=== PATIENT | female | born 2005 | race Caucasian/White ===

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

== ENCOUNTER 2025-01-28 09:40 | Emergency (ER) | payer OTHER, SELFPAY ==
[2025-01-28 09:40] VITALS: BP 116/61; PULSE 99; RESP 18; TEMP 36.4; O2SAT 98; BMI 25.2
--- NOTE | 2025-01-28 09:51 | ED.VIS.DYS ---
HPI History of Present Illness Chief Complaint: Asthma Narrative Narrative: 20-year-old female past medical history of asthma presents with shortness of breath that she has had for a week. She denies any fevers or chills, no cough, no nausea or vomiting. She states that she had RSV as a child and popcorn lung. She was seen at urgent care on approximately 3 days ago where she states that she received an injection of a steroid which is not helping her. She usually uses Symbicort as well as albuterol and had to use her nebulizer treatment within the last day. She presents with what she feels is having more of an asthma exacerbation for the last week. [facility] Medical History Cephalgia Lumbar radiculopathy Lumbar strain Dog bite of left buttock Nexplanon in place Acute otitis externa of right ear RSV (respiratory syncytial virus infection) Bronchiolitis obliterans Asthma Anxiety Depression Home Medications ?Medication ?Instructions ?Recorded ?Last Taken ?Type cetirizine 10 mg capsule (Zyrtec) 10 mg PO DAILY PRN Allergies 02/16/18 Unknown History fluticasone propionate 50 1 spray intranasal DAILY 02/23/23 Unknown History mcg/actuation nasal spray,suspension (Flonase Allergy Relief) melatonin 5 mg tablet 5 mg PO HS PRN sleep 02/23/23 Unknown History etonogestrel 68 mg subdermal 1 implant subdermal ONCE 05/22/23 Unknown History implant (Nexplanon) albuterol sulfate 90 mcg/actuation 1 - 2 puff inhalation Q4H PRN PRN 06/16/23 Unknown Rx aerosol inhaler (ProAir HFA) Sob &/Or Wheezing #6.7 grams budesonide-formoterol HFA 80 inhalation sob 07/20/24 Unknown History mcg-4.5 mcg/actuation aerosol inhaler (Symbicort) ondansetron HCl 8 mg tablet 8 mg PO Q8H PRN nausea and 08/04/24 Unknown Rx vomiting #14 tabs fluoxetine 10 mg capsule 10 mg PO QDAY #30 caps 11/03/24 Unknown Rx albuterol sulfate 90 mcg/actuation 2 puff inhalation Q4-6H PRN 01/26/25 Unknown Rx aerosol inhaler (Ventolin HFA) shortness of breath or wheezing #6.7 grams prednisone 20 mg tablet 40 mg (2 x 20 mg) PO DAILY 4 days 01/28/25 Unknown Rx #8 tabs Allergy/AdvReac Type Severity Reaction Status Date / Time Environmental Allergies: Allergy Other Verified 01/28/25 09:40 Uncoded peanut Allergy Anaphylaxis Verified 01/28/25 09:40 Family History Other Anxiety Asthma CVA (cerebral vascular accident) Cancer Depression Diabetes Heart disease Hypercholesteremia Hypertension Kidney disease Surgical History History of oral surgery Social History Smoking Status: Never smoker alcohol intake: never substance use type: does not use frequency: daily ROS ROS ED ROS Narrative Review of systems positive for shortness of breath and difficulty breathing x 1 week. No fevers or chills. No cough. No exacerbating or alleviating factors. EXAM Physical Exam Narrative Exam Narrative: Afebrile. Vital signs noted. Nontoxic-appearing. Cardiovascular examination reveals regular rate and rhythm. Lungs are clear to auscultation bilaterally without wheezing or stridor, moving a good amount of air, but she has slightly prolonged expiratory phase. Abdomen is soft and nontender with positive bowel sounds. Neurological examination nonfocal, nonlateralizing. Const Vital Signs: 01/28/25 09:40 01/28/25 09:52 01/28/25 10:06 Temperature 97.5 F L Temperature Source Temporal Pulse Rate 99 74 Respiratory Rate 18 18 Respiratory Effort Non-Labored Short of Breath Respiratory Depth Normal Respiratory Pattern Normal Normal Blood Pressure 116/61 Blood Pressure Mean 79 Pulse Ox 98 Oxygen Delivery Method Room Air Room Air 01/28/25 11:01 Temperature 97.8 F Temperature Source Pulse Rate 70 Respiratory Rate 16 Respiratory Effort Respiratory Depth Respiratory Pattern Blood Pressure 125/61 H Blood Pressure Mean 82 Pulse Ox 96 Oxygen Delivery Method MDM MDM MDM Narrative Medical decision making narrative: Differential diagnosis includes but not limited to asthma exacerbation versus pneumonia versus pneumothorax. History and physical does not support the latter 2 diagnoses. Pulse ox is 98% on room air without evidence of hypoxia. Patient administered a DuoNeb aerosolized treatment and start of a prednisone burst orally with 40 mg as she has already received an intramuscular injection of what she called prednisone which I suspect might have been Kenalog but she seems to recall that it was a smaller dose. Chest x-ray and 2 views will be obtained and interpreted by myself independently. On my independent interpretation of her two-view chest x-ray there is no evidence of a pneumonia or pneumothorax. I do not feel antibiotics are indicated. I reviewed the radiology report which confirms my independent interpretation. Upon repeat examination, she feels improved, and is using her cellular telephone lying on the cot comfortably. No respiratory distress. At this point in time, I feel she could be discharged to follow-up with her primary care provider. I reviewed her prior ED visit and she received a burst of steroids. I do feel she would benefit from an oral burst of steroids for the following 4 days. She was written a prescription for prednisone 40 mg. Return instructions to the emergency department were reviewed. She was encouraged to use her inhaler versus her nebulizer treatments every 4-6 hours as needed. Disposition is discharged home in stable condition. History & Record Review Discussion w/independent historian: Patient Additional record(s) reviewed:: Prior ED visit Radiography Chest X-Ray - ED: 2 View, Read by ED Physician, Read by Radiologist, Normal, No Acute Disease and No Infiltrates Diagnostic Testing: Clinical Impression(s) from Imaging Studies Chest X-Ray 01/28/25 10:15 IMPRESSION: NO ACUTE FINDINGS. Reading Location: [facility] Discharge Plan Triage Chief Complaint: Asthma ED Provider: Anoop Houser Dx/Rx/DC Orders Clinical Impression: Shortness of breath, Asthma exacerbation Instructions: ED Asthma, Acute (Adult), ED Dyspnea Prescriptions: New prednisone 20 mg tablet 40 mg PO DAILY 4 Days Qty: 8 0RF No Action melatonin 5 mg tablet 5 mg PO HS PRN (Reason: sleep) fluticasone propionate [Flonase Allergy Relief] 50 mcg/actuation spray,suspension 1 spray intranasal DAILY Rx Instructions: administer into each nostril Nexplanon 68 mg implant 1 implant subdermal ONCE Rx Instructions: as a single dose budesonide-formoterol [Symbicort] 80-4.5 mcg/actuation HFA aerosol inhaler inhalation Patient Comments: [NO ORIGINAL SIG] ondansetron HCl 8 mg tablet 8 mg PO Q8H PRN (Reason: nausea and vomiting) Qty: 14 0RF fluoxetine 10 mg capsule 10 mg PO QDAY Qty: 30 1RF albuterol sulfate [Ventolin HFA] 90 mcg/actuation HFA aerosol inhaler 2 puff inhalation Q4-6H PRN (Reason: shortness of breath or wheezing) Qty: 6.7 0RF Zyrtec 10 MG capsule 10 mg PO DAILY PRN (Reason: Allergies) albuterol sulfate [ProAir HFA] 1 PUFF inhaler 1 - 2 puff inhalation Q4H PRN PRN (Reason: Sob &/Or Wheezing) Qty: 6.7 0RF Primary Care Provider: Uvaldo Lentz Referrals: Uvaldo Lentz MD [Primary Care Provider, Pediatrics] - 1 Week if not improving Activity Restrictions/Additional Instructions: Use your albuterol inhaler or nebulizer treatment every 4-6 hours as needed for shortness of breath. You are given a dose of steroids here. You should continue the burst for the next 4 days starting tomorrow. Follow-up with your primary care provider. Return with fever, increased difficulty breathing, new or worsening symptoms. Print Language: Jordanian Disposition Disposition: Home, Self Care
[2025-01-28 09:52] VITALS: O2SAT 99
[2025-01-28 10:06] VITALS: PULSE 74; RESP 18
--- OUTSIDE RECORDS SUMMARY | 2025-01-28 10:14 | XMS RPT_ITS | CCD ---
Author Organization [facility] Providers Care [place] Customs And Border Officer Name Role Phone UVALDO JORGENSEN Unavailable Unavailable STEVE HARTLEY Unavailable Unavailable OMLOR, SUZANNA Unavailable Unavailable OMLOR, SUZANNA Unavailable Unavailable LAMAR LANDA Unavailable Unavailable OTHER, EMERGENCY Unavailable Unavailable UVALDO JORGENSEN Unavailable Unavailable Uvaldo Jorgensen MD Primary Care Provider Uvaldo Jorgensen MD Primary Care Provider Uvaldo Jorgensen MD Primary Care Provider Dr. Uvaldo Jorgensen Primary Care Provider Dr. Uvaldo Jorgensen Referring Provider YOSELYN Wilcox Attending Provider YOSELYN Pinzon Attending Provider Uvaldo Jorgensen MD Primary Care Provider DR UVALDO JORGENSEN MD Primary Care Physician UVALDO JORGENSEN Attending Unavailable UVALDO JORGENSEN Primary Care Unavailable UVALDO JORGENSEN Attending Unavailable UVALDO JORGENSEN Primary Care Unavailable UVALDO JORGENSEN Primary Care Unavailable UVALDO JORGENSEN Attending Unavailable UVALDO JORGENSEN Primary Care Unavailable DR UVALDO JORGENSEN MD Primary Care Unavailabl e DWAYNE DOJANELL Attending Unavailable ASHWINI RENTERIA DO Attending Unavailable DR UVALDO JORGENSEN MD Primary Care Unavailabl e Uvaldo Jorgensen Primary Care Unavailable Shira Pastor Attending Unavailable Uvaldo Jorgensen Referring Unavailable Uvaldo Jorgensen Attending Unavailable Uvaldo Jorgensen Primary Care Unavailable Uvaldo Jorgensen Primary Care Unavailable Francisco Javier Wilcox Referring Unavailable Francisco Javier Wilcox Attending Unavailable Uvaldo Jorgensen Primary Care Unavailable Christal Paulino Attending Unavailable Shira Pastor Attending Unavailable Mary Carmen, Uvaldo Primary Care Unavailable Skruck, Christal Attending Unavailable Mary Carmen, Uvaldo Primary Care Unavailable Mary Carmen, Uvaldo Primary Care Unavailable Mary Carmen, Uvaldo Referring Unavailable Ranjan Pinzon Attending Unavailable Mary Carmen, Uvaldo Primary Care Unavailable Skruck, Christal Attending Unavailable Mary Carmen, Uvaldo Primary Care Unavailable Pastor, Shira Attending Unavailable Mary Carmen, Uvaldo Primary Care Unavailable Skruck, Christal Attending Unavailable Mary Carmen, Uvaldo Primary Care Unavailable Skruck, Christal Attending Unavailable Mary Carmen, Uvaldo Primary Care Unavailable Pastor, Shira Attending Unavailable Mary Carmen, Uvaldo Primary Care Unavailable Skruck, Christal Attending Unavailable Mary Carmen, Uvaldo Primary Care Unavailable Pastor, Shira Attending Unavailable Mary Carmen, Uvaldo Primary Care Unavailable Mary Carmen, Uvaldo Referring Unavailable Francisco Javier Wilcox Attending Unavailable Mary Carmen, Uvaldo Primary Care Unavailable Skruck, Christal Attending Unavailable Mary Carmen, Uvaldo Primary Care Unavailable Pastor, Shira Attending Unavailable Mary Carmen, Uvaldo Primary Care Unavailable Skruck, Christal Attending Unavailable Mary Carmen, Uvaldo Referring Unavailable Ranjan Pinzon Attending Unavailable Mary Carmen, Uvaldo Primary Care Unavailable Allergies Allergy Classification Reported Allergen(s) Allergy Type Date of Onset Reaction(s) Facility cashew nut allergenic extract (2 sources) cashew nut allergenic extract Drug Allergy 3 [facility] Peanuts and Peanut Containing Products (2 sources) peanut Food Allergy 8 [facility] (1 source) peanut; Translations: [PEANUT ALLERGY] Propensity to adverse reactions to drug (disorder) 8 [facility] Repository (1 source) Seasonal allergy; Translations: [SEASONAL ALLERGIES] Propensity to adverse reactions (disorder) 8 [facility] Repository (20 sources) peanut; Translations: [PEANUTS] Propensity to adverse reactions 8 [facility] Work Phone: (20 sources) Environmental allergies [Other] Propensity to adverse reactions 8 [facility] (3 sources) peanut allergenic extract Drug Allergy 2 Anaphylaxis [facility] (20 sources) cashew nut allergenic extract; Translations: [CASHEW NUT] Drug Allergy 3 Other: See Comments, [facility] Work Phone: (2 sources) Environmental Allergies: Uncoded; Translations: [Environmental Allergies: Uncoded] Allergy to substance 3 Other [facility] (1 source) peanut allergenic extract Drug Allergy 5 [facility] Repository Medications Current Medications Medication Drug Class(es) Dates Sig (Normalized) Sig (Original) [id number] 200 actuat albuterol 0.09 mg/actuat metered dose inhaler (20 sources) beta2-Adrenergic Agonist Start: 08-15-2024 take 2 puff(s) by mouth every four hours as needed for wheezing albuterol HFA (PROVENTIL HFA, VENTOLIN HFA) 90 mcg/actuation inhaler INHALE 2 PUFFS BY MOUTH EVERY 4 HOURS NEEDED FOR WHEEZING OR SHORTNESS OF BREATH 8.5 g 08/15/2024 Active Start: 05-19-2024 End: 06-23-2024 take 2 puff(s) by inhalation every four hours as needed for wheezing albuterol HFA (PROVENTIL HFA, VENTOLIN HFA) 90 mcg/actuation inhaler Inhale 2 Puffs as instructed every 4 hours as needed for wheezing/shortness of breath. 8.5 g 06/23/2024 Active Start: 02-26-2024 take 2.5 mg by inhal ation every four hours as needed albuterol (PROVENTIL) 2.5 mg /3 mL (0.083 %) nebulizer solution Use 3 mL via nebulizer every 4 hours as needed. single dose vials. 1 vial contains 3 ml 300 mL 02/26/2024 Active Start: 02-26-2024 albuterol 0 Re fill(s) Start Date: 02/26/24 Status: Ordered Repeat number: 1 Start: 02-26-2024 albuterol 0 Re fill(s) Start Date: 02/26/24 Status: Ordered Start: 02-18-2024 End: 02-18-2024 take 2 puff(s) by mouth every four hours as needed for wheezing albuterol HFA (PROVENTIL HFA, VENTOLIN HFA) 90 mcg/actuation inhaler inhale 2 puffs by mouth every 4 hours as needed for wheezing or shortness of breath 8.5 g 02/18/2024 02/18/2024 Discontinued Start: 10-26-2023 End: 05-15-2024 take 2 puff(s) by inhalation every four hours as needed for wheezing albuterol HFA (PROVENTIL HFA, VENTOLIN HFA) 90 mcg/actuation inhaler Inhale 2 Puffs as instructed every 4 hours as needed for wheezing/shortness of breath. 8.5 g 05/16/2024 Active Start: 10-27-2022 End: 10-26-2023 take 2 puff(s) by inhalation every four hours as needed for wheezing albuterol HFA (PROVENTIL HFA, VENTOLIN HFA) 90 mcg/actuation inhaler Inhale 2 Puffs as instructed every 4 hours as needed for wheezing/shortness of breath. 6.7 Each 2 03/30/2023 07/25/2023 Discontinued Start: 10-03-2022 take 2 puff(s) by in halation every four hours as needed for wheezing albuterol HFA (PROVENTIL HFA, VENTOLIN HFA) 90 mcg/actuation inhaler Inhale 2 Puffs as instructed every 4 hours as needed for wheezing/shortness of breath. 18 Each 0 10/03/2022 Active Start: 09-10-2022 take 2 puff(s) by in halation every four to six hours as needed for wheezing albuterol HFA (PROVENTIL HFA, VENTOLIN HFA) 90 mcg/actuation inhaler TAKE 2 PUFFS EVERY 4-6 HOURS NEEDED FOR WHEEZING OR SHORTNESS OF BREATH. ALWAYS USE WITH SPACER. 18 Each 0 09/10/2022 Active Start: 08-14-2022 End: 09-10-2022 take 2 puff(s) by inhalation every four to six hours as needed for wheezing albuterol HFA (PROVENTIL HFA, VENTOLIN HFA) 90 mcg/actuation inhaler TAKE 2 PUFFS EVERY 4-6 HOURS NEEDED FOR WHEEZING OR SHORTNESS OF BREATH. ALWAYS USE WITH SPACER. 18 g 0 08/14/2022 09/10/2022 Discontinued Start: 07-29-2022 End: 08-14-2022 take 2 puff(s) by inhalation every four to six hours as needed for wheezing albuterol HFA (PROVENTIL HFA, VENTOLIN HFA) 90 mcg/actuation inhaler Indications: Viral illness Take 2 puffs every 4-6 hours as needed for wheezing or shortness of breath. Always use with spacer. 1 Each 0 07/29/2022 08/14/2022 Discontinued Start: 06-16-2022 End: 07-29-2022 take 2 puff(s) by inhalation every four hours as needed albuterol HFA (PROVENTIL HFA, VENTOLIN HFA) 90 mcg/actuation inhaler Inhale 2 Puffs as instructed every 4 hours as needed. 1 Each 0 06/16/2022 07/29/2022 Discontinued Start: 07-24-2021 End: 05-02-2022 take 2 puff(s) by inhalation every four hours as needed albuterol HFA (PROVENTIL HFA, VENTOLIN HFA) 90 mcg/actuation inhaler Inhale 2 Puffs as instructed every 4 hours as needed. 54 g 3 07/24/2021 05/02/2022 Discontinued Start: 06-28-2021 End: 04-18-2022 take 2 puff(s) by inhalation every four hours as needed albuterol HFA (PROVENTIL HFA, VENTOLIN HFA) 90 mcg/actuation inhaler Inhale 2 Puffs as instructed every 4 hours as needed. 1 Inhaler 06/28/2021 04/18/2022 Discontinued Start: 04-22-2021 End: 05-02-2022 take 2 puff(s) by inhalation every four hours as needed albuterol HFA (PROVENTIL HFA, VENTOLIN HFA) 90 mcg/actuation inhaler Inhale 2 Puffs as instructed every 4 hours as needed. 8 g 03/09/2022 05/02/2022 Discontinued Start: 11-08-2020 End: 05-02-2022 take 2.5 mg by inhalation every four hours as needed albuterol (PROVENTIL) 2.5 mg /3 mL (0.083 %) nebulizer solution Use 3 mL via nebulizer every 4 hours as needed. single dose vials. 1 vial contains 3 ml 300 mL 11/08/2020 03/04/2021 Discontinued Start: 08-13-2020 End: 03-08-2021 take 2 puff(s) by inhalation every four hours as needed albuterol HFA (PROVENTIL HFA, VENTOLIN HFA) 90 mcg/actuation inhaler Inhale 2 Puffs as instructed every 4 hours as needed. 54 g 3 12/26/2020 03/08/2021 Discontinued Start: 10-02-2017 take 1 puff(s) by in halation every four hours as needed Albuterol Sulfate (Proair Hfa (Sp)Vent Pts) 1 PUFF inhaler Active 1 - 2 PUFF INHALATION EVERY 4 HOURS NEEDED October 02, 2017 12:00am Comment on above: Use 3 mL via nebuliz er every 4 hours as needed. single dose vials. 1 vial contains 3 ml Inhale 2 Puffs as in structed every 4 hours as needed. Take 2 puffs every 4 -6 hours as needed for wheezing or shortness of breath. Always use with spacer. Inhale 2 Puffs as in structed every 4 hours as needed for wheezing/shortness of breath. albuterol MDI (90 mcg/inh) CFC free inhalation aerosol (2 sources) Start: take 2 puff(s) by inhalation every four hours albuterol MDI (90 mcg/inh) CFC free inhalation aerosol 2 puff(s), Inhalation, q4h, # 18 gram(s), 0 Refill(s) Start Date: 02/26/24 Status: Ordered Quantity: 18.0 Unit: g Repeat number: 1 Start: 02-26-2024 take 2 puff(s) by in halation every four hours albuterol MDI (90 mcg/inh) CFC free inhalation aerosol 2 puff(s), Inhalation, q4h, # 18 gram(s), 0 Refill(s) Start Date: 02/26/24 Status: Ordered Albuterol Sulfate (Proair Hfa (Sp)Vent Pts) 1 PUFF inhaler (1 source) Start: 10-02-2017 take 1 puff(s) by inhalation every four hours as needed Albuterol Sulfate (Proair Hfa (Sp)Vent Pts) 1 PUFF inhaler Active 1 - 2 PUFF INHALATION EVERY 4 HOURS NEEDED October 01, 2017 11:00pm amoxicillin 875 mg / clavulanate 125 mg oral tablet (2 sources) Penicillin-class Antibacterial Start: 08-21-2022 End: 08-26-2022 take 1 tablet by mouth twice daily amoxicillin-clavu lanic acid (AUGMENTIN) 875-125 mg per tablet Indications: Acute sinusitis, recurrence not specified, unspecified location Take 1 tablet by mouth twice daily for 5 days. 10 tablet 0 08/21/2022 08/26/2022 Active Comment on above: Take 1 tablet by [facility] twice daily for 5 days. 60 actuat budesonide 0.08 mg/actuat / formoterol fumarate 0.0045 mg/actuat metered dose inhaler (7 sources) Corticosteroid, beta2-Adrenergic Agonist Start: 01-10-2025 take 2 puff(s) by mouth twice daily SYMBICORT 80-4.5 mcg/actuation inhaler INHALE 2 PUFFS BY MOUTH INSTRUCTED TWICE DAILY 10.2 g 01/10/2025 Active Start: 06-23-2024 End: 01-10-2025 take 2 puff(s) by inhalation twice daily budesonide-formoterol (SYMBICORT) 80-4.5 mcg/actuation inhaler Inhale 2 Puffs as instructed two times a day. 1 Each 5 06/23/2024 01/10/2025 Discontinued Start: 06-23-2024 take 2 puff(s) by in halation twice daily budesonide-formoterol (SYMBICORT) 80-4.5 mcg/actuation inhaler Inhale 2 Puffs as instructed two times a day. 1 Each 5 06/23/2024 Active cephalexin 500 mg oral tablet (2 sources) Cephalosporin Antibacterial Start: 07-06-2024 End: 07-13-2024 cephalexin 500 mg oral tablet Dose : 500 mg = 1 tab(s), Oral, QID, X 7 day(s), # 28 tab(s), 0 Refill(s), 07/13/24 11:00:00 AM EST, 77.3 Start Date: 07/06/24 Stop Date: 07/13/24 Status: Ordered Quantity: 28.0 Unit: tab(s) Repeat number: 1 Start: 08-12-2023 End: 08-19-2023 take 1 capsule by mouth twice daily cephALEXin (KEFLEX) 500 mg capsule Take 1 capsule by mouth two times a day for 7 days. 14 capsule 0 08/12/2023 08/19/2023 Active Comment on above: Take 1 capsule by [facility] two times a day for 7 days. cetirizine hydrochloride 10 mg oral capsule (14 sources) Histamine-1 Receptor Antagonist Start: 02-17-20 Cetirizine 10 mg cap Take by mouth. 02/16/2018 Active 60 actuat ciclesonide 0.08 mg/actuat metered dose inhaler (20 sources) Start: 07-30-19 End: 09-21-19 take 1 puff(s) by inhalation twice daily Ciclesonide (ALVESCO) 80 mcg/actuation inhaler Indications: Viral illness Inhale 1 Puff as instructed twice daily. Always use with spacer. 6.1 g 0 08/21/2022 09/20/2022 Active Start: 01-12-2021 End: 08-21-2022 take 1 puff(s) by mouth twice daily Ciclesonide (ALVESCO) 80 mcg/actuation inhaler Inhale 1 puff by mouth as instructed twice daily. 18.3 g 3 01/12/2021 05/02/2022 Discontinued Start: 08-13-2020 End: 01-12-2021 take 1 puff(s) by mouth twice daily Ciclesonide (ALVESCO) 80 mcg/actuation inhaler Inhale 1 puff by mouth as instructed twice daily. 6.1 g 2 08/13/2020 01/12/2021 Discontinued Comment on above: [facility]. Inhale 1 Puff as ins tructed twice daily. Always use with spacer. [id number] 0.3 ml EPINEPHrine 1 mg/ml auto-injector (20 sources) alpha-Adrenergic Agonist, beta-Adrenergic Agonist, Catecholamine Start: 12-26-2020 End: 08-10-2023 EPINEPHrine (EPIPEN) 0.3 mg/0.3 mL auto-injector Inject 0.3 mL intramuscularly as needed. 2 Each 1 08/10/2023 Active Start: 12-31-2019 End: 12-25-2020 EPINEPHrine (EPIPEN) 0.3 mg/ 0.3 mL auto-injector INJECT 0.3 ML INTRAMUSCULARLY NEEDED. 2 Each 12/31/2019 12/25/2020 Discontinued Comment on above: Inject 0.3 mL intram uscularly as needed. escitalopram 20 mg oral tablet (20 sources) Serotonin Reuptake Inhibitor Start: 02-26-2024 escitalopram Oral, qDay, 0 Refill(s) Start Date: 02/26/24 Status: Ordered Repeat number: 1 Start: 02-26-2024 escitalopram O ral, qDay, 0 Refill(s) Start Date: 02/26/24 Status: Ordered Start: 06-16-2022 End: 06-23-2024 take 1 tablet by mouth once daily escitalopram oxalate (LEXAPRO) 20 mg tablet Take 1 tablet by mouth once daily. 90 tablet 06/23/2024 Active Start: 03-10-2022 End: 05-02-2022 take 1 tablet by mouth once daily escitalopram oxalate (LEXAPRO) 20 mg tablet Take 1 tablet by mouth once daily. 90 tablet 03/10/2022 05/02/2022 Discontinued Start: 01-01-2022 End: 03-10-2022 take 1 tablet by mouth once daily escitalopram oxalate (LEXAPRO) 5 mg tablet TAKE 1 TABLET BY MOUTH DAILY IN. TAKE IN ADDITION TO 10 MG FOR TTL DAILY DOSE OF 15 MG. 90 tablet 1 01/01/2022 03/10/2022 Discontinued Start: 07-19-2021 End: 12-30-2021 take 1 tablet by mouth once daily escitalopram oxalate (LEXAPRO) 5 mg tablet TAKE 1 TABLET BY MOUTH DAILY IN. TAKE IN ADDITION TO 10 MG FOR TTL DAILY DOSE OF 15 MG. 90 tablet 1 12/17/2021 12/30/2021 Discontinued Start: 05-08-2021 End: 03-10-2022 take 1 tablet by mouth once daily escitalopram oxalate (LEXAPRO) 10 mg tablet Take 1 tablet by mouth once daily. 90 tablet 1 09/09/2021 03/10/2022 Discontinued Comment on above: Take 1 tablet by dexter th once daily. to add to 10 mg for a total dose of 15 mg Take 1 tablet by dexter th once daily. TAKE 1 TABLET BY DEXTER TH DAILY IN. TAKE IN ADDITION TO 10 MG FOR TTL DAILY DOSE OF 15 MG. take 1 tablet by dexter th every day etonogestrel 68 mg drug implant (20 sources) Progestin Start: 04-28-20 End: 04-27-20 etonogestrel (NEXPLANON) subdermal implant 68 mg Indications: Insertion of implantable subdermal contraceptive 1 Each by SUBDERMAL route as directed. 1 Each 04/28/2023 04/27/2026 Active Comment on above: 1 Each by SUBDERMAL route as directed. fluticasone propionate 0.05 mg/actuat metered dose nasal spray (20 sources) Corticosteroid Start: 08-10-19 take 1 spray(s) nasal route once daily fluticasone (FLONASE ALLERGY RELIEF) 50 mcg/actuation nasal spray Use 1 [place] in each nostril once daily. 1 Each 5 08/10/2023 Active Start: 02-23-2023 take 1 spray(s) nasa l route once daily Fluticasone Propionate (Flonase Allergy Relief) 50 mcg/actuation spray,suspension Active 1 SPRAY INTRANASAL DAILY February 22, 2023 11:00pm administer into each nostril Start: 01-07-2023 End: 08-10-2023 take 1 puff(s) by inhalation twice daily Fluticasone Propionate (FLOVENT DISKUS) 50 mcg/actuation diskus inhaler Inhale 1 Puff as instructed twice daily. 1 Each 01/07/2023 08/10/2023 Discontinued Start: 02-16-2018 End: 01-02-2023 fluticasone (FLOVENT) 110 mcg/actuation inhaler Inhale as instructed. 0 02/16/2018 01/02/2023 Discontinued Start: 02-16-2018 take 1 puff(s) by in halation twice daily Fluticasone Propionate (Flovent Hfa) 110 HFA aerosol inhaler Active 2 PUFF INHALATION TWICE A DAY February 15, 2018 11:00pm Start: 02-16-2018 take 1 puff(s) by in halation twice daily Fluticasone Propionate (Flovent Hfa) 110 HFA aerosol inhaler Active 2 PUFF INHALATION TWICE A DAY February 16, 2018 12:00am Comment on above: Inhale as instructed . Inhale 1 Puff as ins tructed twice daily. Use 1 [place] in each nostril once daily. hydrOXYzine (20 sources) Antihistamine Start: 02-26-2024 Atarax use hydrOXYzine hydrochloride Oral, QID, 0 Refill(s) Start Date: 02/26/24 Status: Ordered Repeat number: 1 Start: 02-26-2024 Atarax use hydrOXYzine hydrochloride Oral, QID, 0 Refill(s) Start Date: 02/26/24 Status: Ordered Start: 05-02-2022 End: 09-08-2023 take 1 tablet by mouth every eight hours as needed hydrOXYzine HCl (ATARAX) 25 mg tablet take 1 tablet by mouth three times a day as needed for anxiety 270 tablet 09/08/2023 Active Comment on above: Take 1 tablet by dexter th three times daily as needed for anxiety. TAKE 1 TABLET BY DEXTER TH 3 TIMES A DAY NEEDED FOR ANXIETY take 1 tablet by dexter th three times a day as needed for anxiety inhalat.spacing dev,large mask (AEROCHAMBER PLUS FLOW-VU,L MSK) spcr (20 sources) Start: 07-29-2022 inhalat.spacing dev,large mask (AEROCHAMBER PLUS FLOW-VU,L MSK) spcr Indications: Viral illness Use with inhaler as directed. 1 Each 1 07/29/2022 Active Comment on above: Use with inhaler as directed. melatonin 5 mg oral tablet (20 sources) Start: 02-23-2023 take 5 mg by mouth at bedtime Melatonin Active 5 MG PO BEDTIME February 22, 2023 11:00pm MELATONIN ORAL T maureen by mouth. Active MELATONIN ORAL T maureen by mouth. 0 Active Comment on above: Take by mouth. ondansetron 4 mg oral tablet (10 sources) Serotonin-3 Receptor Antagonist Start: 07-06-2024 End: 07-09-2024 Zofran 4 mg oral tablet Dose : 4 mg = 1 tab(s), Oral, q8h, PRN Nausea/Vomiting, X 3 day(s), # 9 tab(s), 0 Refill(s), 07/09/24 3:02:00 AM EST Start Date: 07/06/24 Stop Date: 07/09/24 Status: Ordered Quantity: 9.0 Unit: tab(s) Repeat number: 1 Start: 04-19-2023 take 4 mg by mouth t hree times daily Ondansetron Active 4 MG PO THREE TIMES A DAY April 19, 2023 2:04am Start: 02-26-2023 End: 04-07-2023 take 8 mg by mouth every eight hours Ondansetron Hcl Discontinued 8 MG PO Q8H February 25, 2023 11:00pm April 07, 2023 9:08am Start: 04-05-2022 End: 05-02-2022 take 1 tablet by mouth every eight hours as needed ondansetron (ZOFRAN) 4 mg tablet Take 1 tablet by mouth every 8 hours as needed for nausea/vomiting. 18 tablet 04/05/2022 05/02/2022 Discontinued Start: 04-05-2022 End: 04-05-2022 ondansetron orally disintegr ating 4 mg tab(s) (ZOFRAN ODT) Comment on above: Take 1 tablet by dexter th every 8 hours as needed for nausea/vomiting. predniSONE 20 mg oral tablet (14 sources) Start: 02-26-2024 End: 03-02-2024 predniSONE 20 mg oral tablet Dose : 40 mg = 2 tab(s), Oral, qDayM, X 5 day(s), # 10 tab(s), 0 Refill(s), 03/02/24 12:34:00 AM EDT Start Date: 02/26/24 Stop Date: 03/02/24 Status: Ordered Start: 01-05-2023 End: 01-10-2023 take 2 tablets by mouth once daily predniSONE (DELTASONE) 20 mg tablet Indications: URI, acute , History of asthma Take 2 tablets by mouth once daily for 5 days. 10 tablet 0 01/05/2023 01/10/2023 Active Start: 08-07-2022 End: 08-12-2022 take 3 tablets by mouth once daily predniSONE (DELTASONE) 20 mg tablet Indications: Mild persistent asthma with acute exacerbation Take 3 tablets by mouth once daily for 5 days. 15 tablet 0 08/07/2022 08/12/2022 Active Start: 01-24-2022 End: 04-08-2022 predniSONE (DELTASONE) 10 mg tablet Indications: Lumbar pain Take 4 tabs daily for 3 days, then 2 tabs daily for 3 days, then 1 tab daily for 3 days with food. 21 tablet 01/24/2022 04/08/2022 Discontinued Start: 02-16-2018 End: 02-23-2023 take 40 mg by mouth once daily Prednisone Discontinued 40 MG PO DAILY February 15, 2018 11:00pm February 23, 2023 8:30am Comment on above: Take 4 tabs daily fo r 3 days, then 2 tabs daily for 3 days, then 1 tab daily for 3 days with food. Take 3 tablets by mo [facility] once daily for 5 days. Take 2 tablets by mo [facility] once daily for 5 days. Completed/Discontinued Medications Medication Drug Class(es) Dates Sig (Normalized) Sig (Original) azithromycin 250 mg oral tablet (3 sources) Macrolide Antimicrobial Start: 02-16-2018 End: 02-23-2023 take 250 mg by mouth once daily Azithromycin Discontinued 250 MG PO DAILY February 15, 2018 11:00pm February 23, 2023 8:30am breath-actuated 120 actuat beclomethasone dipropionate 0.04 mg/actuat metered dose inhaler (20 sources) Corticosteroid Start: 08-10-2023 End: 01-10-2025 take 1 puff(s) by inhalation twice daily beclomethasone (QVAR REDIHALER) 40 mcg/actuation inhaler Inhale 1 Puff as instructed two times a day. 1 Each 5 02/18/2024 01/10/2025 Discontinued Start: 01-02-2023 End: 01-02-2023 take 2 puff(s) by inhalation twice daily beclomethasone (QVAR REDIHALER) 40 mcg/actuation inhaler Inhale 2 Puffs as instructed twice daily. 1 Each 5 01/02/2023 01/02/2023 Discontinued Start: 08-21-2022 End: 08-21-2022 take 2 puff(s) by inhalation twice daily beclomethasone (QVAR REDIHALER) 40 mcg/actuation inhaler Inhale 2 Puffs as instructed twice daily. 1 Each 5 08/21/2022 08/21/2022 Discontinued Comment on above: Inhale 2 Puffs as in structed twice daily. Inhale 1 Puff as ins tructed two times a day. benzonatate 200 mg oral capsule (11 sources) Non-narcotic Antitussive Start: 3 End: take 200 mg by mouth three times daily Benzonatate Discontinued 200 MG PO THREE TIMES A DAY April 07, 2023 12:00am April 19, 2023 12:17am Start: 08-17-2022 End: 01-02-2023 take 1 capsule by mouth every eight hours as needed benzonatate (TESSALON PERLES) 100 mg capsule Take 1 capsule by mouth three times daily as needed for cough. 15 capsule 0 08/17/2022 01/02/2023 Discontinued (Other) Comment on above: Take 1 capsule by mo ut three times daily as needed for cough. 60 actuat budesonide 0.09 mg/actuat dry powder inhaler (2 sources) Corticosteroid Start: End: take 2 puff(s) by inhalation twice daily budesonide (PULMICORT FLEXHALER) 90 mcg/actuation aepb Inhale 2 Puffs as instructed twice daily. 1 Each 2 01/02/2023 01/07/2023 Discontinued Comment on above: Inhale 2 Puffs as in structed twice daily. 24 hr buPROPion hydrochloride 150 mg extended release oral tablet (1 source) Aminoketone Start: End: take 1 tablet by mouth once daily buPROPion XL (WELLBUTRIN XL) 150 mg 24 hr tablet TAKE 1 TABLET BY MOUTH EVERY DAY 90 tablet 1 02/04/2021 04/05/2021 Discontinued cholecalciferol 1.25 mg oral capsule (20 sources) Vitamin D Start: End: take 1 capsule by mouth every week cholecalciferol, Vitamin D3, (VITAMIN D3) 1,250 mcg (50,000 unit) cap capsule TAKE 1 CAPSULE BY MOUTH ONE TIME A WEEK. 4 capsule 2 07/18/2022 02/18/2024 Discontinued Start: 09-23-2021 End: 03-09-2022 take 1 capsule by mouth every week cholecalciferol, Vitamin D3, (VITAMIN D3) 1,250 mcg (50,000 unit) cap capsule TAKE 1 CAPSULE BY MOUTH ONE TIME A WEEK. 4 capsule 2 12/09/2021 Active Comment on above: Take 1 capsule by mo [facility] [facility] cyclobenzaprine hydrochloride 10 mg oral tablet (11 sources) Muscle Relaxant Start: End: 12-23-2 022 take 1 tablet by mouth three times daily as needed for muscle spasms cyclobenzaprine (FLEXERIL) 10 mg tablet Indications: Lumbar pain Take 1 tablet by mouth three times daily as needed for muscle spasm. 21 tablet 01/24/2022 05/02/2022 Discontinued Comment on above: Take 1 tablet by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 when mother has not responded supportively to her in emergency situations. Used motivational interviewing to address relationship with ex-boyfriend. Lexis did express concern that ex-boyfriend has been dishonest with her. No SI. Future-oriented. Exam Mental Status Exam - Psych Appearance casually dressed and adequately groomed Attitude cooperative and engaged Activity/Motor Behavior MSE activity/motor behavior finding no adventitious movements and appropriate eye contact Speech regular rate, regular volume and regular prosody Mood OK and anxious Affect full range Thought Process linear, logical and coherent Thought Content no delusions and no hallucinations Suicidal Ideation none Homicidal Ideation none Attention impaired (Per pt. report.) Concentration impaired (Per pt. report.) Sensorium/Orientation awake, alert and oriented x3 Memory/Cognition impaired (Per pt. report.) Insight fair Judgement fair Assessment Plan Assessment Plan (1) Unspecified mood [affective] disorder: Plan: therapy using CBT, DBT, and ACT interventions to address thought patterns contributing to mood symptoms and fluctuations and to teach coping skills. Continued psychiatric services to monitor mood symptoms and medication effectiveness. Call 911, call suicide prevention hotline, or go to ER if experiencing suicidal plan and intent and/or feels own safety cannot be ensured (2) JAMAR (generalized anxiety disorder): Plan: therapy using CBT, DBT, and ACT interventions to address thought patterns contributing to anxious symptoms and to teach coping skills. Psychiatric services to monitor anxious symptoms and medication effectiveness. Plan TREATMENT PLANTREATMENT PLAN Goal 1 - Develop healthy thought patterns and beliefs about self, others, and the world that reduce depressive symptoms and negative relational experiences AEB pt. report. Objective 1 - Will learn and apply skills to re (more content not included)... Normal [facility] Urine Cultureon 10-30-2024 URC Below infection leve l. Mixed Gram Positive Organisms Pitkin Count 1000-10,000 MIXC Mixed contaminants. Submit a new specimen if indicated. Normal [facility] Comment on above: Performed By: #### M 100.2200 #### [facility] [place], [address] M8200.2203on 10-27-2024 M8200.2203 Chlamydia Trachomati s PCR NEGATIVE for Chlamydia trachomatis N. gonorrhoeae PCR Negative for N. gonorrhoeae Normal [facility] Comment on above: Performed By: #### L 400.7600, M8200.2203 ####[facility] [id number] [place], [address] ,Urineon 10-27-2024 Beta HCG ( test) Ql (U) Negative Normal [facility] Comment on above: Order Comment: Result Comment: Very dilute urine specimens, as indicated by a low specific gravity, may not contain freight representative levels of hCG. If is still suspected, a first morning urine specimen should be collected 48 hours later and tested. Performed By: #### L 400.7600, M8200.2203 ####[facility] [id number] [place], [place], [address] Urgent Care Visit Reporton 0 10-26-2024 Urgent Care Visit Report [facility] [address], [address] [place], [place] [address] OFFICE VISIT Date of Service: 10/26/24 MR#: [id number] Acct: [id number] Name: LEXIS GUERRA Rep #: [id number] : 2005 Provider: YOSELYN Garcia Age/Sex: 19/F Location: [facility] Status: Signed Intake Vital Signs 10/07/24 06:48 10/26/24 16:55 Height 5 ft 4 in BP 112/64 Blood Pressure Location Lt brachial Position Sitting Respiration 14 Pulse 86 Pulse Source NIBP Temp 98.3 F Temp Source Oral Pulse Oximetry (%) 98 Oxygen Delivery Method room air Intake Visit Reasons: CONCERN FOR UTI Chief Complaint: flank pain, pubic discomfort, vaginal discharge Radio Rigger Required: No Is patient in pain?: Yes Allergies Environmental Allergies: Uncoded Allergy (Verified 10/26/24 17:00) Other peanut Allergy (Verified 10/26/24 17:00) Anaphylaxis Is last menstrual period known: No Post menopausal: No Patient : No Have you fallen in the past year?: No Nurse's Note: flank pain, pubic discomfort, decreased urinary output, vaginal discharge x 4 days. concern for UTI PFSH Medical History (Updated 08/04/24 @ 13:20 by Ranjan TOPETE, PA) Cephalgia Lumbar radiculopathy Lumbar strain Dog bite of left buttock Nexplanon in place Acute otitis externa of right ear RSV (respiratory syncytial virus infection) Bronchiolitis obliterans Asthma Anxiety Depression Surgical History (Updated 07/20/24 @ 07:24 by Genoveva Luis) History of oral surgery Family History (Updated 07/20/24 @ 07:27 by Genoveva Luis) Other Anxiety Asthma CVA (cerebral vascular accident) Cancer Depression Diabetes Heart disease Hypercholesteremia Hypertension Kidney disease Social History (Updated 07/20/24 @ 07:28 by Genoveva Luis) Smoking Status: Never smoker alcohol intake: never substance use type: does not use frequency: daily HPI HPI Chief Complaint: flank pain, pubic discomfort, vaginal discharge Details: LEXIS GUERRA, is a 19 F who presents to the office today for History of Present Illness The patient is a 19-year-old female presenting with symptoms suggestive of a urinary tract infection. She reports experiencing urinary symptoms for approximately four days, characterized by urinary frequency and urgency, with minimal urine output described as droplets. The urine is described as yellow without significant changes in color or character, and there is no associated mid-back pain. The patient also reports a change in vaginal discharge, which is creamy and matches the color of her urine. She is sexually active with no new partners, although her partner has had other partners. Review of Systems - No fever, chills, sweats - Genitourinary: Reports urinary frequency, urgency, and minimal urine output for four days. Denies mid-back pain. - Gastrointestinal: Denies changes in stool color or character. - Respiratory: Denies chest pain, shortness of breath, or difficulty breathing. - Reproductive: Reports change in vaginal discharge, creamy and matching urine color. Physical Exam - Cardiovascular: Heart sounds regular in rhythm and rate - Respiratory: Lungs clear to auscultation bilaterally - Abdominal: Mild tenderness in the suprapubic region Results - Urinalysis and urine culture ordered to confirm urinary tract infection and check for sexually transmitted infections. Assessment and Plan The 19-year-old female presents with symptoms indicative of a urinary tract infection, including urinary frequency, urgency, and minimal urine output over the past four days. The urine is yellow without significant changes, and there is no mid-back pain, suggesting the infection may be localized to the lower urinary tract. Additionally, the patient reports a change in vaginal discharge, raising the possibility of a concurrent sexually transmitted infection, given her partner's sexual history. 1. Urinary Tract Infection: N39.0 Urinalysis and urine culture have been ordered to confirm the diagnosis of a urinary tract infection. Symptomatic relief with ibuprofen and Tylenol is recommended, and the patient is advised to continue taking Azo as needed. If symptoms worsen, the patient should seek emergency care. 2. Possible Sexually Transmitted Infection: Z20.2 Testing for sexually transmitted infections, including gonorrhea and chlamydia, will be conducted as part of the urine analysis. Appropriate antibiotics will be prescribed if an infection is detected. Patient Instructions - Take ibuprofen and Tylenol for pain relief as needed. - Continue using Azo for urinary symptoms. - Seek emergency care if symptoms worsen. - Follow up for test results and further instructions. ers. Coding Level of Care Code (more content not included)... Normal [facility] MR/BMS.BP 10-07-2024 MR/BMS.BP [address], [address] [place] [address] OFFICE VISIT Date of Service: 10/06/24 MR#: [id number] Acct: [id number] Name: LEXIS GUERRA Rep #: [id number] : 2005 Provider: [facility] Christal sheriff Age/Sex: 19/F Location: [facility] Status: Signed Intake Vital Signs 07/26/24 08:08 09/15/24 15:58 10/07/24 06:48 Height 5 ft 4 in 5 ft 4 in 5 ft 4 in BP Intake Visit Reasons: Follow up Allergies Environmental Allergies: Uncoded Allergy (Verified 08/04/24 13:02) Other peanut Allergy (Verified 08/04/24 13:02) Anaphylaxis [facility] Medical History (Updated 08/04/24 @ 13:20 by Ranjan TOPETE, PA) Cephalgia Lumbar radiculopathy Lumbar strain Dog bite of left buttock Nexplanon in place Acute otitis externa of right ear RSV (respiratory syncytial virus infection) Bronchiolitis obliterans Asthma Anxiety Depression Surgical History (Updated 07/20/24 @ 07:24 by Genoveva Luis) History of oral surgery Family History (Updated 07/20/24 @ 07:27 by Genoveva Luis) Other Anxiety Asthma CVA (cerebral vascular accident) Cancer Depression Diabetes Heart disease Hypercholesteremia Hypertension Kidney disease Social History (Updated 07/20/24 @ 07:28 by Genoveva Luis) Smoking Status: Never smoker alcohol intake: never substance use type: does not use frequency: daily HPI History of Present Illness HPI: Lexis Guerra is a 19 year-old female returning for therapy. She reported a number of recent stressors including car problems, bank account being hacked, wishing she had more emotional support from her mother, and ongoing stressors in interactions with her ex-boyfriend. Lexis was tearful at times during the session. She did well managing the car problem and problem solving solutions. Lexis partially handled her account being hacked by getting a new bank card but struggled to take the steps needed to dispute charges she did not make to her account. She identified feeling too overwhelmed and letting this go. Encouraged verbalization of emotions while providing support. Lexis described a pattern of her ex-boyfriend treating her poorly and then making demands for her time, attention, money, and affection and her complying with his requests in hopes of resuming the relationship. She appeared to lack insight of ways she is reinforcing his behaviors. Used motivational interviewing to address her ambivalence about interactions with her ex-boyfriend. Discussed thoughts patterns related to interactions with her ex-boyfriend that support her behavioral patterns. Explored potential consequences of these patterns. Assisted Lexis with recognizing that most decisions she is making are focused on gaining a potential response from her ex-boyfriend vs. what she wants or believes is in her best interest. No SI. Future-oriented. Exam Mental Status Exam - Psych Appearance casually dressed and adequately groomed Attitude cooperative and engaged Activity/Motor Behavior MSE activity/motor behavior finding no adventitious movements and appropriate eye contact Speech regular rate, regular volume and regular prosody Mood sad and anxious Affect full range Thought Process linear, logical and coherent Thought Content no delusions and no hallucinations Suicidal Ideation none Homicidal Ideation none Attention impaired (Per pt. report.) Concentration impaired (Per pt. report.) Sensorium/Orientation awake, alert and oriented x3 Memory/Cognition impaired (Per pt. report.) Insight fair Judgement fair Assessment Plan Assessment Plan (1) Unspecified mood [affective] disorder: Plan: BH therapy using CBT, DBT, and ACT interventions to address thought patterns contributing to mood symptoms and fluctuations and to teach coping skills. Continued psychiatric services to monitor mood symptoms and medication effectiveness. Call 911, call suicide prevention hotline, or go to ER if experiencing suicidal plan and intent and/or feels own safety cannot be ensured (2) JAMAR (generalized anxiety disorder): Plan: BH therapy using CBT, DBT, and ACT interventions to address thought patterns contributing to anxious symptoms and to teach coping skills. Psychiatric services to monitor anxious symptoms and medication effectiveness. Plan TREATMENT PLANTREATMENT PLAN Goal 1 - Develop healthy thought patterns and beliefs about self, others, and the world that reduce depressive symptoms and negative relational experiences AEB pt. report. Objective 1 - Will learn and apply skills to reduce distress in personal relationships. Intervention 1 - Teach at least 3 problem-solving skills and use role play and modeling to apply to daily life situations. Intervention 2 - Teach about attachment and role this plays in interactions with ot (more content not included)... Normal [facility] MR/BMS.BPon 09-15-2024 MR/BMS.BP [address], [address] [place] [address] OFFICE VISIT Date of Service: 09/15/24 MR#: [id number] Acct: [id number] Name: LEXIS GUERRA Rep #: [id number] : 2005 Provider: [facility] Christal sheriff Age/Sex: 19/F Location: [facility]. Status: Signed Intake Vital Signs 07/26/24 08:08 09/15/24 15:58 Height 5 ft 4 in 5 ft 4 in BP Intake Visit Reasons: Follow up Allergies Environmental Allergies: Uncoded Allergy (Verified 08/04/24 13:02) Other peanut Allergy (Verified 08/04/24 13:02) Anaphylaxis [facility] Medical History (Updated 08/04/24 @ 13:20 by Ranjan TOPETE, PA) Cephalgia Lumbar radiculopathy Lumbar strain Dog bite of left buttock Nexplanon in place Acute otitis externa of right ear RSV (respiratory syncytial virus infection) Bronchiolitis obliterans Asthma Anxiety Depression Surgical History (Updated 07/20/24 @ 07:24 by Genoveva Luis) History of oral surgery Family History (Updated 07/20/24 @ 07:27 by Genoveva Luis) Other Anxiety Asthma CVA (cerebral vascular accident) Cancer Depression Diabetes Heart disease Hypercholesteremia Hypertension Kidney disease Social History (Updated 07/20/24 @ 07:28 by Genoveva Luis) Smoking Status: Never smoker alcohol intake: never substance use type: does not use frequency: daily HPI History of Present Illness HPI: Lexis Guerra is a 19 year-old female returning for therapy. She reported frequent contact with ex in hopes that they will reconcile as he continues to see other people and express ambivalence about what he wants. Lexis told him that she did not want further contact with him until he decided what he wants. She reported that she asked him to leave, and he would not do so. Encouraged verbalization of emotions while providing support. Examined how her needs were and were not being met in the relationship. Provided psychoeducation on boundaries and explored how ex was responding to her attempts to set boundaries. Worked on opposite action in recovering from break-ups and applying dialectics to her thinking. Lexis reported using a substance several months ago, when ex broke-up with her, in attempts to cope with negative emotions. She stated she had a medical emergency resulting in 911 being called and that she almost . Lexis stated this was not a suicide attempt but poor coping. No SI. Future-oriented. Exam Mental Status Exam - Psych Appearance casually dressed and adequately groomed Attitude cooperative, calm and engaged Activity/Motor Behavior MSE activity/motor behavior finding no adventitious movements and appropriate eye contact Speech regular rate, regular volume and regular prosody Mood anxious Affect full range Thought Process linear, logical and coherent Thought Content no delusions and no hallucinations Suicidal Ideation none Homicidal Ideation none Attention impaired (Per pt. report.) Concentration impaired (Per pt. report.) Sensorium/Orientation awake, alert and oriented x3 Memory/Cognition impaired (Per pt. report.) Insight good Judgement fair Assessment Plan Assessment Plan (1) Unspecified mood [affective] disorder: Plan: therapy using CBT, DBT, and ACT interventions to address thought patterns contributing to mood symptoms and fluctuations and to teach coping skills. Continued psychiatric services to monitor mood symptoms and medication effectiveness. Call 911, call suicide prevention hotline, or go to ER if experiencing suicidal plan and intent and/or feels own safety cannot be ensured (2) JAMAR (generalized anxiety disorder): Plan: BH therapy using CBT, DBT, and ACT interventions to address thought patterns contributing to anxious symptoms and to teach coping skills. Psychiatric services to monitor anxious symptoms and medication effectiveness. Plan TREATMENT PLANTREATMENT PLAN Goal 1 - Develop healthy thought patterns and beliefs about self, others, and the world that reduce depressive symptoms and negative relational experiences AEB pt. report. Objective 1 - Will learn and apply skills to reduce distress in personal relationships. Intervention 1 - Teach at least 3 problem-solving skills and use role play and modeling to apply to daily life situations. Intervention 2 - Teach about attachment and role this plays in interactions with others. Objective 1 - Will learn and apply DBT skills in daily living to reduce emotional distress and increase positive interactions with others. Intervention 1 - Teach at least 3 distress tolerance skills discussing how to apply to daily living. Intervention 2 - Teach at least 3 interpersonal effective skills discussing how to apply to daily living. Visit Details Duration of visit (minutes): 60 Duration of counseling (minutes): 60 (more content not included)... Normal [facility] Urgent Care Visit Reporton 0 08-04-2024 Urgent Care Visit Report [facility] [address], [address] [place] [address] OFFICE VISIT Date of Service: 08/04/24 MR#: [id number] Acct: [id number] Name: MARIPIRESTRISTEN JORGE Rep #: [id number] : 2005 Provider: YOSELYN Hardin Age/Sex: 19/F Location: [facility] Status: Signed Intake Vital Signs 07/26/24 08:08 08/04/24 13:02 Height 5 ft 4 in BP 90/62 Position Sitting Pulse 79 Temp 98.2 F Temp Source Oral Pulse Oximetry (%) 98 Oxygen Delivery Method room air Intake Visit Reasons: NAUSEA, FATIGUE Chief Complaint: Nausea and cough Accompanied by: Self Allergies Environmental Allergies: Uncoded Allergy (Verified 08/04/24 13:02) Other peanut Allergy (Verified 08/04/24 13:02) Anaphylaxis Medications ???Medication ???Instructions ???Recorded ???Confirmed ???Type cetirizine 10 mg capsule (Zyrtec) 10 mg PO DAILY PRN Allergies 01/2608/04/24 History escitalopram oxalate 20 mg tablet 20 mg PO DAILY 02/23/23 08/04/24 History fluticasone propionate 50 1 spray intranasal DAILY 02/23/23 08/04/24 History mcg/actuation nasal spray,suspension (Flonase Allergy Relief) hydroxyzine HCl 25 mg tablet 25 mg PO TID PRN 02/23/23 08/04/24 History melatonin 5 mg tablet 5 mg PO HS PRN sleep 02/23/2307/10 History etonogestrel 68 mg subdermal 1 implant subdermal ONCE 05/22/23 08/04/24 History implant (Nexplanon) albuterol sulfate 90 mcg/actuation 1 - 2 puff inhalation Q4H PRN AK N 06/16/23 08/04/24 Rx aerosol inhaler (ProAir HFA) Sob /Or Wheezing #6.7 grams budesonide-formoterol HFA 80 inhalation 07/20/24 08/04/24 Histo ry mcg-4.5 mcg/actuation aerosol inhaler (Symbicort) lamotrigine 25 mg tablet 25 mg PO QDAY #46 tabs 07/20/24 Rx ipratropium bromide 21 mcg (0.03 2 spray intranasal BID-TID PRN 08/04/24 Rx %) nasal spray postnasal drainage #30 mL ondansetron HCl 8 mg tablet 8 mg PO Q8H PRN nausea and 5 08/04/24 Rx vomiting #14 tabs Nurse's Note: Patient is nauseas and fatigue and cold symptoms that have been going on since . [facility] Medical History (Updated 08/04/24 @ 13:20 by Ranjan TOPETE, [place]) Cephalgia Lumbar radiculopathy Lumbar strain Dog bite of left buttock Nexplanon in place Acute otitis externa of right ear RSV (respiratory syncytial virus infection) Bronchiolitis obliterans Asthma Anxiety Depression Surgical History (Updated 07/20/24 @ 07:24 by Genoveva Luis) History of oral surgery Family History (Updated 07/20/24 @ 07:27 by Genoveva Luis) Other Anxiety Asthma CVA (cerebral vascular accident) Cancer Depression Diabetes Heart disease Hypercholesteremia Hypertension Kidney disease Social History (Updated 07/20/24 @ 07:28 by Genoveva Luis) Smoking Status: Never smoker alcohol intake: never substance use type: does not use frequency: daily HPI HPI Chief Complaint: Nausea and cough Details: LEXIS GUERRA, is a 19 F who presents to the office today for complaint of nausea, fatigue, cough and congestion for the past 2 days. She denies vomiting or diarrhea. No hemoptysis, shortness of breath or difficulty breathing. No loss of taste or smell. No other associated symptoms or alleviating/aggravating factors. ROS Const Constitutional: No other (as above) Exam Const General: cooperative and well developed HENMT Head: normal to inspection and atraumatic Ears: hearing grossly normal bilaterally Nose: nasal discharge clear Face and sinus: normal facial exam Mouth: oral mucosae normal Throat: abnormal tonsil bilaterally hypertrophy 1+ Resp Effort Inspection: normal respiratory effort and no audible wheezes Auscultation: Bilateral: Clear to Auscultation Cardio Rate: regular rate Rhythm: regular rhythm GI Auscultation: normal bowel sounds Palpation: no guarding and tender (General tenderness) Neuro General: patient alert Psych Appearance: grossly normal Mental Status: mental status grossly normal Coding Level of Care Code Off vis,est,level 3 Diagnoses Acute upper respiratory infection J06.9 Assessment and Plan Assessment and Plan (1) Acute upper respiratory infection: Status: Acute Medications: New ondansetron HCl 8 mg PO Q8H PRN 14 tabs 0RF nausea and vomiting ipratropium bromide administer into each nostril 2 sprays intranasal BID-TID PRN 30 mL 0RF postnasal drainage Plan Zofran and nasal spray as prescribed today. Encouraged to get plenty of rest, drink lots of clear liquids, and use Tylenol or Ibuprofen (unless contraindicated) for fever and comfort. Patient also educated on other symptomatic management techniques. To be seen in 7-10 days if no improvement; sooner if worsening of symptoms. Patient advised of p (more content not included)... Normal [facility] MR/BMS.BPon 07-26-2024 MR/BMS. [address], [address] [place] [address] OFFICE VISIT Date of Service: 07/26/24 MR#: [id number] Acct: [id number] Name: LEXIS GUERRA Rep #: [id number] : 2005 Provider: EAN sheriff Age/Sex: 19/F Location: [facility] Status: Signed with Addenda ADDENDUM by [facility] Christal Paulino on 08/12/24 at 0757 HPI HPI Narrative: Lexis Guerra was not returning for BH therapy. She participated in a diagnostic assessment to begin BH therapy. 08/12/24 0757 Date Christal Paulino [facility] cc: * Signed Intake Vital Signs 01/19/24 16:16 07/20/24 07:16 07/26/24 08:08 Height 5 ft 4 in 5 ft 4 in 5 ft 4 in Weight: 129 lb 136 lb BMI 22.1 23.3 BP 120/88 H 106/69 Blood Pressure Location Lt brachial Lt brachial Position Sitting Sitting Respiration 16 16 Pulse 82 65 Pulse Source Monitor Monitor Temp 98.6 F Pulse Oximetry (%) 98 Oxygen Delivery Method room air BP Intake Visit Reasons: Establish Care Allergies Environmental Allergies: Uncoded Allergy (Verified 07/20/24 07:21) Other peanut Allergy (Verified 07/20/24 07:21) Anaphylaxis [facility] Medical History (Updated 07/20/24 @ 09:01 by DORETHA Pickard) Cephalgia Lumbar radiculopathy Lumbar strain Dog bite of left buttock Nexplanon in place Acute otitis externa of right ear RSV (respiratory syncytial virus infection) Bronchiolitis obliterans Asthma Anxiety Depression Surgical History (Updated 07/20/24 @ 07:24 by Genoveva Luis) History of oral surgery Family History (Updated 07/20/24 @ 07:27 by Genoveva Luis) Other Anxiety Asthma CVA (cerebral vascular accident) Cancer Depression Diabetes Heart disease Hypercholesteremia Hypertension Kidney disease Social History (Updated 07/20/24 @ 07:28 by Genoveva Luis) Smoking Status: Never smoker alcohol intake: never substance use type: does not use frequency: daily HPI History of Present Illness History provided by: patient HPI: Kaya is a 19 year-old female returning for therapy. She receives psychiatric services at [facility] from Shira Pastor CNP and is prescribed Escitalopram 10mg, Lamotrigine 25mg PO QDAY, and Hydroxyzine 25mg TID. She reports academic stressors and stressors related to recent dating break-up. Lexis remains in contact with her ex and worries about the future of their relationship. She states that she has difficulty with fear of abandonment and attachment. Lexis participated in counseling 1 year ago for 6-8 months at [facility] and reports that this was a positive experience. She stopped counseling when her therapist took another position outside the agency. Lexis participated in family counseling here and there throughout her childhood and found it less helpful. Sleep - States sleep is OK and varies. Has problems falling and staying asleep. Attributes sleep difficulties to over-thinking. States she is grouchy when her sleep is poor. Interests - Reports enjoying interests sometimes but struggling with over-thinking. When doing well, she is able to enjoy school, work, going to the gym, and reading. Energy - States that her energy fluctuates. Describes times where her energy is totally fine and times where she just wants to stay in bed. Guilt - Identifies feelings of guilt, hopelessness, and worthlessness stating she feels guilt and hopelessness the most. Concentration - States her concentration is a little hard due to over-thinking. Appetite - Reports appetite fluctuates based on her mood with her eating less when depressed. Has lost 40 pounds over the last 2 years without trying. Psychomotor - Reports times of feeling sped up and times of psychomotor slowing. Suicide - Denies any SI. Memory - Identifies some forgetfulness such as losing items or not being able to recall what others have said to her. Anxiety - Identifies struggles with anxiety. States that recently she is feeling more angry, frustrated, and impatient. Reports history of panic attacks. States school and interactions with her ex are stressors. Obsessions - Denies Compulsions - Denies Lori - Reports fluctuation in sleep and energy. Identifies racing thoughts. Describes struggles with overspending. PTSD - Identifies emotional trauma from childhood including flashbacks and nightmares. Psychosis - Denies all symptoms. Previous similar episode: Yes Age of first onset of symptoms: 0-10 years Developmental History Developmental History: Family of origin - Lexis is one of 3 children born to her parents who when she was 3. She has an older and a twin sister. States father is an alcoholic. Her stepfather played an active role in parenting her, and she states they were (more content not included)... Normal [facility] MR/BMS.BPon 07-20-2024 MR/BMS.BP [facility] ry [address], [address] [place] [address] OFFICE VISIT Date of Service: 07/20/24 MR#: [id number] Acct: [id number] Name: LEXIS GUERRA Rep #: [id number] : 2005 Provider: DORETHA yung Age/Sex: 19/F Location: [facility] [place].BP Status: Signed Intake Vital Signs 01/19/24 16:16 07/20/24 07:16 Height 5 ft 4 in 5 ft 4 in Weight: 129 lb 136 lb BMI 22.1 23.3 BP 120/88 H 106/69 Blood Pressure Location Lt brachial Lt brachial Position Sitting Sitting Respiration 16 16 Pulse 82 65 Pulse Source Monitor Monitor Temp 98.6 F Pulse Oximetry (%) 98 Oxygen Delivery Method room air BP Intake Visit Reasons: Generalized Anxiety Disorder Accompanied by: Self Allergies Environmental Allergies: Uncoded Allergy (Verified 07/20/24 07:21) Other peanut Allergy (Verified 07/20/24 07:21) Anaphylaxis Medications ???Medication ???Instructions ???Recorded ???Confirmed ???Type cetirizine 10 mg capsule (Zyrtec) 10 mg PO DAILY PRN Allergies 1018 07/20/24 History escitalopram oxalate 20 mg tablet 20 mg PO DAILY 02/23/23 07/20/24 History fluticasone propionate 50 1 spray intranasal DAILY 02/23/23 07/20/24 History mcg/actuation nasal spray,suspension (Flonase Allergy Relief) hydroxyzine HCl 25 mg tablet 25 mg PO TID PRN 02/23/23 07/20/24 History melatonin 5 mg tablet 5 mg PO HS PRN sleep 02/23/2307/09 History etonogestrel 68 mg subdermal 1 implant subdermal ONCE 05/22/23 07/20/24 History implant (Nexplanon) albuterol sulfate 90 mcg/actuation 1 - 2 puff inhalation Q4H PRN AK N 06/16/23 07/20/24 Rx aerosol inhaler (ProAir HFA) Sob /Or Wheezing #6.7 grams budesonide-formoterol HFA 80 inhalation 07/20/24 07/20/24 Histo ry mcg-4.5 mcg/actuation aerosol inhaler (Symbicort) lamotrigine 25 mg tablet 25 mg PO QDAY #46 tabs 07/20/24 Rx PFSH Medical History (Updated 07/20/24 @ 09:01 by DORETHA Pickard) Cephalgia Lumbar radiculopathy Lumbar strain Dog bite of left buttock Nexplanon in place Acute otitis externa of right ear RSV (respiratory syncytial virus infection) Bronchiolitis obliterans Asthma Anxiety Depression Surgical History (Updated 07/20/24 @ 07:24 by Genoveva Luis) History of oral surgery Family History (Updated 07/20/24 @ 07:27 by Genoveva Luis) Other Anxiety Asthma CVA (cerebral vascular accident) Cancer Depression Diabetes Heart disease Hypercholesteremia Hypertension Kidney disease Social History (Updated 07/20/24 @ 07:28 by Genoveva Luis) Smoking Status: Never smoker alcohol intake: never substance use type: does not use frequency: daily HPI History of Present Illness History provided by: patient Chief complaint: Mood swings/anxiety/irritabili ty HPI: Lexis Guerra is a 19 year old female patient presenting today for an intake evaluation. States she has been struggling more with anxiety recently. Sleep: Admits to difficulties falling asleep. Does use melatonin PRN for a sleep aid. Is getting 8- 10 hours per night but not a normal schedule. Denies daytime napping. Does have occasional nightmares. Interest: Admits to feelings of depression daily but feels the severity is reduced. Enjoys driving around and feel her feelings and works out. Energy: Does not feel well rested often. Admits to a sometimes lack of energy and motivation. Guilt: Admits to feelings of guilt, hopelessness, and worthlessness all the time. Does feel this is directly related to going through a break up from her recent SO one month ago and school. Concentration: Admits to difficulties with focus, concentration, and inattention over the last year. Admits to sometimes being easily distracted. Does report feeling forgetful but mostly due to not listening when being spoken to directly. Admits to some difficulties following through with instructions. Admits to making careless mistakes. Appetite: Appetite does fluctuate depending on mood. When feeling depressed or anxious does report a decrease in appetite. Has lost nearly 40 pounds since 2022 unintentionally. Psychomotor: WNL Suicide: Denies SI/HI. Memory: Admits to some difficulties with short term memory. 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 Does report feeling forgetful but mostly due to not listening when being spoken to directly. Does not feel she is frequently misplacing things. Anxiety: Admits to a baseline anxiety that rates at a 4-5/10. Can sometimes identify triggers that heighten her anxiety but not always. Does feel anxiety is mostly situational. Does report heightened anxiety around school and being worried about passing her classes. States over the last month has been having at least 1 panic attack daily. Panic attacks are shaking, becoming clingy to others, SOB, and cry (more content not included)... Normal [facility] .Auto Diffon 07-06-2024 Basophil, Absolute 0.0 10 3/mcL Normal 0.0-0.2 [facility] Comment on above: Performed By: #### M DW, GFR, TROPHS, CBC, BMP, DIMER, ANEU, ADIFF #### [address] [address] Basophils/100 WBC (Bld) 0.3 % Normal 0.0-2.5 [facility] Comment on above: Performed By: #### M DW, GFR, TROPHS, CBC, BMP, DIMER, ANEU, ADIFF #### [place] [address] [place], [place] [address] Eosinophil, Absolute 0.3 10 3/mcL Normal 0.0-0.7 [facility] Comment on above: Performed By: #### M DW, GFR, TROPHS, CBC, BMP, DIMER, ANEU, ADIFF #### [address] [address] Eosinophils/100 WBC (Bld) 4.1 % Normal 0.0-7.[address] [facility] Comment on above: Performed By: #### M DW, GFR, TROPHS, CBC, BMP, DIMER, ANEU, ADIFF #### [address] [address] Lymphocyte, Absolute 3.1 10 3/mcL Normal 0.9-4.3 [facility] Comment on above: Performed By: #### M DW, GFR, TROPHS, CBC, BMP, DIMER, ANEU, ADIFF #### [address] [address] Lymphocytes/100 WBC (Bld) 40.4 % High 20.0-40.[address] [facility] Comment on above: Performed By: #### M DW, GFR, TROPHS, CBC, BMP, DIMER, ANEU, ADIFF #### [address] [address] Monocyte, Absolute 0.3 10 3/mcL Normal 0.1-1.4 [facility] Comment on above: Performed By: #### M DW, GFR, TROPHS, CBC, BMP, DIMER, ANEU, ADIFF #### [address] [address] Monocytes/100 WBC (Bld) 4.6 % Normal 2.0-13.0 [facility] Comment on above: Performed By: #### M DW, GFR, TROPHS, CBC, BMP, DIMER, ANEU, ADIFF #### [address] [address] Neutrophils/100 WBC (Bld) 50.5 % Normal 50.0-75.[address] [facility] Comment on above: Performed By: #### M DW, GFR, TROPHS, CBC, BMP, DIMER, ANEU, ADIFF #### [address] [address] .GFRon 07-06-2024 Estimated Glomerular Filtration Rate 59 ml/min/1.73sqm Normal [facility] Comment on above: Result Comment: Stages of Chronic Kidney Disease (CKD) Stage Description eGFR(ml/min/1.73 sq.m.) CKD 1 Normal kidney function or >=90 normal kindney function with possible kidney damage (ex. Proteinuria) CKD 2 Kidney damage with mild loss 60-89 of kidney function CKD 3a Mild to moderate loss of kidney 45-59 function CKD 3b Moderate to severe loss of 30-44 of kindey function CKD 4 Severe loss of kidney function 15-29 CKD 5 Kidney failure <15 Note: (go live 2024) the eGFR calculation was updated to the 2020 CKD-EPI creatinine equation without a race factor to calculate the eGFR results. Performed By: #### M DW, GFR, TROPHS, CBC, BMP, DIMER, ANEU, ADIFF ####[address] [address] .MDWon 07-06-2024 Monocyte Distribution Width Not performed Normal 0.00-20.[address] [facility] Comment on above: Result Comment: MDW testing unable to be performed on [id number] instrumentation. Performed By: #### M DW, GFR, TROPHS, CBC, BMP, DIMER, ANEU, ADIFF #### [address] [address] .NEUABSon 07-06-2024 Neutrophil, Absolute 3.8 10 3/mcL Normal 2.3-8.1 [facility] Comment on above: Performed By: #### M DW, GFR, TROPHS, CBC, BMP, DIMER, ANEU, ADIFF #### [address] [address] .Urinalysis Microscopic (AO) on 07-06-2024 UA Bacteria Trace Abnormal [facility] Comment on above: Performed By: #### U A, UAMICAO, PREGU #### [address] [address] UA Mucous 2+ /hpf Normal [facility] Comment on above: Performed By: #### U A, UAMICAO, PREGU #### [place] [address] UA RBC 5-10 Abnormal None Seen [facility] Comment on above: Performed By: #### U A, UAMICAO, PREGU #### [address] [address] UA Renal Epithelial Rare Abnormal [facility] Comment on above: Performed By: #### U A, UAMICAO, PREGU #### [address] [address] UA Squam Epithelial 5-10 Abnormal None Seen [facility] Comment on above: Performed By: #### U A, UAMICAO, PREGU #### [address] [address] UA WBC LOADED Abnormal None Seen [facility] Comment on above: Performed By: #### U A, UAMICAO, PREGU #### [address] [address] BMPon 07-06-2024 BUN/Creatinine Ratio 17 ratio Normal 7-27 [facility] Comment on above: Performed By: #### M DW, GFR, TROPHS, CBC, BMP, DIMER, ANEU, ADIFF #### [address] [address] Calcium [Mass/Vol] 9.0 mg/dL Normal 8.4-10.2 [facility] Comment on above: Performed By: #### M DW, GFR, TROPHS, CBC, BMP, DIMER, ANEU, ADIFF #### [address] [address] Chloride [Moles/Vol] 106 mmol/L Normal 98-107 [facility] Comment on above: Performed By: #### M DW, GFR, TROPHS, CBC, BMP, DIMER, ANEU, ADIFF #### [address] [address] CO2 [Moles/Vol] 27 mmol/L Normal 22-[address] [facility] Comment on above: Performed By: #### M DW, GFR, TROPHS, CBC, BMP, DIMER, ANEU, ADIFF #### [place] [address] [place], [place] [address] Creatinine [Mass/Vol] 1.34 mg/dL High 0.55-1.02 [facility] Comment on above: Result Comment: Test ing performed on Siemens Dimension EXL analyzer using a modified kinetic Andre technique. Performed By: #### M DW, GFR, TROPHS, CBC, BMP, DIMER, ANEU, ADIFF #### [address] [address] Electrolyte Balance 7.0 mEq/L Normal 4.0-15.0 [facility] Comment on above: Performed By: #### M DW, GFR, TROPHS, CBC, BMP, DIMER, ANEU, ADIFF #### [address] [address] Glucose [Mass/Vol] 82 mg/dL Normal 70-105 [facility] Comment on above: Performed By: #### M DW, GFR, TROPHS, CBC, BMP, DIMER, ANEU, ADIFF #### [address] [address] Potassium [Moles/Vol] 3.8 mmol/L Normal 3.5-5.1 [facility] Comment on above: Performed By: #### M DW, GFR, TROPHS, CBC, BMP, DIMER, ANEU, ADIFF #### [address] [address] Sodium [Moles/Vol] 140 mmol/L Normal 136-145 [facility] Comment on above: Performed By: #### M DW, GFR, TROPHS, CBC, BMP, DIMER, ANEU, ADIFF #### [address] [address] Urea nitrogen [Mass/Vol] 23 mg/dL High 7-[address] [facility] Comment on above: Performed By: #### M DW, GFR, TROPHS, CBC, BMP, DIMER, ANEU, ADIFF #### [address] [address] CBCon 07-06-2024 Erythrocyte distribution width (RBC) [Ratio] 13.0 % Normal 11.5-15.[address] [facility] Comment on above: Performed By: #### M DW, GFR, TROPHS, CBC, BMP, DIMER, ANEU, ADIFF #### [place] [address] Hematocrit (Bld) [Volume fraction] 42.0 % Normal 34.0-46.[address] [facility] Comment on above: Performed By: #### M DW, GFR, TROPHS, CBC, BMP, DIMER, ANEU, ADIFF #### [place] [address] Hgb 15.1 G/dL Normal 12.0-16.[address] [facility] Comment on above: Performed By: #### M DW, GFR, TROPHS, CBC, BMP, DIMER, ANEU, ADIFF #### [place] [address] MCH (RBC) [Entitic mass] 31.5 pg Normal 27.0-33.[address] [facility] Comment on above: Performed By: #### M DW, GFR, TROPHS, CBC, BMP, DIMER, ANEU, ADIFF #### [place] [address] MCHC 36.1 G/dL High 32.0-36.[address] [facility] Comment on above: Performed By: #### M DW, GFR, TROPHS, CBC, BMP, DIMER, ANEU, ADIFF #### [place] [address] MCV (RBC) [Entitic vol] 87.4 fL Normal 80.0-99.0 [facility] Comment on above: Performed By: #### M DW, GFR, TROPHS, CBC, BMP, DIMER, ANEU, ADIFF #### [place] [address] Platelet 274 10 3/mcL Normal 150-[address] [facility] Comment on above: Performed By: #### M DW, GFR, TROPHS, CBC, BMP, DIMER, ANEU, ADIFF #### [place] [address] Platelet mean volume (Bld) [Entitic vol] 7.3 fL Normal 6.6-10.[address] [facility] Comment on above: Performed By: #### M DW, GFR, TROPHS, CBC, BMP, DIMER, ANEU, ADIFF #### [address] [place], [place] [address] RBC 4.81 10 6/mcL Normal 4.10-5.[address] [facility] Comment on above: Performed By: #### M DW, GFR, TROPHS, CBC, BMP, DIMER, ANEU, ADIFF #### [address] [place], [place] [address] WBC 7.6 10 3/mcL Normal 4.5-10.[address] [facility] Comment on above: Performed By: #### M DW, GFR, TROPHS, CBC, BMP, DIMER, ANEU, ADIFF #### [address] [place], [place] [address] CT HEAD OR BRAIN W/O CONTRAS Ton 07-06-2024 CT HEAD OR BRAIN W/O CONTRAST ORIGINAL EXAMINATION: CT OF THE HEAD WITHOUT CONTRAST 07/06/2024 2:10 am TECHNIQUE: CT of the head was performed without the administration of intravenous contrast. Automated exposure control, iterative reconstruction, and/or weight based adjustment of the mA/kV was utilized to reduce the radiation dose to as low as reasonably achievable. COMPARISON: None. HISTORY: ORDERING SYSTEM PROVIDED HISTORY: Reason for Exam: syncope FINDINGS: BRAIN/VENTRICLES: There is no acute intracranial hemorrhage, mass effect or midline shift. No abnormal extra-axial fluid collection. The gallagher-white differentiation is maintained without evidence of an acute infarct. There is no evidence of hydrocephalus. ORBITS: The visualized portion of the orbits demonstrate no acute abnormality. SINUSES: The visualized paranasal sinuses and mastoid air cells demonstrate no acute abnormality. SOFT TISSUES/SKULL: No acute abnormality of the visualized skull or soft tissues. IMPRESSION: No acute intracranial abnormality. Interpreted by: Betty Ackerman MD Preliminary Report By: Betty Ackerman MD Electronically signed By Betty Ackerman MD Dictated Date: 07/06/2024 2:26:38 AM Prelim Date: 07/06/2024 2:30:26 AM Sign Date: 07/06/2024 2:30:26 AM Ordering Provider: ASHWINI RENTERIA Normal [facility] DIMERon 07-06-2024 D-Dimer <200 Normal 0-[address] [facility] Comment on above: Result Comment: DDN: Results reported in D-DU ng/mL. Negative for D-dimer. DVT/PE is highly unlikely. Note: False negative results may be seen in patients on anticoagulant therapy. The result of the D-Dimer test should be evaluated in the context of all the clinical and laboratory data available. In those instances where the laboratory result does not agree with the clinical evaluation, additional tests should be performed accordingly. If the D-Dimer result is used to exclude DVT or PE, the recommended cutoff value is less than 230 ng/mL. The D-Dimer result should not be used alone to rule in DVT/PE, but should be used in conjunction with a clinical pretest probability (PTP)assessment model to exclude venous thromboembolism (VTE) in outpatients suspected of deep venous thrombosis (DVT) and pulmonary embolism (PE). Performed By: #### M DW, GFR, TROPHS, CBC, BMP, DIMER, ANEU, ADIFF ####[facility] [address] LABORATORYOrdered By: Brock King on 07-06-2024 Appearance (U) Cloudy *ABN* (07/06/24 1:47 AM) Invalid Interpretation Code Clear AO Auto Urine SS Bacteria LM.HPF (Urine sed) [#/Area] Trace /HPF Invalid Interpretation Code AO Auto Urine SS Bilirubin Ql (U) Negative (07/06/24 1:47 AM) Normal Negative AO Auto Urine SS Color (U) Yellow (07/06/24 1:47 AM) Normal AO Auto Urine SS Glucose Test strip (U) [Mass/Vol] Negative Normal Negative AO Auto Urine SS HCG ( test) Ql Negative (07/06/24 1:47 AM) Normal AO Manual Urine SS Hemoglobin Auto test strip (U) [Mass/Vol] Large *ABN* (07/06/24 1:47 AM) Invalid Interpretation Code Negative AO Auto Urine SS Ketones Ql (U) Negative Normal Negative AO Auto Urine SS Monocyte distribution width Auto (Bld) [Entitic vol] Not Performed 1 (07/06/24 1:47 AM) Normal 0.00 - 20.00 AO Hematology S Comment on above: Result Comment: MDW testing unable to be performed on [id number] instrumentation. test (u) int Not detected Invalid Interpretation Code AO Manual Urine SS UA Leuk Est Small *ABN* (07/06/24 1:47 AM) Invalid Interpretation Code Negative AO Auto Urine SS UA Mucous 2+ /HPF Normal AO Auto Urine SS UA Nitrite Negative (07/06/24 1:47 AM) Normal Negative AO Auto Urine SS UA pH 6.0 (07/06/24 1:47 AM) Normal 5.0 - 8.0 AO Auto Urine SS UA Protein 100 mg/dL Invalid Interpretation Code Negative AO Auto Urine SS UA RBC 5-10 /HPF Invalid Interpretation Code None Seen AO Auto Urine SS UA Renal Epithelial Rare /HPF Invalid Interpretation Code AO Auto Urine SS UA Spec Grav >=1.030 *ABN* (07/06/24 1:47 AM) Invalid Interpretation Code 1.015-1.02 5 AO Auto Urine SS UA Specimen Type Clean Catch (07/06/24 1:47 AM) Normal AO Auto Urine SS UA Squam Epithelial 5-10 /HPF Invalid Interpretation Code None Seen AO Auto Urine SS UA Urobilinogen 0.2 E.U./dL Normal 0.2-1.0 AO Auto Urine SS WBC LM.HPF (Urine sed) [#/Area] LOADED /HPF Invalid Interpretation Code None Seen AO Auto Urine SS LABORATORYOrdered By: SYSTEM SYSTEM on 07-06-2024 Basophils (Bld) [#/Vol] 0.0 103/mcL Normal 0.0 - 0.2 10^3/mcL AO Workflow SS Basophils/100 WBC (Bld) 0.3 % Normal 0.0 - 2.5 % AO Workflow SS Calcium [Mass/Vol] 9.0 mg/dL Normal 8.4 - 10. 2 mg/dL AO ADM SS Chloride [Moles/Vol] 106 mmol/L Normal 98 - 10 7 mmol/L AO ADM SS CO2 [Moles/Vol] 27 mmol/L Normal 22 - 29 mmol/L AO ADM SS Creatinine [Mass/Vol] 1.34 mg/dL High 0.55 - 1.02 mg/dL AO ADM SS Comment on above: Interpretive Data: T esting performed on Siemens Dimension EXL analyzer using a modified kinetic Andre technique. Electrolyte Balance 7.0 mEq/L Normal 4.0 - 15 .0 mEq/L AO ADM SS Eosinophil, Absolute 0.3 103/mcL Normal 0.0 - 0 .7 10^3/mcL AO Workflow SS Eosinophils/100 WBC (Bld) 4.1 % Normal 0.0 - 7.0 % AO Workflow SS Erythrocyte distribution width (RBC) [Ratio] 13.0 % Normal 11.5 - 15.5 % AO Workflow SS Estimated Glomerular Filtration Rate 59 ml/min/1.73sqm Invalid Interpretation Code AO Chemistry S Comment on above: Interpretive Data: Stages of Chronic Kidney Disease (CKD) Stage Description eGFR(ml/min/1.73 sq.m.) CKD 1 Normal kidney function or >=90 normal kindney function with possible kidney damage (ex. Proteinuria) CKD 2 Kidney damage with mild loss 60-89 of kidney function CKD 3a Mild to moderate loss of kidney 45-59 function CKD 3b Moderate to severe loss of 30-44 of kindey function CKD 4 Severe loss of kidney function 15-29 CKD 5 Kidney failure <15 Note: (go live 2024) the eGFR calculation was updated to the 2020 CKD-EPI creatinine equation without a race factor to calculate the eGFR results. Fibrin D-dimer DDU (PPP) [Mass/Vol] ng/mL D-DU Normal 0 - 230 ng/mL D-DU AO [facility] SS Comment on above: Result Comment: DDN: Results reported in D-DU ng/mL. Negative for D-dimer. DVT/PE is highly unlikely. Note: False negative results may be seen in patients on anticoagulant therapy. Interpretive Data: T he result of the D-Dimer test should be evaluated in the context of all the clinical and laboratory data available. In those instances where the laboratory result does not agree with the clinical evaluation, additional tests should be performed accordingly. If the D-Dimer result is used to exclude DVT or PE, the recommended cutoff value is less than 230 ng/mL. The D-Dimer result should not be used alone to rule in DVT/PE, but should be used in conjunction with a clinical pretest probability (PTP)assessment model to exclude venous thromboembolism (VTE) in outpatients suspected of deep venous thrombosis (DVT) and pulmonary embolism (PE). Glucose [Mass/Vol] 82 mg/dL Normal 70 - 105 mg/dL AO ADM SS Hematocrit (Bld) [Volume fraction] 42.0 % Normal 34.0 - 46.0 % AO Workflow SS Hemoglobin (Bld) [Mass/Vol] 15.1 G/dL Normal 12.0 - 16.0 G/dL AO Workflow SS Lymphocytes (Bld) [#/Vol] 3.1 103/mcL Normal 0.9 - 4.3 10^3/mcL AO Workflow SS Lymphocytes/100 WBC (Bld) 40.4 % High 20.0 - 40.0 % AO Workflow SS MCH (RBC) [Entitic mass] 31.5 pg Normal 27. 0 - 33.0 pg AO Workflow SS MCHC 36.1 G/dL High 32.0 - 36.0 G/dL AO Workflow SS MCV (RBC) [Entitic vol] 87.4 fL Normal 80.0 - 99.0 fL AO Workflow SS Monocytes (Bld) [#/Vol] 0.3 103/mcL Normal 0.1 - 1.4 10^3/mcL AO Workflow SS Monocytes/100 WBC (Bld) 4.6 % Normal 2.0 - 13.0 % AO Workflow SS Neutrophils (Bld) [#/Vol] 3.8 103/mcL Normal 2.3 - 8.1 10^3/mcL AO Workflow SS Neutrophils/100 WBC (Bld) 50.5 % Normal 50.0 - 75.0 % AO Workflow SS Platelet mean volume (Bld) [Entitic vol] 7.3 fL Normal 6.6 - 10.5 fL AO Workflow SS Platelets (Bld) [#/Vol] 274 103/mcL Normal 150 - 450 10^3/mcL AO Workflow SS Potassium [Moles/Vol] 3.8 mmol/L Normal 3.5 - 5.1 mmol/L AO ADM SS RBC (Bld) [#/Vol] 4.81 106/mcL Normal 4.10 - 5.30 10^6/mcL AO Workflow SS Sodium [Moles/Vol] 140 mmol/L Normal 136 - 145 mmol/L AO ADM SS Troponin I.cardiac DL <= 0.01 ng/mL [Mass/Vol] 25 ng/L Normal 0 - 51 ng/L AO ADM SS Comment on above: Interpretive Data: H igh Sensitive Troponin I Reference Ranges: Female: 0-51 ng/L Male: 0-76 ng/L Testing performed on [employer] using a homogeneous sandwich chemiluminescent immunoassay based on Fashion[employer] technology. Urea nitrogen [Mass/Vol] 23 mg/dL High 7 - 18 mg/dL AO ADM SS Urea nitrogen/Creatinine [Mass ratio] 17 ratio Normal 7 - 27 ratio AO ADM SS WBC (Bld) [#/Vol] 7.6 103/mcL Normal 4.5 - 10.8 10^3/mcL AO Workflow SS PREGUon 07-06-2024 HCG ( test) Ql (U) Negative Normal [facility] Comment on above: Performed By: #### U A, UAMICAO, PREGU #### [place] [id number] test (u) int Not detected Invalid Interpretation Code [facility] Comment on above: Performed By: #### U A UAMICWILMAN, PREGU #### [address] [address] TROPHSon 07-06-2024 High Sensitivity Troponin I 25 ng/L Normal 0-[address] [facility] Comment on above: Result Comment: High Sensitive Troponin I Reference Ranges: Female: 0-51 ng/L Male: 0-76 ng/L Testing performed on [employer] using a homogeneous sandwich chemiluminescent immunoassay based on Fashion[employer] technology. Performed By: #### M DW, GFR, TROPHS, CBC, BMP, DIMER, ANEU, ADIFF ####[address] [address] UAon 07-06-2024 Color (U) Yellow Normal [facility] Comment on above: Performed By: #### U A, UAMICAO, PREGU #### [address] [address] Glucose (U) [Mass/Vol] Negative Normal Negative [facility] Comment on above: Performed By: #### U A, UAMICAO, PREGU #### [address] [address] Ketones Ql (U) Negative Normal Negative [facility] Comment on above: Performed By: #### U A, UAMICAO, PREGU #### [address] [address] UA Appear Cloudy Abnormal Clear [facility] Comment on above: Performed By: #### U A, UAMICAO, PREGU #### [place] [address] UA Blood Large Abnormal Negative [facility] Comment on above: Performed By: #### U A, UAMICAO, PREGU #### [place] [address] UA Leuk Est Small Abnormal Negative [facility] Comment on above: Performed By: #### U A, UAMICAO, PREGU #### [place] [address] UA Nitrite Negative Normal Negative [facility] Comment on above: Performed By: #### U A, UAMICAO, PREGU #### [place] [address] UA pH 6.0 Normal 5.0 - 8.[address] [facility] Comment on above: Performed By: #### U A, UAMICAO, PREGU #### [place] [address] UA Protein 100 mg/dL Abnormal Negative [facility] Comment on above: Performed By: #### U A, UAMICAO, PREGU #### [place] [address] UA Spec Grav >=1.030 Abnormal 1.015-1.[address] [facility] Comment on above: Performed By: #### U A, UAMICAO, PREGU #### [place] [address] UA Specimen Type Clean Catch Normal [facility] Comment on above: Performed By: #### U A, UAMICAO, PREGU #### [place] [address] UA Urobilinogen 0.2 E.U./dL Normal 0.2-1.[address] [facility] Comment on above: Performed By: #### U A, UAMICAO, PREGU #### [place] [address] Urobilinogen (U) [Mass/Vol] Negative Normal Negative [facility] Comment on above: Performed By: #### U Jaycob CANDIDOISABEL #### [facility] [address] [place], [place] [address] XR CHEST 1 VIEWon 07-06-2024 XR CHEST 1 VIEW ORIGINAL EXAMINATION: ONE XRAY VIEW OF THE CHEST07/06/2024 2:11 am CHEST ONE VIEW AP/PA COMPARISON: None HISTORY: ORDERING SYSTEM PROVIDED HISTORY: Reason for Exam: syncope FINDINGS: The cardiomediastinal silhouette is normal in appearance. No consolidation, pleural effusion, or vascular congestion is seen. The osseous structures are intact. IMPRESSION: No acute findings. Interpreted by: Betty Ackerman MD Preliminary Report By: Betty Ackerman MD Electronically signed By Betty Ackerman MD Dictated Date: 07/06/2024 2:21:25 AM Prelim Date: 07/06/2024 2:21:32 AM Sign Date: 07/06/2024 2:21:32 AM Ordering Provider: ASHWINI RENTERIA Normal [facility] CNOVon 06-23-2024 CNOV Office Visit (PEDSWS ) ----- LEXIS GUERRA ([id number]) 5 F Date Time Provider Department 06/23/24 9:45 AM UVALDO JORGENSEN PEDSWS During your visit today, we recorded the following information about you: Temperature Pulse Respiration Blood pressure 98.3 degrees 64/minute 16/minute 104/70 Weight Last Period 63.3 kg 05/23/24 Uvaldo Jorgensen MD 06/23/2024 1:58 PM Signed SUBJECTIVE: History was obtained from: patient The patient is a 19-year-old female presenting with asthma and generalized anxiety disorder. The history of asthma includes moderate persistent poorly-controlled asthma, characterized by frequent daily need for her rescue inhaler, Albuterol. 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 These are worsened during cold weather. She uses QVAR twice a day, but despite this, her symptoms are uncontrolled, requiring multiple Albuterol puffs several times daily, with symptoms including sneezing, worsening shortness of breath, and chest tightness. The patient experiences nocturnal symptoms, waking due to asthma symptoms. She has had an emergency room visit since February, usually required once a year during cold months due to exacerbations. She was not using Flonase regularly as she had run out, and only takes Zyrtec when needed. Her sister recently started Symbicort and has noticed significant better control for her asthma. Regarding generalized anxiety disorder, the patient describes her anxiety as worsening and uncontrollable, experiencing daily crying, shaking, and chest pains similar to muscle soreness. Her symptoms affect her ability to attend classes consistently, seeing improvement prioritized due to her boyfriend's support. Currently, she takes Lexapro 20 mg daily and hydroxyzine as needed, with reports that hydroxyzine is ineffective recently. She would like to be referred to psychiatry at [facility] and will engage in counseling based on that referral. She does wonder if Xanax would help with her anxiety symptoms. PSYCHIATRIC REVIEW OF SYMPTOMS: Depression: Increased irritability Sad mood or feeling empty Changes to sleeping pattern Diminished energy and impairing fatigue Generalized Anxiety: Excessive worry Difficulty controlling worry Restless and fidgety due to anxiety Fatigued due to stress Trouble concentrating due to recurrent anxiety driven thoughts Muscle tension secondary to stress Sleep disturbance secondary to anxiety Daily asthma or allergy related maintenance / controller medications include (see medication list below for details): Inhaled corticosteroid - daily use without improvement in symptoms Uses spacer with inhaler? No Takes controller medicine(s) as prescribed? Yes MEDICATIONS: beclomethasone (QVAR REDIHALER) 40 mcg/actuation inhaler Inhale 1 Puff as instructed two times a day. Cetirizine 10 mg cap Take by mouth. hydrOXYzine HCl (ATARAX) 25 mg tablet take 1 tablet by mouth three times a day as needed for anxiety etonogestrel (NEXPLANON) subdermal implant 68 mg 1 Each by SUBDERMAL route as directed. budesonide-formoterol (SYMBICORT) 80-4.5 mcg/actuation inhaler Inhale 2 Puffs as instructed two times a day. albuterol HFA (PROVENTIL HFA, VENTOLIN HFA) 90 mcg/actuation inhaler Inhale 2 Puffs as instructed every 4 hours as needed for wheezing/shortness of breath. escitalopram oxalate (LEXAPRO) 20 mg tablet Take 1 tablet by mouth once daily. albuterol (PROVENTIL) 2.5 mg /3 mL (0.083 %) nebulizer solution Use 3 mL via nebulizer every 4 hours as needed. single dose vials. 1 vial contains 3 ml EPINEPHrine (EPIPEN) 0.3 mg/0.3 mL auto-injector Inject 0.3 mL intramuscularly as needed. fluticasone (FLONASE ALLERGY RELIEF) 50 mcg/actuation nasal spray Use 1 [place] in each nostril once daily. inhalat.spacing dev,large mask (AEROCHAMBER PLUS FLOW-VU,L MSK) spcr Use with inhaler as directed. MELATONIN ORAL Take by mouth. Asthma Control Test 05/02/2022 01/02/2023 02/18/2024 ASTHMA CONTROL TEST (2007 - ) Keep from getting things done 3 Some of the time 3 Some of the time 4 A little of the time Shortness of breath 1 More than once a day 2 Once a day 2 Once a day Symptoms wake up at night or early in morning 2 2 or 3 nights a week 2 2 or 3 nights a week 3 Once a week How often have you used inhaler/nebulizer 2 1 or 2 times per day 2 1 or 2 times per day 2 1 or 2 times per day Rate your asthma control over past 4 weeks 2 Poorly controlled 3 Somewhat controlled 3 Somewhat controlled Asthma Control Test Score 10 12 14 Exercise / activity related symptoms: No Asthma triggers include: pollens/allergens, stress, and weather change. PAST MEDICAL HISTORY Diagnosis Date Contact dermatitis and other eczema, due to unspecified cause PMH - PAST MEDICAL HISTORY OF RSV (more content not included)... Normal [facility] OTISOVon 02-18-2024 CNOV Office Visit (PEDSWS ) ----- LEXIS GUERRA ([id number]) 5 F Date Time Provider Department 02/18/24 1:00 PM UVALDO JORGENSEN During your visit today, we recorded the following information about you: Temperature Pulse Respiration Blood pressure 97.8 degrees 80/minute 16/minute 102/66 Weight Height 58.4 kg 1.636 m Uvaldo Jorgensen MD 02/18/2024 2:34 PM Signed WELL VISIT PEDIATRIC 18+ YRS OLD Lexis is a 19 year old who presents today for well exam. SUBJECTIVE CONCERNS: no concerns ST this am- generally better- Left side. FEVER: not present at this time NASAL CONGESTION: not present at this time COUGH: not present at this time SORE THROAT: for 1 day(s) Additional symptoms include: difficulty swallowing and mucus Denies: hot potato voice Treatments have included: Gargle HEADACHE: not present at this time VOMITING: not present at this time ABDOMINAL PAIN: not present at this time Patient with history of Mild persistent Asthma. Daily asthma or allergy related maintenance / controller medications include (see medication list below for details): She has not been taking her Qvar regularly Uses spacer with inhaler? No Takes controller medicine(s) as prescribed? No- has QVAR. but not taking MEDICATIONS: beclomethasone (QVAR REDIHALER) 40 mcg/actuation inhaler Inhale 1 Puff as instructed two times a day. Cetirizine 10 mg cap Take by mouth. hydrOXYzine HCl (ATARAX) 25 mg tablet take 1 tablet by mouth three times a day as needed for anxiety EPINEPHrine (EPIPEN) 0.3 mg/0.3 mL auto-injector Inject 0.3 mL intramuscularly as needed. fluticasone (FLONASE ALLERGY RELIEF) 50 mcg/actuation nasal spray Use 1 [place] in each nostril once daily. etonogestrel (NEXPLANON) subdermal implant 68 mg 1 Each by SUBDERMAL route as directed. inhalat.spacing dev,large mask (AEROCHAMBER PLUS FLOW-VU,L MSK) spcr Use with inhaler as directed. MELATONIN ORAL Take by mouth. escitalopram oxalate (LEXAPRO) 20 mg tablet Take 1 tablet by mouth once daily. albuterol HFA (PROVENTIL HFA, VENTOLIN HFA) 90 mcg/actuation inhaler Inhale 2 Puffs as instructed every 4 hours as needed for wheezing/shortness of breath. Asthma History: At baseline, uses inhaled beta agonist 1 -2times per day. Most recent use of a inhaled beta agonist medication: today 1 urgent visit(s) for asthma in past 12 months 1 course(s) of po steroids in past 12 months Last hospitalization: N/A Asthma Control Test 05/02/2022 01/02/2023 02/18/2024 ASTHMA CONTROL TEST (2007 - ) Keep from getting things done 3 Some of the time 3 Some of the time 4 A little of the time Shortness of breath 1 More than once a day 2 Once a day 2 Once a day Symptoms wake up at night or early in morning 2 2 or 3 nights a week 2 2 or 3 nights a week 3 Once a week How often have you used inhaler/nebulizer 2 1 or 2 times per day 2 1 or 2 times per day 2 1 or 2 times per day Rate your asthma control over past 4 weeks 2 Poorly controlled 3 Somewhat controlled 3 Somewhat controlled Asthma Control Test Score 10 12 14 Exercise / activity related symptoms: Yes Asthma triggers include: Tiggers, weather, animal, activity, URI. Smoking Exposure: Does your child spend a significant amount of time in the care of anyone who smokes? Yes -Who uses tobacco products? Grandparents -Are you interesting in quitting? No -Do you have a smoke-free home rule in place? No -Do you have a smoke-free car rule in place? No ROS HEENT: itchy or watery eyes: no nasal congestion: yes RESP: as per HPI GI: emesis: no reflux/heartburn: no SKIN: Eczema: no Currently taking Escitalopram 20 mg Stopped meds a few months. The medication was helping dramatically when taking it. History was obtained from: patient Current symptoms: irritability, anxiety, and angry. Severity of Symptoms: moderate Context: home and school Not currently involved with counselor: therapist left position last spring. PAST MEDICAL HISTORY Diagnosis Date Contact dermatitis [...] - 05/30/2008 Allergy to Peanuts - 05/30/2008 Other Atopic Dermatitis and Related Conditions - 01/17/2006 PAST MEDICAL HISTORY Diagnosis Date Contact dermatitis and other eczema, due to unspecified cause PMH - PAST MEDICAL HISTORY OF (more content not included)... Normal [facility] Bacteria Ur Culton Bacteria identified Cx Nom (U) ORGANISM ID: 1 >=100,000 CFU/ml Escherichia coli ORGANISM ID: 2 >=100,000 CFU/ml Lactobacillus species No further workup ORGANISM ID: 1 (ESCHERICHIA COLI) ANTIBIOTIC INTERPRETATION UGO STATUS REFERENCE RANGE Ampicillin S <=2 F Susceptible <=8 , Intermediate >8 , Resistant >16 Cefazolin S <=4 F Susceptible 0-16 , Intermediate <0 or >16 , Resistant >16 For uncomplicated urinary tract infections, cefazolin results can be used to predict susceptibility or resistance to cephalexin. Ceftriaxone S <=1 F Susceptible <=1 , Intermediate >1 , Resistant >=4 Cefepime S <=1 F Susceptible <=2 , Susceptible-Dose Dependent >2 , Resistant >=16 Ertapenem S <=0.5 F Susceptible <=0.5 , Intermediate >.5 , Resistant >1 Meropenem S <=0.25 F Susceptible <=1 , Intermediate >1 , Resistant >2 Ampicillin/Sulbact S <=2 F Susceptible <=8 , Intermediate >8 , Resistant >16 Piperacillin/Tazobac S <=4 F Susceptible <16 , Susceptible-Dose Dependent >=16 , Resistant >=32 Gentamicin S <=1 F Susceptible <=2 , Intermediate >2 , Resistant >=8 Tobramycin S <=1 F Susceptible <4 , Intermediate >=4 , Resistant >=8 Trimeth sulfameth S <=20 F Susceptible <=40 , Resistant >40 Ciprofloxacin S <=0.25 F Susceptible <0.5 , Intermediate >=.5 , Resistant >=1 Nitrofurantoin S <=16 F Susceptible <=32 , Intermediate >32 , Resistant >64 Abnormal [facility] Comment on above: Performed By: #### 6 30-4 #### [facility] CLIA [id number] [address] [place] [address] OF [facility] CNOVon 08-12-2023 CNOV Office Visit (UCWSTR ) ----- LEXIS GUERRA ([id number]) 5 F Date Time Provider Department 08/12/23 6:45 PM STEVE POPE [facility] During your visit today, we recorded the following information about you: Temperature Pulse Respiration Blood pressure 99.5 degrees 78/minute 18/minute 122/78 Weight 69.7 kg Steve Pope APRN.[employer] 08/12/2023 7:21 PM Signed Subjective HPI A nontoxic appearing female presents to urgent care with chief complaint of possible UTI. Duration of symptoms 1 day. Associated symptoms dysuria, frequency, and urgency. Patient has history of UTIs in past with similar signs and symptoms. Patient denies the use of any elsv-dcy-jcjvdmd medications or home remedies for symptom management. Patient states pain is a 3/10. Patient denies any fevers, flank pain, abdominal pain, nausea, vomiting, vaginal discharge, chance of STDs, chance of , or urological abnormalities. Past medical history prescription medications allergies reviewed. .Patient presents with: Urinary Frequency: Frequency x 1 day PAST MEDICAL HISTORY Diagnosis Date Contact dermatitis and other eczema, due to unspecified cause PMH - PAST MEDICAL HISTORY OF RSV Pneumomediastinum (HCC) 02/16/2018 Right arm fracture age 3-4 PAST SURGICAL HISTORY Procedure Laterality Date PAST SURGICAL HISTORY OF extraction of teeth PAST SURGICAL HISTORY OF frenulectomy ALLERGIES Cashew Nut and Peanuts MEDICATIONS EPINEPHrine (EPIPEN) 0.3 mg/0.3 mL auto-injector Inject 0.3 mL intramuscularly as needed. beclomethasone (QVAR REDIHALER) 40 mcg/actuation inhaler Inhale 1 Puff as instructed two times a day. fluticasone (FLONASE ALLERGY RELIEF) 50 mcg/actuation nasal spray Use 1 [place] in each nostril once daily. albuterol HFA (PROVENTIL HFA, VENTOLIN HFA) 90 mcg/actuation inhaler Inhale 2 Puffs as instructed every 4 hours as needed for wheezing/shortness of breath. hydrOXYzine HCl (ATARAX) 25 mg tablet take 1 tablet by mouth three times a day as needed for anxiety etonogestrel (NEXPLANON) subdermal implant 68 mg 1 Each by SUBDERMAL route as directed. escitalopram oxalate (LEXAPRO) 20 mg tablet take 1 tablet by mouth every day inhalat.spacing dev,large mask (AEROCHAMBER PLUS FLOW-VU,L MSK) spcr Use with inhaler as directed. cholecalciferol, Vitamin D3, (VITAMIN D3) 1,250 mcg (50,000 unit) cap capsule TAKE 1 CAPSULE BY MOUTH ONE TIME A WEEK. MELATONIN ORAL Take by mouth. Inhalational Spacing Device spcr 1 Device as [...] Alcohol use: Never Drug use: Never BP 122/78 Pulse 78 Temp 37.5 ?C (99.5 ?F) (Tympanic) Resp 18 Wt 69.7 kg (153 lb 10.6 oz) LMP 03/31/2023 (Approximate) SpO2 100% BMI 25.76 kg/m? Review of Systems Constitutional: Negative for chills, fever and malaise/fatigue. HENT: Negative for congestion, ear discharge, ear pain, sinus pain and sore throat. Eyes: Negative for blurred vision, pain, discharge and redness. Respiratory: Negative for cough, hemoptysis, sputum production, shortness of breath, wheezing and stridor. Cardiovascular: Negative for chest pain. Gastrointestinal: Negative for abdominal pain, diarrhea, nausea and vomiting. Genitourinary: Positive for dysuria, frequency and urgency. Negative for flank pain and hematuria. Musculoskeletal: Negative for myalgias. Skin: Negative for [...] rales. Abdominal: General: There is no distension. Pal (more content not included)... Normal [facility] UA DIP, URINE (POC)on 2023 BILIRUBIN UA (POCT) Negative Negative [facility] [place] [facility] CLARITY UA (POCT) Clear [facility] COLOR UA (POCT) Yellow [facility] GLUCOSE UA (POCT) Negative Negative mg/dL [facility] Hemoglobin Ql (U) Large Abnormal Negative [facility] KETONE UA (POCT) Trace Negative mg/dL [facility] LEUKOCYTES UA (POCT) Trace Abnormal [facility] ([facility]) Negative Negative [facility] PH UA (POCT) 6.5 4.5 - 8.0 [facility] Protein Ql (U) 100 mg/dL Abnormal Negative mg/dL [facility] SPECIFIC GRAVITY UA (POCT) >=1.030 1.005 - 1.030 [facility] UROBILINOGEN UA (POCT) 0.2 E.U./dL Karin l E.U./dL [facility] CNOVon 08-10-2023 CNOV Office Visit (PEDSWS ) ----- LEXIS GUERRA ([id number]) 5 F Date Time Provider Department 08/10/23 2:00 PM UVALDO JORGENSEN PEDSWS During your visit today, we recorded the following information about you: Temperature Pulse Respiration Blood pressure 97.7 degrees 80/minute 16/minute 116/74 Weight Height 69.1 kg 1.645 m Uvaldo Jorgensen MD 08/11/2023 8:37 AM Signed PEDIATRIC FOLLOW UP VISIT Piressymone Guerra is a 18 year old female who presents with depressed mood and anxiety for follow up visit accompanied by her self. Currently taking Escitalopram 20 mg and hydroxyzine 25 mg as needed . The medication is helping some. History was obtained from: patient At the time of her last visit in December 2022 she reported she was going to be scheduled with her therapist (Yudelka). Current symptoms: has had increased panic (hydroxide 1-2 x month) increased anxiety- family, school, life transition. Seeing Edith Bonner) Severity of Symptoms: moderate Context: home, school, and work Also wishes Epi Pen refill-she does not have an active She reports she is having some asthma exacerbation as well. This is particularly when she is around livestock. She is not currently taking allergy medication. She also reports she is doing better at discriminating between anxiety and asthma but still has difficulty at times. 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 ROS for medication side effects: Abdominal pain: no Appetite problems: no Drowsiness: no Sleep problems: no Headaches: no Depression: no Suicidal ideation: no Agitation: no Lori: no Tremors: no Weight change: no PHYSICAL EXAM: BP 116/74 Pulse 80 Temp 36.5 ?C (97.7 ?F) (Temporal) Resp 16 Ht 164.5 cm (5' 4.76) Wt 69.1 kg (152 lb 6.4 oz) LMP 03/31/2023 (Approximate) BMI 25.55 kg/m? Blood pressure %chema are not available for patients who are 18 years or older. General: Well developed, No acute distress Neck: supple and no adenopathy Lungs: clear to auscultation bilaterally, good air exchange, no retractions Heart: Normal rate, regular rhythm, no murmur Abdomen: Soft, nontender, nondistended, no palpable organomegaly or masses, normal bowel sounds Skin: Normal color, texture and turgor. No rashes. ASSESSMENT AND PLAN: Encounter Diagnosis ICD-10-CM 1. Mild persistent asthma without complication J45.30 2. Generalized anxiety disorder F41.1 3. Depressed mood R45.89 4. Encounter for immunization Z23 MENINGOCOCCAL B VACCINE (BEXSERO) 18 year old female with anxiety and depression without optimization of symptoms, but improvement and without significant medication side effects. Based on PHQ-A Score: 4 (recommended cut off score is 11) and interview, presentation is consistent with possible depression: -Symptoms appear well-controlled with current management . 08/10/2023 01/02/2023 JAMAR - 2/7 SCORES JAMAR-2 Score 3 5 JAMAR-7 Score 9 15 Based on score and interview, presentation is consistent with anxiety: -Continue current medications -Continue current psychology/behavioral health management. ASTHMA PLAN: - Albuterol 2 puffs with spacer q4hr PRN cough, wheeze however she should continue to be mindful of how anxiety is presenting with shortness of breath - Controller medication: Begin new controller medication as ordered, she has never been able to fill her Flovent discus I do recommend Flonase and ctcb-xmc-snrdszq antihistamine Uvaldo Jorgensen MD Allergies As of Date: 08/10/2023 Noted Allergy Reaction HERBER NUT 01/07/2023 7 - Swelling Comments: lab test PEANUTS 05/12/2007 7 - Swelling Date Reviewed: 08/10/2023 Reviewed by: Ramsey Gomez MA - Fully Assessed Reason for Visit: Medication Follow-up [270] Cmt: Doing well with medications no questions or concerns Primary Visit Diagnosis:Mild persistent asthma without complication [J45.30] Other Visit Diagnoses:Generalized anxiety disorder [F41.1] Depressed mood [R45.89] Encounter for immunization [Z23] Order(s):EPINEPHrine (EPIPEN) 0.3 mg/0.3 mL auto-injectorInject 0.3 mL intramuscularly as needed.Disp: 2 EachRfl: 1 beclomethasone (QVAR REDIHALER) 40 mcg/actuation inhalerInhale 1 Puff as instructed two times a day.Disp: 1 EachRfl: 5 fluticasone (FLONASE ALLERGY RELIEF) 50 mcg/actuation nasal sprayUse 1 [place] in each nostril once daily.Disp: 1 EachRfl: 5 MENINGOCOCCAL B VACCINE (BEXSERO) [[id number]] Order #: [id number] Prescriptions as of 08/11/2023 - EPINEPHrine (EPIPEN) 0.3 mg/0.3 mL auto-injector Inject 0.3 mL intramuscularly as needed. - beclomethasone (QVAR REDIHALER) 40 mcg/actuation inhaler Inhale 1 Pu (more content not included)... Normal [facility] XR ABDOMEN 1V SUPINEon 06-11 [facility] XR Abdomen Supine and Uprigh ton 06-11-2023 IMPRESSION: Normal intestinal gas pattern. Dining Room Host/Hostess: DOMINIK Transcribe Date/Time: Jun 11 2023 8:33A Dictated by : Sirisha TANG MD This examination was interpreted and the report reviewed and electronically signed by: Sirisha TANG MD on Jun 11 2023 8:34AM EST DIVISION OF RADIOLOGY * * *Final Report* * * DATE OF EXAM: Jun 11 2023 8:33AM WOX [id number] - XR ABDOMEN 1V SUPINE / PROCEDURE REASON: Generalized abdominal pain * * * * Physician Interpretation * * * * EXAM: XR ABDOMEN 1V SUPINE HISTORY: Generalized abdominal pain VIEWS: Supine AP x2. COMPARISON: No. FINDINGS: Scattered colonic gas and small volume of stool at the rectosigmoid and right colon. No bowel dilatation. No urinary calculus identified. DIVISION OF RADIOLOGY Provider, [facility] Juan David [facility] - 06/11/2023 * * *Final Report* * * DATE OF EXAM: Jun 11 2023 8:33AM WOX [id number] - XR ABDOMEN 1V SUPINE / PROCEDURE REASON: Generalized abdominal pain * * * * Physician Interpretation * * * * EXAM: XR ABDOMEN 1V SUPINE HISTORY: Generalized abdominal pain VIEWS: Supine AP x2. COMPARISON: No. FINDINGS: Scattered colonic gas and small volume of stool at the rectosigmoid and right colon. No bowel dilatation. No urinary calculus identified. IMPRESSION IMPRESSION: Normal intestinal gas pattern. Dining Room Host/Hostess: PSCB Transcribe Date/Time: Jun 11 2023 8:33A Dictated by : Sirisha TANG MD This examination was interpreted and the report reviewed and electronically signed by: Sirisha TANG MD on Jun 11 2023 8:34AM [facility] Radiology Study observation (narrative) [facility] XR Abdomen Supine and Uprigh tOrdered By: Ccf Provider on 06-11-2023 [facility] Absolute lymphocyte countOrd ered By: James Gomez on 04-19-2023 Lymphocytes Auto (Unsp spec) [#/Vol] 2.47 10*3/uL 0.83-4.51 [facility] Basophil percentageOrdered B y: James Gomez on 04-19-2023 Basophils/100 WBC (Bld) 0.4 % 0-1 [facility] Bilirubin [Mass/Vol] 0.50 mg/dL 0.20-1.00 [facility] Comment on above: For patients on eltr ombopag therapy, use of Dimension [place] TBIL is not recommended. Chloride [Moles/Vol] 107 mmol/L 98-107 [facility] Eosinophils/100 WBC (Bld) 1.9 % 0-3 [facility] Glucose [Mass/Vol] 103 mg/dL 74-106 [facility] Comment on above: Fasting Glucose resu lt from 100 to 125 mg/dL suggests IMPAIRED HOMEOSTASIS per A.D.A. criteria. Neutrophils (Bld) [#/Vol] 7.5 10*3/uL 2.0-7.7 [facility] Neutrophils/100 WBC (Bld) 68.5 % 34-64 [facility] Potassium [Moles/Vol] 3.7 mmol/L 3.5-5.1 [facility] Protein [Mass/Vol] 7.0 g/dL 6.4-8.2 [facility] Sodium [Moles/Vol] 141 mmol/L 136-145 [facility] WBC (Bld) [#/Vol] 10.9 10*3/uL 4.5-13.0 [facility] Beta hCG serum qualOrdered B y: James Gomez on 04-19-2023 Beta HCG ( test) Ql Negative [facility] Blood erythrocytes count (nu mber/volume)Ordered By: James Gomez on 04-19-2023 RBC (Bld) [#/Vol] 5.06 10*6/uL 4.1-4.8 [facility] Blood hemoglobin measurement (mass/volume)Ordered By: James Gomez on 04-19-2023 Hemoglobin (Bld) [Mass/Vol] 14.6 g/dL 12.0-15.0 [facility] Blood lymphocytes/100 leukoc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 Low back pain FINDINGS: BONES/ALIGNMENT: There is normal alignment of the spine. The vertebral body heights are maintained. No osseous destructive lesion is seen. DEGENERATIVE CHANGES: No significant degenerative changes of the lumbar spine. Intervertebral disc spaces are preserved. SOFT TISSUES/RETROPERITONEUM: No paraspinal mass is seen. Visualized intraperitoneal structures are within normal limits. Trace pelvic fluid in the cul-de-sac is likely physiologic. IMPRESSION: No compression deformity or traumatic listhesis. I have personally reviewed the images of this examination and agree with the resident's findings and interpretation. Interpreted by: Jermaine Moreira Preliminary Report By: Dina Salcido Electronically signed By Jermaine Moreira Dictated Date: 12/22/2020 8:26:46 PM Prelim Date: 12/22/2020 8:30:28 PM Sign Date: 12/22/2020 8:47:07 PM Ordering Provider: DAVID JOHNSON [facility] ([place]) PREGUon 12-22-2020 HCG ( test) Ql (U) Negative Normal [facility] [place] Comment on above: Performed By: #### P REGU #### [address] [address] test (u) int Not detected Invalid Interpretation Code [facility] [place] Comment on above: Performed By: #### P REGU #### [address] [place], [place] [address] XR Ankle - right AP and Late ral and obliqueon 12-05-2020 IMPRESSION: Soft tissue swelling, but no fracture. Dining Room Host/Hostess: DOMINIK Transcribe Date/Time: Dec 05 2020 9:26A Dictated by : SEBASTIEN CHAN MD This examination was interpreted and the report reviewed and electronically signed by: SEBASTIEN CHAN MD on Dec 05 2020 9:33AM [facility] DIVISION OF RADIOLOGY * * *Final Report* * * DATE OF EXAM: Dec 05 2020 9:23AM WOX 5297 - XR ANKLE 3V AP/LAT/OBL RT / PROCEDURE REASON: Acute right ankle pain * * * * Physician Interpretation * * * * EXAMINATION: XR ANKLE 3V AP/LAT/OBL RT HISTORY: pt states stepped in a hole yesterday and rolled right ankle pain lateral side Acute right ankle pain . TECHNIQUE: XR ANKLE 3V AP/LAT/OBL RT Laterality: RIGHT Number of different views (projections): 3 M: XB_1 COMPARISON: None. RESULT: FRACTURE: None. ALIGNMENT: Normal. EFFUSION: Small tibiotalar joint effusion. SOFT TISSUES: Lateral ankle soft tissue swelling. OTHER FINDINGS: None. DIVISION OF RADIOLOGY Provider, [facility] - 12/05/2020 * * *Final Report* * * DATE OF EXAM: Dec 05 2020 9:23AM WOX 5297 - XR ANKLE 3V AP/LAT/OBL RT / PROCEDURE REASON: Acute right ankle pain * * * * Physician Interpretation * * * * EXAMINATION: XR ANKLE 3V AP/LAT/OBL RT HISTORY: pt states stepped in a hole yesterday and rolled right ankle pain lateral side Acute right ankle pain . TECHNIQUE: XR ANKLE 3V AP/LAT/OBL RT Laterality: RIGHT Number of different views (projections): 3 M: XB_1 COMPARISON: None. RESULT: FRACTURE: None. ALIGNMENT: Normal. EFFUSION: Small tibiotalar joint effusion. SOFT TISSUES: Lateral ankle soft tissue swelling. OTHER FINDINGS: None. IMPRESSION IMPRESSION: Soft tissue swelling, but no fracture. Dining Room Host/Hostess: DOMINIK Transcribe Date/Time: Dec 05 2020 9:26A Dictated by : SEBASTIEN CHAN MD This examination was interpreted and the report reviewed and electronically signed by: SEBASTIEN CHAN MD on Dec 05 2020 9:33AM EST [facility] Radiology Study [facility] (narrative) [facility] Ankle - right AP and Late ral and obliqueOrdered By: Ccf Provider on 12-05-2020 [facility] CHEST PA(AP) AND LATERALon 1 CHEST PA(AP) AND LATERAL PROCEDURE: CHES T PA(AP) AND LATERALCLINICAL HISTORY: 13 yo F with history of pneumomediastinum, evaluating forimprovement/resolution .COMPARISON: Chest radiograph 02/17/2018.FINDINGS: There is redemonstration of bilateral pneumomediastinum with extension intothesoft tissue structures of the neck and lateral chest pak. No pneumothoraxis identified.The cardiomediastinal silhouette is normal in size. There is no focalconsolidations or pleural effusion.In the right costophrenic angle there is a well-circumscribed 14 mm radiodensenodular opacity. Additionally projecting through the lateral aspect of the lefthemidiaphragm there is an ill-defined radiodense nodular opacity that alsomeasures approximately 14 mm. No other nodules are definitively identified.IMPRESSION:1. Stable pneumomediastinum and subcutaneous emphysema.2. Bibasilar 14 mm lung nodular opacities. These probably represent artifacts.Recommend placement of nipple markers on follow-up study.Created by resident and approvedThis report has been created using voice recognition softwareSigned by: Dr. Jesus Norris at 02/18/2018 10:53 Normal [facility] Discharge Summaryon 02-19-20 18 Tube Roller Authentication Interface Message Text Discharge/Transfer SummaryName: Lexis Jorge Mari#: [id number] : 2005Room #: 6102/01 Age/Sex: 13 y.o. femaleAdmit Date: 02/16/2018 Admitting: KENYATTA Harperischarge Date: 02/18/2018[facility] Suzanna Lin MDFinal Diagnosis:Status asthmaticusSignificant Findings (Problem List):Active Hospital Problems Diagnosis High Risk Asthma PneumomediastinumResolved Hospital Problems Diagnosis Date Resolved Status asthmaticus 02/19/2018Reason for Hospitalization:Status asthmaticusDischarge Condition:GoodHospital Course (Care, treatment and services provided):Brief Narrative Hospital Course:Lexis Guerra is a 13 y.o female with a past medical history of mildpersistent asthma, exercise induced asthma, peanut allergy, and atopicdermatitis who presented on 02/17 with status asthmaticus, pneumomediastinum,and small bilateral pneumothoraces likely triggered by an upper respiratoryinfection.Thre e days prior to admission (02/14), Lexis developed a cough, congestion, andrhinorrhea progressing to shortness of breath on 02/15. Her shortness of breathworsened and developed wheezing on the morning of admission. She was alsocomplaining of a sore throat. She was then taken to the urgent care who obtaineda CXR that was concerning for pneumonia. She was given a dose of steroids andprescribed azithromycin. With persistent respiratory distress, [facility] [place] [facility] [place] duoneb treatments with improvement of symptoms.At this time had a CBC significant for a leukocytosis of 15 with a left shift(92%neutrophils). BMP and Rapid flu negative. Patient was discharged home onsteroids and azithromycin but then returned a second time for continuedrespiratory distress. At this time she was tachycardic to the 140s and tachypnecto the 20s. Oxygen saturations stable in the mid to upper 90s. A CT withoutcontrast was obtained due to new throat pain and subjective throat swelling. CTdemonstrated mild bilateral pneumothorax, pneumomediastinum, andpneumopericardium as well as diffuse subcutaneous emphysema of the chest. Shewas given a duoneb and placed on oxygen then transferred [facility] furthermanagement.At [facility] ED, she continued on oxygen with respiratory distress and a diffuseinspiratory and expiratory wheeze. She was given albuterol, IV solubmedrol,magnesium, and a normal saline bolus x1. She was then transferred to the PICU.In the PICU, she had mild respiratory distress on oxygen but did not feel shortof breath and was able to speak in full sentences. She was placed on level 2 ofthe asthma pathway. Overnight she was stable and was transferred to theinpatient unit.On the floors, she was advanced to level 4 of the asthma pathway withoutrespiratory distress or hypoxia. She remained afebrile, hemodynamically stable,and saturating appropriately on room air. She tolerated a regular diet. She wasdischarged on Flovent for a controller inhaler and with prescriptions to finishher course of azithromycin and her course of orapred. She was instructed tocontinue her albuterol every 4 hours while awake while finishing her steroidcourse. Patient to follow up with PCP in 2-3 days and with pulmonology in 2-3months. She will need to repeat a CXR to follow up incidental finding of nodularlung opacities.Treatments and procedures with outcomes:No significant invasive proceduresImmunizations(a dministered this admission):Influenza VaccineSignificant Imaging Results:X-Ray Chest Pa(ap) & LateralFinal ResultIMPRESSION:1. Stable pneumomediastinum and subcutaneous emphysema.2. Bibasilar 14 mm lung nodular opacities. These probably represent artifacts.Recommendplacem ent of nipple markers on follow-up study.X-Ray Chest AP onlyFinal ResultIMPRESSION: There is bilateral pneumomediastinum with extension of the air intothe softtissues of the neck. No obvious pneumothorax is visible. Heart size is normal. CT Chest without Contrast from [place] ED.- Mild bilateral pneumothorax, pneumopericardium, pneumomediastinum, epiduralgas within the thoracic vertebral column, diffuse subcutaneous emphysema withinthe base of neck, upper anterior chest wall, and axilla. CT Soft Tissue Neck without Contrast from [place] ED.- Mild pneumothorax at pulmonary apices, pneumomediastinum, extensivesubcutaneous emphysema of the neck, gas in the prevertebral and paravertebralspaces, epidural gas of the cervical spine.Pending Test Results and Tests to Obtain as Outpatient:Repeat CXR as outpatient to follow up nodular lung opacities.Disposition:She was discharged to home.Discharge Medications:She did have significant changes to their home medications (see below)Medication ListSTART taking these medications Morning Afternoon Evening Bedtime As Neededfluticasone 110 MCG/ACT 110 mcg inhalerInhale 2 Puffs into the lungs 2 times dailyCommonly known as: FLOVENT HFA [ ] [ ] [ ] [ ] [ ]OPTICHAMBER ADVANTAGE Misc DEVICEUse with inhaled medication as instructed. [ ] [ ] [ ] [ ] [ ]prednisoLONE 15 MG/5ML solutionTake 10 mL (30 mg) by mouth 2 times daily for 3 daysCommonly known as: ORAPRED [ ] [ ] [ ] [ ] [ ]CONTINUE taking these medications which HAVE changed Morning Afternoon Evening Bedtime As Neededalbuterol 108 (90 Base) MCG/ACT inhalerInhale 2 Puffs into the lungs every 4 hours as needed for Wheezing, Shortness ofBreath or CoughWhat changed: when to take this reasons to take thisCommonly known as: PROAIR HFA;VENTOLIN HFA;PROVENTIL HFA [ ] [ ] [ ] [ ] [ ]azithromycin 250 MG tabletTake 1 Tab (250 mg) by mouth every 24 hours for 2 daysWhat changed: See the new instructions.Commonly known as: ZITHROMAX [ ] [ ] [ ] [ ] [ ]CONTINUE taking these medications which HAVE NOT changed at this visit Morning Afternoon Evening Bedtime As Neededcetirizine 10 MG tabletTake by mouth dailyCommonly known as: ZyrTEC [ ] [ ] [ ] [ ] [ ]EPINEPHrine 0.3 MG/0.3ML injectionInject 0.3 mg into the muscle as neededCommonly known as: EPIPEN [ ] [ ] [ ] [ ] [ ]STOP taking these medicationspredniSONE 20 MG tabletCommonly known as: DELTASONEWhere to Get Your MedicationsThese medications were sent to [facility]/pharmacy #[id number] - [facility] [address] [place] [address], [facility] [address] albuterol 108 (90 Base) MCG/ACT inhaler azithromycin 250 MG tablet fluticasone 110 MCG/ACT 110 mcg inhaler OPTICHAMBER ADVANTAGE Misc DEVICE prednisoLONE 15 MG/5ML solutionDischarge Instructions:Instructions /Follow Up Future Labs/Procedures Expected by Expires Disease Specific (bronchiolitis, gastroenteritis, reflux, cellulitis/abscess,bacter ial pneumonia, asthma, fever) As directed Comments: Disease Specific Instructions:Asthma: Asthma:Your child has been diagnosed with an asthma exacerbation. Asthma is a commonchronic lung condition seen in young children, teenagers, and adults. Asthmacauses chronic inflammation and reactivity of the airways. Symptoms of asthmainclude coughing, wheezing, increased work of breathing and chest tightness.When a child has an asthma attack, their airways have become so narrow that theyhave difficulty moving air into and out of their lungs. Albuterol is a rescuemedication given during an asthma attack and works to widen the airways to makebreathing easier. Sometimes albuterol does not work and children require a visitto their it integration architect or emergency room to get other medications to help theirbreathing.But there are ways to prevent asthma attacks! Airways can become sensitive tothings like viral illnesses, dust, cigarette smoke, perfumes, and exercise thatcause the airways to become narrow. Children should avoid their triggers (listedon asthma treatment plan).They should take a controller medication (Flovent) every day (whether they aresick or well) as directed by their doctor/asthma treatment plan. and Your childhas been prescribed a 5 day course of Prednisolone (oral steroid).Steroids help decrease inflammation in the airways making it easier to breathe.Please complete the remaining 3 days of steroid.Your child should take 2 puffs of albuterol every 4 hours while awake over thenext 48 hours to help keep their airways open and then return to using asneeded. Always use a spacer with inhalers to help medication better reach yourchild s lungs.Please see your asthma treatment plan and refer to materials from asthmaeducation class for the medications recommended for your child.Because of their increased risk, they should receive the flu vaccine every year.If your child develops trouble breathing while sitting still, has difficultytalking without taking a breath, becomes blue around the lips, or the skinbetween the neck and chest goes in when they breathe (called retractions) pleasego to the nearest emergency room. If your child develops chest tightness, cough,or wheezing please refer to the asthma treatment plan.Please schedule follow-up with your child s it integration architect to be seen in 2-3 days.Please call your primary care doctor if you have questions or concerns. If youare unable to reach your primary care doctor, please call the hospital main lineat [phone] and ask for the hospitalist invoice classification clerk. Follow Up with As directed Comments: Your it integration architect, Uvaldo Jorgensen MD, in 2-3 days. Call sooner if questionsor concerns - [phone]/21 @ 7:50AM with Dr. Lin [place] Law: Child Safety Seat Instructions As directed Comments: It is the [place] State Law that every child under 8 years old must ride in anappropriate child safety seat unless the child is 4'9 or taller. Every childfrom 8-15 years old who is not secured in a child safety seat must be secured inthe vehicle's seat belt. [facility] advises that all motorvehicle passengers be restrained.Discharge Orders Future Labs/Procedures Expected by Expires Activity as tolerated As directed Call physician/healthcare provider for: Difficulty breathing (breathing faster,working harder to breathe causing ribs to stick out or pulling above the chest,nostrils flaring, grunting, change in color, pauses in breathing) As directed Call physician/healthcare provider for: Temperature >100.4 As directed Regular diet for age As directedSigned:Eber Soni MD02/18/20184:25 PM . Normal [facility] Basic Metabolic Panelon 02-08 Calcium mass conc 8.9 mg/dL Normal 7.6-11.0 [facility] Comment on above: Order Comment: Recom mended every AM if NPO or on continuous albuterol Performed By: #### B MP ####[address] [phone] Chloride molar conc 109 mmol/L High 96-108 [facility] Comment on above: Order Comment: Recom mended every AM if NPO or on continuous albuterol Performed By: #### B MP ####[address] [phone] CO2 molar conc 21.0 mmol/L Low 22.0-29.0 [facility] Comment on above: Order Comment: Recom mended every AM if NPO or on continuous albuterol Performed By: #### B MP ####[address] [phone] Creatinine mass conc 0.74 mg/dL Normal 0.50-0.80 [facility] Comment on above: Order Comment: Recom mended every AM if NPO or on continuous albuterol Result Comment: Mario ature 0.3-1.0 mg/dL Performed By: #### B MP ####[address] [phone] Glucose mass conc 153 mg/dL High 70-99 [facility] Comment on above: Order Comment: Recom mended every AM if NPO or on continuous albuterol Result Comment: Karol pak for Diagnosis of Diabetes(Effective 10/14/10):Fasting specimen (no caloric intake for at least 8 hours). <100 mg/dl Normal 100-125 mg/dl Increased Risk for Diabetes >125 mg/dl Diagnostic for DiabetesRandom Glucose (any time of day without regard to last meal). >=200 mg/dl plus Classic Symptoms of Diabetes Performed By: #### B MP ####[address] [phone] Potassium molar conc 4.5 mmol/L Normal 3.3-5.1 [facility] Comment on above: Order Comment: Recom mended every AM if NPO or on continuous albuterol Performed By: #### B MP ####[address] [phone] Sodium molar conc 136 mmol/L Normal 133-145 [facility] Comment on above: Order Comment: Recom mended every AM if NPO or on continuous albuterol Performed By: #### B MP ####[address] [phone] Urea nitrogen mass conc 16 mg/dL Normal 4-19 [facility] Comment on above: Order Comment: Recom mended every AM if NPO or on continuous albuterol Performed By: #### B MP ####[address] [phone] CHEST AP ONLYon 02-17-2018 CHEST AP ONLY Clinical history: Fo llow up status asthmaticus with pneumomediastinum.COMPARI SON: Previous CT of 02/16/2018.IMPRESSION: There is bilateral pneumomediastinum with extension of the air intothe soft tissues of the neck. No obvious pneumothorax is visible. Heart size isnormal.This report has been created using voice recognition softwareSigned by: Dr. Jacinto Craft at 02/17/2018 08:40 Normal [facility] H&Isaias 02-17-2018 Tube Roller Authentication Interface Message Text MEDICAL ADMISSION HISTORY AND PHYSICALDATE OF SERVICE: 02/17/2018ATTENDING PROVIDER: Steve Hartley DOInformant: ER resident, parents, patientCHIEF COMPLAINT: Asthma exacerbationREASON FOR HOSPITALIZATION: Acute or unresolved changes in physiologic statusHISTORY OF PRESENT ILLNESS:Lexis is a 13 y.o. female with mild persistent asthma accompanied by hermother and father who presents with status asthmaticus and pneumomediastinum.Three days prior to admission, Lexis developed cough, congestion, andrhinorrhea. She developed shortness of breath 2 days prior to admission, buthad acute worsening of shortness of breath with wheeze this morning. She wastaken to an urgent care where CXR was concerning for pneumonia. She was given adose of steroids and prescribed azithromycin. Due to persistent respiratorydistress, she went to [place] ED.At [place] ED, she was given duoneb x2 with improvement. CBC revealedleukocytosis of 15 with left shift (92% neutrophils). BMP was unremarkable.Rapid flu was negative. She was discharged home with instructions to continuethe steroids and azithromycin, however, she had continued respiratory distressand presented a second time to [place] ED.Again at [place] ED, she was tachycardic to the 140s and tachypnec to the 20s.Oxygen saturations stable in the mid to upper 90s. Due to feeling throat painand feeling as if her throat was swelling, a CT chest was performed. CT withoutcontrast demonstrated mild bilateral pneumothorax, pneumomediastinum, andpneumopericardium as well as diffuse subcutaneous emphysema of the chest. Shewas given a duoneb and placed on 2L nasal cannula. [facility], she was on 2L NC with initial PAS score of 12. On exam, she hadmoderate respiratory distress with diffuse inspiratory and expiratory wheeze.She was given albuterol x2, IV solumedrol, magnesium 50 mg/kg, and 1x NSB. PASimproved to 10. She was transferred to [facility] PICU for further management.Upon arrival to the PICU, she was in mild respiratory distress on 2L O2 withstable oxygen saturations at 95%. She did not feel short of breath and was ableto speak in full sentences.She was taken off of flovent about 1 year ago because she had been doing wellwith her asthma. She states that she has a cough every other week and sometimeswith exercise. Her asthma is managed by her it integration architect, and she has neverseen a career development director. She has had at most 1 course of steroids in the past 6months. She has never been admitted to the hospital for her asthma.PAST MEDICAL HISTORY:Past Medical History:Diagnosis Date Uncomplicated asthmaPAST SURGICAL HISTORY:History reviewed. No pertinent surgical history.FAMILY HISTORY:History reviewed. No pertinent family history.PSYCH/SOCIAL HISTORY:Social HistorySocial History Marital status: Single Spouse name: N/A Number of children: N/A Years of education: N/AOccupational History Not on file.Social History Main Topics Smoking status: Not on file Smokeless tobacco: Not on file Alcohol use Not on file Drug use: Unknown Sexual activity: Not on fileOther Topics Concern Not on fileSocial History Narrative No narrative on fileDRUG/FOOD ALLERGIES:AllergiesAllerg en Reactions Peanut Allergy Rash Seasonal Allergies Other (See Comments) Runny nose, mild expiratory wheezingBIRTH HISTORY:NoncontributoryDE VELOPMENTAL HISTORY:MilestonesAll met as expectedDIET HISTORY:Age appropriate / normal for ageIMMUNIZATIONS:There is no immunization history on file for this patient.Not evaluated at this timePRIOR TO ADMISSION MEDICATIONS:Prescriptions Prior to AdmissionMedication Sig Dispense Refill Last Dose albuterol 108 (90 Base) MCG/ACT inhaler Inhale 2 Puffs into the lungs every 6hours as needed for Wheezing 02/17/2018 at Unknown time cetirizine (ZYRTEC) 10 MG tablet Take by mouth daily Unknown at Unknown timeVITAL SIGNS:Vitals: 02/16/18 2345 02/17/18 0000 02/17/18 0032BP: 95/46 92/48Pulse: (!) 115 (!) 115Resp: 27 (!) 31Temp: 37.1 C (98.8 F)SpO2: 97% 97%Weight: 64 kgWeight - Scale: 64 kgI/O:No intake or output data in the 24 hours ending 02/17/18 0101REVIEW OF SYSTEMS:Review of SystemsConstitutional: Negative for chills, fever and malaise/fatigue.HENT: Positive for congestion. Negative for ear pain and sore throat.Eyes: Negative for pain and redness.Respiratory: Positive for cough, shortness of breath and wheezing. Negative forsputum production.Cardiovascular : Negative for chest pain.Gastrointestinal: Negative for diarrhea, nausea and vomiting.Genitourinary: Negative for decreased urine outputMusculoskeletal: Negative for joint pain.Skin: Negative for rash.Neurological: Negative for headaches.Endo/Heme/Aller gies: Positive for environmental allergies.PHYSICAL EXAM:Physical ExamConstitutional: She is oriented to person, place, and time. She appearswell-developed and well-nourished. She appears distressed (Mild respiratorydistress).HENT :Head: Normocephalic and atraumatic.Right Ear: External ear normal.Left Ear: External ear normal.Nose: Nose normal.Mouth/Throat: Oropharynx is clear and moist. No oropharyngeal exudate.Tongue slightly moistEyes: Pupils are equal, round, and reactive to light. Conjunctivae and EOM arenormal.Neck: Normal range of motion. Neck supple.Palpable crepitus on neck bilaterallyCardiovascular : Normal rate, regular rhythm, normal heart sounds and intactdistal pulses.No murmur heard.Pulmonary/Chest: She is in respiratory distress (Belly breathing). She haswheezes (Diffuse inspiratory and expiratory wheeze). She exhibits no tenderness.RR 30Abdominal: Soft. Bowel sounds are normal. She exhibits no distension. There isno tenderness.Musculoskeleta l: Normal range of motion. She exhibits no edema.Lymphadenopathy: She has no cervical adenopathy.Neurological: She is oriented to person, place, and time. No cranial nervedeficit. She exhibits normal muscle tone.Skin: Skin is warm. No rash noted.PROBLEM LIST:Patient Active Problem ListDiagnosis Pneumomediastinum Status asthmaticusDIAGNOSTIC STUDIES REVIEWED:OSH ED:CBC (WBC/Hb/Hct/plt)- 15.2 / 14.8 / 42 / 295CMP (Na/K/Cl/bicarb)- 138 / 4.3 / 105 / 25 - BUN 10, Cr 0.85, glucose 112, calcium 9.8 Rapid flu negativeCT chest without contrast- mild bilateral pneumothorax, pneumopericardium,pneumom ediastinum, epidural gas within the thoracic vertebral column, diffusesubcutaneous emphysema within the base of neck, upper anterior chest wall, andaxilla. CT soft tissue neck without contrast- mild pneumothorax at pulmonary apices,pneumomediastinum, extensive subcutaneous emphysema of the neck, gas in theprevertebral and paravertebral spaces, epidural gas of the cervical spine.ASSESSMENT:Lexis is a 13 y.o. female with mild persistent asthma admitted with statusasthmaticus likely 2/2 viral URI with pneumomediastinum and bilateralpneumothorax. She has tolerated albuterol Q2H but continues to have diffusewheeze and mild respiratory distress. She is maintaining oxygen saturations butis on supplemental oxygen due to pneumomediastinum and pneumothoraces.Plans in a system approach:Neuro:-Neuro checks [id number] do toradol 15mg if return of neck painRespiratory:-Follow asthma pathway, currently pt on Level 2 - Albuterol 6 puffs Q2H-IV Solumedrol 40mg [id number] 2 puffs BID-2L NC-Pulmonology consult-Continuous pulse [facility]:-TelemetryFEN/G I:-Regular diet-1x MIVF: D5 NS with 20 meq KCl-BMP daily-Strict I&OsHeme/ID:-Contact/drop let precautions-Azithromycin 250mg x4 Cece have rounded and discussed my physical exam and plan of care with PICRuth Annttterra Cochran MD02/17/20182:28 AMATTENDING ADMISSION HISTORY AND PHYSICALDATE OF SERVICE: 02/17/2018ATTENDING PROVIDER: Sam Hartley saw and examined the patient with: Resident.I have reviewed the history and physical examination with the Resident.CHIEF COMPLAINT: Respiratory distressREASON FOR HOSPITALIZATION: Acute or unresolved changes in physiologic statusHISTORY OF PRESENT ILLNESS:Lexis is a 13 y.o. female With mild persistent asthma accompanied by herparents who presents with acute hypoxemic respiratory failure secondary tostatus asthmaticus, pneumomediastinum and small bilateral pneumothoraces.Patient has had 3 days of URI symptoms and then developed increased work ofbreathing over the past day. She has also had worsening, more harsh cough overthis time. She went to an yesterday morning where she received steroids andaerosol treatments but then shortly after being sent home and worsening symptomscausing her to seek care at [place] ED. There she received more duonebs withsome improvement and so was sent home. Within 20 minutes her work of breathingand dyspnea became so severe they immediately returned to the ED. At this time aCT neck and chest were obtained due to subcutaneous emphysema being notable onexam. CT showed small bilateral pneumothoraces and pneumomediastinum. For this,she was then referred to [facility] ED. Upon arrival her PAS 12, she receivedalbuterolaerosols and fluid bolus. She was then admitted to PICU for airwaymonitoring and management of status asthmaticus.VITAL SIGNS:Vitals: 02/17/18 0200BP: 110/58Pulse: (!) 119Resp: 27Temp: 36.6 C (97.9 F)Physical Exam (Non-Vented Patient):General: Non-distressed, speaks in full sentences without dyspnea. Cooperativewith examCentral Nervous System: Awke, alert, PERRL, follows commandsRespiratory: Symmetric chest rise, good aeration overall- she does haveexpiratory wheezing most prominent in middle and lower lobes bilaterally (someinspiratory wheezing in right middle lobe), no grunting, flaring, or retractions(use of normal muscles). Normal respiratory rate.Cardiovascular: Normal sinus rhythm. First heart sound normal. Second heartsound normally split. No murmur, gallop, or pericardial rub. Peripheral pulsesstrong. Good distal perfusion. Capillary refill less than 2 seconds. Warmextremities.Abdomen and Genitourinary: Soft, non-tender, non-distended. Bowel sound present.No guarding or rigidity, no hepatosplenomegaly.Skin: No rash, no petechiae, pinkExtremities: No oedema, no clubbing, no cyanosis, no joint effusion.Head/Neck: Palpable subcutaneous emphysema over throat lateral to tracheaThroat: No Pharyngeal/tonsillar injection or exudates, mucous membranes moist,conjunctiva pink, sclera anicteric.ASSESSMENT:Marvin michele is a 13 y.o. female With mild persistent asthma accompanied by herparents who presents with acute hypoxemic respiratory failure secondary tostatus asthmaticus, pneumomediastinum and small bilateral pneumothoraces.PLAN:Syste m Based Plan:RESP: Place on asthma treatment pathway- start at level 2. IV steroids q6h [id number]. Repeat CXR in a.m for follow up of pneumothoraces and pneumomediastinum.Upload CT scans obtained from OSH. Consult Pulmonary in a.m.CV: On telemetryID: Place on contact/droplet precautionsFEN/GI: Will allow PO but place on IVF until PO adequateDISPO: Admit to PICU for management of acute respiratory failure and statusasthmaticusEDUCATIO N:Discussion with parent/patient (diagnosis, plan)I personally performed joiner portions of the interval history and physicalexamination of this patient and discussed the management plan with the roundingteam. I reviewed the resident's note and agree with the documented findings andplan of care, except as noted in my personal progress note.I spent 40 minutes of critical care time. This time does not include time spentperforming procedures on this patient. Normal [facility] eGFRon 02-17-2018 GFR/1.73 sq M.predicted MDRD vol rate/area 89.30 Normal [facility] Comment on above: Order Comment: Recom mended every AM if NPO or on continuous albuterol Result Comment: Refe rence range:> 3 months:>90 ml/min/1.73m^2Ref. Range change amoqvbooe42/26/2018 Performed By: #### E GFR ####[address] [id number] ED Provider Progress Noteon 02-16-2018 Tube Roller Authentication Interface Message Text Lexis Greenberg: 2005Chief ComplaintPatient presents with Asthma Respiratory DistressAllergiesAllergen Reactions Peanut Allergy RashDOS: 02/16/201813 year old girl with asthma presents as a transfer from [place] ED forpneumomediastinum. URI-like symptoms for 3 days. Acutely short of breath uponwaking at 8am today, but notes she was short of breath yesterday as well. [facility] urgent care, had CXR, concerned for pneumonia so she was discharged with anantibiotic and oral steroids, which she took. No improvement in her respiratorystatus so she went to [place] ED. Treated her with Duoneb and discharged herafter she improved. 20 minutes after being discharged, patient returned forcontinuing shortness of breath. Flu negative. CBC with leukocytosis of 15, BMPunremarkable. 2 Duoneb, Ativan, and Zofran. CT chest without contrast showedmild bilateral pneumothorax, pneumomediastinum, and pneumopericardium as well asdiffuse subcutaneous emphysema of the chest and epidural gas. Patienttransferred here for evaluation and admission. Patient also reports 6 episodesof nonbloody nonbiliary emesis today, 3 at home and 3 at [place] ED. Patientarrived via ambulance on 2L NC. Reports no changes from [place] ED. Complainsof mild back and chest pain, mild shortness of breath. Denies fever, chills,nausea, abdominal pain, diarrhea, dysuria.Mom thinks patient may have mild intermittent asthma as she only uses Albuterolinhaler as needed. Taken off of Flovent 1 year ago because she was doing well.No other asthma medications or inhalers. Does not use spacer. Asthma managedby it integration architect, does not have career development director. 0-1 courses of steroids in thelast year. No admissions for asthma in the past, always has been sent home fromED. No PICU admissions or intubations.The history is provided by the patient, the mother and the father.Review of SystemsConstitutional: Negative for activity change, chills and fever.HENT: Positive for congestion and rhinorrhea. Negative for sore throat.Eyes: Negative for visual disturbance.Respiratory: Positive for cough, chest tightness, shortness of breath andwheezing.Cardiovascula r: Positive for chest pain.Gastrointestinal: Negative for abdominal pain, constipation, diarrhea, nauseaand vomiting.Genitourinary: Negative for dysuria.Musculoskeletal: Positive for back pain. Negative for myalgias.Skin: Negative for rash.Neurological: Negative for light-headedness and headaches.Hematological: Negative.All other systems reviewed and are negative.Past Medical History:Diagnosis Date Uncomplicated asthmaHistory reviewed. No pertinent surgical history.Pediatric HistoryPatient Guardian Status Mother: She Henderson Father: Wilber Guerra Topics Concern Not on fileSocial History Narrative No narrative on fileED Triage VitalsNonePhysical ExamConstitutional: She is oriented to person, place, and time. She appearswell-developed and well-nourished. No distress.No acute distress, resting in bed. Afebrile. Mildly tachycardic andtachypneic. Not hypoxic on 2L NC.HENT:Head: Normocephalic and atraumatic.Eyes: EOM are normal.Neck: Normal range of motion.Cardiovascular: Normal rate and normal heart sounds.Pulmonary/Chest: There is no cough. Accessory muscle usage present. Tachypneanoted. She is in respiratory distress. She has wheezes. She has no rales. Sheexhibits no tenderness.Mild to moderately increased work of breathing. Speaking in full sentences.Tachypneic. Diffuse inspiratory and expiratory wheezing, slightly decreasedbreath sounds. 2L NC. No palpable crepitus of the anterior chest wall andneck.Abdominal: Soft. Bowel sounds are normal. There is no tenderness. There is noguarding.Musculoskeleta l: Normal range of motion.Neurological: She is alert and oriented to person, place, and time. No cranialnerve deficit.Skin: Skin is warm. Capillary refill takes less than 2 seconds.Psychiatric: She has a normal mood and affect. Her behavior is normal.Nursing note and vitals reviewed.ProceduresMDMED Course:Diagnosis' considered: Asthma exacerbation, pneumothorax, pneumomediastinum,pneumop ericardiumLabs/Radiology: CT chest without contrast- mild bilateral pneumothorax, pneumopericardium,pneumom ediastinum, epidural gas within the thoracic vertebral column, diffusesubcutaneous emphysema within the base of neck, upper anterior chest wall, andaxilla.CT soft tissue neck without contrast- mild pneumothorax at pulmonary apices,pneumomediastinum, extensive subcutaneous emphysema of the neck, gas in theprevertebral and paravertebral spaces, epidural gas of the cervical spine.CBC (WBC/Hb/Hct/plt)- 15.2 / 14.8 / 42 / 295CMP (Na/K/Cl/bicarb)- 138 / 4.3 / 105 / 25 - BUN 10, Cr 0.85, glucose 112, calcium 9.8Rapid flu negativeConsults: No orders of the defined types were placed in this encounter.Medical Record/Transferring Institution Record: 10 [place]Treatment/[place] ssessment:13 year old with presumed mild intermittent asthma presents from [place] ED forpneumomediastinum, pneumopericardium, and pneumothoraces in the setting of anasthma exacerbation. Prior notes reviewed with labs as documented above. URIx3 days, SOB x2 days with acute worsening today. Stable on arrival. Continuedon 2L NC. Moderately increased work of breathing with diffuse inspiratory andexpiratory wheezing. Speaking in full sentences. Tachycardic and tachypneic.Initial PAS of 12. No palpable crepitus. Afebrile. Patient received multiple Duoneb treatments at [place] so she was given anAlbuterol treatment here on arrival. IV Solumedrol given as well. Monitoredfor improvement but the patient continues to be a PAS of 12. Second Albuterolgiven. Her lungs have opened some on re-evaluation but she continues to betachypneic. Magnesium and IVF bolus given. No significant changes in bloodpressure while here. Patient will need to be admitted to the PICU. She wasaccepted for admission by Dr. Hartley and was admitted in stable condition.Pediatric Asthma ScoreDate and Time Respiratory Rate O2 Requirements Retractions Dyspnea AuscultationPAS Total User02/17/18 0015 2 3 1 1 3 10 [facility] 2345 2 2 2 1 3 10 02/16/18 2235 3 3 2 1 3 12 02/16/18 2151 3 3 2 1 3 12 02/16/18 2122 3 rr 39 3 98% on 3L NC 2 1 3 12 02/16/18 2114 3 rr 34 3 97% on 4L NC 2 1 3 12 02/16/18 2045 3 rr 36 3 97% on 3L, will wean as yazmin 2 1 3 12 02/16/182027 3 3 2 1 3 12 JLLDiagnosis to highest level of medical certainty/plan:Final diagnoses:[J98.2] Pneumomediastinum[J93.9] Bilateral pneumothorax[I31.9] Pneumopericardium[J45.22] Mild intermittent asthma with status asthmaticusCarole Beatrice, PGY2ED Fellow Note: I personally saw and examined the above patient with theresident. Nursing notes and vital signs were reviewed. I agree with the aboveclinical impression and plan.13 year old female, with mild intermittent asthma, who presents to the ED withstatus asthmaticus. Patient transferred from OSH where she was noted to havesmall bilateral pneumothorax on chest CT along with pneumomediastinum. In ourED, patient given IV Solumedrol, IV Mag and Albuterol X2 with some improvementin increased work of breathing. She was placed on supplemental oxygen forpneumothorax. Patient continues to experience tachycardia and tachypnea despitetreatment. Mild retractions noted with faint end expiratory wheezing on repeatexam. PAS remains 12. Patient to be admitted to the PICU for further care.Patient admitted to the PICU for further observation and management. Familyagrees with the plan for admission. Patient was transferred to the PICU instable condition. Vitals stable at time of admission.Ludivina Carrasco, Formerly [facility] Hospitaliatric Emergency Medicine FellowI personally performed joiner portions of the history and physical examination ofthis patient and discussed the management plan with the resident. I reviewedthe resident's note and agree with the documented findings and plan of care.Michael Crum, DO10:53 AM02/17/2018 Normal [facility] Vital Signs Date Time Vital Sign Value Performing Clinician Facility 07-06-2024 03:17-0500 Diastolic Blood Pressure Non-Invasive 74 mm[Hg] [facility] DO [facility] 07-06-2024 03:17-0500 Heart rate 60 /min [facility] DO [facility] 07-06-2024 03:17-0500 Respiratory rate 16 /min [facility] DO [facility] 07-06-2024 03:17-0500 Systolic Blood Pressure Non-Invasive 120 mm[Hg] ASHWINI REICHFIELD DO [facility] 07-06-2024 01:37-0500 Body height 162.6 cm ASHWINI REICHFIELD DO [facility] 07-06-2024 01:37-0500 Body temperature 97.52 [degF] ASHWINI REICHFIELD DO [facility] 07-06-2024 01:37-0500 Body weight 77.3 kg ASHWINI RENANCY DO [facility] 07-06-2024 01:37-0500 Diastolic Blood Pressure Non-Invasive 77 mm[Hg] ASHWINI REICHFIELD DO [facility] 07-06-2024 01:37-0500 Heart rate 65 /min ASHWINI REICHFIELD DO [facility] 07-06-2024 01:37-0500 Height ZScore -0.11 1 ASHWINI RENTERIA DO [facility] Comment on above: Result Comment: ^~:!ZScore Source -[facility] 07-06-2024 01:37-0500 Percent Height for Age 45.71 % ASHWINI RENANCY DO [facility] Comment on above: Result Comment: ^~:!Percentile Source -[facility] 07-06-2024 01:37-0500 Respiratory rate 18 /min ASHWINI REICHFIELD DO [facility] 07-06-2024 01:37-0500 Systolic Blood Pressure Non-Invasive 114 mm[Hg] ASHWINI REICHFIELD DO [facility] 06-23-2024 09:48-0500 Body mass index (BMI) [Ratio] 23.65 kg/m2 Uvaldo Jorgensen MD Work Phone: [facility] 06-23-2024 09:48-0500 Body temperature 98.29 [degF] Uvaldo Jorgensen MD Work Phone: [facility] 06-23-2024 09:48-0500 Body weight 63.3 kg Uvaldo Jorgensen MD Work Phone: [facility] 06-23-2024 09:48-0500 Diastolic blood pressure 70 mm[Hg] Uvaldo Jorgensen MD Work Phone: [facility] 06-23-2024 09:48-0500 Heart rate 64 /min Uvaldo Jorgensen MD Work Phone: [facility] 06-23-2024 09:48-0500 Respiratory rate 16 /min Uvaldo Jorgensen MD Work Phone: [facility] 06-23-2024 09:48-0500 Systolic blood pressure 104 mm[Hg] Uvaldo Jorgensen MD Work Phone: [facility] 02-26-2024 01:32-0400 Diastolic Blood Pressure Non-Invasive 75 mm[Hg] NIDAL CHOUJAA DO [facility] 02-26-2024 01:32-0400 Heart rate 94 /min NIDAL CHOUJAA DO [facility] 02-26-2024 01:32-0400 Respiratory rate 20 /min NIDAL CHOUJAA DO [facility] 02-26-2024 01:32-0400 Systolic Blood Pressure Non-Invasive 111 mm[Hg] NIDAL CHOUJAA DO [facility] 02-26-2024 00:42-0400 Heart rate 106 /min NIDAL CHOUJAA DO [facility] 02-26-2024 00:42-0400 Respiratory rate 20 /min NIDAL CHOUJAA DO [facility] 02-26-2024 00:31-0400 Blood Pressure Cuff Size NIDAL CHOUJAA DO [facility] 02-26-2024 00:31-0400 Blood Pressure Location NIDAL CHOUJAA DO [facility] 02-26-2024 00:31-0400 Blood Pressure Method NIDAL CHOUJAA DO [facility] 02-26-2024 00:31-0400 Body height 162.6 cm NIDAL CHOUJAA DO [facility] 02-26-2024 00:31-0400 Body temperature 97.34 [degF] NIDAL CHOUJAA DO [facility] 02-26-2024 00:31-0400 Body weight 59.1 kg NIDAL CHOUJAA DO [facility] 02-26-2024 00:31-0400 Diastolic Blood Pressure Non-Invasive 78 mm[Hg] NIDAL CHOUJAA DO [facility] 02-26-2024 00:31-0400 Heart rate 109 /min NIDAL CHOUJAA DO [facility] 02-26-2024 00:31-0400 Height ZScore -0.10 1 NIDAL CHOUJAA DO [facility] Comment on above: Result Comment: ^~:!ZScore Source -[facility] 02-26-2024 00:31-0400 Percent Height for Age 45.90 % NIDAL CHOUJAA DO [facility] Comment on above: Result Comment: ^~:!Percentile Source -[facility] 02-26-2024 00:31-0400 Respiratory rate 20 /min NIDAL CHOUJAA DO [facility] 02-26-2024 00:31-0400 Systolic Blood Pressure Non-Invasive 118 mm[Hg] JANELL RICE DO [facility] 02-18-2024 13:01-0400 Body height 163.6 cm Uvaldo Jorgensen MD Work Phone: [facility] 02-18-2024 13:01-0400 Body mass index (BMI) [Ratio] 21.82 kg/m2 Uvaldo Jorgensen MD Work Phone: [facility] 02-18-2024 13:01-0400 Body temperature 97.81 [degF] Uvaldo Jorgensen MD Work Phone: [facility] 02-18-2024 13:01-0400 Body weight 58.4 kg Uvaldo Jorgensen MD Work Phone: [facility] 02-18-2024 13:01-0400 Diastolic blood pressure 66 mm[Hg] Uvaldo Jorgensen MD Work Phone: [facility] 02-18-2024 13:01-0400 Heart rate 80 /min Uvaldo Jorgensen MD Work Phone: [facility] 02-18-2024 13:01-0400 Respiratory rate 16 /min Uvaldo Jorgensen MD Work Phone: [facility] 02-18-2024 13:01-0400 Systolic blood pressure 102 mm[Hg] Uvaldo Jorgensen MD Work Phone: [facility] 08-12-2023 18:47-0400 Body mass index (BMI) [Percentile] Per age and sex 84.42 % Steve Pope PERSONNEL ARBITRATOR.[employer]VEL TRUCK DRIVER Work Phone: [facility] 08-12-2023 18:47-0400 Body temperature 99.5 [degF] Steve Pope PERSONNEL ARBITRATOR.GRAVEL TRUCK DRIVER Work Phone: [facility] 08-12-2023 18:47-0400 Body weight 69.7 kg Steve Pope PERSONNEL ARBITRATOR.G[employer]VEL TRUCK DRIVER Work Phone: [facility] 08-12-2023 18:47-0400 Diastolic blood pressure 78 mm[Hg] Steve Pendlebury PERSONNEL ARBITRATOR.GRAVEL TRUCK DRIVER Work Phone: [facility] 08-12-2023 18:47-0400 Heart rate 78 /min [facility] PERSONNEL ARBITRATOR.GRAVEL TRUCK DRIVER Work Phone: [facility] 08-12-2023 18:47-0400 Respiratory rate 18 /min [facility] PERSONNEL ARBITRATOR.GRAVEL TRUCK DRIVER Work Phone: [facility] 08-12-2023 18:47-0400 SaO2% (BldA) [Mass fraction] 100 % [facility] PERSONNEL ARBITRATOR.GRAVEL TRUCK DRIVER Work Phone: [facility] 08-12-2023 18:47-0400 Systolic blood pressure 122 mm[Hg] Steve Pendlebury PERSONNEL ARBITRATOR.GRAVEL TRUCK DRIVER Work Phone: [facility] 08-10-2023 14:01-0400 Body height 164.5 cm Uvaldo Jorgensen MD Work Phone: [facility] 08-10-2023 14:01-0400 Body mass index (BMI) [Percentile] Per age and sex 83.54 % Uvaldo Jorgensen MD Work Phone: [facility] 08-10-2023 14:01-0400 Body temperature 97.7 [degF] Uvaldo Jorgensen MD Work Phone: [facility] 08-10-2023 14:01-0400 Body weight 69.13 kg Uvaldo Jorgensen MD Work Phone: [facility] 08-10-2023 14:01-0400 Diastolic blood pressure 74 mm[Hg] Uvaldo Jorgensen MD Work Phone: [facility] 08-10-2023 14:01-0400 Heart rate 80 /min Uvaldo Jorgensen MD Work Phone: [facility] 08-10-2023 14:01-0400 Respiratory rate 16 /min Uvaldo Jorgensen MD Work Phone: [facility] 08-10-2023 14:01-0400 Systolic blood pressure 116 mm[Hg] Uvaldo Jorgensen MD Work Phone: [facility] 06-11-2023 07:56-0500 Body temperature 98.2 [degF] [facility] PERSONNEL ARBITRATOR.GRAVEL TRUCK DRIVER Work Phone: [facility] 06-11-2023 07:56-0500 Body weight 71.85 kg [facility] PERSONNEL ARBITRATOR.GRAVEL TRUCK DRIVER Work Phone: [facility] 06-11-2023 07:56-0500 Diastolic blood pressure 72 mm[Hg] [facility] PERSONNEL ARBITRATOR.GRAVEL TRUCK DRIVER Work Phone: [facility] 06-11-2023 07:56-0500 Heart rate 85 /min [facility] PERSONNEL ARBITRATOR.GRAVEL TRUCK DRIVER Work Phone: [facility] 06-11-2023 07:56-0500 Respiratory rate 18 /min [facility] PERSONNEL ARBITRATOR.GRAVEL TRUCK DRIVER Work Phone: [facility] 06-11-2023 07:56-0500 SaO2% (BldA) [Mass fraction] 97 % [facility] PERSONNEL ARBITRATOR.GRAVEL TRUCK DRIVER Work Phone: [facility] 06-11-2023 07:56-0500 Systolic blood pressure 110 mm[Hg] [facility] PERSONNEL ARBITRATOR.GRAVEL TRUCK DRIVER Work Phone: [facility] 04-19-2023 00:14-0500 Body height 162.[address] Uvaldo Jorgensen Work Phone: [facility] 04-19-2023 00:14-0500 Body mass index (BMI) [Percentile] Per age and sex 91.4 % Dr. Uvaldo Jorgensen Work Phone: [facility] 04-19-2023 00:14-0500 Body mass index (BMI) [Ratio] 28 kg/m2 Dr. Uvaldo Jorgensen Work Phone: [facility] 04-19-2023 00:14-0500 Body temperature 96.2 [degF] Dr. Uvaldo Jorgensen Work Phone: [facility] 04-19-2023 00:14-0500 Body weight 74.[address] Uvaldo Jorgensen Work Phone: [facility] 04-19-2023 00:14-0500 Diastolic blood pressure 78 mm[Hg] Dr. Uvaldo Jorgensen Work Phone: [facility] 04-19-2023 00:14-0500 Heart rate 78 /min Dr. Uvaldo Jorgensen Work Phone: [facility] 04-19-2023 00:14-0500 Respiratory rate 20 /min Dr. Uvaldo Jorgensen Work Phone: [facility] 04-19-2023 00:14-0500 SaO2% (BldA) [Mass fraction] 99 % Dr. Uvaldo Jorgensen Work Phone: [facility] 04-19-2023 00:14-0500 Systolic blood pressure 124 mm[Hg] Dr. Uvaldo Jorgensen Work Phone: [facility] 04-08-2023 08:52-0500 Body weight 74.03 kg Ara Damon PERSONNEL ARBITRATOR.GRAVEL TRUCK DRIVER Work Phone: [facility] 04-08-2023 08:52-0500 Diastolic blood pressure 60 mm[Hg] Ara Haury PERSONNEL ARBITRATOR.GRAVEL TRUCK DRIVER Work Phone: [facility] 04-08-2023 08:52-0500 Systolic blood pressure 120 mm[Hg] Ara Damon PERSONNEL ARBITRATOR.GRAVEL TRUCK DRIVER Work Phone: [facility] 04-07-2023 09:07-0500 Body mass index (BMI) [Percentile] Per age and sex 90.1 % Dr. Uvaldo Jorgensen Work Phone: [facility] 04-07-2023 09:07-0500 Body mass index (BMI) [Ratio] 27.4 kg/m2 Dr. Uvaldo Jorgensen Work Phone: [facility] 04-07-2023 09:07-0500 Body temperature 98.6 [degF] Dr. Uvaldo Jorgensen Work Phone: [facility] 04-07-2023 09:07-0500 Body weight 72.[address] Uvaldo Jorgensen Work Phone: 8(582)179-605894 [place] [address] 04-07-2023 09:07-0500 Diastolic blood pressure 79 mm[Hg] Dr. Uvaldo Jorgensen Work Phone: 4(839)752-057894 [place] [address] 04-07-2023 09:07-0500 Heart rate 103 /min Dr. Uvaldo Jorgensen Work Phone: 4(939)469-502794 [place] [address] 04-07-2023 09:07-0500 Respiratory rate 16 /min Dr. Uvaldo Jorgensen Work Phone: 8(740)805-965294 [place] [address] 04-07-2023 09:07-0500 SaO2% (BldA) [Mass fraction] 98 % Dr. Uvaldo Jorgensen Work Phone: 1(147)406-522594 [place] [address] 04-07-2023 09:07-0500 Systolic blood pressure 115 mm[Hg] Dr. Uvaldo Jorgensen Work Phone: 1(534)067-146194 [place] [address] 02-23-2023 09:34-0400 Body mass index (BMI) [Percentile] Per age and sex 90.7 % Dr. Uvaldo Jorgensen Work Phone: 8(824)493-470794 [place] [address] 02-23-2023 09:34-0400 Body mass index (BMI) [Ratio] 27.6 kg/m2 Dr. Uvaldo Jorgensen Work Phone: 1(647)042-978594 [place] [address] 02-23-2023 09:34-0400 Body temperature 99.7 [degF] Dr. Uvaldo Jorgensen Work Phone: 9(604)324-908194 [place] [address] 02-23-2023 09:34-0400 Body weight 77.[address] Uvaldo Jorgensen Work Phone: 2(764)929-491394 [place] [address] 02-23-2023 09:34-0400 Diastolic blood pressure 76 mm[Hg] Dr. Uvaldo Jorgensen Work Phone: 8(377)739-655894 [place] [address] 02-23-2023 09:34-0400 Heart rate 88 /min Dr. Uvaldo Jorgensen Work Phone: 4(564)182-196994 [place] [address] 02-23-2023 09:34-0400 Respiratory rate 15 /min Dr. Uvaldo Jorgensen Work Phone: [facility] 02-23-2023 09:34-0400 SaO2% (BldA) [Mass fraction] 96 % Dr. Uvaldo Jorgensen Work Phone: [facility] 02-23-2023 09:34-0400 Systolic blood pressure 112 mm[Hg] Dr. Uvaldo Jorgensen Work Phone: [facility] 02-10-2023 09:14-0400 Body temperature 98.8 [degF] Beatriz Praisler-Wood PERSONNEL ARBITRATOR.GRAVEL TRUCK DRIVER Work Phone: [facility] 02-10-2023 09:14-0400 Body weight 78.02 kg Beatriz Praisler-Wood PERSONNEL ARBITRATOR.GRAVEL TRUCK DRIVER Work Phone: [facility] 02-10-2023 09:14-0400 Diastolic blood pressure 68 mm[Hg] Beatriz Praisler-Wood PERSONNEL ARBITRATOR.GRAVEL TRUCK DRIVER Work Phone: [facility] 02-10-2023 09:14-0400 Heart rate 72 /min Beatriz Praisler-Wood PERSONNEL ARBITRATOR.GRAVEL TRUCK DRIVER Work Phone: [facility] 02-10-2023 09:14-0400 Respiratory rate 18 /min Beatriz Praisler-Wood PERSONNEL ARBITRATOR.GRAVEL TRUCK DRIVER Work Phone: [facility] 02-10-2023 09:14-0400 SaO2% (BldA) [Mass fraction] 100 % Beatriz Praisler-Wood PERSONNEL ARBITRATOR.GRAVEL TRUCK DRIVER Work Phone: [facility] 02-10-2023 09:14-0400 Systolic blood pressure 97 mm[Hg] Beatriz Praisler-Wood PERSONNEL ARBITRATOR.GRAVEL TRUCK DRIVER Work Phone: [facility] 01-02-2023 15:21-0400 Body height 162.6 cm Uvaldo Jorgensen MD Work Phone: [facility] 01-02-2023 15:21-0400 Body mass index (BMI) [Percentile] Per age and sex 94.04 % Uvaldo Jorgensen MD Work Phone: [facility] 01-02-2023 15:21-0400 Body temperature 97.9 [degF] Uvaldo Jorgensen MD Work Phone: [facility] 01-02-2023 15:21-0400 Body weight 77.79 kg Uvaldo Jorgensen MD Work Phone: [facility] 01-02-2023 15:21-0400 Diastolic blood pressure 78 mm[Hg] Uvaldo Jorgensen MD Work Phone: [facility] 01-02-2023 15:21-0400 Heart rate 76 /min Uvalod Jorgensen MD Work Phone: [facility] 01-02-2023 15:21-0400 Respiratory rate 16 /min Uvaldo Jorgensen MD Work Phone: [facility] 01-02-2023 15:21-0400 Systolic blood pressure 116 mm[Hg] Uvaldo Jorgensen MD Work Phone: [facility] 09-19-2022 06:40-0400 Diastolic blood pressure 74 mm[Hg] [facility] 09-19-2022 06:40-0400 Heart rate 74 /min [facility] 09-19-2022 06:40-0400 Respiratory rate 17 /min [facility] 09-19-2022 06:40-0400 SaO2% (BldA) [Mass fraction] 100 % [facility] 09-19-2022 06:40-0400 Systolic blood pressure 116 mm[Hg] [facility] 09-19-2022 04:19-0400 Body height 162.56 cm [facility] 09-19-2022 04:19-0400 Body mass index (BMI) [Percentile] Per age and sex 95.3 % [facility] 09-19-2022 04:19-0400 Body mass index (BMI) [Ratio] 30.4 kg/m2 [facility] 09-19-2022 04:19-0400 Body temperature 98 [degF] [facility] 09-19-2022 04:19-0400 Body weight 80.5 kg [facility] 08-21-2022 08:17-0400 Body temperature 98.71 [degF] Beatriz Praisler-Wood PERSONNEL ARBITRATOR.GRAVEL TRUCK DRIVER Work Phone: [facility] 08-21-2022 08:17-0400 Body weight 79.11 kg Beatriz Praisler-Wood PERSONNEL ARBITRATOR.GRAVEL TRUCK DRIVER Work Phone: [facility] 08-21-2022 08:17-0400 Diastolic blood pressure 66 mm[Hg] Beatriz Praisler-Wood PERSONNEL ARBITRATOR.GRAVEL TRUCK DRIVER Work Phone: [facility] 08-21-2022 08:17-0400 Heart rate 87 /min Beatriz Praisler-Wood PERSONNEL ARBITRATOR.GRAVEL TRUCK DRIVER Work Phone: [facility] 08-21-2022 08:17-0400 Respiratory rate 18 /min Beatriz Praisler-Wood PERSONNEL ARBITRATOR.GRAVEL TRUCK DRIVER Work Phone: [facility] 08-21-2022 08:17-0400 SaO2% (BldA) [Mass fraction] 99 % Beatriz Praisler-Wood PERSONNEL ARBITRATOR.GRAVEL TRUCK DRIVER Work Phone: [facility] 08-21-2022 08:17-0400 Systolic blood pressure 108 mm[Hg] Beatriz Praisler-Wood PERSONNEL ARBITRATOR.GRAVEL TRUCK DRIVER Work Phone: [facility] 08-17-2022 10:16-0400 Body temperature 98.8 [degF] Marita Korduba PA-C Work Phone: [facility] 08-17-2022 10:16-0400 Body weight 79.38 kg Marita Korduba PA-C Work Phone: [facility] 08-17-2022 10:16-0400 Diastolic blood pressure 62 mm[Hg] Marita Korduba PA-C Work Phone: [facility] 08-17-2022 10:16-0400 Heart rate 80 /min Marita Korduba PA-C Work Phone: [facility] 08-17-2022 10:16-0400 Respiratory rate 16 /min Marita Korduba PA-C Work Phone: [facility] 08-17-2022 10:16-0400 SaO2% (BldA) [Mass fraction] 98 % Marita Duranduba PA-C Work Phone: [facility] 08-17-2022 10:16-0400 Systolic blood pressure 98 mm[Hg] Marita Duranduba PA-C Work Phone: [facility] 08-07-2022 09:44-0400 Body temperature 97.7 [degF] Nicky Cruz MD Work Phone: [facility] 08-07-2022 09:44-0400 Body weight 79.04 kg Nicky Cruz MD Work Phone: [facility] 08-07-2022 09:44-0400 Heart rate 102 /min Nicky Cruz MD Work Phone: [facility] 08-07-2022 09:44-0400 Respiratory rate 18 /min Nicky Cruz MD Work Phone: [facility] 07-29-2022 11:26-0400 Body temperature 98.1 [degF] Blanca Conteh PERSONNEL ARBITRATOR.GRAVEL TRUCK DRIVER Work Phone: [facility] 07-29-2022 11:26-0400 Body weight 79.29 kg Blanca Conteh PERSONNEL ARBITRATOR.GRAVEL TRUCK DRIVER Work Phone: [facility] 07-29-2022 11:26-0400 Heart rate 82 /min Blanca Conteh PERSONNEL ARBITRATOR.GRAVEL TRUCK DRIVER Work Phone: [facility] 07-29-2022 11:26-0400 Respiratory rate 20 /min Blanca Conteh PERSONNEL ARBITRATOR.GRAVEL TRUCK DRIVER Work Phone: [facility] 07-29-2022 11:26-0400 SaO2% (BldA) [Mass fraction] 99 % Blanca Conteh PERSONNEL ARBITRATOR.GRAVEL TRUCK DRIVER Work Phone: [facility] 07-28-2022 13:52-0400 Body temperature 98.8 [degF] Gracy Sultana PERSONNEL ARBITRATOR.GRAVEL TRUCK DRIVER Work Phone: [facility] 07-28-2022 13:52-0400 Body weight 79.38 kg Gracy Sultana PERSONNEL ARBITRATOR.GRAVEL TRUCK DRIVER Work Phone: [facility] 07-28-2022 13:52-0400 Diastolic blood pressure 64 mm[Hg] Gracy James PERSONNEL ARBITRATOR.GRAVEL TRUCK DRIVER Work Phone: [facility] 07-28-2022 13:52-0400 Heart rate 79 /min Gracykaterin Sultana PERSONNEL ARBITRATOR.GRAVEL TRUCK DRIVER Work Phone: [facility] 07-28-2022 13:52-0400 Respiratory rate 18 /min Gracy Sultana PERSONNEL ARBITRATOR.GRAVEL TRUCK DRIVER Work Phone: [facility] 07-28-2022 13:52-0400 SaO2% (BldA) [Mass fraction] 99 % [address] PERSONNEL ARBITRATOR.GRAVEL TRUCK DRIVER Work Phone: [facility] 07-28-2022 13:52-0400 Systolic blood pressure 100 mm[Hg] Gracy Sultana PERSONNEL ARBITRATOR.GRAVEL TRUCK DRIVER Work Phone: [facility] 06-26-2022 11:21-0500 Body temperature 98.71 [degF] Beatriz Praisler-Wood PERSONNEL ARBITRATOR.GRAVEL TRUCK DRIVER Work Phone: [facility] 06-26-2022 11:21-0500 Body weight 76.89 kg Beatriz Praisler-Wood PERSONNEL ARBITRATOR.GRAVEL TRUCK DRIVER Work Phone: [facility] 06-26-2022 11:21-0500 Diastolic blood pressure 66 mm[Hg] Beatriz Praisler-Wood PERSONNEL ARBITRATOR.GRAVEL TRUCK DRIVER Work Phone: [facility] 06-26-2022 11:21-0500 Heart rate 102 /min Beatriz Praisler-Wood PERSONNEL ARBITRATOR.GRAVEL TRUCK DRIVER Work Phone: [facility] 06-26-2022 11:21-0500 Respiratory rate 18 /min Beatriz Praisler-Wood PERSONNEL ARBITRATOR.GRAVEL TRUCK DRIVER Work Phone: [facility] 06-26-2022 11:21-0500 SaO2% (BldA) [Mass fraction] 100 % Beatriz Praisler-Wood PERSONNEL ARBITRATOR.GRAVEL TRUCK DRIVER Work Phone: [facility] 06-26-2022 11:21-0500 Systolic blood pressure 110 mm[Hg] Beatriz Ozuna APRN.GRAVEL TRUCK DRIVER Work Phone: [facility] 06-24-2022 16:28-0500 Body temperature 98.71 [degF] Krislyn Aberegg PA Work Phone: [facility] 06-24-2022 16:28-0500 Body weight 77.47 kg Krislyn Aberegg PA Work Phone: [facility] 06-24-2022 16:28-0500 Diastolic blood pressure 62 mm[Hg] Krislyn Aberegg PA Work Phone: [facility] 06-24-2022 16:28-0500 Heart rate 121 /min Krislyn Aberegg PA Work Phone: [facility] 06-24-2022 16:28-0500 Respiratory rate 18 /min Krislyn Aberegg PA Work Phone: [facility] 06-24-2022 16:28-0500 SaO2% (BldA) [Mass fraction] 99 % Krislyn Aberegg PA Work Phone: [facility] 06-24-2022 16:28-0500 Systolic blood pressure 98 mm[Hg] Krislyn Aberegg PA Work Phone: [facility] 06-20-2022 16:06-0500 Body temperature 98.2 [degF] Gladis Athy PA-C Work Phone: [facility] 06-20-2022 16:06-0500 Body weight 78.56 kg Gladis Athy PA-C Work Phone: [facility] 06-20-2022 16:06-0500 Diastolic blood pressure 72 mm[Hg] Gladis Athy PA-C Work Phone: [facility] 06-20-2022 16:06-0500 Heart rate 74 /min Gladis Athy PA-C Work Phone: [facility] 06-20-2022 16:06-0500 Respiratory rate 16 /min Gladis Athy PA-C Work Phone: [facility] 06-20-2022 16:06-0500 SaO2% (BldA) [Mass fraction] 98 % Gladis Athy PA-C Work Phone: [facility] 06-20-2022 16:06-0500 Systolic blood pressure 108 mm[Hg] Gladis Athy PA-C Work Phone: [facility] 05-21-2022 18:16-0500 Body temperature 98.8 [degF] Petra Cabrera PA-C Work Phone: [facility] 05-21-2022 18:16-0500 Body weight 76.97 kg Petra Cabrera PA-C Work Phone: [facility] 05-21-2022 18:16-0500 Diastolic blood pressure 64 mm[Hg] Petra Cabrera PA-C Work Phone: [facility] 05-21-2022 18:16-0500 Heart rate 80 /min Petra Cabrera PA-C Work Phone: [facility] 05-21-2022 18:16-0500 Respiratory rate 20 /min Petra Cabrera PA-C Work Phone: [facility] 05-21-2022 18:16-0500 Systolic blood pressure 110 mm[Hg] Petra Cabrera PA-C Work Phone: [facility] 05-02-2022 16:31-0500 Body height 163 cm Uvaldo Jorgensen MD Work Phone: [facility] 05-02-2022 16:31-0500 Body mass index (BMI) [Percentile] Per age and sex 93.71 % Uvaldo Jorgensen MD Work Phone: [facility] 05-02-2022 16:31-0500 Body temperature 98.01 [degF] Uvaldo Jorgensen MD Work Phone: [facility] 05-02-2022 16:31-0500 Body weight 76.43 kg Uvaldo Jorgensen MD Work Phone: [facility] 05-02-2022 16:31-0500 Diastolic blood pressure 60 mm[Hg] Uvaldo Jorgensen MD Work Phone: [facility] 05-02-2022 16:31-0500 Heart rate 88 /min Uvaldo Jorgensen MD Work Phone: [facility] 05-02-2022 16:31-0500 Respiratory rate 20 /min Uvaldo Jorgensen MD Work Phone: [facility] 05-02-2022 16:31-0500 Systolic blood pressure 102 mm[Hg] Uvaldo Jorgensen MD Work Phone: [facility] 04-08-2022 16:18-0500 Body temperature 98.4 [degF] Sahil Ching PERSONNEL ARBITRATOR.GRAVEL TRUCK DRIVER Work Phone: [facility] 04-08-2022 16:18-0500 Body weight 76.66 kg Sahil Ching PERSONNEL ARBITRATOR.GRAVEL TRUCK DRIVER Work Phone: [facility] 04-08-2022 16:18-0500 Diastolic blood pressure 70 mm[Hg] Sahil Ching PERSONNEL ARBITRATOR.GRAVEL TRUCK DRIVER Work Phone: [facility] 04-08-2022 16:18-0500 Heart rate 100 /min Sahil Ching PERSONNEL ARBITRATOR.GRAVEL TRUCK DRIVER Work Phone: [facility] 04-08-2022 16:18-0500 Respiratory rate 18 /min Sahil Ching PERSONNEL ARBITRATOR.GRAVEL TRUCK DRIVER Work Phone: [facility] 04-08-2022 16:18-0500 SaO2% (BldA) [Mass fraction] 98 % Sahil King PERSONNEL ARBITRATOR.GRAVEL TRUCK DRIVER Work Phone: [facility] 04-08-2022 16:18-0500 Systolic blood pressure 122 mm[Hg] Sahil Ching PERSONNEL ARBITRATOR.GRAVEL TRUCK DRIVER Work Phone: [facility] 04-05-2022 12:15-0500 Body temperature 98.29 [degF] She Velázquez PERSONNEL ARBITRATOR.GRAVEL TRUCK DRIVER Work Phone: [facility] 04-05-2022 12:15-0500 Body weight 76.75 kg She Velázquez PERSONNEL ARBITRATOR.GRAVEL TRUCK DRIVER Work Phone: [facility] 04-05-2022 12:15-0500 Diastolic blood pressure 74 mm[Hg] She Velázquez PERSONNEL ARBITRATOR.GRAVEL TRUCK DRIVER Work Phone: [facility] 04-05-2022 12:15-0500 Heart rate 120 /min She Velázquez PERSONNEL ARBITRATOR.GRAVEL TRUCK DRIVER Work Phone: [facility] 04-05-2022 12:15-0500 Respiratory rate 20 /min She Velázquez PERSONNEL ARBITRATOR.GRAVEL TRUCK DRIVER Work Phone: [facility] 04-05-2022 12:15-0500 SaO2% (BldA) [Mass fraction] 98 % She Velázquez PERSONNEL ARBITRATOR.GRAVEL TRUCK DRIVER Work Phone: [facility] 04-05-2022 12:15-0500 Systolic blood pressure 110 mm[Hg] She Velázquez PERSONNEL ARBITRATOR.GRAVEL TRUCK DRIVER Work Phone: [facility] 01-29-2022 13:20-0400 Body temperature 97.39 [degF] Petra Cabrera PA-C Work Phone: [facility] 01-29-2022 13:20-0400 Body weight 77.56 kg Petra Cabrera PA-C Work Phone: [facility] 01-29-2022 13:20-0400 Diastolic blood pressure 70 mm[Hg] Petra Cabrera PA-C Work Phone: [facility] 01-29-2022 13:20-0400 Heart rate 88 /min Petra Cabrera PA-C Work Phone: [facility] 01-29-2022 13:20-0400 Respiratory rate 20 /min Petra Cabrera PA-C Work Phone: [facility] 01-29-2022 13:20-0400 Systolic blood pressure 114 mm[Hg] Petra Cabrera PA-C Work Phone: [facility] 01-24-2022 17:28-0400 Body temperature 98.8 [degF] She Velázquez PERSONNEL ARBITRATOR.GRAVEL TRUCK DRIVER Work Phone: [facility] 01-24-2022 17:28-0400 Body weight 77.2 kg She Velázquez PERSONNEL ARBITRATOR.GRAVEL TRUCK DRIVER Work Phone: [facility] 01-24-2022 17:28-0400 Diastolic blood pressure 68 mm[Hg] She Velázquez PERSONNEL ARBITRATOR.GRAVEL TRUCK DRIVER Work Phone: [facility] 01-24-2022 17:28-0400 Heart rate 100 /min She Velázquez PERSONNEL ARBITRATOR.GRAVEL TRUCK DRIVER Work Phone: [facility] 01-24-2022 17:28-0400 Respiratory rate 18 /min She Velázquez PERSONNEL ARBITRATOR.GRAVEL TRUCK DRIVER Work Phone: [facility] 01-24-2022 17:28-0400 SaO2% (BldA) [Mass fraction] 98 % She Velázquez PERSONNEL ARBITRATOR.GRAVEL TRUCK DRIVER Work Phone: [facility] 01-24-2022 17:28-0400 Systolic blood pressure 120 mm[Hg] She Velázquez PERSONNEL ARBITRATOR.GRAVEL TRUCK DRIVER Work Phone: [facility] 01-22-2022 21:17-0400 Respiratory rate 16 /min [facility] Work Phone: 01-22-2022 19:06-0400 Body height 162.56 cm [facility] Work Phone: 01-22-2022 19:06-0400 Body mass index (BMI) [Percentile] Per age and sex 94.6 % [facility] Work Phone: 01-22-2022 19:06-0400 Body mass index (BMI) [Ratio] 29.3 kg/m2 [facility] Work Phone: 01-22-2022 19:06-0400 Body temperature 97.9 [degF] [facility] Work Phone: 01-22-2022 19:06-0400 Body weight 77.56 kg [facility] Work Phone: 01-22-2022 19:06-0400 Diastolic blood pressure 76 mm[Hg] [facility] Work Phone: 01-22-2022 19:06-0400 Heart rate 118 /min [facility] Work Phone: 01-22-2022 19:06-0400 SaO2% (BldA) [Mass fraction] 100 % [facility] Work Phone: 01-22-2022 19:06-0400 Systolic blood pressure 128 mm[Hg] [facility] Work Phone: 09-02-2021 18:39-0400 Body temperature 98.01 [degF] Nicky Cruz MD Work Phone: [facility] 09-02-2021 18:39-0400 Body weight 78.25 kg Nicky Cruz MD Work Phone: [facility] 09-02-2021 18:39-0400 Diastolic blood pressure 62 mm[Hg] Nicky Cruz MD Work Phone: [facility] 09-02-2021 18:39-0400 Heart rate 78 /min Nicky Cruz MD Work Phone: [facility] 09-02-2021 18:39-0400 Respiratory rate 16 /min Nicky Cruz MD Work Phone: [facility] 09-02-2021 18:39-0400 Systolic blood pressure 114 mm[Hg] Nicky Cruz MD Work Phone: [facility] 08-09-2021 17:58-0400 Body temperature 98.1 [degF] Gladis Rogers PA-C Work Phone: [facility] 08-09-2021 17:58-0400 Body weight 75.84 kg Gladis Rogers PA-C Work Phone: [facility] 08-09-2021 17:58-0400 Diastolic blood pressure 64 mm[Hg] Gladis Athy PA-C Work Phone: [facility] 08-09-2021 17:58-0400 Heart rate 114 /min Gladis Athy PA-C Work Phone: [facility] 08-09-2021 17:58-0400 Respiratory rate 16 /min Gladis Athy PA-C Work Phone: [facility] 08-09-2021 17:58-0400 SaO2% (BldA) [Mass fraction] 100 % Gladis Athy PA-C Work Phone: [facility] 08-09-2021 17:58-0400 Systolic blood pressure 110 mm[Hg] Gladis Athy PA-C Work Phone: [facility] Encounters Encounter Date Encounter Type Care Provider Facility Start: 01-26-2025 End: 01-26-2025 ambulatory Uvaldo Mary Carmen [facility] Start: 01-10-2025 End: 01-13-2025 Refill Uvaldo Jorgensen MD Work Phone: [facility] Comment on above: Refill Request Start: 01-02-2025 End: 01-02-2025 ambulatory Uvaldo Mary Carmen [facility] Start: 12-26-2024 ambulatory Uvaldo Mary Carmen [facility] Start: 12-23-2024 ambulatory Uvaldo Mary Carmen [facility] Start: 12-09-2024 ambulatory Uvaldo Mary Carmen [facility] Start: 11-03-2024 End: 11-07-2024 Refill Uvaldo Jorgensen MD Work Phone: [facility] Comment on above: Refill Request Start: 11-03-2024 End: 11-03-2024 ambulatory Uvaldo Mary Carmen [facility] Start: 10-31-2024 End: 10-31-2024 ambulatory Uvaldo Mary Carmen [facility] Start: 10-26-2024 End: 10-27-2024 ambulatory Uvaldo Mary Carmen Facility:[facility] Start: 10-11-2024 ambulatory Uvaldo Mary Carmen [facility] Start: 10-06-2024 End: 10-06-2024 ambulatory Uvaldo Mary Carmen [facility] Start: 09-20-2024 ambulatory Uvaldo Jorgensen [facility] Start: 09-16-2024 ambulatory Uvaldo Jorgensen [facility] Start: 09-15-2024 End: 09-15-2024 ambulatory Uvaldo Jorgensen [facility] Start: 09-09-2024 End: 09-24-2024 Refill Uvaldo Jorgensen MD Work Phone: [facility] Comment on above: Refill Request Start: 08-12-2024 ambulatory Uvaldo Jorgensen [facility] Start: 08-04-2024 End: 08-04-2024 ambulatory Uvaldo Jorgensen [facility] Start: 07-26-2024 End: 07-26-2024 ambulatory Christal Paulino [facility] Start: 07-20-2024 End: 07-20-2024 ambulatory Shira Pastor [facility] Start: 07-06-2024 End: 07-06-2024 [facility] Start: 07-01-2024 ambulatory Uvaldo Jorgensen [facility] Start: 06-23-2024 End: 06-23-2024 Office outpatient visit 40 minutes Uvaldo Jorgensen MD Work Phone: [facility] Comment on above: Asthma, moderate per sistent, poorly-controlled (Primary Dx); Generalized anxiety disorder Start: 06-23-2024 End: 06-23-2024 ambulatory Uvaldo Jorgensen MD Work Phone: [facility] Comment on above: Spirometry Psychiatrist Start: 05-15-2024 End: 05-16-2024 Refill Uvaldo Jorgensen MD Work Phone: [facility] Comment on above: Refill Request Start: 04-21-2024 End: 04-22-2024 Refill Uvaldo Jorgensen MD Work Phone: [facility] Comment on above: Refill Request Start: 04-01-2024 End: 04-02-2024 Refill Uvaldo Jorgensen MD Work Phone: [facility] Comment on above: Refill Request Start: 02-26-2024 End: 02-26-2024 Refill Uvaldo Jorgensen MD Work Phone: [facility] Comment on above: Refill Request Start: 02-26-2024 End: 02-26-2024 Emergency department patient visit JANELL RICE DO [facility] Start: 02-18-2024 End: 02-18-2024 ambulatory UVALDO JORGENSEN Facility:[facility] Start: 02-18-2024 End: 02-18-2024 Patient encounter procedure Uvaldo Jorgensen MD Work Phone: [facility] Comment on above: Encounter for WCC (w ell child check) with abnormal findings (Primary Dx); Encounter for immunization; Generalized anxiety disorder; Mild persistent asthma without complication; Sore throat Start: 02-18-2024 End: 02-18-2024 Patient encounter status Uvaldo Jorgensen MD Work Phone: [facility] Work Phone: Start: 02-15-2024 End: 02-18-2024 Refill Uvaldo Jorgensen MD Work Phone: [facility] Comment on above: Refill Request Start: 12-25-2023 Refill Uvaldo Jorgensen MD Work Phone: [facility] Comment on above: Refill Request Start: 10-26-2023 Refill Nicky Martínez ed, MD Work Phone: [facility] Comment on above: Refill Request Start: 09-29-2023 End: 06-01-2024 Refill Uvaldo Jorgensen MD Work Phone: [facility] Comment on above: Refill Request Start: 09-07-2023 Refill Uvaldo Jorgensen MD Work Phone: [facility] Comment on above: Refill Request Start: 08-30-2023 Refill Miriam young MD Work Phone: [facility] Comment on above: Refill Request Start: 08-12-2023 End: 08-12-2023 ambulatory UVALDO JORGENSEN Facility:[facility] Start: 08-12-2023 End: 08-12-2023 Office outpatient visit 25 minutes Steve Pope APRN.GRAVEL TRUCK DRIVER Work Phone: [facility] Comment on above: Urinary frequency (P rimary Dx) Start: 08-10-2023 End: 08-10-2023 ambulatory UVALDO JORGENSEN Facility:[facility] Start: 08-10-2023 End: 08-10-2023 Office outpatient visit 25 minutes Uvaldo Jorgensen MD Work Phone: [facility] Comment on above: Mild persistent asth ma without complication (Primary Dx); Generalized anxiety disorder; Depressed mood; Encounter for immunization Start: 07-25-2023 Refill Uvaldo Jorgensne MD Work Phone: [facility] Comment on above: Refill Request Start: 06-11-2023 Refill Uvaldo Jorgensen MD Work Phone: [facility] Comment on above: Refill Request Start: 06-11-2023 End: 06-11-2023 Subsequent hospital visit by physician [facility] [place] Work Phone: Radiology Comment on above: Generalized abdomina l pain [R10.84] Start: 06-11-2023 End: 06-11-2023 Office outpatient visit 15 minutes Steve Pope APRN.GRAVEL TRUCK DRIVER Work Phone: [facility] Comment on above: Generalized abdomina l pain (Primary Dx) Start: 04-19-2023 End: 04-19-2023 Emergency department patient visit Dr. Uvaldo Jorgensen Work Phone: [facility] Work Phone: Start: 04-10-2023 Telephone encounter Ara mathis APRN.GRAVEL TRUCK DRIVER Work Phone: OB/Gynecology Comment on above: Patient Update Start: 04-08-2023 End: 04-08-2023 Patient encounter procedure Ara Damon APRN.GRAVEL TRUCK DRIVER Work Phone: OB/Gynecology Comment on above: Encounter for contra ceptive management, unspecified type (Primary Dx); Screening examination for STD (sexually transmitted disease); Unprotected sexual intercourse Start: 04-07-2023 End: 04-07-[address] Uvaldo Jorgensen Work Phone: [facility] Work Phone: Start: 03-30-2023 Refill Uvaldo Jorgensen MD Work Phone: [facility] Comment on above: Refill Request Start: 03-23-2023 Refill Uvaldo Jorgensen MD Work Phone: [facility] Comment on above: Refill Request Start: 03-18-2023 Refill Uvaldo Jorgensen MD Work Phone: [facility] Comment on above: Refill Request Start: 02-26-2023 End: 02-26-[address] Uvaldo Jorgensen Work Phone: [facility] Work Phone: Start: 02-23-2023 End: 02-23-[address] Uvaldo Jorgensen Work Phone: [facility] Work Phone: Start: 02-10-2023 End: 02-10-2023 Patient encounter procedure Beatriz Ozuna APRN.GRAVEL TRUCK DRIVER Work Phone: [facility] Comment on above: Otalgia, bilateral ( Primary Dx) Start: 01-20-2023 Telephone encounter Uvaldo cochran MD Work Phone: [facility] Comment on above: Medication Question Start: 01-05-2023 ambulatory Elena Maya [employer] NURSE O N CALL Comment on above: Medication Problem Start: 01-03-2023 Telephone encounter Uvaldo cochran MD Work Phone: [facility] Comment on above: Medication Problem Start: 01-02-2023 End: 01-02-2023 Patient encounter procedure Uvaldo Jorgensen MD Work Phone: [facility] Comment on above: Encounter for WCC (w [facility] child check) with abnormal findings (Primary Dx); Vitamin D deficiency; Allergy to nuts; Encounter for immunization; Mild persistent asthma without complication; Generalized anxiety disorder; Depressed mood Start: 01-02-2023 End: 01-02-2023 Patient encounter status Uvaldo Jorgensen MD Work Phone: [facility] Work Phone: Start: 12-17-2022 Refill Uvaldo Jorgensen MD Work Phone: [facility] Comment on above: Refill Request Start: 12-10-2022 Refill vUaldo Jorgensen MD Work Phone: [facility] Comment on above: Refill Request Start: 10-09-2022 Refill Uvaldo Jorgensen MD Work Phone: [facility] Comment on above: Refill Request Start: 09-19-2022 End: 09-19-2022 [facility]: 09-10-[facility]22 [facility] Comment on above: well visit Start: 09-10-2022 E-mail encounter samantha m caregiver [facility] Start: 09-10-2022 Refill Uvaldo Jorgensen MD Work Phone: [facility] Comment on above: Refill Request Start: 08-21-2022 Telephone encounter Uvaldo cochran MD Work Phone: [facility] Comment on above: Refill Request Start: 08-21-2022 End: 08-21-2022 Patient encounter procedure Beatriz Ozuna APRN.GRAVEL TRUCK DRIVER Work Phone: [facility] Comment on above: Acute sinusitis, rec urrence not specified, unspecified location (Primary Dx) Start: 08-17-2022 End: 08-17-2022 Patient encounter procedure Marita Jesus PA-C Work Phone: [facility] Comment on above: Upper respiratory tr act infection, unspecified type (Primary Dx) Start: 08-13-2022 Patient Msg [facility] Provider Rachel Sanches Comment on above: Refill Start: 08-13-2022 Refill Blanca daniel APRN.GRAVEL TRUCK DRIVER Work Phone: [facility] Comment on above: Refill Request Start: 08-07-2022 End: 08-07-2022 Patient encounter procedure Nicky Cruz MD Work Phone: [facility] Comment on above: 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 (Primary Dx) Start: 08-01-2022 ambulatory Blanca daniel PERSONNEL ARBITRATOR.GRAVEL TRUCK DRIVER Work Phone: [facility] Comment on above: Pires school note Start: 07-29-2022 End: 07-29-2022 Patient encounter procedure Blanca Conteh PERSONNEL ARBITRATOR.GRAVEL TRUCK DRIVER Work Phone: [facility] Comment on above: Viral illness (Prima ry Dx); Mild persistent asthma without complication; Chills without fever; Malaise and fatigue; Body aches; Acute pharyngitis, unspecified etiology Start: 07-28-2022 End: 07-28-2022 Patient encounter procedure Gracy Sultana PERSONNEL ARBITRATOR.GRAVEL TRUCK DRIVER Work Phone: [facility] Comment on above: URI, acute (Primary Dx) Start: 07-18-2022 Refill Uvaldo Jorgensen MD Work Phone: [facility] Comment on above: Refill Request Start: 06-26-2022 End: 06-26-2022 Patient encounter procedure Beatriz Ozuna PERSONNEL ARBITRATOR.GRAVEL TRUCK DRIVER Work Phone: [facility] Comment on above: Viral illness (Prima ry Dx) Start: 06-24-2022 End: 06-24-2022 Patient encounter procedure Bipin TOPETE Work Phone: [facility] Comment on above: Sore throat (Primary Dx); URI, acute Start: 06-20-2022 End: 06-20-2022 Patient encounter procedure Gladis Rogers PA-C Work Phone: [facility] Comment on above: Eustachian tube dysf unction, right (Primary Dx) Start: 05-21-2022 End: 05-21-2022 Patient encounter procedure Petra Cabrera PA-C Work Phone: [facility] Comment on above: Periumbilical abdomi nal pain (Primary Dx) Start: 05-10-2022 Refill Uvaldo Jorgensen MD Work Phone: [facility] Comment on above: Med Change Request Start: 05-02-2022 End: 05-02-2022 Patient encounter procedure Uvaldo Jorgensen MD Work Phone: [facility] Comment on above: 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 (Primary Dx); Generalized anxiety disorder; Depressed mood; Encounter for WCC (well child check) with abnormal findings; Disrupted sleep-wake cycle Start: 05-02-2022 End: 05-02-2022 Patient encounter status Uvaldo Jorgensen MD Work Phone: [facility] Start: 04-18-2022 Refill Uvaldo Jorgensen MD Work Phone: [facility] Comment on above: Refill Request Start: 04-15-2022 Refill Uvaldo Jorgensen MD Work Phone: [facility] Comment on above: Refill Request Start: 04-08-2022 End: 04-08-2022 Subsequent hospital visit by physician Xr [facility] [place] Work Phone: Radiology Comment on above: Rib pain on right si de [R07.81] Start: 04-08-2022 End: 04-08-2022 Patient encounter procedure Sahil Ching APRN.GRAVEL TRUCK DRIVER Work Phone: [facility] Comment on above: Rib pain on right si de (Primary Dx) Start: 04-05-2022 End: 04-05-2022 Patient encounter procedure She Velázquez PERSONNEL ARBITRATOR.GRAVEL TRUCK DRIVER Work Phone: [facility] Comment on above: Nausea vomiting and diarrhea (Primary Dx); Viral illness Start: 03-16-2022 Refill Uvaldo Jorgensen MD Work Phone: [facility] Comment on above: Refill Request Start: 03-09-2022 Refill Glenys Levin APR N.GRAVEL TRUCK DRIVER Work Phone: [facility] Comment on above: Refill Request Start: 01-29-2022 End: 01-29-2022 Patient encounter procedure Petra Cabrera PA-C Work Phone: [facility] Comment on above: Constipation, unspec ified constipation type (Primary Dx) Start: 01-24-2022 End: 01-24-2022 Patient encounter procedure She Velázquez GRAVEL TRUCK DRIVER Work Phone: [facility] Comment on above: Lumbar pain (Primary Dx); Viral illness; Acute cough Start: 01-22-2022 End: 01-22-2022 [facility] Start: 12-30-2021 Refill Uvaldo Jorgensen MD Work Phone: [facility] Comment on above: Refill Request Start: 12-17-2021 Refill Uvaldo Jorgensen MD Work Phone: [facility] Comment on above: Refill Request Start: 12-05-2021 Telephone encounter Uvaldo cochran MD Work Phone: [facility] Comment on above: sports form Start: 10-24-2021 ambulatory Marla Lopez RN [facility] [place] Comment on above: Asthma (Chart Review for B[facility]he Well) Start: 10-16-2021 ambulatory Nicky Martínez ed, MD Work Phone: [facility] Comment on above: Pires's headaches Start: 10-08-2021 Refill Uvaldo Jorgensen MD Work Phone: [facility] Comment on above: Refill Request Start: 09-25-2021 ambulatory Nicky Martínez ed, MD Work Phone: [facility] Comment on above: Pires's Harper Start: 09-23-2021 ambulatory Nicky Martínez ed, MD Work Phone: [facility] Comment on above: Harper-school note Start: 09-23-2021 Telephone encounter Uvaldo cochran MD Work Phone: [facility] Comment on above: Results Start: 09-20-2021 Telephone encounter Nicky tamez MD Work Phone: [facility] Comment on above: Results Start: 09-09-2021 Refill Uvaldo Jorgensen MD Work Phone: [facility] Comment on above: Refill Request Start: 09-02-2021 End: 09-02-2021 Patient encounter procedure Nicky Cruz MD Work Phone: [facility] Comment on above: Recurrent headache ( Primary Dx) Start: 08-20-2021 Refill Uvaldo Jorgensen MD Work Phone: [facility] Comment on above: Refill Request Start: 08-10-2021 Refill Uvaldo Jorgensen MD Work Phone: [facility] Comment on above: Refill Request Start: 08-09-2021 End: 08-09-2021 Patient encounter procedure Gladis Rogers PA-C Work Phone: [facility] Comment on above: Viral URI (Primary D x) Start: 02-07-2021 End: 02-07-2021 Subsequent hospital visit by physician [facility] [place] Work Phone: Radiology Comment on above: Injury of right hand , initial encounter [S69.91XA] Start: 12-05-2020 End: 12-05-2020 Subsequent hospital visit by physician Xr [facility] [place] Work Phone: Radiology Comment on above: Acute right ankle pa in [M25.571] Start: 02-16-2018 End: 02-18-2018 Evaluation and management of inpatient UVALDO JORGENSEN [facility] Start: 02-16-2018 End: 02-18-2018 Patient encounter procedure LAMAR LANDA [facility] Procedures Date Procedure Procedure Detail Performing Clinician Start: 02-18-2024 Adult depression scr eening assessment Uvaldo Jorgensen MD Work Phone: Start: 08-12-2023 Urnls dip stick/tabl et rgnt auto w/o microscopy She Velázquez PERSONNEL ARBITRATOR.GRAVEL TRUCK DRIVER Work Phone: Start: 08-10-2023 MENINGOCOCCAL B VACC INE (BEXSERO) Uvaldo Jorgensen MD Work Phone: Start: 06-11-2023 Radiologic exam abdo men 1 view Steve Pope PERSONNEL ARBITRATOR.GRAVEL TRUCK DRIVER Work Phone: Start: 04-19-2023 Streptococcus pyogen es antigen assay Dr. Uvaldo Jorgensen Work Phone: Start: 01-02-2023 MENINGOCOCCAL B VACC INE (BEXSERO) Uvaldo Jorgensen MD Work Phone: Start: 01-02-2023 Adult depression scr eening assessment Uvaldo Jorgensen MD Work Phone: Start: 07-29-2022 2019 CORONAVIRUS Sourav Conteh PERSONNEL ARBITRATOR.GRAVEL TRUCK DRIVER Work Phone: Start: 07-29-2022 STREP A MOLECULAR (POC) Blanca Conteh PERSONNEL ARBITRATOR.GRAVEL TRUCK DRIVER Work Phone: Start: 06-24-2022 INFLUENZA A&B MOLECU LAR (POC) Bipin Oates PA Work Phone: Start: 06-24-2022 STREP A MOLECULAR (POC) Sahil Ching PERSONNEL ARBITRATOR.GRAVEL TRUCK DRIVER Work Phone: Start: 05-02-2022 Adult depression scr eening assessment Uvaldo Jorgensen MD Work Phone: Start: 04-08-2022 Radex ribs uni w/pos teroant ch minimum 3 views Sahil Ching PERSONNEL ARBITRATOR.GRAVEL TRUCK DRIVER Work Phone: Start: 01-22-2022 CT of abdomen and pe lvis without contrast Start: 01-09-2022 Adult depression scr eening assessment She Velázquez PERSONNEL ARBITRATOR.GRAVEL TRUCK DRIVER Work Phone: Start: 07-19-2021 Adult depression scr eening assessment Gladis Rogers PA-C Work Phone: Start: 02-07-2021 Radex hand minimum 3 views Steve Pope PERSONNEL ARBITRATOR.GRAVEL TRUCK DRIVER Work Phone: Start: 12-05-2020 Radex ankle complete minimum 3 views Steve Pope PERSONNEL ARBITRATOR.GRAVEL TRUCK DRIVER Work Phone: Plan of Treatment Date Care Activity Detail Author Start: 08-03-2033 Urine microalbumin profile DTaP,Tdap,Td Vaccine (8 - Td or Tdap) [facility] Start: 05-02-2027 Urine microalbumin profile [facility] Start: 06-23-2026 Asthma Action Plan Asthma Action [place] [facility] Start: 06-23-2025 Annual PCP Team Solar Thermal Technician jared Disease Visit Annual PCP Team Chronic Disease Visit [facility] Start: 02-17-2025 Annual PCP Team Solar Thermal Technician jared Disease Visit Annual PCP Team Chronic Disease Visit [facility] Start: 02-17-2025 Asthma Control Test Asthma Control T est [facility] Start: 02-17-2025 Depression Screening Depression Scre ening [facility] Start: 01-09-2025 Influenza vaccination Influenza Vacc ine (#1) [facility] Start: 01-03-2025 ASTHMA ACTION PLAN ASTHMA ACTION [place] [facility] Start: 11-10-2024 End: 11-10-2024 ambulatory 11/10/2024 10:00 AM EDT Procedure [facility] [address] [place] [address] [facility], Pulm Lab [facility] [address] [place] [address] Asthma, moderate persistent, poorly-controlled (HCC) [J45.40] [facility] Comment on above: Asthma, moderate per sistent, poorly-controlled (HCC) [J45.40] Start: 08-09-2024 Annual PCP Team Solar Thermal Technician jared Disease Visit Annual PCP Team Chronic Disease Visit [facility] Start: 05-19-2024 End: 05-19-2024 Patient encounter procedure 05/19/2024 9:00 AM EST [facility] Visit [facility] [address] [place] [address] Uvaldo Jorgensen MD [address] [place], [place] [id number] follow up asthma [facility] Comment on above: follow up asthma Start: 04-08-2024 Chlamydia Screening (18-24) Chlamydia Screening (18-24) [facility] Start: 04-08-2024 GC (Gonorrhea) Scree nirav (18-24) GC (Gonorrhea) Screening (18-24) [facility] Start: 04-08-2024 Screening for Chlamy felicita trachomatis Chlamydia Screening () [facility] Start: 04-08-2024 End: 04-08-2024 Patient encounter procedure 04/08/2024 1:00 PM EST Office Visit [facility] [address] [facility] [place] [address] Uvaldo Jorgensen MD [address] [place], [place] [id number] med check [facility] Comment on above: med check Start: 01-10-2024 Covid-19 Vaccine () Covid-19 Vaccine () [facility] Start: 01-10-2024 Covid-19 Vaccine ( season) Covid-19 Vaccine () [facility] Start: 01-10-2024 Influenza vaccination [facility] Start: 01-07-2024 End: 01-07-2024 Patient encounter procedure 01/07/2024 3:30 PM EDT Office Visit [facility] [address] [facility] [place] [address] Uvaldo Jorgensen MD [address] [place], [place] [id number] [facility] Comment on above: [facility] Start: 01-03-2024 Adult depression screening assessment DEPRESSION SCREENING [facility] Start: 01-03-2024 Annual PCP Team Solar Thermal Technician jared Disease Visit Annual PCP Team Chronic Disease Visit [facility] Start: 01-03-2024 ASTHMA CONTROL TEST ASTHMA CONTROL T EST [facility] Start: 05-11-2023 Depression Assessment Depression Ass essment [facility] Start: 05-02-2023 Adult depression screening assessment DEPRESSION SCREENING [facility] Start: 05-02-2023 ASTHMA CONTROL TEST ASTHMA CONTROL T EST [facility] Start: 04-19-2023 [facility] Start: 04-08-2023 End: 07-08-2023 Choriogonadotropin.beta subunit [Units/volume] in Serum or Plasma [facility] Work Phone: Comment on above: Expected: 04/08/2023 , Expires: 07/08/2023 Start: 04-08-2023 End: 07-08-2023 Hepatitis B virus core IgM Ab [Presence] in Serum [facility] Work Phone: Comment on above: Expected: 04/08/2023 , Expires: 07/08/2023 Start: 04-08-2023 End: 07-08-2023 Hepatitis C virus Ab [Presence] in Serum [facility] Work Phone: Comment on above: Expected: 04/08/2023 , Expires: 07/08/2023 Start: 04-08-2023 End: 07-08-2023 HIV 1+2 Ab [Presence] in Serum or Plasma by Immunoassay [facility] Work Phone: Comment on above: Expected: 04/08/2023 , Expires: 07/08/2023 Start: 04-08-2023 End: 07-08-2023 SYPHILIS TOTAL W/REFLEX [facility] Work Phone: Comment on above: Expected: 04/08/2023 , Expires: 07/08/2023 Start: 01-30-2023 Meningococcal B Vacc ine: Consider Based On Risk (2 of 2 - Risk Bexsero 2-dose series) Meningococcal B Vaccine: Consider Based On Risk (2 of 2 - Risk Bexsero 2-dose series) [facility] Start: 01-30-2023 MENINGOCOCCAL B: Consider based on risk (2 of 2 - Risk Bexsero 2-dose series) MENINGOCOCCAL B: Consider based on risk (2 of 2 - Risk Bexsero 2-dose series) [facility] Start: 2023 Chlamydia Screening (18-24) Chlamydia Screening (18-24) [facility] Start: 2023 Depression Screening Depression Scre ening [facility] Start: 2023 GC (Gonorrhea) Scree nirav (18-24) GC (Gonorrhea) Screening (18-24) [facility] Start: 2023 Hepatitis C Screening Hepatitis C Sc sue [facility] Start: 2023 HIV Screening HIV Screening [facility] Start: 2023 Spirometry Spirometry [facility] Start: 01-09-2023 Adult depression screening assessment DEPRESSION SCREENING [facility] Start: 01-09-2023 Covid-19 Vaccine () Covid-19 Vaccine ( season) [facility] Start: 01-09-2023 Influenza vaccination [facility] Start: 01-02-2023 End: 03-04-2023 25-hydroxyvitamin D3 [Mass/volume] in Serum or Plasma [facility] Work Phone: Comment on above: Expected: 01/02/2023 , Expires: 03/04/2023 Start: 01-02-2023 End: 03-04-2023 ALLERGEN NUT PANEL GROUP [facility] Work Phone: Comment on above: Expected: 01/02/2023 , Expires: 03/04/2023 Start: 12-04-2022 ASTHMA ACTION PLAN ASTHMA ACTION [place] [facility] Start: 10-09-2022 End: 12-09-2022 25-hydroxyvitamin D3 [Mass/volume] in Serum or Plasma VITAMIN D 25 HYDROXY Lab Routine Vitamin D deficiency Expected: 10/09/2022, Expires: 12/09/2022 [facility] Work Phone: Comment on above: Expected: 10/09/2022 , Expires: 12/09/2022 Start: 07-28-2022 End: 08-11-2022 COVID, FLU A/B + RSV, ROUTINE [facility] Work Phone: Comment on above: Expected: 07/28/2022 , Expires: 08/11/2022 Start: 07-19-2022 Adult depression screening assessment DEPRESSION SCREENING [facility] Start: 05-11-2022 Depression Assessment Depression Ass essment [facility] Start: 04-05-2022 End: 04-19-2022 COVID, FLU A/B + RSV, ROUTINE COVID, FLU A/B + RSV, ROUTINE Microbiology Routine Nausea vomiting and diarrhea Viral illness Expected: 04/05/2022, Expires: 04/19/2022 [facility] Work Phone: Comment on above: Expected: 04/05/2022 , Expires: 04/19/2022 Start: 01-24-2022 End: 02-07-2022 COVID, FLU A/B + RSV, ROUTINE COVID, FLU A/B + RSV, ROUTINE Microbiology Routine Viral illness Acute cough Expected: 01/24/2022, Expires: 02/07/2022 [facility] Work Phone: Comment on above: Expected: 01/24/2022 , Expires: 02/07/2022 Start: 01-12-2022 ASTHMA CONTROL TEST ASTHMA CONTROL T EST [facility] Start: 01-09-2022 Influenza vaccination INFLUENZA (#1) [facility] Start: 12-24-2021 End: 02-23-2022 VITAMIN D 25 HYDROXY VITAMIN D 25 HYDROXY Lab Routine Vitamin D deficiency Expected: 12/24/2021, Expires: 02/23/2022 [facility] Work Phone: Comment on above: Expected: 12/24/2021 , Expires: 02/23/2022 Start: 08-09-2021 End: 08-23-2021 COVID, FLU A/B + RSV, ROUTINE COVID, FLU A/B + RSV, ROUTINE Microbiology Routine Viral URI Expected: 08/09/2021, Expires: 08/23/2021 [facility] Work Phone: Comment on above: Expected: 08/09/2021 , Expires: 08/23/2021 Start: 2021 MENINGOCOCCAL B: Consider based on risk (1 of 2 - Patient Seeks Protection) MENINGOCOCCAL B: Consider based on risk (1 of 2 - Patient Seeks Protection) [facility] Start: 01-17-2020 CHLAMYDIA SCREENING (<18) CHLAMYDIA SCREENING (<18) [facility] Start: 01-17-2020 GC (GONORRHEA) SCREE NIRAV (<18) GC (GONORRHEA) SCREENING (<18) [facility] Start: 2019 PEDS TO ADULT TRANSI TION ANNUAL ASSESSMENT PEDS TO ADULT TRANSITION ANNUAL ASSESSMENT [facility] Start: 2015 MENINGOCOCCAL B: Consider based on risk (1 of 2 - Risk Bexsero 2-dose series) MENINGOCOCCAL B: Consider based on risk (1 of 2 - Risk Bexsero 2-dose series) [facility] Start: 2011 Pneumococcal vaccination Pneum ococcal Vaccine (1 of 2 - PCV) [facility] Start: 2010 COVID-19 VACCINE (#1) COVID-19 VACCI NE (#1) [facility] Start: 2010 COVID-19 VACCINE (1) COVID-19 VACCIN E (1) [facility] Start: 2005 COVID-19 VACCINE (#1) COVID-19 VACCI NE (#1) [facility] Bacteria identified in Urine by Culture URINE CULTURE Microbiology Routine Urinary frequency 08/12/2023 7:12 PM EDT [facility] Work Phone: Chlamydia trachomatis+Neisseria gonorrhoeae DNA [Presence] in Unspecified specimen by KEN with probe detection GONORRHEA/CHLAMYDIA NAAT Lab Routine Screening examination for STD (sexually transmitted disease) 04/08/2023 9:29 AM EST [facility] Work Phone: COVID, FLU A/B + RSV , ROUTINE COVID, FLU A/B + RSV, ROUTINE Microbiology Routine Viral illness Ordered: 06/26/2022 [facility] Work Phone: Comment on above: Ordered: 06/26/2022 COVID, FLU A/B + RSV , ROUTINE COVID, FLU A/B + RSV, ROUTINE Microbiology Routine Upper respiratory tract infection, unspecified type Ordered: 08/17/2022 [facility] Work Phone: Comment on above: Ordered: 08/17/2022 NEXPLANON INSERTION NEXPLANON IN SERTION Procedures Routine Encounter for contraceptive management, unspecified type Ordered: 04/08/2023 [facility] Work Phone: Comment on above: Ordered: 04/08/2023 Patient Education [facility] Work Phone: Patient referral [facility] Work Phone: End: 07-10-2024 Radiologic exam abdomen 3+ views XR ABDOMEN 3V KUB W/OBLIQUES Radiology STAT Generalized abdominal pain 1 Occurrences starting 06/11/2023 until 07/10/2024 [facility] Work Phone: Comment on above: 1 Occurrences starti ng 06/11/2023 until 07/10/2024 ROUTINE FLU A/B + RSV ROUTINE FL U A/B + RSV Lab Routine Viral URI Ordered: 08/09/2021 [facility] Work Phone: Comment on above: Ordered: 08/09/2021 ROUTINE FLU A/B + RSV ROUTINE FL U A/B + RSV Lab Routine Viral illness Acute cough Ordered: 01/24/2022 [facility] Work Phone: Comment on above: Ordered: 01/24/2022 ROUTINE FLU A/B + RSV ROUTINE FL U A/B + RSV Lab Routine Nausea vomiting and diarrhea Viral illness Ordered: 04/05/2022 [facility] Work Phone: Comment on above: Ordered: 04/05/2022 ROUTINE FLU A/B + RSV ROUTINE FL U A/B + RSV Lab Routine Viral illness Ordered: 06/26/2022 [facility] Work Phone: Comment on above: Ordered: 06/26/2022 ROUTINE FLU A/B + RSV ROUTINE FL U A/B + RSV Lab Routine URI, acute 07/28/2022 2:34 PM EDT [facility] Work Phone: ROUTINE FLU A/B + RSV ROUTINE FL U A/B + RSV Lab Routine Upper respiratory tract infection, unspecified type Ordered: 08/17/2022 [facility] Work Phone: Comment on above: Ordered: 08/17/2022 SARS-CoV-2 (COVID-19 ) RNA [Presence] in Respiratory specimen by KEN with probe detection 2019 CORONAVIRUS Microbiology Routine Viral URI Ordered: 08/09/2021 [facility] Work Phone: Comment on above: Ordered: 08/09/2021 SARS-CoV-2 (COVID-19 ) RNA [Presence] in Respiratory specimen by KEN with probe detection 2019 CORONAVIRUS Microbiology Routine Viral illness Acute cough Ordered: 01/24/2022 [facility] Work Phone: Comment on above: Ordered: 01/24/2022 SARS-CoV-2 (COVID-19 ) RNA [Presence] in Respiratory specimen by KEN with probe detection 2019 CORONAVIRUS Microbiology Routine Nausea vomiting and diarrhea Viral illness Ordered: 04/05/2022 [facility] Work Phone: Comment on above: Ordered: 04/05/2022 SARS-CoV-2 (COVID-19 ) RNA [Presence] in Respiratory specimen by KEN with probe detection 2019 CORONAVIRUS Microbiology Routine Viral illness Ordered: 06/26/2022 [facility] Work Phone: Comment on above: Ordered: 06/26/2022 SARS-CoV-2 (COVID-19 ) RNA [Presence] in Respiratory specimen by KEN with probe detection 2019 CORONAVIRUS Microbiology Routine URI, acute 07/28/2022 2:34 PM EDT [facility] Work Phone: SARS-CoV-2 (COVID-19 ) RNA [Presence] in Respiratory specimen by KEN with probe detection 2019 CORONAVIRUS Microbiology Routine Upper respiratory tract infection, unspecified type Ordered: 08/17/2022 [facility] Work Phone: Comment on above: Ordered: 08/17/2022 End: 07-23-2025 SPIROMETRY - BASELINE AND POST DILATOR SPIROMETRY - BASELINE AND POST DILATOR PFT Routine Asthma, moderate persistent, poorly-controlled 1 Occurrences starting 06/23/2024 until 07/23/2025 [facility] Work Phone: Comment on above: 1 Occurrences starti ng 06/23/2024 until 07/23/2025 End: 02-09-2026 SPIROMETRY - BASELINE AND POST DILATOR SPIROMETRY - BASELINE AND POST DILATOR PFT Routine Mild persistent asthma without complication (HCC) 1 Occurrences starting 01/10/2025 until 02/09/2026 [facility] Work Phone: Comment on above: 1 Occurrences starti ng 01/10/2025 until 02/09/2026 TRICHOMONAS VAGINALI S NAAT TRICHOMONAS VAGINALIS NAAT Lab Routine Screening examination for STD (sexually transmitted disease) 04/08/2023 9:29 AM EST [facility] Immunizations Immunization Date Immunization Notes Care Provider Larisa abdalla 02-18-2024 influenza, seasonal, injectable Uvaldo Jorgensen MD Work Phone: [facility] 02-18-2024 influenza virus vacc ine, unspecified formulation Uvaldo Jorgensen MD Work Phone: [facility] 08-10-2023 meningococcal B vacc ine, recombinant, OMV, adjuvanted Uvaldo Jorgensen MD Work Phone: [facility] 08-04-2023 tetanus toxoid, redu jie diphtheria toxoid, and acellular pertussis vaccine, adsorbed Uvaldo Jorgensen MD Work Phone: [facility] 01-02-2023 meningococcal B vacc ine, recombinant, OMV, adjuvanted Uvaldo Jorgensen MD Work Phone: [facility] 01-09-2022 influenza, injectabl e, quadrivalent, contains preservative She Velázquez PERSONNEL ARBITRATOR.[employer]EL TRUCK [employer]IVER Work Phone: [facility] 01-09-2022 influenza virus vacc ine, unspecified formulation Uvaldo Jorgensen MD Work Phone: [facility] 2021 meningococcal polysaccharide (groups A, C, Y and W-135) diphtheria toxoid conjugate vaccine (MCV4P) Gladis Rogers PA-C Work Phone: [facility] 01-12-2021 influenza, injectabl e, quadrivalent, contains preservative Gladis Rogers PA-C Work Phone: [facility] 04-14-2020 influenza, injectabl e, quadrivalent, contains preservative Gladis Rogers PA-C Work Phone: [facility] 04-02-2019 influenza, injectabl e, quadrivalent, preservative free Gladis Rogers PA-C Work Phone: [facility] 03-09-2018 Human Papillomavirus 9-valent vaccine Gladis Rogers PA-C Work Phone: [facility] 02-18-2018 influenza, injectabl e, quadrivalent, preservative free Gladis Rogers PA-C Work Phone: [facility] Work Phone: 05-02-2017 Human Papillomavirus 9-valent vaccine Gladis Rogers PA-C Work Phone: [facility] Work Phone: 05-02-2017 influenza, injectabl e, quadrivalent, contains preservative Gladis TOPETE-C Work Phone: [facility] Work Phone: 05-02-2017 meningococcal polysaccharide (groups A, C, Y and W-135) diphtheria toxoid conjugate vaccine (MCV4P) Gladis Rogers PA-C Work Phone: [facility] Work Phone: 05-02-2017 tetanus toxoid, redu jie diphtheria toxoid, and acellular pertussis vaccine, adsorbed Gladis TOPETE-C Work Phone: [facility] Work Phone: 02-27-2016 influenza, injectabl e, quadrivalent, contains preservative Galdis TOPETE-Adilene Work Phone: [facility] 03-24-2015 influenza, injectabl e, quadrivalent, contains preservative Gladis TOPETE-Adilene Work Phone: [facility] Work Phone: 03-09-2014 influenza, seasonal, injectable Gladis Rogers PA-C Work Phone: [facility] 04-14-2013 influenza virus vacc ine, unspecified formulation Gladis TOPETE-Adilene Work Phone: [facility] 01-23-2010 diphtheria, tetanus toxoids and acellular pertussis vaccine Gladis TOPETE-Adilene Work Phone: [facility] 01-23-2010 measles, mumps and rubella virus vaccine Gladis TOPETE-Adilene Work Phone: [facility] 01-23-2010 poliovirus vaccine, inactivated Gladis Athy PA-C Work Phone: [facility] 01-23-2010 varicella virus vaccine Gladis Rogers PA-C Work Phone: [facility] 2007 hepatitis A vaccine, unspecified formulation Gladis Rogers PA-C Work Phone: [facility] Work Phone: 05-30-2006 influenza virus vacc ine, unspecified formulation Gladis Rogers PA-C Work Phone: [facility] Work Phone: 04-18-2006 diphtheria, tetanus toxoids and acellular pertussis vaccine Gladis Rogers PA-C Work Phone: [facility] Work Phone: 04-18-2006 haemophilus influenz ae type b vaccine, HbOC conjugate Gladis TOPETE-C Work Phone: [facility] Work Phone: 04-18-2006 hepatitis A vaccine, unspecified formulation Gladis Rogers PA-C Work Phone: [facility] Work Phone: 04-18-2006 influenza virus vacc ine, unspecified formulation Gladis Rogers PA-C Work Phone: [facility] Work Phone: 2006 measles, mumps and rubella virus vaccine Gladis Rogers PA-C Work Phone: [facility] Work Phone: 2006 pneumococcal conjuga te vaccine, 7 valent Gladis Rogers PA-C Work Phone: [facility] Work Phone: 2006 varicella virus vaccine Gladis Rogers PA-C Work Phone: [facility] Work Phone: 2005 DTaP-hepatitis B and poliovirus vaccine Gladis Rogers PA-C Work Phone: [facility] Work Phone: 2005 haemophilus influenz ae type b vaccine, HbOC conjugate Gladis Athy PA-C Work Phone: [facility] Work Phone: 2005 pneumococcal conjuga te vaccine, 7 valent Gladis Athy PA-C Work Phone: [facility] Work Phone: 2005 DTaP-hepatitis B and poliovirus vaccine Gladis Athy PA-C Work Phone: [facility] Work Phone: 2005 haemophilus influenz ae type b vaccine, HbOC conjugate Gladis Athy PA-C Work Phone: [facility] Work Phone: 2005 pneumococcal conjuga te vaccine, 7 valent Gladis Athy PA-C Work Phone: [facility] Work Phone: 2005 DTaP-hepatitis B and poliovirus vaccine Gladis Athy PA-C Work Phone: [facility] Work Phone: 2005 haemophilus influenz ae type b vaccine, HbOC conjugate Gladis Athy PA-C Work Phone: [facility] Work Phone: 2005 pneumococcal conjuga te vaccine, 7 valent Gladis Athy PA-C Work Phone: [facility] Work Phone: Payers Date Payer Category Payer Self-pay [id number] 2022 Formerly [facility] [id number] 2021 Private Health Insurance [facility] STAFF/NON STAFF / EHP [facility] [id number] 2021-2031 [address] [place] [address] EPO [id number] 2021 Private Health Insurance [id number] 2015 Unknown [id number] 2007 Unknown [id number] 1981 Unknown [id number] .[id number] 1981 Unknown [id number] .479 1981 Unknown [id number] [id number] .627 1981 Unknown [id number] .[id number] Medicaid MEDICAID [id number] Private Health Insurance [id number] Unknown [id number] Unknown [id number] .462 Unknown [id number] .462 Unknown [id number] 2.840.1.947844.3.579.2 .462 Unknown [id number] .462 Unknown [id number] 2.840.1.517900.3.579.2 .462 Unknown [id number] 2.840.1.129527.3.579.2 .462 Unknown [id number] 2.16.840.1.084482.3.579.2 .462 Unknown [id number] 2.16.840.1.195010.3.579.2 .462 Unknown [id number] 2.16.840.1.362361.3.579.2 .462 Unknown [id number] 2.16.840.1.826300.3.579.2 .462 Unknown [id number] 2.16.840.1.764342.3.579.2 .462 Unknown [id number] 2.16.840.1.430937.3.579.2 .462 Unknown [id number] 2.16.840.1.145186.3.579.2 .462 Unknown [id number] 2.16.840.1.702734.3.579.2 .462 Unknown [id number] 2.16.840.1.405022.3.579.2 .462 Unknown [id number] 2.16.840.1.465927.3.579.2 .462 Unknown [id number] 2.16.840.1.546029.3.579.2 .462 Unknown [id number] .462 Social History Date Type Detail Facility Start: 02-19-2018 End: 01-09-2022 Tobacco smoking status RIIS Never smoked tobacco [facility] Start: 12-05-2020 End: 08-09-2021 Alcohol intake Not Asked [facility] Start: 02-19-2018 End: 01-09-2022 Tobacco Comment outside- dad's parents/mom smokes outside [facility] Start: 2005 Sex Assigned At Not on file [facility] Start: 11-05-2020 End: 04-08-2022 Exposure to SARS-CoV-2 (event) Not sure [facility] History of tobacco use Passive smoker [facility] Work Phone: Start: 02-19-2018 End: 01-09-2022 Tobacco use and exposure Smokeless tobacco non-user [facility] Work Phone: Start: 01-22-2022 End: 04-19-2023 Tobacco smoking status NHIS Unknown if ever smoked [facility] Start: 2005 Sex Assigned At Female [facility] Start: 08-21-2022 End: 05-28-2024 History of Social function [facility] Start: 08-21-2022 End: 05-28-2024 Tobacco use panel [facility] Start: 04-11-2012 Getting School Help Needed Yes [facility] How hard is it for you to pay for the very basics like food, housing, medical care, and heating Somewhat hard [facility] (I/We) worried whether (my/our) food would run out before (I/we) got money to buy more. Never true [facility] In the past 12 months, was there a time when you were not able to pay the mortgage or rent on time? Yes [facility] Start: 04-08-2023 End: 06-23-2024 Alcohol intake Lifetime non-drinker (finding) [facility] Sex Assigned At [facility] Start: 08-02-2017 Sex Female (finding) [facility] NEGATED: Highlighted row [facility] Functional Status Date Assessment Result Facility 07-06-2024 Functional Status Standard Safet y ID band on, Call device within reach, Bed in low position, Wheels locked, Upper/Half-Length side-rails up, Bedside Cart Locked, Safety level maintained [facility] 02-26-2024 Functional Status Up ad finn [facility] 07-02-2014 Are you deaf, or do you have serious difficulty hearing No 07/02/2014 9:35 AM Shanthi Salinas LPN No [facility] 07-02-2014 Are you blind, or do you have serious difficulty seeing, even when wearing glasses No 07/02/2014 9:35 AM Shanthi Salinas LPN No [facility] 07-02-2014 Do you have serious difficulty walking or climbing stairs No 07/02/2014 9:35 AM Shanthi Salinas LPN No [facility] 07-02-2014 Do you have difficul ty dressing or bathing No 07/02/2014 9:35 AM Shanthi Salinas LPN No [facility] Mental Status Date Assessment Result Facility 07-06-2024 Mental Status Orientation Oriented x 4 [facility] 02-26-2024 Mental Status Oriented x 4 [facility] 07-02-2014 Because of a physica l, mental, or emotional condition, do you have serious difficulty concentrating, remembering, or making decisions No 07/02/2014 9:35 AM Shanthi Salinas LPN No [facility] Clinical Notes 12-05-2020 to 01-10-2025 Telephone Encounter - Niurka Jonas RN - 01/10/2025 10:48 AM EDTTelephone Encounter - Niurka Jonas RN - 01/10/2025 10:48 AM EDTTelephone Encounter - Uvaldo Jorgensen MD - 01/10/2025 10:39 AM EDT Note Date & Type Note Facility 01-10-2025 Telephone encounter Note Called and spoke with patient. Scheduling offered. She states that she will have to call back later when she has her schedule/calendar available. Niurka Jonas RN [facility] 01-10-2025 Miscellaneous Notes Called and spoke with patient. Scheduling offered. She states that she will have to call back later when she has her schedule/calendar available. Niurka Jonas RN Please attempt to schedule again for pulmonary function testing. She canceled the last 2 appointments. The following approved medication requests have been transmitted electronically. Requested Prescriptions Signed Prescriptions Disp Refills SYMBICORT 80-4.5 mcg/actuation inhaler 10.2 g 0 Sig: INHALE 2 PUFFS BY MOUTH INSTRUCTED TWICE DAILY Authorizing Provider: UVALDO JORGENSEN MD Pt called in to get the refill. Last WCC: 02/18/2024 Verify RX Benefits Completed Last medication refill date: 06/23/2024 + 5 refills Requesting 30 day supply Retail pharmacy updated: Completed Patient aware RX will be sent to pharmacy. No need to notify patient. Health Maintenance due: GC (Gonorrhea) Screening (18-24) due on 04/08/2024 Chlamydia Screening (18-24) due on 04/08/2024 Influenza Vaccine(1) due on 01/09/2025 Asthma Control Test due on 02/17/2025 Cheli Lucero LPN documented in this encounter [facility] 01-10-2025 Telephone encounter Note Please attempt to schedule again for pulmonary function testing. She canceled the last 2 appointments. The following approved medication requests have been transmitted electronically. Requested Prescriptions Signed Prescriptions Disp Refills SYMBICORT 80-4.5 mcg/actuation inhaler 10.2 g 0 Sig: INHALE 2 PUFFS BY MOUTH INSTRUCTED TWICE DAILY Authorizing Provider: UVALDO JORGENSEN MD [facility] 01-10-2025 Telephone encounter Note Pt called in to get the refill. Last WCC: 02/18/2024 Verify RX Benefits Completed Last medication refill date: 06/23/2024 + 5 refills Requesting 30 day supply Retail pharmacy updated: Completed Patient aware RX will be sent to pharmacy. No need to notify patient. Health Maintenance due: GC (Gonorrhea) Screening (18-24) due on 04/08/2024 Chlamydia Screening (18-24) due on 04/08/2024 Influenza Vaccine(1) due on 01/09/2025 Asthma Control Test due on 02/17/2025 Cheli Lucero LPN [facility] 11-07-2024 Miscellaneous Notes Patient calling to report that she will continue with the symbicort as suggested by provider in previous messages. She does not need an additional order of symbicort at this time. Left message to call office. 11/04/2024 8:26 AM Niurka Jonas RN I would recommend that she use her Symbicort as a rescue (as well as maintenance) medication rather than Albuterol. I can refill that instead if she wishes. Spoke with patient, reports she does need a refill Patient was scheduled for spirometry testing as ordered but no showed. Per patient states she was having car trouble and other stuff going on. Offered to reschedule, patient states she is busy right now and does not know her availability. States she will call next week to get it scheduled. Chen Echevarria RN documented in this encounter [facility] 11-07-2024 Telephone encounter Note Patient calling to report that she will continue with the symbicort as suggested by provider in previous messages. She does not need an additional order of symbicort at this time. [facility] 11-04-2024 Telephone encounter Note Left message to call office. 11/04/2024 8:26 AM Niurka Jonas RN [facility] 11-03-2024 Telephone encounter Note I would recommend that she use her Symbicort as a rescue (as well as maintenance) medication rather than Albuterol. I can refill that instead if she wishes. [facility] 11-03-2024 Telephone encounter Note Spoke with patient, reports she does need a refill Patient was scheduled for spirometry testing as ordered but no showed. Per patient states she was having car trouble and other stuff going on. Offered to reschedule, patient states she is busy right now and does not know her availability. States she will call next week to get it scheduled. Chen Echevarria RN [facility] 09-24-2024 Telephone encounter Note Left message to call office. 09/24/2024 9:03 AM Niurka Jonas RN [facility] 09-24-2024 Miscellaneous Notes Left message to call office. 09/24/2024 9:03 AM Niurka Jonas RN Left message to call office. 09/19/2024 1:34 PM Niurka Jonas RN Left message to verify if refill needed. Was refilled on 08/15/24 Chen Echevarria RN documented in this encounter [facility] 09-19-2024 Telephone encounter Note Left message to call office. 09/19/2024 1:34 PM Niurka Jonas RN [facility] 09-10-2024 Telephone encounter Note Left message to verify if refill needed. Was refilled on 08/15/24 Chen Echevarria RN [facility] 07-07-2024 Note . MICRO - Microbiology PROCEDURE: Urine Culture [O1 *1] SOURCE: Urine BODY SITE: COLLECTED DATE/TIME: 07/06/2024 02:59 EST RECEIVED DATE/TIME: 07/06/2024 15:37 EST START DATE/TIME: 07/06/2024 15:37 EST FREE TEXT SOURCE: FINAL REPORTS Final Report [] Verified Date/Time/Personnel: 07/07/2024 15:01 EST 10,000 - 50,000 cfu/ml [place] albicans Contact Microbiology within 72 hours if further identification is indicated ([id number]). Pitkin counts from a single urine are equivocal in determining infection vs. colonization of yeast. Multiple cultures at least 24 hours apart may be helpful in differentiating colonization from infection. SUSCEPTIBILITY RESULTS Keara albicans Antibiotic UGO Dilut UGO Inter ID Panel Not Not Applicable Applicable Order Comments O1: Urine Culture Added by Discern Performing Locations *1: This test was performed at: [facility], [address] [place] [address], [id number] , [facility] 07-06-2024 Evaluation + Plan note Diagnostic Tests PendingUrine Culture 07/06/24 [facility] 07-06-2024 Hospital Discharg e instructions Patient Education 07/06/2024 01:43:20 Viral Syndrome (Adult) Viral Syndrome (Adult) A viral illness may cause a number of symptoms such as fever. Other symptoms depend on the part of the body that the virus affects. If it settles in your nose, throat, and lungs, it may cause cough, sore throat, congestion, runny nose, headache, earache and other ear symptoms, or shortness of breath. If it settles in your stomach and intestinal tract, it may cause nausea, vomiting, cramping, and diarrhea. Sometimes it causes generalized symptoms like aching all over, feeling tired, loss of energy, or loss of appetite. A viral illness usually lasts anywhere from several days to several weeks, but sometimes it lasts longer. In some cases, a more serious infection can look like a viral syndrome in the first few days of the illness. You may need another exam and additional tests to know the difference. Watch for the warning signs listed below for when to seek medical advice. Home care Follow these guidelines for taking care of yourself at home: If symptoms are severe, rest at home for the first 2 to 3 days. Stay away from cigarette smoke - both your smoke and the smoke from others. You may use wnxl-iyd-ceukwxf acetaminophen or ibuprofen for fever, muscle aching, and headache, unless another medicine was prescribed for this. If you have chronic liver or kidney disease or ever had a stomach ulcer or gastrointestinal bleeding, talk with your healthcare provider before using these medicines. No one who is younger than 18 and ill with a fever should take aspirin. It may cause severe disease or . Your appetite may be poor, so a light diet is fine. Avoid dehydration by drinking 8 to 12, 8-ounce glasses of fluids each day. This may include water; orange juice; lemonade; apple, grape, and cranberry juice; clear fruit drinks; electrolyte replacement and sports drinks; and decaffeinated teas and coffee. If you have been diagnosed with a kidney disease, ask your healthcare provider how much and what types of fluids you should drink to prevent dehydration. If you have kidney disease, drinking too much fluid can cause it build up in the your body and be dangerous to your health. Sedk-ghi-xonuees remedies won't shorten the length of the illness but may be helpful for symptoms such as cough, sore throat, nasal and sinus congestion, or diarrhea. Don't use decongestants if you have high blood pressure. Follow-up care Follow up with your healthcare provider if you do not improve over the next week. Call 911 Call 911 if any of the following occur: Convulsion Feeling weak, dizzy, or like you are going to faint Chest pain, or more than mild shortness of breath When to seek medical advice Call your healthcare provider right away if any of these occur: Cough with lots of colored sputum (mucus) or blood in your sputum Chest pain, shortness of breath, wheezing, or trouble breathing Severe headache; face, neck, or ear pain Severe, constant pain in the lower right side of your belly (abdominal) Continued vomiting (can t keep liquids down) Frequent diarrhea (more than 5 times a day); blood (red or black color) or mucus in diarrhea Feeling weak, dizzy, or like you are going to faint Extreme thirst Fever of 100.4 F (38 C) or higher, or as directed by your healthcare provider [id number] [employer]. [address] [place] [address]. All rights reserved. This information is not intended as a substitute for professional medical care. Always follow your healthcare professional's instructions. 07/06/2024 01:43:18 Syncope, Unk Cause Fainting: Uncertain Cause Fainting (syncope) is a temporary loss of consciousness, which is often associated with a loss of postural tone. There are other causes of fainting, too. It s also called passing out. It occurs when blood flow to the brain is less than normal. Near-fainting (near-syncope) is very similar to fainting, but you don t fully pass out. Common minor causes of fainting include: Sudden fear Pain Nausea Emotional stress Overexertion Suddenly standing up after sitting or lying for a long time can also cause fainting. More serious causes of fainting include: Very slow or very fast heartbeat (arrhythmia) Other types of heart disease, such as heart valve disease or coronary artery disease Dehydration Loss of blood Seizure Stroke Ruptured blood vessel in the brain Taking too much high blood pressure medicine can also cause low blood pressure and fainting. Your healthcare provider does not know the exact cause of your fainting. But the tests today did not show any of the serious causes of fainting. Sometimes you may need more tests to find out if you have a serious problem. That s why it s important to follow up with your provider as advised. Home care Follow these guidelines when caring for yourself at home: Rest today. You may go back to your normal activities when you are feeling back to normal. It is best to stay with someone who can check on you for the next 24 hours to watch for another episode of fainting. If you become lightheaded or dizzy, lie down right away and try to prop your feet above the level of your head. Or sit with your head between your knees. Because the provider doesn t know the exact cause of your fainting or near-fainting spell, it s possible for you to have another spell without warning. Because of this, don t drive a car or operate dangerous equipment. Don t take a bath alone. Use a shower instead. Don t swim alone until your healthcare provider says that you are no longer in danger of having another fainting spell. Follow-up care Follow up with your healthcare provider, or as advised. Call 911 Call 911 if any of these occur: Another fainting spell that s not explained by the common causes listed above Pain in your chest, arm, neck, jaw, back, or abdomen Shortness of breath Severe headache or seizure Blood in vomit or stools (black or red color) Unexpected vaginal bleeding Your heart beats very rapidly, very slowly, or irregularly (palpitations) Weakness in an arm or leg or on one side of the face Difficulty speaking or seeing Extreme drowsiness, confusion, dizziness, or fainting [phone] [employer]. [address] [place] [address]. All rights reserved. This information is not intended as a substitute for professional medical care. Always follow your healthcare professional's instructions. Follow Up Care 07/06/2024 01:33:41 With:UVALDO JORGENSEN MD Address: [address] [place] [id number] When:2-4 days With:Go to emergency room if symptoms worsen Address:Unknown When:2-4 days [facility] 07-06-2024 Emergency department Discharge summary Discharge Instructions Thank you for allowing [facility] to assist you with your healthcare needs. The following is important discharge information regarding your hospital visit. Diagnosis from Today's Visit Diarrhea Syncope UTI (urinary tract infection) What to Do Next Instructions from Your Care Team Take Keflex as prescribed for UTI. Your creatinine/kidney function was slightly elevated at 1.34. Drink plenty fluids stay well-hydrated follow-up with your primary care provider may benefit from repeat BMP your creatinine level in the future. Return the emergency department if experience worsening symptoms or any other care concern. Take Zofran as needed for nausea. Discharge Return to Work, School, or Sports (Return to Work, School, or Sports) - Ordered -- 07/07/24, May return to: work, 07/06/24 3:03:00 EST Post Acute Orders No qualifying data available. You Need to Schedule the Following Appointments Follow Up with UVALDO JORGENSEN MD When:Within 2-4 days Where:[address] [facility] [place] [address] Follow Up with Go to emergency room if symptoms worsen When:Within 2-4 days Allergies Peanuts Medications Please ask your primary doctor or pharmacist before taking any other medication not listed, including over the counter drugs, herbal medications, vitamins and or supplements as they may interact with your home medications. What How Much When Instructions Last Dose New cephalexin (cephalexin 500 mg oral tablet) 1 tab(s) by mouth Four (4) times a day Duration: 7 Days Printed Prescription New ondansetron (Zofran 4 mg oral tablet) 1 tab(s) by mouth Every 8 hours as needed for Nausea/Vomiting Duration: 3 Days Printed Prescription Unchanged albuterol Unchanged albuterol (albuterol MDI (90 mcg/ inh) CFC free inhalation aerosol) 2 puff(s) by inhalation Every 4 hours Unchanged escitalopram by mouth Once a day Unchanged hydrOXYzine (Atarax use hydrOXYzine hydrochloride ) by mouth Four (4) times a day Please take this list to your next doctor s visit. Bring all medications you take, including over the counter medications, herbals and other supplements with you to your doctor s visit. Patients and families are reminded to discard old lists and to update any records with all medication providers or retail pharmacies. Education Materials Viral Syndrome (Adult) A viral illness may cause a number of symptoms such as fever. Other symptoms depend on the part of the body that the virus affects. If it settles in your nose, throat, and lungs, it may cause cough, sore throat, congestion, runny nose, headache, earache and other ear symptoms, or shortness of breath. If it settles in your stomach and intestinal tract, it may cause nausea, vomiting, cramping, and diarrhea. Sometimes it causes generalized symptoms like aching all over, feeling tired, loss of energy, or loss of appetite. A viral illness usually lasts anywhere from several days to several weeks, but sometimes it lasts longer. In some cases, a more serious infection can look like a viral syndrome in the first few days of the illness. You may need another exam and additional tests to know the difference. Watch for the warning signs listed below for when to seek medical advice. Home care Follow these guidelines for taking care of yourself at home: If symptoms are severe, rest at home for the first 2 to 3 days. Stay away from cigarette smoke - both your smoke and the smoke from others. You may use ddgr-rjp-urcwqbj acetaminophen or ibuprofen for fever, muscle aching, and headache, unless another medicine was prescribed for this. If you have chronic liver or kidney disease or ever had a stomach ulcer or gastrointestinal bleeding, talk with your healthcare provider before using these medicines. No one who is younger than 18 and ill with a fever should take aspirin. It may cause severe disease or . Your appetite may be poor, so a light diet is fine. Avoid dehydration by drinking 8 to 12, 8-ounce glasses of fluids each day. This may include water; orange juice; lemonade; apple, grape, and cranberry juice; clear fruit drinks; electrolyte replacement and sports drinks; and decaffeinated teas and coffee. If you have been diagnosed with a kidney disease, ask your healthcare provider how much and what types of fluids you should drink to prevent dehydration. If you have kidney disease, drinking too much fluid can cause it build up in the your body and be dangerous to your health. Uzsv-zdk-ntvsboh remedies won't shorten the length of the illness but may be helpful for symptoms such as cough, sore throat, nasal and sinus congestion, or diarrhea. Don't use decongestants if you have high blood pressure. Follow-up care Follow up with your healthcare provider if you do not improve over the next week. Call 911 Call 911 if any of the following occur: Convulsion Feeling weak, dizzy, or like you are going to faint Chest pain, or more than mild shortness of breath When to seek medical advice Call your healthcare provider right away if any of these occur: Cough with lots of colored sputum (mucus) or blood in your sputum Chest pain, shortness of breath, wheezing, or trouble breathing Severe headache; face, neck, or ear pain Severe, constant pain in the lower right side of your belly (abdominal) Continued vomiting (can t keep liquids down) Frequent diarrhea (more than 5 times a day); blood (red or black color) or mucus in diarrhea Feeling weak, dizzy, or like you are going to faint Extreme thirst Fever of 100.4 F (38 C) or higher, or as directed by your healthcare provider [phone] [employer]. [address] [place] [address], [place] [address]. All rights reserved. This information is not intended as a substitute for professional medical care. Always follow your healthcare professional's instructions. Fainting: Uncertain Cause Fainting (syncope) is a temporary loss of consciousness, which is often associated with a loss of postural tone. There are other causes of fainting, too. It s also called passing out. It occurs when blood flow to the brain is less than normal. Near-fainting (near-syncope) is very similar to fainting, but you don t fully pass out. Common minor causes of fainting include: Sudden fear Pain Nausea Emotional stress Overexertion Suddenly standing up after sitting or lying for a long time can also cause fainting. More serious causes of fainting include: Very slow or very fast heartbeat (arrhythmia) Other types of heart disease, such as heart valve disease or coronary artery disease Dehydration Loss of blood Seizure Stroke Ruptured blood vessel in the brain Taking too much high blood pressure medicine can also cause low blood pressure and fainting. Your healthcare provider does not know the exact cause of your fainting. But the tests today did not show any of the serious causes of fainting. Sometimes you may need more tests to find out if you have a serious problem. That s why it s important to follow up with your provider as advised. Home care Follow these guidelines when caring for yourself at home: Rest today. You may go back to your normal activities when you are feeling back to normal. It is best to stay with someone who can check on you for the next 24 hours to watch for another episode of fainting. If you become lightheaded or dizzy, lie down right away and try to prop your feet above the level of your head. Or sit with your head between your knees. Because the provider doesn t know the exact cause of your fainting or near-fainting spell, it s possible for you to have another spell without warning. Because of this, don t drive a car or operate dangerous equipment. Don t take a bath alone. Use a shower instead. Don t swim alone until your healthcare provider says that you are no longer in danger of having another fainting spell. Follow-up care Follow up with your healthcare provider, or as advised. Call 911 Call 911 if any of these occur: Another fainting spell that s not explained by the common causes listed above Pain in your chest, arm, neck, jaw, back, or abdomen Shortness of breath Severe headache or seizure Blood in vomit or stools (black or red color) Unexpected vaginal bleeding Your heart beats very rapidly, very slowly, or irregularly (palpitations) Weakness in an arm or leg or on one side of the face Difficulty speaking or seeing Extreme drowsiness, confusion, dizziness, or fainting [id number] [employer]. [address] [place] [address]. All rights reserved. This information is not intended as a substitute for professional medical care. Always follow your healthcare professional's instructions. Additional Information VACCINATE! IT SAVES LIVES! Members of the community who have not yet received the COVID-19 vaccine and would like to receive it can visit one of [facility] vaccine clinics. There are many vaccine clinic locations within the [facility]. For locations and available times, please visit [email or web address] [email or web address] It is important to note that some COVID mobile vaccine clinics are held outdoors and may be canceled in rainy or stormy conditions. To learn more about pediatric vaccinations (ages 5-11), we invite you to visit the [facility] webpage. [email or web address]/p [email or web address]-Tipsvaoxtzl-Freq uzqjgf-Fdgpd-Xtvgkerel.html To learn more about the COVID-19 vaccine, we invite you to visit the CDC website for a list of frequently asked questions. https://www.cdc.gov/coronavirus/ 2019-ncov/vaccines/faq.html [facility] [employer] Patient Portal Access Instructions: Stay connected with your healthcare team and access your personal medical information anytime with the [facility] [employer] [facility] Patient Portal. If you would like a full copy of your medical records please contact the [facility] Medical Records Department Thursday through Thursday between 8a.m. and 4:30p.m. Please follow the directions below to access the portal: 1.Access the email account you provided upon registration to the hospital.2.Look for an invitation email from [facility].3.Open the email and access the invitation link: Accept Invitation to [employer]4.Fill in the required mendez to create your account. Sign into [email or web address] with your username and password that you created in the above steps to stay up to date. You can then view a summary of results, a summary of your visits, and the ability to download your summaries to your computer or send the information securely to a physician. Remember that your healthcare information is confidential, so carefully consider who you will allow to register on the [facility] [employer] [facility] Patient Portal for access to your information. You can also access the [employer] Patient Portal on the travayl. Simply click on Health Records under Health Data and then click on the [employer] logo. HOW TO SAFELY DISPOSE OF PRESCRIPTION MEDICATIONS Please use one of the following methods to safely dispose of your unused medications. 1.Use a drug disposal kit: the drug disposal pouch allows you to safely discard your old and unused drugs. Ask your nurse to give you one when you are discharged.2.Visit a local take-back location: Many local pharmacies and police departments have programs that collect old and unwanted prescription drugs. Call your local pharmacy or go to http://[employer]1S0Kt2x to find one close to you.3.Make use of household items: Use cat litter or old coffee grounds to dispose medications if other options are not available. Mix your drugs with these household products, seal them in an airtight container and throw it into the garbage. Call [facility]: [phone] to be sure your drugs can be disposed of in this way. Some medicines may require a different approach.4.Never flush your medications down the toilet. IF YOU HAVE BEEN PRESCRIBED AN OPIOIDS FOR PAIN If you have been prescribed an opioid (such as hydrocodone, oxycodone or morphine), it is critical to understand the possible side effects and risks of opioid pain medications. Even when taken as directed, opioids can have several side effects including: Tolerance, meaning you might need to take more of a medication for the same pain relief. Nausea, vomiting and/or constipation. Sleepiness, dizziness, dry mouth, confusion, depression or itching. Physical dependence, meaning you have withdrawal symptoms when a medication is stopped ? this can develop within a few days. KNOW YOUR RESPONSIBILITIES It is important to know exactly how much and how often to take the opioid pain medications you are prescribed. Never take opioids in higher amounts or more often than prescribed. Do not combine opioids with alcohol or other drugs that cause drowsiness, such as benzodiazepines, also known as benzos, including diazepam and alprazolam, muscle relaxants or sleep aids. Never sell or share prescription opioids. This is illegal. Store opioids in a secure place and out of reach of others (including children, family, friends and visitors). The last page(s) of this document has been signed and retained as a CHART COPY Signatures Patient Education Materials Viral Syndrome (Adult) Syncope, Unk Cause Medication Leaflets My discharge plan and instructions have been reviewed and explained to me and I,LEXIS GUERRA M understand my current condition and have read and understand these discharge instructions. I have received a written copy of the plan/instructions. If I have questions, I am aware that I should contact my doctor. 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 No consolidation, pleural effusion, or vascular congestion is seen. The osseous structures are intact. IMPRESSION: No acute findings. Interpreted by: Betty Ackerman MD Preliminary Report By: Betty Ackerman MD Electronically signed By Betty Ackerman MD Dictated Date: 07/06/2024 2:21:25 AM Prelim Date: 07/06/2024 2:21:32 AM Sign Date: 07/06/2024 2:21:32 AM Ordering Provider: [facility]02-26-2025 Note* Exam Date Time Procedure Performing Provider Status 07/06/24 2:[address] Head or Brain w/o Contrast BETTY ACKERMAN MD; Auth (Verified) [id number] ORIGINAL EXAMINATION: CT OF THE HEAD WITHOUT CONTRAST 07/06/2024 2:10 am TECHNIQUE: CT of the head was performed without the administration of intravenous contrast. Automated exposure control, iterative reconstruction, and/or weight based adjustment of the mA/kV was utilized to reduce the radiation dose to as low as reasonably achievable. COMPARISON: None. HISTORY: ORDERING SYSTEM PROVIDED HISTORY: Reason for Exam: syncope FINDINGS: BRAIN/VENTRICLES: There is no acute intracranial hemorrhage, mass effect or midline shift. No abnormal extra-axial fluid collection. The glalagher-white differentiation is maintained without evidence of an acute infarct. There is no evidence of hydrocephalus. ORBITS: The visualized portion of the orbits demonstrate no acute abnormality. SINUSES: The visualized paranasal sinuses and mastoid air cells demonstrate no acute abnormality. SOFT TISSUES/SKULL: No acute abnormality of the visualized skull or soft tissues. IMPRESSION: No acute intracranial abnormality. Interpreted by: Betty Ackerman MD Preliminary Report By: Betty Ackerman MD Electronically signed By Betty Ackerman MD Dictated Date: 07/06/2024 2:26:38 AM Prelim Date: 07/06/2024 2:30:26 AM Sign Date: 07/06/2024 2:30:26 AM Ordering Provider: [facility]02-26-2025 Note* Exam Date Time Procedure Performing Provider Status 07/06/24 1:50 AM EKG [ED AOH] - CV ASHWINI RENTERIA DO ; Auth (Verified) ECG Final Report Sinus arrhythmia Short AK interval Electronic Signature: ASHWINI RENTERIA DO 07/06/2024 01:55:05 [facility]02-13-2025 Telephone encounter Note* Telephone Encounter - Chen Echevarria RN - 06/23/2024 2:22 PM EST Fax number is actually [phone] Chen Echevarria RN [facility]02-13-2025 Miscellaneous Notes* Telephone Encounter - Chen Echevarria RN - 06/23/2024 2:22 PM EST Fax number is actually [phone] Chen Echevarria RN * Telephone Encounter - Chen Echevarria RN - 06/23/2024 1:54 PM EST Awaiting for most recent office note to be closed and will then fax over requested information [facility] [place]-13[place]25 Telephone encounter Note * Telephone Encounter - Chen Echevarria RN - 06/23/2024 1:54 PM EST Awaiting for most recent office note to be closed and will then fax over requested information Chen Echevarria RN [facility] [place]02-13-2025 NoteHNO ID: [id number] Author: UVALDO JORGENSEN MD Service: ? Author Type: Physician Type: Progress Notes Filed: 06/23/2024 13:58 Note Text: SUBJECTIVE: History was obtained from: patient The patient is a 19-year-old female presenting with asthma and generalized anxiety disorder. The history of asthma includes moderate persistent poorly-controlled asthma, characterized by frequent daily need for her rescue inhaler, Albuterol. 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 These are worsened during cold weather. She uses QVAR twice a day, but despite this, her symptoms are uncontrolled, requiring multiple Albuterol puffs several times daily, with symptoms including sneezing, worsening shortness of breath, and chest tightness. The patient experiences nocturnal symptoms, waking due to asthma symptoms. She has had an emergency room visit since February, usually required once a year during cold months due to exacerbations. She was not using Flonase regularly as she had run out, and only takes Zyrtec when needed. Her sister recently started Symbicort and has noticed significant better control for her asthma. Regarding generalized anxiety disorder, the patient describes her anxiety as worsening and uncontrollable, experiencing daily crying, shaking, and chest pains similar to muscle soreness. Her symptoms affect her ability to attend classes consistently, seeing improvement prioritized due to her boyfriend's support. Currently, she takes Lexapro 20 mg daily and hydroxyzine as needed, with reports that hydroxyzine is ineffective recently. She would like to be referred to psychiatry at [facility] and will engage in counseling based on that referral. She does wonder if Xanax would help with her anxiety symptoms. PSYCHIATRIC REVIEW OF SYMPTOMS: Depression: Increased irritability Sad mood or feeling empty Changes to sleeping pattern Diminished energy and impairing fatigue Generalized Anxiety: Excessive worry Difficulty controlling worry Restless and fidgety due to anxiety Fatigued due to stress Trouble concentrating due to recurrent anxiety driven thoughts Muscle tension secondary to stress Sleep disturbance secondary to anxiety Daily asthma or allergy related maintenance / controller medications include (see medication list below for details): Inhaled corticosteroid - daily use without improvement in symptoms Uses spacer with inhaler? No Takes controller medicine(s) as prescribed? Yes MEDICATIONS: beclomethasone (QVAR REDIHALER) 40 mcg/actuation inhaler Inhale 1 Puff as instructed two times a day. Cetirizine 10 mg cap Take by mouth. hydrOXYzine HCl (ATARAX) 25 mg tablet take 1 tablet by mouth three times a day as needed for anxiety etonogestrel (NEXPLANON) subdermal implant 68 mg 1 Each by SUBDERMAL route as directed. budesonide-formoterol (SYMBICORT) 80-4.5 mcg/actuation inhaler Inhale 2 Puffs as instructed two times a day. albuterol HFA (PROVENTIL HFA, VENTOLIN HFA) 90 mcg/actuation inhaler Inhale 2 Puffs as instructed every 4 hours as needed for wheezing/shortness of breath. escitalopram oxalate (LEXAPRO) 20 mg tablet Take 1 tablet by mouth once daily. albuterol (PROVENTIL) 2.5 mg /3 mL (0.083 %) nebulizer solution Use 3 mL via nebulizer every 4 hours as needed. single dose vials. 1 vial contains 3 ml EPINEPHrine (EPIPEN) 0.3 mg/0.3 mL auto-injector Inject 0.3 mL intramuscularly as needed. fluticasone (FLONASE ALLERGY RELIEF) 50 mcg/actuation nasal spray Use 1 [place] in each nostril once daily. inhalat.spacing dev,large mask (AEROCHAMBER PLUS FLOW-VU,L MSK) spcr Use with inhaler as directed. MELATONIN ORAL Take by mouth. Asthma Control Test 05/02/2022 01/02/2023 02/18/2024 ASTHMA CONTROL TEST (2007 - ) Keep from getting things done 3 Some of the time 3 Some of the time 4 A little of the time Shortness of breath 1 More than once a day 2 Once a day 2 Once a day Symptoms wake up at night or early in morning 2 2 or 3 nights a week 2 2 or 3 nights a week 3 Once a week How often have you used inhaler/nebulizer 2 1 or 2 times per day 2 1 or 2 times per day 2 1 or 2 times per day Rate your asthma control over past 4 weeks 2 Poorly controlled 3 Somewhat controlled 3 Somewhat controlled Asthma Control Test Score 10 12 14 Exercise / activity related symptoms: No Asthma triggers include: pollens/allergens, stress, and weather change. PAST MEDICAL HISTORY Diagnosis Date Contact dermatitis and other eczema, due to unspecified cause PMH - PAST MEDICAL HISTORY OF RSV Pneumomediastinum (HCC) 02/16/2018 Right arm fracture age 3-4 FAMILY HISTORY Problem Relation Age of Onset other (scoliosis) Mother Asthma Father other (psoriasis) Father Diabetes Father Heart Father Afib other (excema) Sister Lipids Maternal Grandfather Hypertension Maternal Grandfather Leukemia (more content not included)...[facility]02-13-2025 History of Present illness Narrative* Uvaldo Jorgensen MD - 06/23/2024 9:56 AM EST SUBJECTIVE: History was obtained from: patient The patient is a 19-year-old female presenting with asthma and generalized anxiety disorder. The history of asthma includes moderate persistent poorly- controlled asthma, characterized by frequent daily need for her rescue inhaler, Albuterol. 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 These are worsened during coldweather. She uses QVAR twice a day, but despite this, her symptoms are uncontrolled, requiring multiple Albuterol puffs several times daily, with symptoms including sneezing, worsening shortness of breath, and chest tightness. The patient experiences nocturnal symptoms, waking due to asthma symptoms. She has had an emergency room visit since February, usually required once a year during cold months due to exacerbations. She was not using Flonase regularly as she had run out, and only takes Zyrtec when needed. Her sister recently started Symbicort and has noticed significant better control for her asthma. Regarding generalized anxiety disorder, the patient describes her anxiety as worsening and uncontrollable, experiencing daily crying, shaking, and chest pains similar to muscle soreness. Her symptomsaffect her ability to attend classes consistently, seeing improvement prioritized due to her boyfriend's support. Currently, she takes Lexapro 20 mg daily and hydroxyzine as needed, with reports thathydroxyzine is ineffective recently. She would like to be referred to psychiatry at [facility] and will engage in counseling based on that referral. She does wonder if Xanax would help with her anxiety symptoms. PSYCHIATRIC REVIEW OF SYMPTOMS: Depression: Increased irritability Sad mood or feeling empty Changes to sleeping pattern Diminished energy and impairing fatigue Generalized Anxiety: Excessive worry Difficulty controlling worry Restless and fidgety due to anxiety Fatigued due to stress Trouble concentrating due to recurrent anxiety driven thoughts Muscle tension secondary to stress Sleep disturbance secondary to anxiety Daily asthma or allergy related maintenance / controller medications include (see medication list below for details): Inhaled corticosteroid - daily use without improvement in symptoms Uses spacer with inhaler? No Takes controller medicine(s) as prescribed? Yes MEDICATIONS: beclomethasone (QVAR REDIHALER) 40 mcg/actuation inhaler Inhale 1 Puff as instructed two times a day. Cetirizine 10 mg cap Take by mouth. hydrOXYzine HCl (ATARAX) 25 mg tablet take 1 tablet by mouth three times a day as needed for anxiety etonogestrel (NEXPLANON) subdermal implant 68 mg 1 Each by SUBDERMAL route as directed. budesonide-formoterol (SYMBICORT) 80-4.5 mcg/actuation inhaler Inhale 2 Puffs as instructed two times a day. albuterol HFA (PROVENTIL HFA, VENTOLIN HFA) 90 mcg/actuation inhaler Inhale 2 Puffs as instructed every 4 hours as needed for wheezing/shortness of breath. escitalopram oxalate (LEXAPRO) 20 mg tablet Take 1 tablet by mouth once daily. albuterol (PROVENTIL) 2.5 mg /3 mL (0.083 %) nebulizer solution Use 3 mL via nebulizer every 4 hours as needed. single dose vials. 1 vial contains 3 ml EPINEPHrine (EPIPEN) 0.3 mg/0.3 mL auto-injector Inject 0.3 mL intramuscularly as needed. fluticasone (FLONASE ALLERGY RELIEF) 50 mcg/actuation nasal spray Use 1 [place] in each nostril once daily. inhalat.spacing dev,large mask (AEROCHAMBER PLUS FLOW-VU,L MSK) spcr Use with inhaler as directed. MELATONIN ORAL Take by mouth. Asthma Control Test 05/02/2022 01/02/2023 02/18/2024 ASTHMA CONTROL TEST (2007 - ) Keep from getting things done 3 Some of the time 3 Some of the time 4 A little of the time Shortness of breath 1 More than once a day 2 Once a day 2 Once a day Symptoms wake up at night or early in morning 2 2 or 3 nights a week 2 2 or 3 nights a week 3 Once a week How often have you used inhaler/nebulizer 2 1 or 2 times per day 2 1 or 2 times per day 2 1 or 2 times per day Rate your asthma control over past 4 weeks 2 Poorly controlled 3 Somewhat controlled 3 Somewhat controlled Asthma Control Test Score 10 12 14 Exercise / activity related symptoms: No Asthma triggers include: pollens/allergens, stress, and weather change. PAST MEDICAL HISTORY Diagnosis Date Contact dermatitis and other eczema, due to unspecified cause PMH - PAST MEDICAL HISTORY OF RSV Pneumomediastinum (HCC) 02/16/2018 Right arm fracture age 3-4 FAMILY HISTORY Problem Relation Age of Onset other (scoliosis) Mother Asthma Father other (psoriasis) Father Diabetes Father Heart Father Afib other (excema) Sister Lipids Maternal Grandfather Hypertension Maternal Grandfather Leukemia Maternal Grandfather Hypertension Paternal Grandmother Lipids Paternal Grandmother ROS HEENT: itchy or watery eyes: no nasal congestion: yes RESP: as per HPI GI: emesis: no reflux/heartburn: no SKIN: Eczema: no OBJECTIVE: PHYSICAL EXAM BP 104/70 Pulse 64 Temp 36.8 C (98.3 F) (Temporal) Resp 16 Wt 63.3 kg (139 lb 8.8 oz) LMP05/23/2024 (Approximate) BMI 23.65 kg/m General: alert Eyes: clear, no drainage Ears: Tympanic membranes pearly gallagher with normal landmarks Nose: no erythema or exudate OP: no lesions, moist mucous membranes, normal tonsils Neck: supple and no adenopathy Lungs: clear to auscultation bilaterally, good air exchange, no retractions Heart: Normal rate, regular rhythm, no murmur Abdomen: Soft, nontender, nondistended, no palpable organomegaly or masses, normal bowel sounds Skin: Normal color, texture and turgor. No rashes. History of Spirometry: no ASSESSMENT/PLAN: Encounter Diagnosis ICD-10-CM 1. Asthma, moderate persistent, poorly-controlled J45.40 SPIROMETRY - BASELINE AND POST DILATOR 2. Generalized anxiety disorder F41.1 CONSULT TO PSYCHIATRY 19-year-old female with a history of moderate persistent, poorly-controlled asthma, presenting withasthma exacerbations and generalized anxiety disorder symptoms. Her asthma is poorly controlled, with allergic and cold weather- associated triggers. She has nocturnal symptoms and frequent reliance on Albuterol, indicating suboptimal control with the current regimen. The patient also presents with worsening anxiety symptoms despite treatment with Lexapro, indicating a need for psychiatric intervention or medication adjustment. 1. Asthma, moderate persistent, poorly-controlled (J45.40): The patient's asthma management will be adjusted to include Symbicort, a combination inhaler for daily use to improve symptom control, replacing QVAR. She will continue with Albuterol as a rescue inhaler. Emphasis was placed on continuing her antihistamine regimen with Zyrtec and reintroducing Flonase to better manage allergic triggers. Spirometry testing will be scheduled to assess baseline lungfunction and guide treatment adjustments. Asthma action plan reviewed with patient as well as inhaler technique with spacer. 2. Generalized anxiety disorder (F41.1): The patient will continue on Lexapro for anxiety at the current dosage with a refill provided. Psychiatry referral was discussed to explore medication options like Xanax, and counseling services through her healthcare system were recommended. The patient is encouraged to engage with these resourcesto support management of anxiety symptoms. Insurance-covered therapy options have been explored as a cost-effective mental health resource. 3. She does note it is difficult at times to differentiate between anxiety and asthma when she getssymptoms of chest tightness or shortness of breath. I spent a total of 45 minutes on the date of the service which included preparing to see the patient, [id number] patient care, completing clinical documentation, obtaining and/or reviewing separately obtained history, performing a medically appropriate examination, counseling and educating the pat ient/family/caregiver, and ordering medications, tests, or procedures. Uvaldo Jorgensen MD documented [facility] encounterKind[facility] [place] Instructions* Patient Instructions* Uvaldo Jorgensen MD - 06/23/2024 9:56 AM EST 5 to Go!TM Healthy Kids Inside & Out 5 Eat FIVE fruits and veggies a day 4 Give and get FOUR compliments a day 3 Consume THREE calcium products a day 2 Limit media time to TWO hours a day 1 Get at least ONE hour of exercise a day 0 Consume ZERO sugar-sweetened drinks Go! Be healthy, inside and out! [email or web address] documented in this encounterKindred Hospital [place]01-[facility]-2025 Telephone encounter Note * Telephone Encounter - Uvaldo Jorgensen MD - 05/16/2024 10:19 AM EST The following approved medication requests have been transmitted electronically. Requested Prescriptions Pending Prescriptions Disp Refills albuterol HFA (PROVENTIL HFA, VENTOLIN HFA) 90 mcg/actuation inhaler 8.5 g 0 Sig: Inhale 2 Puffs as instructed every 4 hours as needed for wheezing/shortness of breath. Uvaldo Jorgensen MD [facility] [place]01-06-2025 Miscellaneous Notes* Telephone Encounter - Uvaldo Jorgensen MD - 05/16/2024 10:19 AM EST The following approved medication requests have been transmitted electronically. Requested Prescriptions Pending Prescriptions Disp Refills albuterol HFA (PROVENTIL HFA, VENTOLIN HFA) 90 mcg/actuation inhaler 8.5 g 0 Sig: Inhale 2 Puffs as instructed every 4 hours as needed for wheezing/shortness of breath. Uvaldo Jorgensen MD * Telephone Encounter - Salud Uriostegui RN - 05/16/2024 10:11 AM EST spoke with patient, is taking qvar, twice daily, has been using 2 puffs. appt scheduled for am this week. * Telephone Encounter - Uvaldo Jorgensen MD - 05/16/2024 10:08 AM EST Has she been taking her Qvar? I see a refill for albuterol monthly lately. Please schedule a visit to review asthma * Telephone Encounter - Salud Uriostegui RN - 05/16/2024 8:33 AM EST Last [facility]: 02-18-24 Verify RX Benefits Completed Last medication refill date: 04-21-24 Requesting 30 day supply Retail pharmacy updated: Completed Patient aware RX will be sent to pharmacy. No need to notify patient. Health Maintenance due: Spirometry Never done Covid-19 Vaccine(2023- season) Never done GC (Gonorrhea) Screening (-) due on 04/08/2024 Chlamydia Screening (18-) due on 04/08/2024 Salud Uriostegui RN documented in this encounterKindred Hospital [place]01-06-2025 Telephone encounter Note * Telephone Encounter - Salud Uriostegui RN - 05/16/2024 10:11 AM EST spoke with patient, is taking qvar, twice daily, has been using 2 puffs. appt scheduled for am this week. [facility] [place]01-06-2025 Telephone encounter Note* Telephone Encounter - Uvaldo Jorgensen MD - 05/16/2024 10:08 AM EST Has she been taking her Qvar? I see a refill for albuterol monthly lately. Please schedule a visit to review asthma [facility] [place]01-06-2025 Telephone encounter Note* Telephone Encounter - Salud Uriostegui RN - 05/16/2024 8:33 AM EST Last [facility]: 02-18-24 Verify RX Benefits Completed Last medication refill date: 04-21-24 Requesting 30 day supply Retail pharmacy updated: Completed Patient aware RX will be sent to pharmacy. No need to notify patient. Health Maintenance due: Spirometry Never done Covid-19 Vaccine(2023- season) Never done GC (Gonorrhea) Screening (18-24) due on 04/08/2024 Chlamydia Screening (18-24) due on 04/08/2024 Salud Uriostegui RN [facility] [place]12-12-2024 Telephone encounter Note* Telephone Encounter - Uvaldo Jorgensen MD - 04/21/2024 7:00 PM EST The following approved medication requests have been transmitted electronically. Requested Prescriptions Pending Prescriptions Disp Refills albuterol HFA (PROVENTIL HFA, VENTOLIN HFA) 90 mcg/actuation inhaler 8.5 g 0 Sig: Inhale 2 Puffs as instructed every 4 hours as needed for wheezing/shortness of breath. Uvaldo Jorgensen MD [facility] [place]12-12-2024 Miscellaneous Notes* Telephone Encounter - Uvaldo Jorgensen MD - 04/21/2024 7:00 PM EST The following approved medication requests have been transmitted electronically. Requested Prescriptions Pending Prescriptions Disp Refills albuterol HFA (PROVENTIL HFA, VENTOLIN HFA) 90 mcg/actuation inhaler 8.5 g 0 Sig: Inhale 2 Puffs as instructed every 4 hours as needed for wheezing/shortness of breath. Uvaldo Jorgensen MD * Telephone Encounter - Jluis Pena RN - 04/21/2024 12:22 PM EST Patient phones requesting refills as follows: Would like another inhaler to be called in. Requested Prescriptions Pending Prescriptions Disp Refills albuterol HFA (PROVENTIL HFA, VENTOLIN HFA) 90 mcg/actuation inhaler 8.5 g 0 Sig: Inhale 2 Puffs as instructed every 4 hours as needed for wheezing/shortness of breath. Please review and advise. Jluis Pena RN documented in this encounterKindred Hospital [place]12-12-2024 Telephone encounter Note * Telephone Encounter - Jluis Pena RN - 04/21/2024 12:22 PM EST Patient phones requesting refills as follows: Would like another inhaler to be called in. Requested Prescriptions Pending Prescriptions Disp Refills albuterol HFA (PROVENTIL HFA, VENTOLIN HFA) 90 mcg/actuation inhaler 8.5 g 0 Sig: Inhale 2 Puffs as instructed every 4 hours as needed for wheezing/shortness of breath. Please review and advise. Jluis Pena RN [facility] [place]11-23-2024 Telephone encounter Note* Telephone Encounter - Niurka Jonas RN - 04/02/2024 8:04 AM EST Patient notified and voiced understanding of below as directed by Dr. Jorgensen. Niurka Jonas RN [facility] [place]11-23-2024 Miscellaneous Notes* Telephone Encounter - Niurka Jonas RN - 04/02/2024 8:04 AM EST Patient notified and voiced understanding of below as directed by Dr. Jorgensen. Niurka Jonas RN * Telephone Encounter - Uvaldo Jorgensen MD - 04/01/2024 5:19 PM EST I will refill the medicine but she should be reevaluated if she is needing albuterol at that frequency next week. * Telephone Encounter - Chen Echevarria RN - 04/01/2024 4:06 PM EST Spoke with patient. She reports that she has been doing the Qvar 2 puffs BID. Reports that she always has a hard time with her asthma when winter hits and always ends up in ER. States she has been out of the albuterol inhaler for one week now. Reports using albuterol nebulizer and has been using this 1-2 times a day, daily for the past week or two. Reports having SOB, tightness in chest and some wheezing when she wakes up Chen Echevarria RN * Telephone Encounter - Uvaldo Jorgensen MD - 04/01/2024 3:57 PM EST Is she taking her Qvar as a maintenance inhaler? I recently refilled her inhaler and if she is needing it that frequently it would suggest that she is under poor control. * Telephone Encounter - Chen Echevarria RN - 04/01/2024 3:39 PM EST Last [facility]: 02/18/24 Verify RX Benefits Completed Last medication refill date: 02/18/24 Requesting 30 day supply Retail pharmacy updated: Completed Patient aware RX will be sent to pharmacy. No need to notify patient. Health Maintenance due: Spirometry Never done Covid-19 Vaccine() Never done Chen Echevarria RN documented in this encounterKindred Hospital [place]11-22-2024 Telephone encounter Note * Telephone Encounter - Uvaldo Jorgensen MD - 04/01/2024 5:19 PM EST I will refill the medicine but she should be reevaluated if she is needing albuterol at that frequency next week. [facility] [place] Telephone encounter Note* Telephone Encounter - Chen Echevarria RN - 04/01/2024 4:06 PM EST Spoke with patient. She reports that she has been doing the Qvar 2 puffs BID. Reports that she always has a hard time with her asthma when winter hits and always ends up in ER. States she has been out of the albuterol inhaler for one week now. Reports using albuterol nebulizer and has been using this 1-2 times a day, daily for the past week or two. Reports having SOB, tightness in chest and some wheezing when she wakes up Chen Echevarria RN [facility] [place]11-22-2024 Telephone encounter Note* Telephone Encounter - Uvaldo Jorgensen MD - 04/01/2024 3:57 PM EST Is she taking her Qvar as a maintenance inhaler? I recently refilled her inhaler and if she is needing it that frequently it would suggest that she is under poor control. [facility] [place]-22-[facility]24 Telephone encounter Note* Telephone Encounter - Chen Echevarria RN - 04/01/2024 3:39 PM EST Last [facility]: 02/18/24 Verify RX Benefits Completed Last medication refill date: 02/18/24 Requesting 30 day supply Retail pharmacy updated: Completed Patient aware RX will be sent to pharmacy. No need to notify patient. Health Maintenance due: Spirometry Never done Covid-19 Vaccine( season) Never done Chen Echevarria RN [facility] [place] Telephone encounter Note* Telephone Encounter - Uvaldo Jorgensen MD - 02/26/2024 12:43 PM EDT The following approved medication requests have been transmitted electronically. Requested Prescriptions Pending Prescriptions Disp Refills albuterol (PROVENTIL) 2.5 mg /3 mL (0.083 %) nebulizer solution 300 mL 0 Sig: Use 3 mL via nebulizer every 4 hours as needed. single dose vials. 1 vial contains 3 ml Uvaldo Jorgensen MD [facility] [place]10-18-2024 Miscellaneous Notes* Telephone Encounter - Uvaldo Jorgensen MD - 02/26/2024 12:43 PM EDT The following approved medication requests have been transmitted electronically. Requested Prescriptions Pending Prescriptions Disp Refills albuterol (PROVENTIL) 2.5 mg /3 mL (0.083 %) nebulizer solution 300 mL 0 Sig: Use 3 mL via nebulizer every 4 hours as needed. single dose vials. 1 vial contains 3 ml Uvaldo Jorgensen MD * Telephone Encounter - Salud Uriostegui RN - 02/26/2024 12:14 PM EDT patient calling, states I was at [facility] ER last evening for an asthma attack and the doctor there said to call my doctor and get an new prescription for my solution. [facility] ER records requested. Please advise Salud Uriostegui RN documented in this encounterKindred Hospital [place]10-18-2024 Telephone encounter Note * Telephone Encounter - Salud Uriostegui RN - 02/26/2024 12:14 PM EDT patient calling, states I was at [facility] last evening for an asthma attack and the doctor there said to call my doctor and get an new prescription for my solution. [facility] ER records requested. Please advise Salud Uriostegui RN [facility] [place]24 Hospital Discharge instructions Patient Education 02/26/2024 00:34:39 Asthma, Acute (Adult) Asthma (Adult) Asthma is a disease where the medium and small air passages within the lung go into spasm and restrict the flow of air. Inflammation and swelling of the airways cause further blockage. During an acute asthma attack, these factors cause trouble breathing, wheezing, cough and chest tightness. An asthma attack can be triggered by many things. Common triggers include infections such as the common cold, bronchitis, and pneumonia. Irritants such as smoke or pollutants in the air, very cold air, emotional upset, and exercise can also trigger an attack. In many adults with asthma, allergies to dust, mold, pollen and animal dander can cause an asthma attack. Skipping doses of daily asthma medicine can also bring on an asthma attack. Asthma can be controlled using the proper medicines prescribed by your healthcare provider and avoiding exposure to known triggers including allergens and irritants. Home care Take prescribed medicine exactly at the times advised. If you need medicine such as from a hand held inhaler or aerosol breathing machine more than every 4 hours, contact your healthcare provider or seek immediate medical attention. If prescribed an antibiotic or prednisone, take all of the medicine as prescribed, even if you are feeling better after a few days. Don't smoke. Avoid being exposed to the smoke of others. Some people with asthma have worsening of their symptoms when they take aspirin and non-steroidal or fever-reducing medicines like ibuprofen and naproxen. Talk to your healthcare provider if you think this may apply to you. Follow-up care Follow up with your healthcare provider, or as advised. Always bring all of your current medicines to any appointments with your healthcare provider. Also bring a complete list of medicines even those not taken for asthma. If you don't already have one, talk to your healthcare provider about developing your own Asthma Action Plan. A pneumococcal (pneumonia) vaccine and yearly flu shot (every fall) are recommended. Ask your doctor about this. When to seek medical advice Call your healthcare provider right away if any of these occur: Increased wheezing or shortness of breath Need to use your inhalers more often than usual without relief Fever of 100.4 F (38 C) or higher, or as directed by your healthcare provider Coughing up lots of dark-colored or bloody sputum (mucus) Chest pain with each breath If you use a peak flow meter as part of an Asthma Action Plan, and you are still in the yellow zone(50% to 80%) 15 minutes after using inhaler medicine. Call 911 Call 911 if any of the following occur Trouble walking or talking because of shortness of breath If you use a peak flow meter as part of an Asthma Action Plan and you are still in the red zone (less than 50%) 15 minutes after using inhaler medicine Lips or fingernails turning gallagher or blue [id number] [employer]. [address] [place] [address], [place] [address]. All rights reserved. This information is not intended as a substitute for professional medical care. Always follow yourhealthcare professional's instructions. Follow Up Care 02/26/2024 00:23:36 With:UVALDO JORGENSEN MD Address: [address] [place] [id number] When:2-4 days [facility] 10-18-2024 Note Discharge Instructions Thank you for allowing [facility] to assist you with your healthcare needs. The following is importantdischarge information regarding your hospital visit. Diagnosis from Today's Visit Asthma exacerbation Dyspnea What to Do Next Instructions from Your Care Team Discharge Return to Work, School, or Sports (Return to Work, School, or Sports) - Ordered -- 02/27/24, May return to: work, 02/26/24 0:34:00 EDT Post Acute Orders No qualifying data available. You Need to Schedule the Following Appointments Follow Up with UVALDO JORGENSEN MD When:Within 2-4 days Where:[address] [place] [address] Allergies Peanuts Medications Please ask your primary doctor or pharmacist before taking any other medication not listed, including over the counter drugs, herbal medications, vitamins and or supplements as they may interact withyour home medications. What How Much When Instructions Last Dose New predniSONE (predniSONE 20 mg oral tablet) 2 tab(s) by mouth Once a day with a meal Duration: 5 Days Printed Prescription Changed albuterol Changed albuterol (albuterol MDI (90 mcg/ inh) CFC free inhalation aerosol) 2 puff(s) by inhalation Every 4 hours Printed Prescription Unchanged escitalopram by mouth Once a day Unchanged hydrOXYzine (Atarax use hydrOXYzine hydrochloride ) by mouth Four (4) times a day Please take this list to your next doctor s visit. Bring all medications you take, including over the counter medications, herbals and other supplements with you to your doctor s visit. Patients and families are reminded to discard old lists and to update any records with all medication providers or retail pharmacies. Education Materials Asthma (Adult) Asthma is a disease where the medium and small air passages within the lung go into spasm and restrict the flow of air. Inflammation and swelling of the airways cause further blockage. During an acute asthma attack, these factors cause trouble breathing, wheezing, cough and chest tightness. An asthma attack can be triggered by many things. Common triggers include infections such as the common cold, bronchitis, and pneumonia. Irritants such as smoke or pollutants in the air, very cold air, emotional upset, and exercise can also trigger an attack. In many adults with asthma, allergies to dust, mold, pollen and animal dander can cause an asthma attack. Skipping doses of daily asthma medicine can also bring on an asthma attack. Asthma can be controlled using the proper medicines prescribed by your healthcare provider and avoiding exposure to known triggers including allergens and irritants. Home care Take prescribed medicine exactly at the times advised. If you need medicine such as from a hand held inhaler or aerosol breathing machine more than every 4 hours, contact your healthcare provider or seek immediate medical attention. If prescribed an antibiotic or prednisone, take all of the medicine as prescribed, even if you are feeling better after a few days. Don't smoke. Avoid being exposed to the smoke of others. Some people with asthma have worsening of their symptoms when they take aspirin and non-steroidal or fever-reducing medicines like ibuprofen and naproxen. Talk to your healthcare provider if you think this may apply to you. Follow-up care Follow up with your healthcare provider, or as advised. Always bring all of your current medicines to any appointments with your healthcare provider. Also bring a complete list of medicines even those not taken for asthma. If you don't already have one, talk to your healthcare provider about developing your own Asthma Action Plan. A pneumococcal (pneumonia) vaccine and yearly flu shot (every fall) are recommended. Ask your doctor about this. When to seek medical advice Call your healthcare provider right away if any of these occur: Increased wheezing or shortness of breath Need to use your inhalers more often than usual without relief Fever of 100.4 F (38 C) or higher, or as directed by your healthcare provider Coughing up lots of dark-colored or bloody sputum (mucus) Chest pain with each breath If you use a peak flow meter as part of an Asthma Action Plan, and you are still in the yellow zone(50% to 80%) 15 minutes after using inhaler medicine. Call 911 Call 911 if any of the following occur Trouble walking or talking because of shortness of breath If you use a peak flow meter as part of an Asthma Action Plan and you are still in the red zone (less than 50%) 15 minutes after using inhaler medicine Lips or fingernails turning gallagher or blue [phone] [employer]. [address] [place] [address], [place] [address]. All rights reserved. This information is not intended as a substitute for professional medical care. Always follow yourhealthcare professional's instructions. Additional Information VACCINATE! IT SAVES LIVES! Members of the community who have not yet received the COVID-19 vaccine and would like to receive it can visit one of [facility] vaccine clinics. There are many vaccine clinic locations within the [facility]. For locations and available times, please visit www.[email or web address].[place].gov/. It is important to note that some COVID mobile vaccine clinics are held outdoors and may be canceled in rainy or stormy conditions. To learn more about pediatric vaccinations (ages 5-11), we invite you to visit the [facility] webpage. [email or web address] learn more about the COVID-19 vaccine, we invite you to visit the CDC website for a list of frequently asked questions. https://www.cdc.gov/coronavirus/2019-ncov/vaccines/faq.html [facility] Patient Portal Access Instructions: Stay connected with your healthcare team and access your personal medical information anytime with the [facility] Patient Portal. If you would like a full copy of your medical records please contact the [facility] Medical Records Department Thursday through Thursday between 8a.m. and 4:30p.m. Please follow the directions below to access the portal: 1.Access the email account you provided upon registration to the hospital.2.Look for an invitation email from [facility].3.Open the email and access the invitation link: Accept Invitation to [facility]4.Fill in the required mendez to create your account. Sign into [email or web address] with your username and password that you created in the above steps to stay up to date. You can then view a summary of results, a summary of your visits, and the ability to download your summaries to your computer or send the information securely to a physician. Remember that your healthcare information is confidential, so carefully consider who you will allow to register on the [facility] Patient Portal for access to your information. You can also access the [facility] Patient Portal on the travayl. Simply click on Health Records under [employer] and then click on the [employer] logo. HOW TO SAFELY DISPOSE OF PRESCRIPTION MEDICATIONS Please use one of the following methods to safely dispose of your unused medications. 1.Use a drug disposal kit: the drug disposal pouch allows you to safely discard your old and unuseddrugs. Ask your nurse to give you one when you are discharged.2.Visit a local take-back location: Many local pharmacies and police departments have programs that collect old and unwanted prescriptiondrugs. Call your local pharmacy or go to [email or web address]6M7Gu5u to find one close to you.3.Make use of household items: Use cat litter or old coffee grounds to dispose medications if other options arenot available. Mix your drugs with these household products, seal them in an airtight container andthrow it into the garbage. Call [facility]: [phone] to be sure your drugs can be disposed of in this way. Some medicines may require a different approach.4.Never flush your medications down the toilet. IF YOU HAVE BEEN PRESCRIBED AN OPIOIDS FOR PAIN If you have been prescribed an opioid (such as hydrocodone, oxycodone or morphine), it is critical to understand the possible side effects and risks of opioid pain medications. Even when taken as directed, opioids can have several side effects including: Tolerance, meaning you might need to take more of a medication for the same pain relief. Nausea, vomiting and/or constipation. Sleepiness, dizziness, dry mouth, confusion, depression or itching. Physical dependence, meaning you have withdrawal symptoms when a medication is stopped ? this can develop within a few days. KNOW YOUR RESPONSIBILITIES It is important to know exactly how much and how often to take the opioid pain medications you are prescribed. Never take opioids in higher amounts or more often than prescribed. Do not combine opioids with alcohol or other drugs that cause drowsiness, such as benzodiazepines, also known as benzos,including diazepam and alprazolam, muscle relaxants or sleep aids. Never sell or share prescriptionopioids. This is illegal. Store opioids in a secure place and out of reach of others (including children, family, friends and visitors). The last page(s) of this document has been signed and retained as a CHART COPY Signatures Patient Education Materials Asthma, Acute (Adult) Medication Leaflets My discharge plan and instructions have been reviewed and explained to me and MARI Mckay MCKENNA Munderstand my current condition and have read and understand these discharge instructions. I have received a written copy of the plan/instructions. If I have questions, I am aware that I should contact my doctor. 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 SUBJECTIVE CONCERNS: no concerns ST this am- generally better- Left side. FEVER: not present at this time NASAL CONGESTION: not present at this time COUGH: not present at this time SORE THROAT: for 1 day(s) Additional symptoms include: difficulty swallowing and mucus Denies: hot potato voice Treatments have included: Gargle HEADACHE: not present at this time VOMITING: not present at this time ABDOMINAL PAIN: not present at this time Patient with history of Mild persistent Asthma. Daily asthma or allergy related maintenance / controller medications include (see medication list below for details): She has not been taking her Qvar regularly Uses spacer with inhaler? No Takes controller medicine(s) as prescribed? No- has QVAR. but not taking MEDICATIONS: beclomethasone (QVAR REDIHALER) 40 mcg/actuation inhaler Inhale 1 Puff as instructed two times a day. Cetirizine 10 mg cap Take by mouth. hydrOXYzine HCl (ATARAX) 25 mg tablet take 1 tablet by mouth three times a day as needed for anxiety EPINEPHrine (EPIPEN) 0.3 mg/0.3 mL auto-injector Inject 0.3 mL intramuscularly as needed. fluticasone (FLONASE ALLERGY RELIEF) 50 mcg/actuation nasal spray Use 1 [place] in each nostril once daily. etonogestrel (NEXPLANON) subdermal implant 68 mg 1 Each by SUBDERMAL route as directed. inhalat.spacing dev,large mask (AEROCHAMBER PLUS FLOW-VU,L MSK) spcr Use with inhaler as directed. MELATONIN ORAL Take by mouth. escitalopram oxalate (LEXAPRO) 20 mg tablet Take 1 tablet by mouth once daily. albuterol HFA (PROVENTIL HFA, VENTOLIN HFA) 90 mcg/actuation inhaler Inhale 2 Puffs as instructed every 4 hours as needed for wheezing/shortness of breath. Asthma History: At baseline, uses inhaled beta agonist 1 -2times per day. Most recent use of a inhaled beta agonist medication: today 1 urgent visit(s) for asthma in past 12 months 1 course(s) of po steroids in past 12 months Last hospitalization: N/A Asthma Control Test 05/02/2022 01/02/2023 02/18/2024 ASTHMA CONTROL TEST (2007 ) Keep from getting things done 3 Some of the time 3 Some of the time 4 A little of the time Shortness of breath 1 More than once a day 2 Once a day 2 Once a day Symptoms wake up at night or early in morning 2 2 or 3 nights a week 2 2 or 3 nights a week 3 Once a week How often have you used inhaler/nebulizer 2 1 or 2 times per day 2 1 or 2 times per day 2 1 or 2 times per day Rate your asthma control over past 4 weeks 2 Poorly controlled 3 Somewhat controlled 3 Somewhat controlled Asthma Control Test Score 10 12 14 Exercise / activity related symptoms: Yes Asthma triggers include: Tiggers, weather, animal, activity, URI. Smoking Exposure: Does your child spend a significant amount of time in the care of anyone who smokes? Yes -Who uses tobacco products? Grandparents -Are you interesting in quitting? No -Do you have a smoke-free home rule in place? No -Do you have a smoke-free car rule in place? No ROS HEENT: itchy or watery eyes: no nasal congestion: yes RESP: as per HPI GI: emesis: no reflux/heartburn: no SKIN: Eczema: no Currently taking Escitalopram 20 mg Stopped meds a few months. The medication was helping dramatically when taking it. History was obtained from: patient Current symptoms: irritability, anxiety, and angry. Severity of Symptoms: moderate Context: home and school Not currently involved with counselor: therapist left position last spring. PAST MEDICAL HISTORY Diagnosis Date Contact dermatitis and other eczema, due to unspecified cause PMH - PAST MEDICAL HISTORY OF RSV Pneumomediastinum ([facility]) 02/16/2018 Right arm fracture age 3-4 ROS [...] - 05/30/2008 Allergy to Peanuts - 05/30/2008 Other Atopic Dermatitis and Related Conditions - 01/17/2006 PAST MEDICAL HISTORY Diagnosis Date Contact dermatitis and other eczema, due to unspecified cause PMH - PAST MEDICAL HISTORY OF RSV Pneumomediastinum ([facility]) 02/16/2018 Right arm fracture age 3-4 PAST SURGICAL HISTORY Procedure Laterality Date PAST SURGICAL HISTORY OF extraction of teeth PAST SURGICAL HISTORY OF frenulectomy ALLERGIES Allergen Reactions Cashew Nut Swelling lab test Peanuts Swelling Medications: beclomethasone (QVAR REDIHALER) 40 mcg/actuation inhaler Inhale 1 Puff as instructed two times a day. Cetirizine 10 mg cap Take by mouth. hydrOXYzine HCl (ATARAX) 25 mg tablet take 1 tablet by mouth three times a day as needed for anxiety EPINEPHrine (EPIPEN) 0.3 mg/0.3 mL auto-injector Inject 0.3 mL intramuscularly as needed. fluticasone (FLONASE ALLERGY RELIEF) 50 mcg/actuation nasal spray Use 1 [place] in each nostril once daily. etonogestrel (NEXPLANON) subdermal implant 68 mg 1 Each by SUBDERMAL route as directed. inhalat.spacing dev,large mask (AEROCHAMBER PLUS FLOW-VU,L MSK) spcr Use with inhaler as directed. MELATONIN ORAL Take by mouth. escitalopram oxalate (LEXAPRO) 20 mg tablet Take 1 tablet by mouth once daily. albuterol HFA (PROVENTIL HFA, VENTOLIN HFA) 90 mcg/actuation inhaler Inhale 2 Puffs as instructed every 4 hours as needed for wheezing/shortness of breath. FAMILY HISTORY Problem Relation Age of Onset [...] anyone who smokes? No School: Presently in College. Trouble getting self to go to school. 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 No Recreational Screen Time totaling more than 2 hours of screen time per day. Physical Activity: more than 1 hour of physical activity per day Fainting, dizziness, significant shortness of breath or chest pain with sports or exercise: Yes, sob History of concussion in the last year: No Safety: 01/02/2023 Pediatric SDOH - Response to gun questions Are there any guns kept in or around your home or where your child spends time? No Reviewed seat belts, firearms, and driving Diet: -Diet is well balanced and appropriate for age -Fruits are eaten with most meals -Vegetables are eaten with most meals -Drinks 2% milk -Drinks water daily -Regularly eats meals with family Elimination: no concerns Dental: dental care current Sleep: -no sleep concerns Vision: No vision concerns Hearing: No hearing concerns Growth: No growth concerns Gynecological history: LMP: Implant Substance use: none Sexual History: Attraction: male Sexually Active: Yes Screening tools reviewed and discussed with patient/qijrvr-[id number]-7 and PHQ-9. Please see Patient Entered Data. SDOH: Food [...] no concerns identified OBJECTIVE Physical Exam: BP 102/66 Pulse 80 Temp 36.6 C (97.8 F) (Temporal) Resp 16 Ht 163.6 cm (5' 4.41) Wt 58.4kg (128 lb 12 oz) LMP 03/31/2023 (Approximate) BMI 21.82 kg/m 53 %ile (Z= 0.08) based on CDC (Girls, 2-20 Years) BMI-for-age based on BMI available on 02/18/2024. Last BMI: Wt: 69.7 kg (153 lb 10.6 oz) (86%, Z= 1.06)* BMI: 25.76 kg/(m^2) Last 4 Encounter Wt Readings: Date: Wt: 08/12/2023 69.7 kg (153 lb 10.6 oz) (86%, Z= 1.06)* 08/10/2023 69.1 kg (152 lb 6.4 oz) (85%, Z= 1.03)* 06/11/2023 71.8 kg (158 lb 6.4 oz) (89%, Z= 1.20)* 04/28/2023 75.4 kg (166 lb 3.2 oz) (92%, Z= 1.40)* Last 4 Encounter Ht Readings: Date: Ht: 08/10/2023 164.5 cm (5' 4.76) (58%, Z= 0.20)* 01/02/2023 162.6 cm (5' 4) (47%, Z= -0.09)* 05/02/2022 163 cm (5' 4.17) (50%, Z= 0.00)* 01/12/2021 162.7 cm (5' 4.06) (51%, Z= 0.02)* General: Well developed, No acute distress Head: normocephalic Eyes: conjunctivae/corneas clear Ears: TMs translucent bilaterally, normal landmarks noted Nose: no erythema or rhinorrhea Oropharynx: moist mucous membranes, no erythema or exudate Neck: supple, no adenopathy Spine: Back symmetric, no curvature. Resp: lungs clear to auscultation Heart: Normal rate, regular rhythm, no murmur Breast: Deferred Abdomen: Soft, nontender, nondistended, no palpable organomegaly or masses, normal bowel sounds Genitalia: deferred by caregiver Extremities: Full ROM and no swelling, erythema or tenderness Neuro: No focal deficits or abnormal findings present Skin: no rashes ASSESSMENT & PLAN Encounter Diagnosis ICD-10-CM 1. Encounter for WCC (well child check) with abnormal findings Z00.121 2. Encounter for immunization Z23 INFLUENZA VACCINE, AGE [id number], TRIVALENT (AFLURIA, FLULAVAL, FLUVIRIN, FLUZONE) 3. Generalized anxiety disorder F41.1 4. Mild persistent asthma without complication J45.30 5. Sore throat J02.9 53 %ile (Z= 0.08) based on CDC (Girls, 2-20 Years) BMI-for-age based on BMI available on 02/18/2024. Pires is healthy range (BMI 5th% - 84th%): -To maintain a healthy weight, discussed limiting screen time to less than 2 hours per day, physical activity for at least one hour per day, 5 servings offruits and vegetables per day, 3 meals per day, family meals ar home and no sugar containing beverages Based on PHQ-9 Score: 7 and interview, presentation is consistent with possible depression: -See mental health plan below . Based on JAMAR-7 Score: 16 and interview, presentation is consistent with possible anxiety: -See mental health plan below . - Discussed diet and safety. - Dental care discussed. - Pressglue handout given (See Patient Instructions). - Patient counseled on and acknowledged vaccine benefits/risks/side effects; VIS provided: Influenza. Patient declined immunization for COVID-19 and was counseled regarding risk. - Healthcare transition statement not discussed.. - Follow up in one year for routine physical. MENTAL HEALTH PLAN: -Restart Lexapro 20 mg daily. Continue hydroxyzine 25 mg as needed She plans to reestablish mental health care at [facility] Follow-up in 1 month for recheck ASTHMA PLAN: - Albuterol 2 puffs with spacer q4hr PRN cough, wheeze - Controller medication: Continue current controller medication(s)-she has not been taking it regularly but plans to now - Flu shot now. Patient was counseled [id number] by myself (the billing provider) for the following immunizations and vaccine components, including side effects: Influenza. Parent/guardian consentsfor immunization and understands risks and benefits. A VIS sheet on each immunization was offered to the parent/guardian. - Emergent care for signs of respiratory distress. PHARYNGITIS PLAN: - Discussed supportive care treatment with fluids, rest and analgesia - Follow up for drooling, increased temperature, symptoms of dehydration or if still sick in one week -Exam is not consistent with strep Uvaldo Jorgensen MD [facility] NoteHNO ID: [id number] Author: UVALDO JORGENSEN MD Service: ? Author Type: Physician Type: Progress Notes Filed: 02/18/2024 14:34 Note Text: WELL VISIT PEDIATRIC 18+ YRS OLD Lexis is a 19 year old who presents today for well exam. SUBJECTIVE CONCERNS: no concerns ST this am- generally better- Left side. FEVER: not present at this time NASAL CONGESTION: not present at this time COUGH: not present at this time SORE THROAT: for 1 day(s) Additional symptoms include: difficulty swallowing and mucus Denies: hot potato voice Treatments have included: Gargle HEADACHE: not present at this time VOMITING: not present at this time ABDOMINAL PAIN: not present at this time Patient with history of Mild persistent Asthma. Daily asthma or allergy related maintenance / controller medications include (see medication list below for details): She has not been taking her Qvar regularly Uses spacer with inhaler? No Takes controller medicine(s) as prescribed? No- has QVAR. but not taking MEDICATIONS: beclomethasone (QVAR REDIHALER) 40 mcg/actuation inhaler Inhale 1 Puff as instructed two times a day. Cetirizine 10 mg cap Take by mouth. hydrOXYzine HCl (ATARAX) 25 mg tablet take 1 tablet by mouth three times a day as needed for anxiety EPINEPHrine (EPIPEN) 0.3 mg/0.3 mL auto-injector Inject 0.3 mL intramuscularly as needed. fluticasone (FLONASE ALLERGY RELIEF) 50 mcg/actuation nasal spray Use 1 [place] in each nostril once daily. etonogestrel (NEXPLANON) subdermal implant 68 mg 1 Each by SUBDERMAL route as directed. inhalat.spacing dev,large mask (AEROCHAMBER PLUS FLOW-VU,L MSK) spcr Use with inhaler as directed. MELATONIN ORAL Take by mouth. escitalopram oxalate (LEXAPRO) 20 mg tablet Take 1 tablet by mouth once daily. albuterol HFA (PROVENTIL HFA, VENTOLIN HFA) 90 mcg/actuation inhaler Inhale 2 Puffs as instructed every 4 hours as needed for wheezing/shortness of breath. Asthma History: At baseline, uses inhaled beta agonist 1 -2times per day. Most recent use of a inhaled beta agonist medication: today 1 urgent visit(s) for asthma in past 12 months 1 course(s) of po steroids in past 12 months Last hospitalization: N/A Asthma Control Test 05/02/2022 01/02/2023 02/18/2024 ASTHMA CONTROL TEST (2007 ) Keep from getting things done 3 Some of the time 3 Some of the time 4 A little of the time Shortness of breath 1 More than once a day 2 Once a day 2 Once a day Symptoms wake up at night or early in morning 2 2 or 3 nights a week 2 2 or 3 nights a week 3 Once a week How often have you used inhaler/nebulizer 2 1 or 2 times per day 2 1 or 2 times per day 2 1 or 2 times per day Rate your asthma control over past 4 weeks 2 Poorly controlled 3 Somewhat controlled 3 Somewhat controlled Asthma Control Test Score 10 12 14 Exercise / activity related symptoms: Yes Asthma triggers include: Tiggers, weather, animal, activity, URI. Smoking Exposure: Does your child spend a significant amount of time in the care of anyone who smokes? Yes -Who uses tobacco products? Grandparents -Are you interesting in quitting? No -Do you have a smoke-free home rule in place? No -Do you have a smoke-free car rule in place? No ROS HEENT: itchy or watery eyes: no nasal congestion: yes RESP: as per HPI GI: emesis: no reflux/heartburn: no SKIN: Eczema: no Currently taking Escitalopram 20 mg Stopped meds a few months. The medication was helping dramatically when taking it. History was obtained from: patient Current symptoms: irritability, anxiety, and angry. Severity of Symptoms: moderate Context: home and school Not currently involved with counselor: therapist left position last spring. PAST MEDICAL HISTORY Diagnosis Date Contact dermatitis [...] - 05/30/2008 Allergy to Peanuts - 05/30/2008 Other Atopic Dermatitis and Related Conditions - 01/17/2006 PAST MEDICAL HISTORY Diagnosis Date Contact dermatitis and other eczema, due to unspecified cause PMH - PAST MEDICAL HISTORY OF RSV Pneumomediastinum ([facility]) 02/16/2018 Right arm fracture age 3-4 PAST SURGICAL HISTORY Procedure Laterality Date PAST SURGICAL HISTORY OF extraction of teeth PAST SURGICAL HISTORY OF frenulectomy ALLERGIES Allergen Reactions Cashew Nut Swelling lab test Peanuts Swelling Medications: b (more content not included)...[facility]10-10-2024 Miscellaneous Notes* Telephone Encounter - Uvaldo Jorgensen MD - 02/18/2024 12:36 PM EDT The following approved medication requests have been transmitted electronically. Requested Prescriptions Signed Prescriptions Disp Refills albuterol HFA (PROVENTIL HFA, VENTOLIN HFA) 90 mcg/actuation inhaler 8.5 g 0 Sig: inhale 2 puffs by mouth every 4 hours as needed for wheezing or shortness of breath Authorizing Provider: UVALDO JORGENSEN beclomethasone (QVAR REDIHALER) 40 mcg/actuation inhaler 1 Each 5 Sig: Inhale 1 Puff as instructed two times a day. Authorizing Provider: UVALDO JORGENSEN MD * Telephone Encounter - Salud Uriostegui RN - 02/18/2024 12:24 PM EDT mom calling in, states she hasn't been able to get her preventative, her sister just got her preventative at [facility], if you could please send preventative to [facility] [place] and then the Albuterol to [facility] pharmacy Mom will have Lexis call office to schedule Salud Uriostegui RN * Telephone Encounter - Chen Echevarria RN - 02/17/2024 9:56 AM EDT Request came from pharmacy. Left message to verify if refill is needed. Questions how often she is using albuterol inhaler. Needs [facility] scheduled as well Chen Echevarria RN documented [facility] Telephone encounter Note * Telephone Encounter - Uvaldo Jorgensen MD - 02/18/2024 12:36 PM EDT The following approved medication requests have been transmitted electronically. Requested Prescriptions Signed Prescriptions Disp Refills albuterol HFA (PROVENTIL HFA, VENTOLIN HFA) 90 mcg/actuation inhaler 8.5 g 0 Sig: inhale 2 puffs by mouth every 4 hours as needed for wheezing or shortness of breath Authorizing Provider: UVALDO JORGENSEN beclomethasone (QVAR REDIHALER) 40 mcg/actuation inhaler 1 Each 5 Sig: Inhale 1 Puff as instructed two times a day. Authorizing Provider: UVALDO JORGENSEN MD [facility]10-10-2024 Telephone encounter Note* Telephone Encounter - Salud Uriostegui RN - 02/18/2024 12:24 PM EDT mom calling in, states she hasn't been able to get her preventative, her sister just got her preventative at [facility], if you could please send preventative to [facility] [place] and then the Albuterol to [facility] pharmacy Mom will have Lexis call office to schedule Salud Uriostegui RN [facility]10-09-2024 Telephone encounter Note* Telephone Encounter - Chen Echevarria RN - 02/17/2024 9:56 AM EDT Request came from pharmacy. Left message to verify if refill is needed. Questions how often she is using albuterol inhaler. Needs [facility] scheduled as well Chen Echevarria RN [facility]08-16-2024 Telephone encounter Note* Telephone Encounter - Salud Uriostegui RN - 12/25/2023 2:27 PM EDT patient aware Salud Uriostegui RN [facility]08-16-2024 Miscellaneous Notes* Telephone Encounter - Salud Uriostegui RN - 12/25/2023 2:27 PM EDT patient aware Salud Uriostegui RN * Telephone Encounter - Uvaldo Jorgensen MD - 12/25/2023 2:21 PM EDT The following approved medication requests have been transmitted electronically. Requested Prescriptions Pending Prescriptions Disp Refills albuterol HFA (PROVENTIL HFA, VENTOLIN HFA) 90 mcg/actuation inhaler 8.5 g 0 Uvaldo Jorgensen MD * Telephone Encounter - Salud Uriostegui RN - 12/25/2023 1:40 PM EDT spoke with patient,I still don't have a Q tessie, I haven't had it since Covid I recently had been sick so I was using it frequently, approx every 4 hours for approx the past week. [facility] is the only place that takes out insurance and if I go anywhere else I have to pay $25 for a copay and can't afford it, I have asked them for prednisone but they never give it to me). Spoke with Pardeep at [facility] pharmacy, this strength had been backordered. Does have 1 in stock today, will get ready for patient, $30 copay, patient is aware). Is currently out of albuterol. Please call patient with provider response on albuterol refill [phone] Salud Uriostegui RN * Telephone Encounter - Uvaldo Jorgensen MD - 12/25/2023 12:16 PM EDT Please assess the frequency of use. We refilled prescription 2 months ago as she used her inhaler? If she using her Qvar? * Telephone Encounter - Salud Uriostegui RN - 12/25/2023 8:59 AM EDT Last [facility]: 01-02-23 Verify RX Benefits Completed Last medication refill date: 10-26-23 Requesting 30 day supply Retail pharmacy updated: Completed Patient aware RX will be sent to pharmacy. No need to notify patient. Health Maintenance due: Covid-19 Vaccine( season) Never done Spirometry Never done Depression Screening Never done Asthma Control Test due on 01/03/2024 Salud Uriostegui RN documented [facility] [place]08-[facility]24 Telephone encounter Note * Telephone Encounter - Uvaldo Jorgensen MD - 12/25/2023 2:21 PM EDT The following approved medication requests have been transmitted electronically. Requested Prescriptions Pending Prescriptions Disp Refills albuterol HFA (PROVENTIL HFA, VENTOLIN HFA) 90 mcg/actuation inhaler 8.5 g 0 Uvaldo Joregnsen MD [facility]08-16-2024 Telephone encounter Note* Telephone Encounter - Salud Uriostegui RN - 12/25/2023 1:40 PM EDT spoke with patient,I still don't have a Q tessie, I haven't had it since Covid I recently had been sick so I was using it frequently, approx every 4 hours for approx the past week. Was seen at [facility]('[facility] is the only place that takes out insurance and if I go anywhere else I have to pay $25 for a copay and can't afford it, I have asked them for prednisone but they never give it to me). Spoke with Pardeep at [facility] pharmacy, this strength had been backordered. Does have 1 in stock today, will get ready for patient, $30 copay, patient is aware). Is currently out of albuterol. Please call patient with provider response on albuterol refill [phone] Salud Uriostegui RN [facility]08-16-2024 Telephone encounter Note* Telephone Encounter - Uvaldo Jorgensen MD - 12/25/2023 12:16 PM EDT Please assess the frequency of use. We refilled prescription 2 months ago as she used her inhaler? If she using her Qvar? [facility]08-16-2024 Telephone encounter Note* Telephone Encounter - Salud Uriostegui RN - 12/25/2023 8:59 AM EDT Last [facility]: 01-02-23 Verify RX Benefits Completed Last medication refill date: 10-26-23 Requesting 30 day supply Retail pharmacy updated: Completed Patient aware RX will be sent to pharmacy. No need to notify patient. Health Maintenance due: Covid-19 Vaccine( season) Never done Spirometry Never done Depression Screening Never done Asthma Control Test due on 01/03/2024 Salud Uriostegui RN [facility]06-17-2024 Telephone encounter Note* Telephone Encounter - Uvaldo Jorgensen MD - 10/26/2023 4:33 PM EDT The following approved medication requests have been transmitted electronically. Requested Prescriptions Pending Prescriptions Disp Refills albuterol HFA (PROVENTIL HFA, VENTOLIN HFA) 90 mcg/actuation inhaler [Pharmacy Med Name: ALBUTEROL HFA90 MCG INHALER5] 8.5 g 0 Sig: Inhale 2 Puffs every 4 hours as needed for wheezing/shortness of breath. Uvaldo Jorgensen MD [facility]06-17-2024 Miscellaneous Notes* Telephone Encounter - Uvaldo Jorgensen MD - 10/26/2023 4:33 PM EDT The following approved medication requests have been transmitted electronically. Requested Prescriptions Pending Prescriptions Disp Refills albuterol HFA (PROVENTIL HFA, VENTOLIN HFA) 90 mcg/actuation inhaler [Pharmacy Med Name: ALBUTEROL HFA90 MCG INHALER5] 8.5 g 0 Sig: Inhale 2 Puffs every 4 hours as needed for wheezing/shortness of breath. Uvaldo Jorgensen MD * Telephone Encounter - Niurka Jnoas RN - 10/26/2023 4:27 PM EDT Last [facility]: 01/02/23 Verify RX Benefits Completed Last medication refill date: 07/25/23 Requesting 30 day supply Retail pharmacy updated: Completed Patient aware RX will be sent to pharmacy. No need to notify patient. Health Maintenance due: Covid-19 Vaccine() Never done Spirometry Never done Asthma Control Test due on 01/03/2024 Niurka Jonas RN documented in this encounterKind[facility] [place]06-17-2024 Telephone encounter Note * Telephone Encounter - Niurka Jonas RN - 10/26/2023 4:27 PM EDT Last [facility]: 01/02/23 Verify RX Benefits Completed Last medication refill date: 07/25/23 Requesting 30 day supply Retail pharmacy updated: Completed Patient aware RX will be sent to pharmacy. No need to notify patient. Health Maintenance due: Covid-19 Vaccine( season) Never done Spirometry Never done Asthma Control Test due on 01/03/2024 Niurka Jonas RN [facility]04-30-2024 Telephone encounter Note* Telephone Encounter - Uvaldo Jorgensen MD - 09/08/2023 7:59 AM EDT The following approved medication requests have been transmitted electronically. Requested Prescriptions Pending Prescriptions Disp Refills hydrOXYzine HCl (ATARAX) 25 mg tablet [Pharmacy Med Name: HYDROXYZINE HCL 25 MG TABLET] 270 tablet 0 Sig: take 1 tablet by mouth three times a day as needed for anxiety Uvaldo Jorgensen MD [facility]04-30-2024 Miscellaneous Notes* Telephone Encounter - Uvaldo Jorgensen MD - 09/08/2023 7:59 AM EDT The following approved medication requests have been transmitted electronically. Requested Prescriptions Pending Prescriptions Disp Refills hydrOXYzine HCl (ATARAX) 25 mg tablet [Pharmacy Med Name: HYDROXYZINE HCL 25 MG TABLET] 270 tablet 0 Sig: take 1 tablet by mouth three times a day as needed for anxiety Uvaldo Jorgensen MD * Telephone Encounter - Jluis Pena RN - 09/07/2023 8:48 AM EDT Last ADHD / Med Check visit: 08/10/2023 Verify RX Benefits Completed Last medication refill date: 06/11/2023 Requesting 30 day supply Retail pharmacy updated: Completed Patient aware RX will be sent to pharmacy. No need to notify patient. Health Maintenance due: Covid-19 Vaccine() Never done Spirometry Never done Jluis Pena RN documented [facility] encounter[facility]04-29-2024 Telephone encounter Note * Telephone Encounter - Jluis Pena RN - 09/07/2023 8:48 AM EDT Last ADHD / Med Check visit: 08/10/2023 Verify RX Benefits Completed Last medication refill date: 06/11/2023 Requesting 30 day supply Retail pharmacy updated: Completed Patient aware RX will be sent to pharmacy. No need to notify patient. Health Maintenance due: Covid-19 Vaccine() Never done Spirometry Never done Jluis Pena RN [facility]04-22-2024 Telephone encounter Note* Telephone Encounter - Uvaldo Jorgensen MD - 08/31/2023 11:02 AM EDT The following approved medication requests have been transmitted electronically. Requested Prescriptions Pending Prescriptions Disp Refills escitalopram oxalate (LEXAPRO) 20 mg tablet [Pharmacy Med Name: ESCITALOPRAM 20 MG TABLET] 90 tablet 0 Sig: take 1 tablet by mouth every day Uvaldo Jorgensen MD [facility]04-22-2024 Miscellaneous Notes* Telephone Encounter - Uvaldo Jorgensen MD - 08/31/2023 11:02 AM EDT The following approved medication requests have been transmitted electronically. Requested Prescriptions Pending Prescriptions Disp Refills escitalopram oxalate (LEXAPRO) 20 mg tablet [Pharmacy Med Name: ESCITALOPRAM 20 MG TABLET] 90 tablet 0 Sig: take 1 tablet by mouth every day Uavldo Jorgensen MD * Telephone Encounter - Jluis Pena RN - 08/31/2023 8:24 AM EDT Last [facility]: greater than one year ago Last ADHD / Med Check visit: 08/10/2023 Verify RX Benefits Completed Last medication refill date: 03/18/2023 90 day Requesting 90 day supply Retail pharmacy updated: Completed Patient aware RX will be sent to pharmacy. No need to notify patient. Health Maintenance due: Covid-19 Vaccine() Never done Spirometry Never done Jluis Pena RN documented [facility] encounter[facility]04-[facility]-2024 Telephone encounter Note * Telephone Encounter - Jluis Pena RN - 08/31/2023 8:24 AM EDT Last [facility]: greater than one year ago Last ADHD / Med Check visit: 08/10/2023 Verify RX Benefits Completed Last medication refill date: 03/18/2023 90 day Requesting 90 day supply Retail pharmacy updated: Completed Patient aware RX will be sent to pharmacy. No need to notify patient. Health Maintenance due: Covid-19 Vaccine() Never done Spirometry Never done Jluis Pena RN [facility]04-03-2024 NoteHNO ID: [id number] Author: STEVE POPE APRN.[employer] Service: ? Author Type: Nurse Practitioner Type: Progress Notes Filed: 08/12/2023 19:21 Note Text: Subjective HPI A nontoxic appearing female presents to urgent care with chief complaint of possible UTI. Duration of symptoms 1 day. Associated symptoms dysuria, frequency, and urgency. Patient has history of UTIs in past with similar signs and symptoms. Patient denies the use of any zghp-[id number] medications or home remedies for symptom management. Patient states pain is a 3/10. Patient denies any fevers, flank pain, abdominal pain, nausea, vomiting, vaginal discharge, chance of STDs, chance of , or urological abnormalities. Past medical history prescription medications allergies reviewed. .Patient presents with: Urinary Frequency: Frequency x 1 day PAST MEDICAL HISTORY Diagnosis Date Contact dermatitis and other eczema, due to unspecified cause PMH - PAST MEDICAL HISTORY OF RSV Pneumomediastinum ([facility]) 02/16/2018 Right arm fracture age 3-4 PAST SURGICAL HISTORY Procedure Laterality Date PAST SURGICAL HISTORY OF extraction of teeth PAST SURGICAL HISTORY OF frenulectomy ALLERGIES Cashew Nut and Peanuts MEDICATIONS EPINEPHrine (EPIPEN) 0.3 mg/0.3 mL auto-injector Inject 0.3 mL intramuscularly as needed. beclomethasone (QVAR REDIHALER) 40 mcg/actuation inhaler Inhale 1 Puff as instructed two times a day. fluticasone (FLONASE ALLERGY RELIEF) 50 mcg/actuation nasal spray Use 1 [place] in each nostril once daily. albuterol HFA (PROVENTIL HFA, VENTOLIN HFA) 90 mcg/actuation inhaler Inhale 2 Puffs as instructed every 4 hours as needed for wheezing/shortness of breath. hydrOXYzine HCl (ATARAX) 25 mg tablet take 1 tablet by mouth three times a day as needed for anxiety etonogestrel (NEXPLANON) subdermal implant 68 mg 1 Each by SUBDERMAL route as directed. escitalopram oxalate (LEXAPRO) 20 mg tablet take 1 tablet by mouth every day inhalat.spacing dev,large mask (AEROCHAMBER PLUS FLOW-VU,L MSK) spcr Use with inhaler as directed. cholecalciferol, Vitamin D3, (VITAMIN D3) 1,250 mcg (50,000 unit) cap capsule TAKE 1 CAPSULE BY MOUTH ONE TIME A WEEK. MELATONIN ORAL Take by mouth. Inhalational Spacing Device spcr 1 Device as [...] Alcohol use: Never Drug use: Never BP 122/78 Pulse 78 Temp 37.5 ?C (99.5 ?F) (Tympanic) Resp 18 Wt 69.7 kg (153 lb 10.6 oz) LMP 03/31/2023 (Approximate) SpO2 100% BMI 25.76 kg/m? Review of Systems Constitutional: Negative for chills, fever and malaise/fatigue. HENT: Negative for congestion, ear discharge, ear pain, sinus pain and sore throat. Eyes: Negative for blurred vision, pain, discharge and redness. Respiratory: Negative for cough, hemoptysis, sputum production, shortness of breath, wheezing and stridor. Cardiovascular: Negative for chest pain. Gastrointestinal: Negative for abdominal pain, diarrhea, nausea and vomiting. Genitourinary: Positive for dysuria, frequency and urgency. Negative for flank pain and hematuria. Musculoskeletal: Negative for myalgias. Skin: Negative for [...] erythema, rigidity or tenderness. No pain with movement (more content not included)... [facility]04-03-[facility] History of Present illness Narrative* Steve Pope APRN.[employer] - 08/12/2023 6:52 PM EDT Subjective HPI A nontoxic appearing female presents to urgent care with chief complaint of possible UTI. Duration of symptoms 1 day. Associated symptoms dysuria, frequency, and urgency. Patient has history of UTIs in past with similar signs and symptoms. Patient denies the use of any [id number]-[id number] medications or home remedies for symptom management. Patient states pain is a 3/10. Patient denies any fevers, flank pain, abdominal pain, nausea, vomiting, vaginal discharge, chance of STDs, chance of ,or urological abnormalities. Past medical history prescription medications allergies reviewed. .Patient presents with: Urinary Frequency: Frequency x 1 day PAST MEDICAL HISTORY Diagnosis Date Contact dermatitis and other eczema, due to unspecified cause PMH - PAST MEDICAL HISTORY OF RSV Pneumomediastinum (HCC) 02/16/2018 Right arm fracture age 3-4 PAST SURGICAL HISTORY Procedure Laterality Date PAST SURGICAL HISTORY OF extraction of teeth PAST SURGICAL HISTORY OF frenulectomy ALLERGIES Cashew Nut and Peanuts MEDICATIONS EPINEPHrine (EPIPEN) 0.3 mg/0.3 mL auto-injector Inject 0.3 mL intramuscularly as needed. beclomethasone (QVAR REDIHALER) 40 mcg/actuation inhaler Inhale 1 Puff as instructed two times a day. fluticasone (FLONASE ALLERGY RELIEF) 50 mcg/actuation nasal spray Use 1 [place] in each nostril once daily. albuterol HFA (PROVENTIL HFA, VENTOLIN HFA) 90 mcg/actuation inhaler Inhale 2 Puffs as instructed every 4 hours as needed for wheezing/shortness of breath. hydrOXYzine HCl (ATARAX) 25 mg tablet take 1 tablet by mouth three times a day as needed for anxiety etonogestrel (NEXPLANON) subdermal implant 68 mg 1 Each by SUBDERMAL route as directed. escitalopram oxalate (LEXAPRO) 20 mg tablet take 1 tablet by mouth every day inhalat.spacing dev,large mask (AEROCHAMBER PLUS FLOW-VU,L MSK) spcr Use with inhaler as directed. cholecalciferol, Vitamin D3, (VITAMIN D3) 1,250 mcg (50,000 unit) cap capsule TAKE 1 CAPSULE BY MOUTH ONE TIME A WEEK. MELATONIN ORAL Take by mouth. Inhalational Spacing Device spcr 1 Device as [...] Alcohol use: Never Drug use: Never BP 122/78 Pulse 78 Temp 37.5 C (99.5 F) (Tympanic) Resp 18 Wt 69.7 kg (153 lb 10.6 oz) LMP 03/31/2023 (Approximate) SpO2 100% BMI 25.76 kg/m Review of Systems Constitutional: Negative for chills, fever and malaise/fatigue. HENT: Negative for congestion, ear discharge, ear pain, sinus pain and sore throat. Eyes: Negative for blurred vision, pain, discharge and redness. Respiratory: Negative for cough, hemoptysis, sputum production, shortness of breath, wheezing and stridor. Cardiovascular: Negative for chest pain. Gastrointestinal: Negative for abdominal pain, diarrhea, nausea and vomiting. Genitourinary: Positive for dysuria, frequency and urgency. Negative for flank pain and hematuria. Musculoskeletal: Negative for myalgias. Skin: Negative for [...] to person, place, and time. ASSESSMENT/PLAN: 1. Urinary frequency - ICD9: 788.41, ICD10: R35.0 - UA DIP, URINE (POC) - URINE CULTURE Urine positive for blood leukocytes. Treat for acute cystitis. Placed on Keflex. Low-grade fever was noted today on exam. No symptoms of pyelonephritis on exam. Red flags for ER evaluation discussed. Patient was educated on supportive therapies. Patient will follow up with primary care provider as needed. Patient was instructed to immediately proceed to emergency room for any new, worsening, or symptoms lasting longer than anticipated. The patient's clinical presentation is otherwise unremarkable at this time. Based on exam and clinical finding, the patient is stable for discharge. Plan of care was discussed with patient. Patient verbalizes understanding and agrees to plan of care. This note was generated using [employer] software. It may contain errors in wording, punctuation, or spelling. Steve Pope APRN.SIERRA documented [facility]04[facility] History of Present illness Narrative* Uvaldo Jorgensen MD - 08/10/2023 2:00 PM EDT PEDIATRIC FOLLOW UP VISIT Lexis Guerra is a 18 year old female who presents with depressed mood and anxiety for follow up visit accompanied by her self. Currently taking Escitalopram 20 mg and hydroxyzine 25 mg as needed . The medication is helping some. History was obtained from: patient At the time of her last visit in December 2022 she reported she was going to be scheduled with her therapist (Yudelka). Current symptoms: has had increased panic (hydroxide 1-2 x month) increased anxiety- family, school, life transition. Seeing Edith (Lenka Matthewsjaycob) Severity of Symptoms: moderate Context: home, school, and work Also wishes Epi Pen refill-she does not have an active She reports she is having some asthma exacerbation as well. This is particularly when [facility] She is not currently taking allergy medication. She also reports she is doing better at discriminating between anxiety and asthma but still has difficulty at times. 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 ROS for medication side effects: Abdominal pain: no Appetite problems: no Drowsiness: no Sleep problems: no Headaches: no Depression: no Suicidal ideation: no Agitation: no Lori: no Tremors: no Weight change: no PHYSICAL EXAM: BP 116/74 Pulse 80 Temp 36.5 C (97.7 F) (Temporal) Resp 16 Ht 164.5 cm (5' 4.76) Wt 69.1kg (152 lb 6.4 oz) LMP 03/31/2023 (Approximate) BMI 25.55 kg/m Blood pressure %chema are not available for patients who are 18 years or older. General: Well developed, No acute distress Neck: supple and no adenopathy Lungs: clear to auscultation bilaterally, good air exchange, no retractions Heart: Normal rate, regular rhythm, no murmur Abdomen: Soft, nontender, nondistended, no palpable organomegaly or masses, normal bowel sounds Skin: Normal color, texture and turgor. No rashes. ASSESSMENT & PLAN: Encounter Diagnosis ICD-10-CM 1. Mild persistent asthma without complication J45.30 2. Generalized anxiety disorder F41.1 3. Depressed mood R45.89 4. Encounter for immunization Z23 MENINGOCOCCAL B VACCINE (BEXSERO) 18 year old female with anxiety and depression without optimization of symptoms, but improvement and without significant medication side effects. Based on PHQ-A Score: 4 (recommended cut off score is 11) and interview, presentation is consistent with possible depression: -Symptoms appear well-controlled with current management . 08/10/2023 01/02/2023 JAMAR - 2/7 SCORES JAMAR-2 Score 3 5 JAMAR-7 Score 9 15 Based on score and interview, presentation is consistent with anxiety: -Continue current medications -Continue current psychology/behavioral health management. ASTHMA PLAN: - Albuterol 2 puffs with spacer q4hr PRN cough, wheeze however she should continue to be mindful of how anxiety is presenting with shortness of breath - Controller medication: Begin new controller medication as ordered, she has never been able to fill her Flovent discus I do recommend Flonase and zgfe-lqd-bwgsekb antihistamine Uvaldo Jorgensen MD documented in this encounter[facility]04-[facility]-2024 NoteHNO ID: [id number] Author: UVALDO JORGENSEN MD Service: ? Author Type: Physician Type: Progress Notes Filed: 08/11/2023 08:37 Note Text: PEDIATRIC FOLLOW UP VISIT Lexis Guerra is a 18 year old female who presents with depressed mood and anxiety for follow up visit accompanied by her self. Currently taking Escitalopram 20 mg and hydroxyzine 25 mg as needed . The medication is helping some. History was obtained from: patient At the time of her last visit in December 2022 she reported she was going to be scheduled with her therapist (Yudelka). Current symptoms: has had increased panic (hydroxide 1-2 x month) increased anxiety- family, school, life transition. Seeing Edith (Lenka Bonner) Severity of Symptoms: moderate Context: home, school, and work Also wishes Epi Pen refill-she does not have an active She reports she is having some asthma exacerbation as well. This is particularly when she is around livestock. She is not currently taking allergy medication. She also reports she is doing better at discriminating between anxiety and asthma but still has difficulty at times. 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 ROS for medication side effects: Abdominal pain: no Appetite problems: no Drowsiness: no Sleep problems: no Headaches: no Depression: no Suicidal ideation: no Agitation: no Lori: no Tremors: no Weight change: no PHYSICAL EXAM: BP 116/74 Pulse 80 Temp 36.5 ?C (97.7 ?F) (Temporal) Resp 16 Ht 164.5 cm (5' 4.76) Wt 69.1 kg (152 lb 6.4 oz) LMP 03/31/2023 (Approximate) BMI 25.55 kg/m? Blood pressure %chema are not available for patients who are 18 years or older. General: Well developed, No acute distress Neck: supple and no adenopathy Lungs: clear to auscultation bilaterally, good air exchange, no retractions Heart: Normal rate, regular rhythm, no murmur Abdomen: Soft, nontender, nondistended, no palpable organomegaly or masses, normal bowel sounds Skin: Normal color, texture and turgor. No rashes. ASSESSMENT AND PLAN: Encounter Diagnosis ICD-10-CM 1. Mild persistent asthma without complication J45.30 2. Generalized anxiety disorder F41.1 3. Depressed mood R45.89 4. Encounter for immunization Z23 MENINGOCOCCAL B VACCINE (BEXSERO) 18 year old female with anxiety and depression without optimization of symptoms, but improvement and without significant medication side effects. Based on PHQ-A Score: 4 (recommended cut off score is 11) and interview, presentation is consistent with possible depression: -Symptoms appear well-controlled with current management . 08/10/2023 01/02/2023 JAMAR - 2/7 SCORES JAMAR-2 Score 3 5 JAMAR-7 Score 9 15 Based on score and interview, presentation is consistent with anxiety: -Continue current medications -Continue current psychology/behavioral health management. ASTHMA PLAN: - Albuterol 2 puffs with spacer q4hr PRN cough, wheeze however she should continue to be mindful of how anxiety is presenting with shortness of breath - Controller medication: Begin new controller medication as ordered, she has never been able to fill her Flovent discus I do recommend Flonase and flye-hbh-sywtlnq antihistamine Uvaldo Jorgensen, [facility]03-16-2024 Miscellaneous Notes* Telephone Encounter - Nicky Cruz MD - 07/25/2023 12:24 PM EDT Patient's request for medication is as follows: Requested Prescriptions Pending Prescriptions Disp Refills albuterol HFA (PROVENTIL HFA, VENTOLIN HFA) 90 mcg/actuation inhaler 6.7 Each 2 Sig: Inhale 2 Puffs as instructed every 4 hours as needed for wheezing/shortness of breath. Prescription(s) as above. Please process accordingly. Nicky Cruz MD * Telephone Encounter - Salud Uriostegui RN - 07/25/2023 10:47 AM EDT Last [facility]: 01-02-23 Verify RX Benefits Completed Last medication refill date: 03-30-23 Requesting 30 day supply Retail pharmacy updated: Completed Patient aware RX will be sent to pharmacy. No need to notify patient. Health Maintenance due: Influenza Vaccine(1) due on 01/09/2023 Covid-19 Vaccine( season) Never done Spirometry Never done Meningococcal B Vaccine: Consider Based On Risk(2 of 2 - Risk Bexsero 2-dose series) due on 01/30/2023 Depression Assessment Never done Salud Uriostegui RN documented in this encounterKindred [facility]02-01-2024 Miscellaneous Notes* Telephone Encounter - Uvaldo Jorgensen MD - 06/11/2023 11:17 AM EST The following approved medication requests have been transmitted electronically. Requested Prescriptions Signed Prescriptions Disp Refills hydrOXYzine HCl (ATARAX) 25 mg tablet 270 tablet 0 Sig: take 1 tablet by mouth three times a day as needed for anxiety Authorizing Provider: UVALDO JORGENSEN MD * Telephone Encounter - Jluis Pena RN - 06/11/2023 11:07 AM EST Last [facility]: 01/02/2023 Last ADHD / Med [...] done Jluis Pena RN documented in this encounterKindred [facility]02-01-2024 History of Present illness Narrative* Natty Conteh RT(R) - 06/11/2023 8:10 AM EST Radiology Service Progress Note PATIENT NAME: Lexis Guerra DATE OF SERVICE: June 11, 2023 TIME: 8:24 AM PATIENT IDENTITY VERIFICATION COMPLETED USING TWO (2) IDENTIFIERS: Name and Date of confirmedby patient verbally. FALL SCREENING: Has the patient had 2 falls in the last year or 1 fall with injury or currently using an Ambulatory Assistive Device (Walker, Cane, Wheelchair, Crutches, etc.)? No PATIENT GENDER DATA: Female. status: : No status: NO. PATIENT RELEVANT IMPLANT DATA REVIEWED: Yes PATIENT PRESENTS WITH AN IMPLANTABLE OR ATTACHED DIVE MASTER: No RADIOLOGY DEPARTMENT: General X-ray: Exam(s) Completed: Abdomen X-Ray: Abdomen PERIPHERAL IV DATA: Not applicable SIGNED BY: RT Clark(R) June 11, 2023 8:24 AM documented in this encounterKindred [facility]02-01-2024 History of Present illness Narrative* Steve Pope APRN.GRAVEL TRUCK DRIVER - 06/11/2023 7:59 AM EST Subjective HPI Nontoxic-appearing female presents urgent care chief complaint loose stools. Duration of symptoms 4days. Associated symptoms transient abdominal pain and loose stools. Patient states she has had 3-4loose stools yesterday. No blood. No known sick [...] mcg/actuation diskus inhaler Inhale 1 Puff as instructedtwice daily. inhalat.spacing dev,large mask (AEROCHAMBER PLUS FLOW-VU,L [...] Never BP 110/72 Pulse 85 Temp 36.8 C (98.2 F) (Tympanic) Resp 18 Wt 71.8 kg (158 lb 6.4 oz) 03/31/2023 (Approximate) SpO2 97% Review of Systems [...] to person, place, and time. ASSESSMENT/PLAN: 1. Generalized abdominal pain - ICD9: 789.07, ICD10: R10.84 - XR ABDOMEN 3V KUB W/OBLIQUES IMPRESSION: Normal intestinal gas pattern. Diagnosed with generalized abdominal pain. X-ray negative. Suspicious of viral etiology of loose stool. No evidence of acute abdomen. Treat conservatively. Patient was educated on supportive therapies. Patient will follow up with primary care provider as needed. Patient was instructed to immediately proceed to emergency room for any new, worsening, or symptoms lasting longer than anticipated. The patient's clinical presentation is otherwise unremarkable at this time. Based on exam and clinical finding, the patient is stable for discharge. Plan of care was discussed with patient. Patient verbalizes understanding and agrees to plan of care. This note was generated using TournEase software. It may contain errors in wording, punctuation, or spelling. Steve Pope APRN.CNP documented in this encounterKindred [facility]12-01-2023 Miscellaneous Notes* Telephone Encounter - Ara Damon APRN.CNP - 04/10/2023 7:18 AM EST Please call patient: She had wanted to start an OCP while she waits for Nexplanon insertion.HCG negative, but as we discussed, may be too early based on LMP. OCP takes 7-14 days to become completely effective. With her upcoming appointment so close, would recommend condom use/abstinence. Ara Damon APRN.CNP documented in this encounterKindred [facility]11-29-2023 History of Present illness Narrative* Ara Damon APRN.CNP - 04/08/2023 8:51 AM EST CONTRACEPTION Lexis Guerra is a 18 year old who presents [...] mcg/actuation diskus inhaler Inhale 1 Puff as instructedtwice daily. inhalat.spacing dev,large mask (AEROCHAMBER PLUS FLOW-VU,L [...] external genitalia normal, normal Bartholin's glands, urethra, [place]'s glands, no vulvar lesions, no cervical lesions, [...] patient - To have labs drawn today Ara Damon APRN.CNP Medical Decision Making: Problems: Moderate: New problem with uncertain prognosis Data: Unique test(s) ordered: 3+ Risk: Minimal: Minimal risk from testing/treatment Moderate: Drug management Medical Decision Making Level: 4 - Moderate documented in this encounterKindred [facility]11-20-2023 Miscellaneous Notes* Telephone Encounter - Uvaldo Jorgensen MD - 03/30/2023 12:44 PM EST The following approved medication requests have been transmitted electronically. Requested Prescriptions Pending Prescriptions Disp Refills albuterol HFA (PROVENTIL HFA, VENTOLIN HFA) 90 mcg/actuation inhaler 6.7 Each 2 Sig: Inhale 2 Puffs as instructed every 4 hours as needed for wheezing/shortness of breath. Uvaldo Jorgensen MD * Telephone Encounter - Salud Uriostegui RN - 03/30/2023 8:17 AM EST Last [facility]: 01-02-23 Verify RX Benefits Completed Last [...] 01/30/2023 Salud Uriostegui RN documented in this encounterKindred [facility] [place]11-08-2023 Miscellaneous Notes* Telephone Encounter - Miriam Mason MD - 03/18/2023 9:28 AM EST Refill sent: Requested Prescriptions Signed Prescriptions Disp Refills escitalopram oxalate (LEXAPRO) 20 mg tablet 90 tablet 0 Sig: take 1 tablet by mouth every day Authorizing Provider: MIRIAM MASON MD * Telephone Encounter - Chen Echevarria RN - 03/18/2023 9:04 AM EST Last [facility]: 01/02/23 Last ADHD / Med [...] 01/30/2023 Chen Echevarria RN documented in this encounterKind[facility]10-03-2023 Instructions* Patient Instructions* Beatriz Ozuna APRN.SIERRA - 02/10/2023 9:25 AM EDT ASSESSMENT/PLAN: 1. Otalgia, bilateral - ICD9: 388.70, ICD10: H92.03 - suspect eustachian tube dysfunction. - recommend OTC flonase nasal spray. - Follow-up with your PCP in 3-5 days if symptoms have not improved or sooner if symptoms worsen Beatriz Ozuna APRN.GRAVEL TRUCK DRIVER documented in this encounterKindred [facility]10-03-2023 History of Present illness Narrative* Beatriz Ozuna APRN.GRAVEL TRUCK DRIVER - 02/10/2023 9:17 AM EDT Subjective Ear Pain Associated symptoms include congestion. Pertinent negatives include no chills, coughing, fever or sore throat. Lexis Guerra is a 18 year old female who presents with bilateral ear pain for the past month.She states it is intermittent and seems to [...] mcg/actuation diskus inhaler Inhale 1 Puff as instructedtwice daily. escitalopram oxalate (LEXAPRO) 20 mg tablet [...] improved or sooner if symptoms worsen Beatriz Ozuna, DANIEL.GRAVEL TRUCK DRIVER documented in this encounterKindred [facility]09-13-2023 Miscellaneous Notes* Telephone Encounter - Jluis Pena RN - 01/21/2023 8:28 AM EDT Mother aware. Jluis Pena RN * Telephone Encounter - Uvaldo Jorgensen MD - 01/21/2023 8:04 AM EDT The following approved medication requests have been transmitted electronically. Requested Prescriptions Signed Prescriptions Disp Refills albuterol HFA (PROVENTIL HFA, VENTOLIN HFA) 90 mcg/actuation inhaler 6.7 Each 2 Sig: Inhale 2 Puffs as instructed every 4 hours as needed for wheezing/shortness of breath. Authorizing Provider: UVALDO JORGENSEN MD * Telephone Encounter - Jluis Pena RN - 01/20/2023 2:24 PM EDT Last [facility]: 01/02/2023 Verify RX Benefits Completed Last medication [...] 01/30/2023 Jluis Pena RN documented in this encounterKindred [facility]08-30-2023 Miscellaneous Notes* Telephone Encounter - Uvaldo Jorgensen MD - 01/07/2023 1:31 PM EDT The following approved medication requests have been transmitted electronically. Requested Prescriptions Signed Prescriptions Disp Refills Fluticasone Propionate (FLOVENT DISKUS) 50 mcg/actuation diskus inhaler 1 Each 5 Sig: Inhale 1 Puff as instructed twice daily. Authorizing Provider: UVALDO JORGENSEN MD * Telephone Encounter - Jluis Pena RN - 01/06/2023 12:53 PM EDT Insurance wanting Arnuity Ellipta, Flovent Diskus or Flovent HFA. Report on desk to view. Jluis Pena RN * Telephone Encounter - Jluis Pena RN - 01/05/2023 1:39 PM EDT Prior auth submitted via [employer] phone [phone]. Reference # [id number]. Jluis Pena RN * Telephone Encounter - Uvaldo Jorgensen MD - 01/05/2023 12:50 PM EDT all other inhaled corticosteroids require prior authorization. Please attempt prior Auth with covermy meds for the Qvar prescription * Telephone Encounter - Jluis Pena RN - 01/05/2023 12:21 PM EDT The following medications may be covered If clinically appropriate, you may change the prescription. A therapeutic alternative may be available. Questions on alternatives? Contact [facility] Support [place] at . You can also review [facility] formulary online or call them directly. Compare [...] Fluticasone Propionate HFA Required QVAR Redihaler Required * Telephone Encounter - Uvaldo Jorgensen MD - 01/05/2023 7:57 AM EDT Please find out what other alternatives are on formulary * Telephone Encounter - Jluis Pena RN - 01/03/2023 11:15 AM EDT [facility] reports that the Pulmicort is on backorder, unsure when will be able to get in. Insurance will not cover Qvar. Called around [facility] does have one and repots the same thing vendor has it on backorder and unsure when will come in. Sister needs one as well. Try something different? Jluis Pena RN documented in this encounterKindred [facility]08-28-2023 Miscellaneous Notes* Telephone Encounter - Elena Maya LPN - 01/05/2023 8:30 PM EDT Patient's mother calling because prescription from express care visit was not at pharmacy. Express care now closed, attempted to reach pharmacy to verify received status of e-script but caller disconnected the call and pharmacy did not answer. Elena Maya LPN documented in this encounterKindred Hospital [facility]08-26-2023 Instructions* Patient Instructions* Uvaldo Jorgensen MD - 01/03/2023 8:09 AM [...] drinks Go! Be healthy, inside and out! [email or web address] Adolescent to Adult Transition Program [facility] cares about helping you and each of our adolescents and young adults make a smoothtransition to adult care. If your current doctor is a it integration architect, we will work with you to decide [...] your current doctor is in family medicine, [facility] will prepare you and your family forthe transition to being an adult patient. You [...] details. If joining our practice from outside [facility], we will help you request your medical record from past doctor(s) before your first visit. We will make every effort to work with your past providers to ensure a smooth transition and experience. We are always here for you. If you have any questions or concerns, please contact your primary careteam or e-mail Got Transition is the federally funded national resource center on health care transition (HCT). Its aim is to improve transition from pediatric to adult health care through the use of evidence-driven strategies for health occasional caregiver, youth, young adults, and their families. www.gottransition.org [email or web address].[email or web address]/resource/?jld-eosbyv-olpwkor documented in this encounterKindred Hospital [facility]08-25-2023 History of Present illness Narrative* Uvaldo Jorgensen MD - 01/02/2023 3:30 PM EDT WELL VISIT PEDIATRIC 18+ YRS OLD Lexis is a 17 year old who presents [...] School: Presently in 12th grade. 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 No academic or school related [...] No Screening tools reviewed and discussed with patient/yvvenf-FPG-3 and Social Determinants of Health.Please see Patient Entered Data. SDOH: Food Insecurity: [...] Artery) Resp 16 Ht 162.6 cm (5' 4) Wt 77.8 kg (171 lb 8 oz) [...] Readings: Date: Ht: 05/02/2022 163 cm (5' 4.17) (50 %, Z= 0.00)* 01/12/2021 162.7 cm (5' 4.06) (51 %, Z= 0.02)* 12/31/2019 161.4 cm (5' 3.54) (47 %, Z= -0.06)* 06/28/2019 161.3 cm (5' 3.5) (51 %, Z= 0.02)* General: Well developed, [...] based on BMI available as of 01/02/2023. Pires is elevated range (BMI 85th% - 95th%): [...] and safety. - Dental care discussed. - Traxpays handout given (See Patient Instructions). - Patient was counseled dduu-yb-fhya by myself (the billing provider) for the [...] now out of it. documented in this encounterKindred Hospital [facility]08-09-2023 Miscellaneous Notes* Telephone Encounter - Uvaldo Jorgensen MD - 12/17/2022 9:33 AM EDT The following approved medication requests have been transmitted electronically. Requested Prescriptions Pending Prescriptions Disp Refills escitalopram oxalate (LEXAPRO) 20 mg tablet 90 tablet 0 Sig: Take 1 tablet by mouth once daily. Uvaldo Jorgensen MD * Telephone Encounter - Niurka Jonas RN - 12/17/2022 9:12 AM EDT Last [facility]: 05/02/22 Last ADHD / Med Check visit: [...] 12/04/2022 Niurka Jonas RN documented in this encounterKindred [facility]06-01-2023 Miscellaneous Notes* Telephone Encounter - Jluis Pena RN - 10/09/2022 11:13 AM EDT Mother aware and will have vit D level done. Jluis Pena RN * Telephone Encounter - Uvaldo Jorgensen MD - 10/09/2022 11:09 AM EDT I need to check a vit D level first before a refill. * Telephone Encounter - Chen Echevarria RN - 10/09/2022 8:47 AM EDT Last [facility]: 05/02/22 Verify RX Benefits Completed Last [...] done CHLAMYDIA SCREENING (<18) Never done Chen Echevarria RN documented in this encounterKindred [facility]05-03-2023 Miscellaneous Notes* Telephone Encounter - Uvaldo Jorgensen MD - 09/10/2022 3:09 PM EDT The following approved medication requests have been transmitted electronically. Requested Prescriptions Pending Prescriptions Disp Refills albuterol HFA (PROVENTIL HFA, VENTOLIN HFA) 90 mcg/actuation inhaler [Pharmacy Med Name: ALBUTEROL HFA (VENTOLIN) INH] 18 Each Sig: TAKE 2 PUFFS EVERY 4-6 HOURS NEEDED FOR WHEEZING OR SHORTNESS OF BREATH. ALWAYS USE WITH SPACER. Uvaldo Jorgensen MD * Telephone Encounter - Niurka Jonas RN - 09/10/2022 2:57 PM EDT Last [facility]: greater than one year ago. My Chart note sent indicating that patient is due for [facility] Verify RX Benefits Completed Last medication refill [...] done Niurka Jonas RN documented in this encounterKindred [facility]04-13-2023 Miscellaneous Notes* Telephone Encounter - Salud Uriostegui RN - 08/21/2022 9:44 AM EDT mom aware * Telephone Encounter - Uvaldo Jorgensen MD - 08/21/2022 9:26 AM EDT The following approved medication requests have been transmitted electronically. Requested Prescriptions Signed Prescriptions Disp Refills beclomethasone (QVAR REDIHALER) 40 mcg/actuation inhaler 1 Each 5 Sig: Inhale 2 Puffs as instructed twice daily. Authorizing Provider: UVALDO JORGENSEN MD * Telephone Encounter - Salud Uriostegui RN - 08/21/2022 8:46 AM EDT Mom calling, patient's alvesco has not been available for several weeks at multiple pharmacies per mom. Patient has been without it. Asking for a different preventative inhaler. ([facility]). Pleaseadvise documented in this encounterKindred Hospital [facility]04-13-2023 History of Present illness Narrative* Beatriz Ozuna APRN.GRAVEL TRUCK DRIVER - 08/21/2022 8:59 AM EDT Subjective HPI Lexis Guerra is a 17 year old female who [...] Wt 79.1 kg (174 lb 6.4 oz) LMP08/06/2022 (Exact Date) SpO2 99% PAST MEDICAL HISTORY [...] illness Beatriz Ozuna APRN.CNP documented in this encounterKindred [facility]04-13-2023 Instructions* Patient Instructions* Beatriz Ozuna APRN.CNP - 08/21/2022 8:46 AM [...] Discussed expected course of illness Beatriz Ozuna APRN.SIERRA Adult Sinusitis Patient Education What is Sinusitis? Sinusitis [lbfr-orm-uwmc-tis] is inflammation of the sinuses or swelling [...] humidity and outdoor temperature changes, andstructural changes inthe nose may contribute to sinus pain, pressure [...] help. You may be instructed to take emic-nqd-mmssfva medications for symptoms. including fever reducers acetaminophen or ibuprofen, nasal saline spray, cough and cold preparations and decongestants as prescribed by the physician, nurse practitioner or physician financial planning assistant. Self-Care and Prevention: Rest Fluids for hydration Good hand washing Humidifier Avoid smoking and exposure to second hand smoke Avoid sick contacts documented in this encounterKindred [facility]04-09-2023 Instructions* Patient Instructions* Mraita Jesus PA-C - 08/17/2022 10:41 AM EDT [...] your chest such as Vicks, which can helpreduce cough. Try cough drops. Avoid smoking and other strong odors or perfumes. Try breathing exercises to keep your lungs open and clear. Take a big deep breath through your noseand hold for 5 seconds before slowly releasing. [...] of water every 10-15 minutes and increase astolerated. You can try sucking an ice cube [...] or concerning to you. documented in this encounterKindred [facility]04-09-2023 History of Present illness Narrative* Marita Jesus PA-C - 08/17/2022 10:29 AM EDT SUBJECTIVE Lexis Guerra is a 17 year old female who [...] requiring follow up discussed documented in this encounterKindred [facility]04-06-2023 Miscellaneous Notes* Telephone Encounter - Jluis Pena RN - 08/14/2022 8:11 AM EDT Mother messaged back and does currently need. Has been seen 2 times recently for an asthma flare leah LOU 08/07/2022 and 07/29/2022. Patient phones requesting refills as follows: Requested Prescriptions Pending Prescriptions Disp Refills albuterol HFA (PROVENTIL HFA, VENTOLIN HFA) 90 mcg/actuation inhaler [Pharmacy Med Name: ALBUTEROL HFA (VENTOLIN) INH] 18 Each 0 Sig: TAKE 2 PUFFS EVERY 4-6 HOURS NEEDED FOR WHEEZING OR SHORTNESS OF BREATH. ALWAYS USE WITH SPACER. Please review and advise. Jluis Pena RN * Telephone Encounter - Jluis Pena RN - 08/13/2022 3:15 PM EDT MyChat message sent asking if needed, was just refilled 07/29/2022. Jluis Pena RN documented in this encounterKind[facility]03-30-2023 History of Present illness Narrative* Nicky Cruz MD - 08/07/2022 9:50 AM EDT PEDIATRIC SICK VISIT SERVICE DATE: 08/07/2022 SUBJECTIVE: Lexis Guerra is a 17 year old accompanied by [...] care for signs of respiratory distress. SIGNATURE: Nicky Cruz MD PATIENT NAME: Lexis Guerra DATE: August 07, 2022 TIME: 9:50 AM documented in this encounterKindred [facility]03-30-2023 Instructions* Patient Instructions* Nicky Cruz MD - 08/07/2022 9:50 AM EDT [...] drinks Go! Be healthy, inside and out! [email or web address] documented in this encounterKindred [facility]03-24-2023 Miscellaneous Notes* Telephone Encounter - Chen Echevarria RN - 08/01/2022 8:30 AM EDT Letter faxed as requested Chen Echevarria RN * Telephone Encounter - Blanca Conteh APRN.SIERRA - 08/01/2022 8:16 AM EDT It's fine to generate a note and send to her school. Thank you. Blanca Conteh APRN.GRAVEL TRUCK DRIVER * Telephone Encounter - Salud Uriostegui RN - 08/01/2022 8:08 AM EDT Ok for letter? documented in this encounterKindred [facility]03-21-2023 History of Present illness Narrative* Blanca Conteh APRN.SIERRA - 07/29/2022 11:35 AM EDT PEDIATRIC SICK VISIT SERVICE DATE: 07/29/2022 SUBJECTIVE: Lexis Guerra is a 17 year old accompanied by [...] immediate medical attention (go to ED) SIGNATURE: Blanca Conteh APRN.CNP PATIENT NAME: Lexis Guerra DATE: July 29, 2022 TIME: 11:35 AM documented in this encounterKindred [facility]03-20-2023 History of Present illness Narrative* Gracy Sultana APRN.CNP - 07/28/2022 2:19 PM EDT CC: Patient presents with: Headache: Vomiting, diarrhea, congestion, fatigue x1 day HPI: Lexis Guerra is a 17 year old female who presents to the office with complaint of respiratorysymptoms and head congestion since this morning. Symptoms [...] Wt 79.4 kg (175 lb) LMP 06/08/2022 (ExactDate) SpO2 99% General appearance: alert, cooperative, pleasant, [...] Patient mother agreeable to treatment plan. Gracy Sultana APRN.GRAVEL TRUCK DRIVER documented in this encounterKindred [facility]03-10-2023 Miscellaneous Notes* Telephone Encounter - Uvaldo Jorgensen MD - 07/18/2022 10:34 AM EST The following approved medication requests have been transmitted electronically. Requested Prescriptions Pending Prescriptions Disp Refills cholecalciferol, Vitamin D3, (VITAMIN D3) 1,250 mcg (50,000 unit) cap capsule [Pharmacy Med Name: VITAMIN D3 1,250 MCG CAPSULE] 4 capsule 2 Sig: TAKE 1 CAPSULE BY MOUTH ONE TIME A WEEK. Uvaldo Jorgensen MD * Telephone Encounter - Niurka Jonas RN - 07/18/2022 9:13 AM EST Last [facility]: 05/02/22 Verify RX Benefits Completed Last [...] done Niurka Jonas RN documented in this encounterKindred [facility]02-16-2023 History of Present illness Narrative* Beatriz Ozuna, PERSONNEL ARBITRATOR.GRAVEL TRUCK DRIVER - 06/26/2022 11:50 AM EST Subjective Headache Associated symptoms include nausea. Pertinent negatives include no fever and no vomiting. Lexis Noel is a 17 year old female who [...] illness Beatriz Ozuna APRN.CNP documented in this encounterKindred [facility]02-16-2023 Instructions* Patient Instructions* Beatriz Ozuna APRN.CNP - 06/26/2022 11:48 AM [...] illness Beatriz Ozuna APRN.CNP documented in this encounterKindred [facility]02-14-2023 History of Present illness Narrative* YOSELYN Caldera - 06/24/2022 4:35 PM EST This note was created using ETAO[employer] Systems Ltdriter. Subjective Lexis Guerra is a 17 year old female. HPI [...] discussed in detail warranting prompt ER evaluation. YOSELYN Caldera documented in this encounterKindred [facility]02-10-2023 History of Present illness Narrative* YOSELYN Arevalo-Adilene - 06/20/2022 5:01 PM EST This note was created using NoteWriter. Subjective Lexis Guerra is a 17 year old female. HPI Patient presents with a chief complaint of right ear pain. She has had problems off and on over thepast couple of months but today hurt more. [...] Wt 78.6 kg (173 lb 3.2 oz) LMP12/ (Exact Date) SpO2 98% Physical Exam Vitals [...] ENT Gladis Rogers PA-C documented in this encounterKindred [facility]01-11-2023 History of Present illness Narrative* Petra Cabrera PA-C - 05/21/2022 6:20 PM EST PEDIATRIC SICK VISIT SERVICE DATE: 05/21/2022 SUBJECTIVE: Lexis Guerra is a 17 year old accompanied by mother who presents for evaluation of periumbilical/left sided abdominal pain onset Thursday night. Describes pain as dull/aching, rating in 5/10. Additionally reports two episodes of NBNB emesis yesterday AM. Denies fevers, diarrhea, body aches, andheadache. Denies URI-like symptoms. Continues to have good [...] yet. Constipation: -Frequency of stools: daily -Consistency: [place] stool scale type 2 -Pain with stooling: [...] concerns SIGNATURE: Petra Cabrera PA-C PATIENT NAME: Lexis Guerra DATE: May 21, 2022 TIME: 6:20 PM documented in this encounterKindred [facility]01-03-2023 Miscellaneous Notes* Telephone Encounter - Uvaldo Jorgensen MD - 05/13/2022 8:53 AM EST The following approved medication requests have been transmitted electronically. Requested Prescriptions Pending Prescriptions Disp Refills hydrOXYzine HCl (ATARAX) 25 mg tablet [Pharmacy Med Name: HYDROXYZINE HCL 25 MG TABLET] 270 tablet 1 Sig: TAKE 1 TABLET BY MOUTH 3 TIMES A DAY NEEDED FOR ANXIETY Uvaldo Jorgensen MD * Telephone Encounter - Chen Echevarria RN - 05/12/2022 8:52 AM EST Pharmacy sending requesting for 90 day prescription Patient phones requesting refills as follows: Requested Prescriptions Pending Prescriptions Disp Refills hydrOXYzine HCl (ATARAX) 25 mg tablet [Pharmacy Med Name: HYDROXYZINE HCL 25 MG TABLET] 270 tablet 1 Sig: TAKE 1 TABLET BY MOUTH 3 TIMES A DAY NEEDED FOR ANXIETY Please review and advise. Chen Echevarria RN documented in this encounterKindred [facility]12-23-2022 History of Present illness Narrative* Uvaldo Jorgensen MD - 05/02/2022 4:31 PM EST WELL VISIT PEDIATRIC FEMALE 14-17 YRS OLD SERVICE DATE: 05/02/2022 Lexis is a 17 year old female who [...] control self most at home stressed that Kila not feeling joyful Talking with counselor at [facility]. PHQ-A: 8 Severity of Symptoms: moderate Context: home and school PAST MEDICAL HISTORY Diagnosis Date Contact dermatitis and other eczema, due to unspecified cause PMH - PAST MEDICAL HISTORY OF RSV Pneumomediastinum ([facility]) 02/16/2018 Right arm fracture age 3-4 ROS [...] Does not use spacer. Last nebulizer use severalhours ago Asthma control test today is a [...] Growth: No growth concerns Gynecological history: LMP: 12-21-22 Cycles are regular and last 4 days. Dysmenorrhea: moderate Heavy periods: yes Substance use: none High risk behaviors: none Sexual History: Attraction: female Sexually Active: No Body image: satisfactory Screening tools reviewed and discussed with patient/inqcnw-RST-O and Social Determinants of Health.Please see Patient Entered Data. OBJECTIVE Physical Exam: BP 102/60 Pulse 88 Temp 36.7 C (98 F) (Temporal) Resp 20 Ht 163 cm (5' 4.17) Wt 76.4 kg (168 lb 8 oz) LMP 04/30/2022 (Exact Date) BMI 28.77 kg/m Blood pressure percentiles are 21 % systolic and 27 % diastolic based on the 2017 AAP Clinical Practice Guideline. This reading is in the normal blood pressure range. 94 %ile (Z= 1.53) based on [facility] (Girls, 2-20 Years) BMI-for-age based on BMI [...] Readings: Date: Ht: 05/02/2022 163 cm (5' 4.17) (50 %, Z= 0.00)* 01/12/2021 162.7 cm (5' 4.06) (51 %, Z= 0.02)* 12/31/2019 161.4 cm (5' 3.54) (47 %, Z= -0.06)* 06/28/2019 161.3 cm (5' 3.5) (51 %, Z= 0.02)* General: Well developed, [...] 3. Depressed mood R45.89 4. Encounter for WC (well child check) with abnormal findings Z00.121 5. Disrupted sleep-wake cycle G47.20 F51.8 94 %ile (Z= 1.53) based on CDC (Girls, 2-20 Years) BMI-for-age based on BMI available as of 05/02/2022. Lexis is overweight (BMI 85th% - 95th%): -Discussed [...] as needed. It is not clear to mewhether this is a change in control of [...] physical. SIGNATURE: Uvaldo Jorgensen MD PATIENT NAME: Lexis Guerra DATE: May 02, 2022 TIME: 4:31 PM documented in this encounterKindred [facility] [place]12-09-2022 Miscellaneous Notes* Telephone Encounter - Uvaldo Jorgensen MD - 04/18/2022 10:42 AM EST The following approved medication requests have been transmitted electronically. Requested Prescriptions Pending Prescriptions Disp Refills albuterol HFA (PROVENTIL HFA, VENTOLIN HFA) 90 mcg/actuation inhaler Sig: Inhale 2 Puffs as instructed every 4 hours as needed. Uvaldo Jorgensen MD * Telephone Encounter - Cheli Lucero LPN - 04/18/2022 8:29 AM EST Last [facility]: 01/12/2021 and appointment scheduled for [...] 01/12/2022 Cheli Lucero LPN documented in this encounterKindred [facility]12-06-2022 Miscellaneous Notes* Telephone Encounter - Salud Uriostegui RN - 04/15/2022 3:35 PM EST on 20mg, does not need 10mg * Telephone Encounter - Niurka Jonas RN - 04/15/2022 3:30 PM EST Request was received via interface from pharmacy. Does patient need refill? Message left for parent to return call. Niurka Jonas RN documented in this encounterKindred Hospital [facility]11-29-2022 History of Present illness Narrative* Sahil Ching APRN.GRAVEL TRUCK DRIVER - 04/08/2022 5:15 PM EST Images from the original note were not included. Subjective HPI HPI Lexis Guerra is a 17 year old female who presents today for CC of right rib pain after vomiting few days ago. Has tried otc medication for relief. Symptoms are worsened by nothing. Vomitinghas stopped, rib pain remains. Denies diarrhea. .Patient [...] MCARTHUR MD Agrees to plan Sahil Ching APRN.GRAVEL TRUCK DRIVER documented in this encounterKindred Hospital [facility]11-29-2022 History of Present illness Narrative* Natty Conteh RT(R) - 04/08/2022 4:30 PM EST Radiology Service Progress Note PATIENT NAME: Lexis Guerra DATE OF SERVICE: April 08, 2022 TIME: 5:00 PM PATIENT IDENTITY VERIFICATION COMPLETED USING TWO (2) IDENTIFIERS: Name and Date of confirmedby patient verbally. FALL SCREENING: Has the patient had 2 falls in the last year or 1 fall with injury or currently using an Ambulatory Assistive Device (Walker, Cane, Wheelchair, Crutches, etc.)? No PATIENT GENDER DATA: Female. status: : No status: NO. PATIENT RELEVANT IMPLANT DATA REVIEWED: Yes RADIOLOGY DEPARTMENT: General X-ray: Exam(s) Completed: Rib X-Ray: Right PERIPHERAL IV DATA: Not applicable SIGNED BY: RT Clark(R) April 08, 2022 5:00 PM documented in this encounterKindred Hospital [facility]11-26-2022 History of Present illness Narrative* She Velázquez APRN.SIERRA - 04/05/2022 12:30 PM EST This note was created using NoteWriter. Subjective Lexis Guerra is a 17 year old female. 17 year old female with PMH asthma presents for illness. Acute onset yesterday States started to feel off, as though she was starting to get ill +fatigue +body aches +nausea +emesis +diarrhea +fever Denies sore throat Denies rashes Denies SOB or dyspnea. Denies abdominal pain. +ill contacts The history is provided by the patient. No bulk plant manager was used. Flu Like Symptoms This is [...] sooner if worsening of symptoms - RX [facility] note provided She Velázquez APRN.SIERRA documented in this encounterKindred Hospital [facility]11-07-2022 Miscellaneous Notes* Telephone Encounter - Uvaldo Jorgensen MD - 03/17/2022 11:46 AM EST The following approved medication requests have been transmitted electronically. Requested Prescriptions Pending Prescriptions Disp Refills cholecalciferol, Vitamin D3, (VITAMIN D3) 1,250 mcg (50,000 unit) cap capsule [Pharmacy Med Name: VITAMIN D3 50,000 UNIT CAPSULE] 4 capsule 2 Sig: TAKE 1 CAPSULE BY MOUTH ONE TIME A WEEK. Uvaldo Jorgensen MD * Telephone Encounter - Cheli Lucero LPN - 03/17/2022 10:32 AM EST Mom would like the refill as pt [...] 01/12/2022 Cheli Lucero LPN documented in this encounterKindred Hospital [facility]10-31-2022 Miscellaneous Notes* Telephone Encounter - Uvaldo Jorgensen MD - 03/10/2022 10:04 AM EDT The following approved medication requests have been transmitted electronically. Requested Prescriptions Pending Prescriptions Disp Refills escitalopram oxalate (LEXAPRO) 20 mg tablet 90 tablet 0 Sig: Take 1 tablet by mouth once daily. Uvaldo Jorgensen MD * Telephone Encounter - Jluis Pena RN - 03/10/2022 8:50 AM EDT Spoke with mother she is taking 20mg, doing well, and mother aware needs follow up will scheduled over her lunch today. Would like to use [facility]. Jluis Pena RN Patient phones requesting refills as follows: Requested Prescriptions Pending Prescriptions Disp Refills escitalopram oxalate (LEXAPRO) 20 mg tablet 90 tablet 0 Sig: Take 1 tablet by mouth once daily. Please review and advise. Jluis Pena RN * Telephone Encounter - Uvaldo Jorgensen MD - 03/10/2022 8:40 AM EDT Please confirm the dose that she was taking of Lexapro. At our last visit in January the plan wasto increase to 20 mg daily * Telephone Encounter - Rola Bean - 03/09/2022 3:18 PM EDT Patient has been identified by name and date of : Yes Last office visit in this department: 01/29/2022 RX INSTRUCTIONS: Patient aware RX will be sent to pharmacy. No need to notify patient. PATIENT IS OUT OF MEDICATION.PLEASE SEND ENOUGH FOR A MONTH. Patient phones requesting refills as follows: Requested Prescriptions Pending Prescriptions Disp Refills escitalopram oxalate (LEXAPRO) 10 mg tablet 90 tablet 1 Sig: Take 1 tablet by mouth once daily. Please review and advise. Rola Bean documented in this encounterKindred Hospital [facility]10-30-2022 Miscellaneous Notes* Telephone Encounter - Rola Bean - 03/09/2022 1:13 PM EDT Patient has been identified by name and [...] and advise. Rola Bean documented in this encounterKindred Hospital [facility]09-21-2022 History of Present illness Narrative* Petra Cabrera PA-C - 01/29/2022 1:27 PM EDT PEDIATRIC SICK VISIT SERVICE DATE: 01/29/2022 SUBJECTIVE: Lexis Guerra is a 17 year old female accompanied by mother for evaluation of bilateral back pain (L > R) and abdominal discomfort. Patient seen in UC on 01/22/22 where UA obtained was negative. Due to concerns for possible kidney infection, patient referred to ED for further evaluation (CCFlab closed). Lab work obtained at [facility] ED (CBC w/diff, CMP, pancreatic enzymes) all were within normal limits. UAwith micro normal. CT abdomen/pelvis showed moderate to large amount of retained stool throughout the colon. Other chand normal. Mother states they were told CT was normal at ED (not informed of possible constipation). Patient seen again in on 01/24/22 for continued pain/discomfort. Thought to [...] Resp 20 Wt 77.6 kg (171 lb) LMP01/05/2022 (Exact Date) General: alert and active in [...] which included preparing to see the patient, [id number] patient care, completing clinical documentation, obtaining and/or reviewing separately obtained history, performing a medically appropriate examination, counseling and educating the pa tient/family/caregiver, ordering medications, tests, or procedures, independently interpreting results (not separately reported), and communicating results to the patient/family/caregiver. SIGNATURE: Petra Cabrera PA-C PATIENT NAME: Lexis Guerra DATE: January 29, 2022 TIME: 1:27 PM documented in this encounterKindred Hospital [facility]09-16-2022 Instructions* Patient Instructions* She Velázquez APRN.CNP - 01/24/2022 5:45 PM EDT Lumbar pain (primary encounter diagnosis) Viral illness Acute cough You have been diagnosed with an illness caused by a virus. Antibiotics do not cure viral infections. If given when not needed, antibiotics can be harmful. The treatments described below will help youfeel better while your body's own defenses are [...] No follow-ups on file. documented in this encounterKindred Hospital [facility]09-16-2022 History of Present illness Narrative* She Velázquez APRN.CNP - 01/24/2022 5:32 PM EDT This note was created using E[employer]riter. Subjective Lexis Guerra is a 17 year old female. 17 [...] to the ER for an evaluation due tolab being closed at this time. Patient's mother was okay with this care plan. At that time she was sent to [place] ED Labs were normal Urine normal CT [...] able to review CT abdomen pelvis from [facility] 2 days ago and no acute process [...] FLU A/B + RSV, ROUTINE She Velázquez APRN.GRAVEL TRUCK DRIVER documented in this encounterKindred Hospital [facility]08-24-2022 Miscellaneous Notes* Telephone Encounter - Uvaldo Jorgensen MD - 01/01/2022 4:45 PM EDT The following approved medication requests have been transmitted electronically. Requested Prescriptions Pending Prescriptions Disp Refills escitalopram oxalate (LEXAPRO) 5 mg tablet 90 tablet 1 Sig: TAKE 1 TABLET BY MOUTH DAILY IN. TAKE IN ADDITION TO 10 MG FOR TTL DAILY DOSE OF 15 MG. Uvaldo Jorgensen MD * Telephone Encounter - Salud Uriostegiu RN - 01/01/2022 1:49 PM EDT Spoke with mother, does note recall receiving a printed rx for the 5mg, will need 5mg sent to [facility]. Is aware of need for med check, will schedule documented in this encounterKindred Hospital [facility]08-09-2022 Miscellaneous Notes* Telephone Encounter - Uvaldo Jorgensen MD - 12/17/2021 2:23 PM EDT The following approved medication requests have been transmitted electronically. Requested Prescriptions Pending Prescriptions Disp Refills albuterol (PROVENTIL) 2.5 mg /3 mL (0.083 %) nebulizer solution 300 mL 0 Sig: Use 3 mL via nebulizer every 4 hours as needed. single dose vials. 1 vial contains 3 ml Uvaldo Jorgensen MD * Telephone Encounter - Jluis Pena RN - 12/17/2021 10:29 AM EDT Last [facility]: 01/16/2021- message sent that due in [...] done Jluis Pena RN documented in this encounterKindred Hospital [facility]08-09-2022 Miscellaneous Notes* Telephone Encounter - Uvaldo Jorgensen MD - 12/17/2021 2:23 PM EDT The following approved medication requests have been transmitted electronically. Requested Prescriptions Pending Prescriptions Disp Refills escitalopram oxalate (LEXAPRO) 5 mg tablet 90 tablet 1 Sig: TAKE 1 TABLET BY MOUTH DAILY IN. TAKE IN ADDITION TO 10 MG FOR TTL DAILY DOSE OF 15 MG. Uvaldo Jorgensen MD * Telephone Encounter - Jluis Pena RN - 12/17/2021 10:25 AM EDT Last [facility]: 2021 - message sent that due in [...] done Jluis Pena RN documented in this encounterKindred Hospital [facility]07-28-2022 Miscellaneous Notes* Telephone Encounter - Cheli Lucero LPN - 12/05/2021 4:38 PM EDT Mom was notified and picked up form on the 3rd floor. * Telephone Encounter - Uvaldo Jorgensen MD - 12/05/2021 3:39 PM EDT Form completed and signed * Telephone Encounter - Salud Uriostegui RN - 12/05/2021 9:26 AM EDT sports form at your desk for review/signature. last [facility] 01-12-21 Salud Uriostegui RN documented in this encounterKindred Hospital [facility]06-16-2022 History of Present illness Narrative* Marla Lopez RN - 10/24/2021 4:30 PM EDT Asthma Home Monitoring Program Breathe Well Outreach Chart Reviewed for Breathe Well-up to date on [facility]/ACT/AAP Reason for outreach: chart review Contact made: No contact at this time. SIGNATURE: Marla Lopez RN PATIENT NAME: Lexis Guerra DATE: October 24, 2021 TIME: 4:31 PM documented in this encounterKindred Hospital [facility]06-08-2022 Miscellaneous Notes* Telephone Encounter - Nicky Cruz MD - 10/16/2021 4:52 PM EDT Yes, 30 minute appointment for follow up. Nicky Cruz MD * Telephone Encounter - Salud Uriostegui RN - 10/16/2021 1:28 PM EDT appt? documented in this encounterKindred Hospital [facility]05-31-2022 Miscellaneous Notes* Telephone Encounter - Placido Darling MD - 10/08/2021 4:57 PM EDT This was handled in a separate refill encounter. This note was partially generated using Tourn[employer]ase voice recognition system, and there may be some incorrect words, spellings, and punctuation that were not noted in checking the note before saving. Placido Darling MD * Telephone Encounter - Cheli Lucero LPN - 10/08/2021 4:44 PM EDT Last [facility]: 01/12/2021 Verify RX Benefits Completed Last medication [...] done Cheli Lucero LPN documented in this encounterKindred Hospital [facility]05-19-2022 Miscellaneous Notes* Telephone Encounter - Meghan Spann LPN - 09/26/2021 5:50 PM EDT Called and spoke with mother, stating patient was able to go to school today. Is still tired, but mother stating that she feels that Lexis will most likely push through to attend school tomorrow aswell. Offered appointment, declined at this time. Will reassess patient in the morning and call in if desires appointment to be seen. Noted faxed to [place] [employer] with confirmation received. Meghan Spann LPN * Telephone Encounter - Nicky Cruz MD - 09/26/2021 4:56 PM EDT I can send a note to the school but if she is still too tired tomorrow it might be better to see her in the office. Letter also sent to mother in [employer]. We can print it and fax it if preferred. Nicky Cruz MD * Telephone Encounter - Jluis Pena RN - 09/26/2021 9:31 AM EDT Mother checking on note if any answer. Would like faxed to [employer]. Jluis Pena RN * Telephone Encounter - Salud Uriostegui RN - 09/25/2021 10:44 AM EDT please advise documented in this encounterKindred Hospital [facility]05-17-2022 Miscellaneous Notes* Telephone Encounter - Salud Uriostegui RN - 09/24/2021 9:49 AM EDT mom aware * Telephone Encounter - Nicky Cruz MD - 09/23/2021 8:10 PM EDT Note sent via happnhart. Vitamin D supplement can be sent to the pharmacy. We should recheck her level in 3 months. Patient's request for medication is as follows: Signed Prescriptions Disp Refills cholecalciferol, Vitamin D3, (VITAMIN D3) 1,250 mcg (50,000 unit) cap capsule 12 capsule 0 Sig: Take 1 capsule by mouth one time a week. Authorizing Provider: NICKY CRUZ Prescription(s) as above. Please process accordingly. Nicky Cruz MD * Telephone Encounter - Niurka Jonas RN - 09/23/2021 2:32 PM EDT Mother calls stating that labs were done last week and noted that Vit D level was low. She questions suggestions on supplementation? Also, she missed school today due to mono and is questioning if a letter can be provided to the school? Niurka Jonas RN documented in this encounterKindred Hospital [facility]05-16-2022 Miscellaneous Notes* Telephone Encounter - Jluis Pena RN - 09/23/2021 11:23 AM EDT Ok to provide? documented in this encounterKindred Hospital [facility]05-13-2022 Miscellaneous Notes* Telephone Encounter - Nicky Cruz MD - 09/20/2021 3:30 PM EDT Nicyk Cruz MD * Telephone Encounter - Kalpesh Trivedi Cma - 09/20/2021 2:52 PM EDT Spoke with mother and notified of results and/or advice. Kalpesh Farooq nAne * Telephone Encounter - Chen Echevarria RN - 09/20/2021 1:44 PM EDT Left message to call the office Chen Echevarria RN * Telephone Encounter - Nicky Cruz MD - 09/20/2021 1:32 PM EDT Lexis's lab results are mostly normal but it does look like she is having a reactivation of infectious mononucleosis, which explains her fatigue and may explain her frequent headaches recently. Thyroid labs are normal. Electrolytes are normal. No evidence of anemia or iron deficiency. We are still waiting on her Vitamin D level. Nicky Cruz MD documented in this encounterKindred Hospital [facility]05-02-2022 Miscellaneous Notes* Telephone Encounter - Uvaldo Jorgensen MD - 09/09/2021 1:43 PM EDT The following approved medication requests have been transmitted electronically. Pending Prescriptions: Disp Refills escitalopram oxalate (LEXAPRO) 10 mg 90 tablet 1 tablet Sig: Take 1 tablet by mouth once daily. LAYNE: No Uvaldo Jorgensen MD * Telephone Encounter - Jluis Pena RN - 09/09/2021 1:26 PM EDT Last [facility]: 2021 Last ADHD / Med [...] done Jluis Pena RN documented in this encounterKindred Hospital [facility]04-25-2022 History of Present illness Narrative* Nicky Cruz MD - 09/02/2021 6:52 PM EDT PEDIATRIC SICK VISIT SERVICE DATE: 09/02/2021 SUBJECTIVE: Lexis Guerra is a 16 year old female accompanied [...] was throbbing and in her forehead. She hadsome slight phonophobia but denies photophobia. She was [...] drinking, decreased urination, or other concerns. SIGNATURE: Nicky Cruz MD PATIENT NAME: Lexis Guerra DATE: September 02, 2021 TIME: 6:52 PM documented [facility] Instructions* Patient Instructions* Nicky Cruz MD - 09/02/2021 6:52 PM EDT [...] drinks Go! Be healthy, inside and out! [email or web address] 5 to Go!TM Healthy Kids Inside & Out 5 Eat FIVE fruits and veggies a day 4 Give and get FOUR compliments a day 3 Consume THREE calcium products a day 2 Limit media time to TWO hours a day 1 Get at least ONE hour of exercise a day 0 Consume ZERO sugar-sweetened drinks Go! Be healthy, inside and out! [email or web address] documented in this encounter[facility]04[facility]12-2022 Miscellaneous Notes* Telephone Encounter - Placido Darling MD - 08/20/2021 4:48 PM EDT The listed prescriptions have been digitally or physically signed. If applicable, please notify thepatient/family that they are ready. Unless noted by the intake documentation, I assume the medications are being used as directed; the patient is doing well; there are no significant side effects; and there are no undocumented medications or allergies. This note was partially created using TournEase voice recognition, and there may be some incorrect words, spellings, and punctuation that were not found during review. Placido Darling M.D. * Telephone Encounter - Cheli Lucero LPN - 08/20/2021 4:15 PM EDT Mom would like Rx sent to [facility] as she can use [facility] and the cost is only 7 dollars and at [facility] it is around 90 dollars. Rx pended for review. Pharmacy info updated. documented in this [facility]04-[facility]-2022 Miscellaneous Notes* Telephone Encounter - Uvaldo Jorgensen MD - 08/14/2021 5:16 PM EDT The following approved medication requests have been transmitted electronically. Signed Prescriptions Disp Refills escitalopram oxalate (LEXAPRO) 5 mg tablet 90 tablet 1 Sig: TAKE 1 TABLET BY MOUTH DAILY IN. TAKE IN ADDITION TO 10 MG FOR TTL DAILY DOSE OF 15 MG. LAYNE: No Authorizing Provider: UVALDO JORGENSEN MD * Telephone Encounter - Niurka Jonas RN - 08/14/2021 4:21 PM EDT Last [facility]: 01/12/21 Verify RX Benefits Completed Last medication [...] done Niurka Jonas RN documented in this encounter[facility]04-[facility]22 History of Present illness Narrative* Gladis Rogers PA-C - 08/09/2021 6:25 PM EDT This note was created using NoteWriter. Subjective Lexis Guerra is a 16 year old female. HPI Patient presents with headache, sinus pressure and sore throat over the past 2 days. No fever. Mildcough. She did have Covid in December 2020. She does have seasonal allergies but states she feels more fatigued and more sick with this then with allergies. No vomiting or diarrhea. She has used Zyrtec [id number]. She is here with mom. Review of Systems Constitutional: Positive for fatigue. Negative for fever. HENT: Positive for congestion, postnasal drip, sinus pressure, sinus pain and sore throat. Negativefor ear pain. Respiratory: Positive for cough. Cardiovascular: [...] daily. to add to 10 mg for atotal dose of 15 mg 30 tablet 0 [...] with fluids and rest -Discussed use of ugja-zum-mecrqme cough and cold medications as well as Flonase. If not improving over the next week recommended being seen again. Covid influenza and RSV swab done to rule out so she can return to school Thursday if negative. - COVID, FLU A/B + RSV, ROUTINE - 2019 CORONAVIRUS - ROUTINE FLU A/B + RSV Gladis Rogers PA-C documented in this encounterKind[facility]04-[facility]-2022 Instructions* Patient Instructions* Gladis Rogers PA-C - 08/09/2021 6:13 PM EDT flonase otc Continue dayquil as needed If not alanna rin one week be seen again documented in this encounterKind[facility]09-30-2021 History of Present illness Narrative* Natty Conteh RT(R) - 02/07/2021 7:20 PM EDT Radiology Service Progress Note PATIENT NAME: Lexis Guerra DATE OF SERVICE: February 07, 2021 TIME: 7:25 PM PATIENT IDENTITY VERIFICATION COMPLETED USING TWO (2) IDENTIFIERS: Name and Date of confirmedby patient verbally. FALL SCREENING: Has the patient had 2 falls in the last year or 1 fall with injury or currently using an Ambulatory Assistive Device (Walker, Cane, Wheelchair, Crutches, etc.)? No PATIENT GENDER DATA: Female. status: : No status: NO. PATIENT RELEVANT IMPLANT DATA REVIEWED: Yes RADIOLOGY DEPARTMENT: General X-ray: Exam(s) Completed: Upper Extremity X- Ray(s): Hand, right PERIPHERAL IV DATA: Not applicable SIGNED BY: RT Clark(R) February 07, 2021 7:25 PM documented in this encounterKind[facility]07-28-2021 History of Present illness Narrative* Renée Betancourt RT(R) - 12/05/2020 9:20 AM EDT Radiology Service Progress Note PATIENT NAME: Lexis Guerra DATE OF SERVICE: December 05, 2020 TIME: 9:23 AM PATIENT IDENTITY VERIFICATION COMPLETED USING TWO (2) IDENTIFIERS: Name and Date of confirmedby patient verbally. FALL SCREENING: Has the patient had 2 falls in the last year or 1 fall with injury or currently using an Ambulatory Assistive Device (Walker, Cane, Wheelchair, Crutches, etc.)? No PATIENT GENDER DATA: Female. status: : No status: NO. PATIENT RELEVANT IMPLANT DATA REVIEWED: Not Applicable RADIOLOGY DEPARTMENT: General X-ray: Exam(s) Completed: Lower Extremity X- Ray(s): Ankle, Right and Wt. Bearing PERIPHERAL IV DATA: Not applicable SIGNED BY: RT Latosha(R) December 05, 2020 9:23 AM documented in this encounterKind[facility] DaytonDisst. [facility] summary Author James Gomez [facility] April 19, 2023 2:06am Note Date/Time April 19, 2023 12:38am [facility] Medical Records Department [address] [place] [id number] Emergency Department Summary 04/19/23 MR#: [id number] Acct: [id number] Name: LEXIS GUERRA Rep #:[id number] [birth year] : 2005 18 From: James Gomez DO PCP: Dr. Uvaldo Jorgensen MD Status:REG E R Location: ED HPI History of Present Illness Chief Complaint: Nausea/Vomiting Informant: patient and parent Narrative Narrative: Patient is an 18-year-old female with past medical history of anxiety and asthma. She states that she was at a family holiday dinner and then 1 to 2 hours after eating began with bouts of generalized abdominal discomfort and nausea/vomiting. She states that the symptoms occurred roughly 6 hours ago and she has had 9-10 bouts of emesis since its onset. [facility]. She denies any loose stool or diarrhea associated with this. However she has not been able to hold food or fluid down since its onset and therefore comes in for evaluation [facility] Medical History Acute otitis externa of right ear Anxiety Asthma Bronchiolitis obliterans Depression RSV (respiratory syncytial virus infection) Home Medications albuterol sulfate 90 mcg/actuation aerosol inhaler (ProAir HFA) 1 - 2 puff inhalation Q4H PRN PRN Sob &/Or Wheezing 10/02/17 [History Last Taken Unknown] cetirizine 10 mg capsule (Zyrtec) 10 mg PO DAILY PRN Allergies 02/16/18 [History Last Taken Unknown] fluticasone propionate 110 mcg/actuation HFA aerosol inhaler (Flovent HFA) 2 puff inhalation BID PRN Sob &/Or Wheezing 02/16/18 [History Last Taken Unknown] escitalopram oxalate 20 mg tablet 20 mg PO DAILY 02/23/23 [History Last Taken Unknown] fluticasone propionate 50 mcg/actuation nasal spray,suspension (Flonase Allergy Relief) 1 spray intranasal DAILY 02/23/23 [History Last Taken Unknown] hydroxyzine HCl 25 mg tablet 25 mg PO TID PRN 02/23/23 [History Last Taken Unknown] melatonin 5 mg tablet 5 mg PO HS PRN sleep 02/23/23 [History Last Taken Unknown] ondansetron 4 mg disintegrating tablet 4 mg PO TID PRN nausea and vomiting #21 tabs 04/19/23 [Rx Last Taken Unknown] Allergy/AdvReac Type Severity Reaction Status Date / Time Environmental Allergies: Allergy Other Verified 04/07/23 09:08 Uncoded peanut Allergy Anaphylaxis Verified 04/19/23 00:18 Social History Smoking Status: Never smoker alcohol intake: never ROS ROS ED Constitutional Constitutional ED: Denies chills or fever(s) ENT ENT ED: Reports sore throat; Denies rhinorrhea Cardiovascular Cardiovascular: Denies chest pain Respiratory/Chest Respiratory/Chest: Denies cough or dyspnea Gastrointestinal Gastrointestinal: Reports abdominal pain, nausea and vomiting; Denies diarrhea Genitourinary Genitourinary ED: Denies dysuria Musculoskeletal Musculoskeletal: Denies back pain or myalgias Integumentary Denies rash Neurologic Neurologic: Denies headache(s) or paresthesias Hematologic/Lymphatic Hematologic/Lymphatic: Denies easy bleeding or easy bruising EXAM Physical Exam Const Vital Signs: 04/19/23 00:14 Temperature 96.2 F L Temperature Source Temporal Pulse Rate 78 Respiratory Rate 20 H Blood Pressure 124/78 Blood Pressure Mean 93 Pulse Ox 99 Oxygen Delivery Method Room Air Positive well nourished and well developed General Appearance ED: well developed; Negative for pallor HEENT Reports moist mucous membranes HEENT Narrative: There is erythema and exudates in the posterior pharynx without tonsil hypertrophy hard palate petechiae trismus or change in voice. Eyes PERRL and EOMs intact bilaterally General Eye ED: Negative for scleral icterus Neck supple Neck Narrative: No nuchal rigidity or meningeal signs noted Resp normal respiratory effort and clear to auscultation bilaterally Cardio regular rate and regular rhythm Rate: other Other Details: Heart is regular rate and rhythm without murmurs rubsor gallops GI non-distended and no masses GI Narrative: Abdomen is soft and nondistended with hyperactive bowel sounds. There is mild diffuse pain with palpation. No voluntary guarding or rigidity. Pulsatile massor fluid wave Auscultation: hyperactive bowel sounds Palpation: soft Extremity normal to inspection Neuro oriented x3, CN's II-XII intact bilaterally and no sensory deficits noted Sensorium / Orientation: alert Motor Exam: strength 5/5 throughout Psych mental status grossly normal Skin no rashes or lesions noted and skin turgor normal Skin Narrative: Skin turgor is normal there is no jaundice or pallor noted General Skin Exam: Negative for jaundice or pallor MDM MDM MDM Narrative Medical decision making narrative: Patient presented to the ER with stable vitals and a soft nonsurgical abdomen soI felt no need for emergent imaging studies. With the fact she has had 9-10 episodes of vomiting in the last few hours there is concern for biliary colic versus pancreatitis versus gastritis versus viral gastroenteritis versus acute kidney injury versus electrolyte derangement or potential . Secondary to this basic labs were obtained. Labs revealed no clinically significant finding. Patient had no further bouts of vomiting after being given Zofran and she was rehydrated 1 L of normal saline. On reevaluation she is resting comfortably and his vitals remained stable symptoms have resolved and lab work reveals no clinically significant findings I feel she is otherwise safe for discharge. History & Record Review Discussion w/independent historian: Patient and Family Lab Data Attestation: I reviewed the patient's lab results. Labs: Laboratory Results - last 24 hr 04/19/23 00:40 WBC 10.9 RBC 5.06 H Hgb 14.6 Hct 42.1 MCV 83.2 MCH 28.9 MCHC 34.7 RDW Std Deviation 35.8 RDW Coeff of Tessie 11.9 Plt Count 281 MPV 9.4 Immature Gran % (Auto) 0.300 Neut % (Auto) 68.5 H Lymph % (Auto) 22.7 L Harper % (Auto) 6.2 H Eos % (Auto) 1.9 Baso % (Auto) 0.4 Absolute Neuts (auto) 7.5 Absolute Lymphs (auto) 2.47 Nucleated RBC % 0 Sodium 141 Potassium 3.7 Chloride 107 Carbon Dioxide 32.0 Anion Gap 2 L BUN 16 Creatinine 0.92 Estim Creat Clear Calc 85.63 Est GFR (MDRD) Af Amer 101 Est GFR (MDRD) Non-Af 84 BUN/Creatinine Ratio 17.3 Glucose 103 Calcium 9.3 Magnesium 2.6 Total Bilirubin 0.50 Direct Bilirubin 0.16 AST 19 ALT 38 Alkaline Phosphatase 81 Total Protein 7.0 Albumin 3.7 Globulin 3.3 Lipase 32 Serum , Qual NEGATIVE Discharge Plan Triage Chief Complaint: Nausea/Vomiting ED Provider: James Gomez Dx/Rx/DC Orders Clinical Impression: Nausea & vomiting, History of anxiety, History of asthma Instructions: ED Gastroenteritis, Viral (Adult) Prescriptions: New ondansetron 4 mg tablet,disintegrating 4 mg PO TID PRN (Reason: nausea and vomiting) Qty: 21 0RF No Action escitalopram oxalate 20 mg tablet 20 mg PO DAILY Patient Comments: TAKE 1 TABLET BY MOUTH EVERY DAY hydroxyzine HCl 25 mg tablet 25 mg PO TID PRN Patient Comments: TAKE 1 TABLET BY MOUTH THREE TIMES A DAY NEEDED FOR ANXIETY melatonin 5 mg tablet 5 mg PO HS PRN (Reason: sleep) fluticasone propionate [Flonase Allergy Relief] 50 mcg/actuation spray,suspension 1 spray intranasal DAILY Rx Instructions: administer into each nostril albuterol sulfate [ProAir HFA] 1 PUFF inhaler 1 - 2 puff inhalation Q4H PRN PRN (Reason: Sob &/Or Wheezing) fluticasone propionate [Flovent HFA] 110 HFA aerosol inhaler 2 puff inhalation BID PRN (Reason: Sob &/Or Wheezing) Zyrtec 10 MG capsule 10 mg PO DAILY PRN (Reason: Allergies) Primary Care Provider: Uvaldo Jorgensen Referrals: Uvaldo Jorgensen MD [Primary Care Provider] - Activity Restrictions/Additional Instructions: Your history and exam indicate you have a viral stomach infection that will lastanywhere from 1 day to 7 days with the average being 3 days. Use the Zofran as directed to control further bouts of nausea and vomiting and keep yourself well-hydrated. If you have any further concerns or worsening symptoms please return to the ER for repeat evaluation Disposition Disposition: Home, Self Care What to do if you have Problems For any increased pain, shortness of breath, bleeding, nausea or vomiting, chestpain, or any unexpected problems, contact your Primary Care Provider. Call [facility] ([phone]) or report to the closest Emergency Room. Call 911 if necessary. 04/19/23 0206 <Electronically signed by James Gomez DO> Cosigner Signature (if applicable): CC: Dr. Uvaldo Jorgensen MD ~ Signed [facility] Work Phone: Evaluation + Plan note No data available for this section [facility] Evaluation note* Diagnosis Viral URI- Primary Acute upper respiratory infections of unspecified site [facility]* Diagnosis Recurrent headache- Primary Headache [facility]* Diagnosis Vitamin D deficiency- Primary Unspecified vitamin D deficiency documented [facility] noteNo assessment information availableWElyria [facility] Work Phone: Evaluation note* Diagnosis Lumbar pain- Primary Lumbago Viral illness Unspecified viral infection, in conditions classified elsewhere and of unspecified site Acute [facility] Constipation, unspecified constipation type- Primary [facility] Diagnosis Nausea vomiting and diarrhea- Primary Diarrhea Viral illness Unspecified viral infection, in conditions classified elsewhere and of unspecified site [facility]* Diagnosis Rib pain on right side- Primary Chest pain, unspecified [facility]* Diagnosis Mild persistent asthma with acute exacerbation- Primary Unspecified asthma, with exacerbation Generalized anxiety disorder Depressed mood Encounter for [facility] (well child check) with abnormal findings 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 [facility]* Diagnosis Periumbilical abdominal pain- Primary Abdominal pain, periumbilic documented [facility]* Diagnosis Eustachian tube dysfunction, right- Primary documented in this encounter [facility] note* Diagnosis Sore throat- Primary Acute pharyngitis URI, acute Acute upper respiratory infections of unspecified site documented in this encounter [facility] note* Diagnosis Viral illness- Primary Unspecified viral infection, in conditions classified elsewhere and of unspecified site documented in this encounter [facility] note* Diagnosis URI, acute- Primary Acute upper respiratory infections of unspecified site documented in this encounter [facility] note* Diagnosis Viral illness- Primary Unspecified viral infection, in conditions classified elsewhere and of unspecified site Mild persistent asthma without complication Unspecified asthma Chills without fever Chills (without fever) Malaise and fatigue Other malaise and fatigue Body aches Generalized pain Acute pharyngitis, unspecified etiology documented in this encounter [facility] note* Diagnosis Mild persistent asthma with acute exacerbation- Primary Unspecified asthma, with exacerbation documented in this encounter [facility] note* Diagnosis Viral illness Unspecified viral infection, in conditions classified elsewhere and of unspecified site documented in this encounter [facility] note* Diagnosis Upper respiratory tract infection, unspecified type- Primary documented in this encounter [facility] note* Diagnosis Acute sinusitis, recurrence not specified, unspecified location- Primary documented in this encounter [facility] note* Diagnosis Vitamin D deficiency- Primary Unspecified vitamin D deficiency [facility] Diagnosis Encounter for [facility] (well child check) with abnormal findings- Primary Vitamin D deficiency Unspecified vitamin D deficiency Allergy to nuts Allergy to other foods Encounter for immunization Need for other specified prophylactic vaccination against single bacterial disease Mild persistent asthma without complication Unspecified asthma Generalized anxiety disorder Depressed mood [facility]* Diagnosis Otalgia, bilateral- Primary [facility]* Diagnosis Encounter for contraceptive management, unspecified type- Primary Unprotected sexual intercourse Problems related to high-risk sexual behavior documented in this encounter [facility] note* Diagnosis Unprotected sexual intercourse- Primary Problems related to high-risk sexual behavior [facility]* Diagnosis Onset Date Resolution Status Acute otitis externa of right ear acute Nausea acute [facility] Work Phone: Evaluation note* Diagnosis Mild persistent asthma without complication- Primary Unspecified asthma Generalized anxiety disorder Depressed mood Encounter for immunization Need for other specified prophylactic vaccination against single bacterial disease documented in this encounter [facility] note* Diagnosis Urinary frequency- Primary documented in this encounter [facility] note* Diagnosis Generalized abdominal pain- Primary Abdominal pain, generalized documented in this encounter [facility] note* Diagnosis Generalized abdominal pain Abdominal pain, generalized documented in this encounter [facility] note* Diagnosis Injury of right hand, initial encounter documented in this encounter [facility] note* Diagnosis Acute right ankle pain [facility]* Diagnosis Encounter for [facility] (well child check) with abnormal findings- Primary Encounter for immunization Need for other specified prophylactic vaccination against single bacterial disease Generalized anxiety disorder Mild persistent asthma without complication Unspecified asthma Sore throat Acute pharyngitis documented in this encounter [facility] note* Diagnosis Asthma, moderate persistent, poorly-controlled- Primary Unspecified asthma Generalized anxiety disorder documented in this encounter [facility] note* Diagnosis Mild persistent asthma without complication (HCC)- Primary Unspecified asthma documented in this encounter [facility] Discharge instructions Additional Instructions Your history and exam indicate you have a viral stomach infection that will last anywhere from 1 day to 7 days with the average being 3 days. Use the Zofran as directed to control further bouts of nausea and vomiting and keep yourself well-hydrated. If you have any further concerns or worsening symptoms please return to the ER for repeat evaluationWElyria [facility] Work Phone: Reason for referral (narrative)* Diagnostic Procedure Only (Urgent) - Closed Specialty Diagnoses / Procedures Referred By Contac t Referred To Contact XR IMAGING Diagnoses Rib pain on right side Procedures XR RIBS/CHEST 3V AP RIB/OBLS/CXR RIGHT RADEX RIBS UNI W/POSTEROANT CH MINIMUM 3 VIEWS Sahil Ching APRN.[employer] [address] [place] [address] Xr Imaging Referral ID Status Reason Start Date Expiration Date V isits Requested Visits Authorized [id number] Closed Auto-Generate d Referral 04/08/2022 05/08/2023 1 1 [facility] for referral (narrative)* Outpatient Procedure (Routine) - Pending Review Specialty Diagnoses / Procedures Referred By Contac t Referred To Contact [facility] Diagnoses Encounter for contraceptive management, unspecified type Procedures NEXPLANON INSERTION ETONOGESTREL IMPLANT SYSTEM INSERT DRUG IMPLANT DEVICE Ara Damon APRN.[employer] DRIVER [address] [place] [address] [facility] [address] [place] [address] Referral ID Status Reason Start Date Expiration Date Visits Requested Visits Authorized [id number] Pending Review Auto-Generat ed Referral 3 04/07/2024 1 1 [facility] for referral (narrative)* Diagnostic Procedure Only (Urgent) - Closed Specialty Diagnoses / Procedures Referred By Contac t Referred To Contact XR IMAGING Diagnoses Generalized abdominal pain Procedures XR ABDOMEN 1V SUPINE RADIOLOGIC EXAM ABDOMEN 1 VIEW Steve Pope APRN.[employer] [address] [place] [address] [place] [address] Referral ID Status Reason Start Date Expiration Date V isits Requested Visits Authorized [id number] Closed Auto-Generate d Referral 06/11/2023 07/10/2024 1 1 * Diagnostic Procedure Only (Urgent) - Closed Specialty Diagnoses / Procedures Referred By Contac t Referred To Contact XR IMAGING Diagnoses Generalized abdominal pain Procedures XR ABDOMEN 3V KUB W/OBLIQUES RADIOLOGIC EXAM ABDOMEN 3+ VIEWS Steve Pope APRN.[employer] [address] [place] [address] [place] [address] Referral ID Status Reason Start Date Expiration Date V isits Requested Visits Authorized [id number] Closed Auto-Generate d Referral 06/11/2023 07/10/2024 1 1 [facility] for referral (narrative)* Diagnostic Procedure Only (Urgent) - Closed Specialty Diagnoses / Procedures Referred By Contac t Referred To Contact XR IMAGING Diagnoses Generalized abdominal pain Procedures XR ABDOMEN 1V SUPINE RADIOLOGIC EXAM ABDOMEN 1 VIEW Steve Pope APRN.[employer] [address] [place] [address] [place] [address] Referral ID Status Reason Start Date Expiration Date V isits Requested Visits Authorized [id number] Closed Auto-Generate d Referral 06/11/2023 07/10/2024 1 1 [facility] for referral (narrative)* Diagnostic Procedure Only (Urgent) - Closed Specialty Diagnoses / Procedures Referred By Contac t Referred To Contact XR IMAGING Diagnoses Injury of right hand, initial encounter Procedures XR HAND GENERAL 3V PA/LAT/OBL RT X-RAY HAND MINIMUM 3 VIEWS Steve Pope APRN.[employer] [address] [place] [address] [place] [address] Referral ID Status Reason Start Date Expiration Date V isits Requested Visits Authorized [id number] Closed Auto-Generate d Referral 02/07/2021 03/09/2022 1 1 [facility] for visit Narrative* Diagnostic Procedure Only (Urgent) - Closed Specialty Diagnoses / Procedures Referred By Contac t Referred To Contact XR IMAGING Diagnoses Generalized abdominal pain Procedures XR ABDOMEN 3V KUB W/OBLIQUES RADIOLOGIC EXAM ABDOMEN 3+ VIEWS Steve Pope APRN.GRAVEL TRUCK DRIVER [address] [place] [address] [place] [address] Referral ID Status Reason Start Date Expiration Date V isits Requested Visits Authorized [id number] Closed Auto-Generate d Referral 06/11/2023 07/10/2024 1 1 [facility] for visit Narrative* Diagnostic Procedure Only (Urgent) - Closed Specialty Diagnoses / Procedures Referred By Contac t Referred To Contact XR IMAGING Diagnoses Rib pain on right side Procedures XR RIBS/CHEST 3V AP RIB/OBLS/CXR RIGHT RADEX RIBS UNI W/POSTEROANT CH MINIMUM 3 VIEWS Sahil Ching PERSONNEL ARBITRATOR.GRAVEL TRUCK DRIVER [address] [place] [address] [place] [address] Referral ID Status Reason Start Date Expiration Date V isits Requested Visits Authorized [id number] Closed Auto-Generate d Referral 04/08/2022 05/08/2023 1 1 [facility] for visit Narrative* Diagnostic Procedure Only (Urgent) - Closed Specialty Diagnoses / Procedures Referred By Contac t Referred To Contact XR IMAGING Diagnoses Injury of right hand, initial encounter Procedures XR HAND GENERAL 3V PA/LAT/OBL RT X-RAY HAND MINIMUM 3 VIEWS Steve Pope, PERSONNEL ARBITRATOR.GRAVEL TRUCK DRIVER [address] [place] [address] [place] [address] Referral ID Status Reason Start Date Expiration Date V isits Requested Visits Authorized [id number] Closed Auto-Generate d Referral 02/07/2021 03/09/2022 1 1 [facility] note* MARY LOU Paz: PERFORM Event Display: Patient Summary Documents Authored Date: [id number] [facility] Summary Purpose Family History No Family History Records FoundNo Family History Records Found No data available for this section No Family History Records Found No data available for this section No Family History Records FoundNo Family History Records Found Advance Directives No Advanced Directives Records FoundDocuments on File Type Date Recorded 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 Advance Directive(s) Advance Directive Response Recorded Date/ Time Living Will No April 19 12:18am Power of [employer]er No April 19, 2023 12:18am Health Concerns Infection Onset Date Last Indicated [...] Indicated Resolved Time COVID-19 Confirmed 01/05/2023 01/05/2023 Chief Complaint and Reason for Visit Chief Complaint LEFT FLANK/BACK PAIN Chief Complaint FLANK Chief Complaint R EAR PAIN HEADACHE, FATIGUE SORE THROAT, CONGESTED, COUGH, FATIGUE Nausea vomiting Reason for Visit Acute otitis externa of right ear Nausea Medications Administered Section Inactive Administered Medications - [...] dysfunction, right Procedures CONSULT TO ENT OFFICE/OUTPATIENT NEW HIGH MDM 60-74 MINUTES Gladis Rogers PA-C [address] [place] [address] Referral ID Status Reason Start Date Expiration Date Visits Requested Visits Authorized [id number] Authorized PCP Requested Referral 06/20/2022 06/20/2023 1 1 Specialty Diagnoses / Procedures Referred By Contac t Referred To Contact Ent - Otolaryngology Diagnoses Otalgia, bilateral Procedures CONSULT TO ENT OFFICE/OUTPATIENT NEW HIGH MDM 60-74 MINUTES Beatriz Ozuna APRN.GRAVEL TRUCK DRIVER [address] [place] [address] Referral ID Status Reason Start Date Expiration Date Visits Requested Visits Authorized [id number] Authorized PCP Requested Referral 02/10/2023 02/10/2024 1 1 Additional Source Comments INFORMATION SOURCE (unrecogn ized section and content) DATE CREATED AUTHOR 04/18/2018 [facility] DATE CREATED AUTHOR AUTHOR'S ORGANIZ ATION 12/23/2020 [facility] ([place]) DATE CREATED AUTHOR AUTHOR'S ORGANIZ ATION 06/27/2024 [facility] DATE CREATED AUTHOR AUTHOR'S ORGANIZ ATION 07/11/[address] [facility] DATE CREATED AUTHOR AUTHOR'S ORGANIZ ATION 01/27/2025 [facility] Source Comments (unrecognize d section and content) In the event this informatio n is protected by the Federal Confidentiality of Alcohol and Drug Abuse Patient Records regulations: The Federal rules restrict any use of the information to criminally investigate or prosecute any alcohol or drug abuse patient.[facility] the event this information is protected by the Federal Confidentiality of Alcohol and Drug Abuse Patient Records regulations: The Federal rules restrict any use of the information to criminally investigate or prosecute any alcohol or drug abuse patient.[facility] DaytonIn the event this information is protected by the Federal Confidentiality of Alcohol and Drug Abuse Patient Records regulations: The Federal rules restrict any use of the information to criminally investigate or prosecute any alcohol or drug abuse patient.[facility] DaytonIn the event this information is protected by the Federal Confidentiality of Alcohol and Drug Abuse Patient Records regulations: The Federal rules restrict any use of the information to criminally investigate or prosecute any alcohol or drug abuse patient.[facility] DaytonIn the event this information is protected by the Federal Confidentiality of Alcohol and Drug Abuse Patient Records regulations: The Federal rules restrict any use of the information to criminally investigate or prosecute any alcohol or drug abuse patient.[facility] DaytonIn the event this information is protected by the Federal Confidentiality of Alcohol and Drug Abuse Patient Records regulations: The Federal rules restrict any use of the information to criminally investigate or prosecute any alcohol or drug abuse patient.[facility] DaytonIn the event this information is protected by the Federal Confidentiality of Alcohol and Drug Abuse Patient Records regulations: The Federal rules restrict any use of the information to criminally investigate or prosecute any alcohol or drug abuse patient.[facility] DaytonIn the event this information is protected by the Federal Confidentiality of Alcohol and Drug Abuse Patient Records regulations: The Federal rules restrict any use of the information to criminally investigate or prosecute any alcohol or drug abuse patient.[facility] DaytonIn the event this information is protected by the Federal Confidentiality of Alcohol and Drug Abuse Patient Records regulations: The Federal rules restrict any use of the information to criminally investigate or prosecute any alcohol or drug abuse patient.[facility] DaytonIn the event this information is protected by the Federal Confidentiality of Alcohol and Drug Abuse Patient Records regulations: The Federal rules restrict any use of the information to criminally investigate or prosecute any alcohol or drug abuse patient.[facility] DaytonIn the event this information is protected by the Federal Confidentiality of Alcohol and Drug Abuse Patient Records regulations: The Federal rules restrict any use of the information to criminally investigate or prosecute any alcohol or drug abuse patient.[facility] DaytonIn the event this information is protected by the Federal Confidentiality of Alcohol and Drug Abuse Patient Records regulations: The Federal rules restrict any use of the information to criminally investigate or prosecute any alcohol or drug abuse patient.[facility] DaytonIn the event this information is protected by the Federal Confidentiality of Alcohol and Drug Abuse Patient Records regulations: The Federal rules restrict any use of the information to criminally investigate or prosecute any alcohol or drug abuse patient.[facility] DaytonIn the event this information is protected by the Federal Confidentiality of Alcohol and Drug Abuse Patient Records regulations: The Federal rules restrict any use of the information to criminally investigate or prosecute any alcohol or drug abuse patient.[facility] DaytonIn the event this information is protected by the Federal Confidentiality of Alcohol and Drug Abuse Patient Records regulations: The Federal rules restrict any use of the information to criminally investigate or prosecute any alcohol or drug abuse patient.[facility] DaytonIn the event this information is protected by the Federal Confidentiality of Alcohol and Drug Abuse Patient Records regulations: The Federal rules restrict any use of the information to criminally investigate or prosecute any alcohol or drug abuse patient.[facility] DaytonIn the event this information is protected by the Federal Confidentiality of Alcohol and Drug Abuse Patient Records regulations: The Federal rules restrict any use of the information to criminally investigate or prosecute any alcohol or drug abuse patient.[facility] DaytonIn the event this information is protected by the Federal Confidentiality of Alcohol and Drug Abuse Patient Records regulations: The Federal rules restrict any use of the information to criminally investigate or prosecute any alcohol or drug abuse patient.[facility] DaytonIn the event this information is protected by the Federal Confidentiality of Alcohol and Drug Abuse Patient Records regulations: The Federal rules restrict any use of the information to criminally investigate or prosecute any alcohol or drug abuse patient.[facility] DaytonIn the event this information is protected by the Federal Confidentiality of Alcohol and Drug Abuse Patient Records regulations: The Federal rules restrict any use of the information to criminally investigate or prosecute any alcohol or drug abuse patient.[facility] DaytonIn the event this information is protected by the Federal Confidentiality of Alcohol and Drug Abuse Patient Records regulations: The Federal rules restrict any use of the information to criminally investigate or prosecute any alcohol or drug abuse patient.[facility] DaytonIn the event this information is protected by the Federal Confidentiality of Alcohol and Drug Abuse Patient Records regulations: The Federal rules restrict any use of the information to criminally investigate or prosecute any alcohol or drug abuse patient.[facility] DaytonIn the event this information is protected by the Federal Confidentiality of Alcohol and Drug Abuse Patient Records regulations: The Federal rules restrict any use of the information to criminally investigate or prosecute any alcohol or drug abuse patient.[facility] DaytonIn the event this information is protected by the Federal Confidentiality of Alcohol and Drug Abuse Patient Records regulations: The Federal rules restrict any use of the information to criminally investigate or prosecute any alcohol or drug abuse patient.[facility] DaytonIn the event this information is protected by the Federal Confidentiality of Alcohol and Drug Abuse Patient Records regulations: The Federal rules restrict any use of the information to criminally investigate or prosecute any alcohol or drug abuse patient.[facility] DaytonIn the event this information is protected by the Federal Confidentiality of Alcohol and Drug Abuse Patient Records regulations: The Federal rules restrict any use of the information to criminally investigate or prosecute any alcohol or drug abuse patient.[facility] DaytonIn the event this information is protected by the Federal Confidentiality of Alcohol and Drug Abuse Patient Records regulations: The Federal rules restrict any use of the information to criminally investigate or prosecute any alcohol or drug abuse patient.[facility] DaytonIn the event this information is protected by the Federal Confidentiality of Alcohol and Drug Abuse Patient Records regulations: The Federal rules restrict any use of the information to criminally investigate or prosecute any alcohol or drug abuse patient.[facility] DaytonIn the event this information is protected by the Federal Confidentiality of Alcohol and Drug Abuse Patient Records regulations: The Federal rules restrict any use of the information to criminally investigate or prosecute any alcohol or drug abuse patient.[facility] DaytonIn the event this information is protected by the Federal Confidentiality of Alcohol and Drug Abuse Patient Records regulations: The Federal rules restrict any use of the information to criminally investigate or prosecute any alcohol or drug abuse patient.[facility] DaytonIn the event this information is protected by the Federal Confidentiality of Alcohol and Drug Abuse Patient Records regulations: The Federal rules restrict any use of the information to criminally investigate or prosecute any alcohol or drug abuse patient.[facility] DaytonIn the event this information is protected by the Federal Confidentiality of Alcohol and Drug Abuse Patient Records regulations: The Federal rules restrict any use of the information to criminally investigate or prosecute any alcohol or drug abuse patient.[facility] DaytonIn the event this information is protected by the Federal Confidentiality of Alcohol and Drug Abuse Patient Records regulations: The Federal rules restrict any use of the information to criminally investigate or prosecute any alcohol or drug abuse patient.[facility] the event this information is protected by the Federal Confidentiality of Alcohol and Drug Abuse Patient Records regulations: The Federal rules restrict any use of the information to criminally investigate or prosecute any alcohol or drug abuse patient.[facility] DaytonIn the event this information is protected by the Federal Confidentiality of Alcohol and Drug Abuse Patient Records regulations: The Federal rules restrict any use of the information to criminally investigate or prosecute any alcohol or drug abuse patient.[facility] DaytonIn the event this information is protected by the Federal Confidentiality of Alcohol and Drug Abuse Patient Records regulations: The Federal rules restrict any use of the information to criminally investigate or prosecute any alcohol or drug abuse patient.[facility]In the event this information is protected by the Federal Confidentiality of Alcohol and Drug Abuse Patient Records regulations: The Federal rules restrict any use of the information to criminally investigate or prosecute any alcohol or drug abuse patient.[facility] DaytonIn the event this information is protected by the Federal Confidentiality of Alcohol and Drug Abuse Patient Records regulations: The Federal rules restrict any use of the information to criminally investigate or prosecute any alcohol or drug abuse patient.[facility] DaytonIn the event this information is protected by the Federal Confidentiality of Alcohol and Drug Abuse Patient Records regulations: The Federal rules restrict any use of the information to criminally investigate or prosecute any alcohol or drug abuse patient.[facility] DaytonIn the event this information is protected by the Federal Confidentiality of Alcohol and Drug Abuse Patient Records regulations: The Federal rules restrict any use of the information to criminally investigate or prosecute any alcohol or drug abuse patient.[facility] DaytonIn the event this information is protected by the Federal Confidentiality of Alcohol and Drug Abuse Patient Records regulations: The Federal rules restrict any use of the information to criminally investigate or prosecute any alcohol or drug abuse patient.[facility] DaytonIn the event this information is protected by the Federal Confidentiality of Alcohol and Drug Abuse Patient Records regulations: The Federal rules restrict any use of the information to criminally investigate or prosecute any alcohol or drug abuse patient.[facility] DaytonIn the event this information is protected by the Federal Confidentiality of Alcohol and Drug Abuse Patient Records regulations: The Federal rules restrict any use of the information to criminally investigate or prosecute any alcohol or drug abuse patient.[facility] DaytonIn the event this information is protected by the Federal Confidentiality of Alcohol and Drug Abuse Patient Records regulations: The Federal rules restrict any use of the information to criminally investigate or prosecute any alcohol or drug abuse patient.[facility] DaytonIn the event this information is protected by the Federal Confidentiality of Alcohol and Drug Abuse Patient Records regulations: The Federal rules restrict any use of the information to criminally investigate or prosecute any alcohol or drug abuse patient.[facility] DaytonIn the event this information is protected by the Federal Confidentiality of Alcohol and Drug Abuse Patient Records regulations: The Federal rules restrict any use of the information to criminally investigate or prosecute any alcohol or drug abuse patient.[facility] DaytonIn the event this information is protected by the Federal Confidentiality of Alcohol and Drug Abuse Patient Records regulations: The Federal rules restrict any use of the information to criminally investigate or prosecute any alcohol or drug abuse patient.[facility] DaytonIn the event this information is protected by the Federal Confidentiality of Alcohol and Drug Abuse Patient Records regulations: The Federal rules restrict any use of the information to criminally investigate or prosecute any alcohol or drug abuse patient.[facility] DaytonIn the event this information is protected by the Federal Confidentiality of Alcohol and Drug Abuse Patient Records regulations: The Federal rules restrict any use of the information to criminally investigate or prosecute any alcohol or drug abuse patient.[facility] DaytonIn the event this information is protected by the Federal Confidentiality of Alcohol and Drug Abuse Patient Records regulations: The Federal rules restrict any use of the information to criminally investigate or prosecute any alcohol or drug abuse patient.[facility] DaytonIn the event this information is protected by the Federal Confidentiality of Alcohol and Drug Abuse Patient Records regulations: The Federal rules restrict any use of the information to criminally investigate or prosecute any alcohol or drug abuse patient.[facility] DaytonIn the event this information is protected by the Federal Confidentiality of Alcohol and Drug Abuse Patient Records regulations: The Federal rules restrict any use of the information to criminally investigate or prosecute any alcohol or drug abuse patient.[facility] DaytonIn the event this information is protected by the Federal Confidentiality of Alcohol and Drug Abuse Patient Records regulations: The Federal rules restrict any use of the information to criminally investigate or prosecute any alcohol or drug abuse patient.[facility] DaytonIn the event this information is protected by the Federal Confidentiality of Alcohol and Drug Abuse Patient Records regulations: The Federal rules restrict any use of the information to criminally investigate or prosecute any alcohol or drug abuse patient.[facility] DaytonIn the event this information is protected by the Federal Confidentiality of Alcohol and Drug Abuse Patient Records regulations: The Federal rules restrict any use of the information to criminally investigate or prosecute any alcohol or drug abuse patient.[facility] DaytonIn the event this information is protected by the Federal Confidentiality of Alcohol and Drug Abuse Patient Records regulations: The Federal rules restrict any use of the information to criminally investigate or prosecute any alcohol or drug abuse patient.[facility] DaytonIn the event this information is protected by the Federal Confidentiality of Alcohol and Drug Abuse Patient Records regulations: The Federal rules restrict any use of the information to criminally investigate or prosecute any alcohol or drug abuse patient.[facility] DaytonIn the event this information is protected by the Federal Confidentiality of Alcohol and Drug Abuse Patient Records regulations: The Federal rules restrict any use of the information to criminally investigate or prosecute any alcohol or drug abuse patient.[facility] DaytonIn the event this information is protected by the Federal Confidentiality of Alcohol and Drug Abuse Patient Records regulations: The Federal rules restrict any use of the information to criminally investigate or prosecute any alcohol or drug abuse patient.[facility] DaytonIn the event this information is protected by the Federal Confidentiality of Alcohol and Drug Abuse Patient Records regulations: The Federal rules restrict any use of the information to criminally investigate or prosecute any alcohol or drug abuse patient.[facility] DaytonIn the event this information is protected by the Federal Confidentiality of Alcohol and Drug Abuse Patient Records regulations: The Federal rules restrict any use of the information to criminally investigate or prosecute any alcohol or drug abuse patient.[facility] DaytonIn the event this information is protected by the Federal Confidentiality of Alcohol and Drug Abuse Patient Records regulations: The Federal rules restrict any use of the information to criminally investigate or prosecute any alcohol or drug abuse patient.[facility] DaytonIn the event this information is protected by the Federal Confidentiality of Alcohol and Drug Abuse Patient Records regulations: The Federal rules restrict any use of the information to criminally investigate or prosecute any alcohol or drug abuse patient.[facility] DaytonIn the event this information is protected by the Federal Confidentiality of Alcohol and Drug Abuse Patient Records regulations: The Federal rules restrict any use of the information to criminally investigate or prosecute any alcohol or drug abuse patient.[facility] DaytonIn the event this information is protected by the Federal Confidentiality of Alcohol and Drug Abuse Patient Records regulations: The Federal rules restrict any use of the information to criminally investigate or prosecute any alcohol or drug abuse patient.[facility] DaytonIn the event this information is protected by the Federal Confidentiality of Alcohol and Drug Abuse Patient Records regulations: The Federal rules restrict any use of the information to criminally investigate or prosecute any alcohol or drug abuse patient.[facility] DaytonIn the event this information is protected by the Federal Confidentiality of Alcohol and Drug Abuse Patient Records regulations: The Federal rules restrict any use of the information to criminally investigate or prosecute any alcohol or drug abuse patient.[facility] DaytonIn the event this information is protected by the Federal Confidentiality of Alcohol and Drug Abuse Patient Records regulations: The Federal rules restrict any use of the information to criminally investigate or prosecute any alcohol or drug abuse patient.[facility] DaytonIn the event this information is protected by the Federal Confidentiality of Alcohol and Drug Abuse Patient Records regulations: The Federal rules restrict any use of the information to criminally investigate or prosecute any alcohol or drug abuse patient.[facility] DaytonIn the event this information is protected by the Federal Confidentiality of Alcohol and Drug Abuse Patient Records regulations: The Federal rules restrict any use of the information to criminally investigate or prosecute any alcohol or drug abuse patient.[facility] DaytonIn the event this information is protected by the Federal Confidentiality of Alcohol and Drug Abuse Patient Records regulations: The Federal rules restrict any use of the information to criminally investigate or prosecute any alcohol or drug abuse patient.[facility] DaytonIn the event this information is protected by the Federal Confidentiality of Alcohol and Drug Abuse Patient Records regulations: The Federal rules restrict any use of the information to criminally investigate or prosecute any alcohol or drug abuse patient.[facility] DaytonIn the event this information is protected by the Federal Confidentiality of Alcohol and Drug Abuse Patient Records regulations: The Federal rules restrict any use of the information to criminally investigate or prosecute any alcohol or drug abuse patient.[facility] DaytonIn the event this information is protected by the Federal Confidentiality of Alcohol and Drug Abuse Patient Records regulations: The Federal rules restrict any use of the information to criminally investigate or prosecute any alcohol or drug abuse patient.[facility] DaytonIn the event this information is protected by the Federal Confidentiality of Alcohol and Drug Abuse Patient Records regulations: The Federal rules restrict any use of the information to criminally investigate or prosecute any alcohol or drug abuse patient.[facility] DaytonIn the event this information is protected by the Federal Confidentiality of Alcohol and Drug Abuse Patient Records regulations: The Federal rules restrict any use of the information to criminally investigate or prosecute any alcohol or drug abuse patient.[facility] DaytonIn the event this information is protected by the Federal Confidentiality of Alcohol and Drug Abuse Patient Records regulations: The Federal rules restrict any use of the information to criminally investigate or prosecute any alcohol or drug abuse patient.[facility] DaytonIn the event this information is protected by the Federal Confidentiality of Alcohol and Drug Abuse Patient Records regulations: The Federal rules restrict any use of the information to criminally investigate or prosecute any alcohol or drug abuse patient.[facility] DaytonIn the event this information is protected by the Federal Confidentiality of Alcohol and Drug Abuse Patient Records regulations: The Federal rules restrict any use of the information to criminally investigate or prosecute any alcohol or drug abuse patient.[facility] DaytonIn the event this information is protected by the Federal Confidentiality of Alcohol and Drug Abuse Patient Records regulations: The Federal rules restrict any use of the information to criminally investigate or prosecute any alcohol or drug abuse patient.[facility] DaytonIn the event this information is protected by the Federal Confidentiality of Alcohol and Drug Abuse Patient Records regulations: The Federal rules restrict any use of the information to criminally investigate or prosecute any alcohol or drug abuse patient.[facility] DaytonIn the event this information is protected by the Federal Confidentiality of Alcohol and Drug Abuse Patient Records regulations: The Federal rules restrict any use of the information to criminally investigate or prosecute any alcohol or drug abuse patient.[facility] Reason for Visit (unrecogniz ed section and content) Reason Comments Well Child Specialty Diagnoses / Procedures Referred By Contac t Referred To Contact Pediatrics / [facility] Diagnoses well visit and med check Procedures 4C EST WELL Uvaldo Jorgensen MD [address] [place] [address] Uvaldo Jorgensen MD [address] [place] [address] Referral ID Status Reason Start Date Expiration Date V isits Requested Visits Authorized [id number] Pending Review 01/02/2023 04/02/2023 1 1 Reason [...] 12/30/2021 Reason Comments Cough Pt presented with yoselyn brandt, reported [facility] visit, x5 days nasal congestion, back [...] tx Reason Comments Cough Pt presented with yoselyn brandt, reported nasal congestion x7 days. Specialty Diagnoses / Procedures Referred By Contac t Referred To Contact [facility] Diagnoses congestion,cough since thursday. lots of drainage Procedures EST SAME DAY Self Express [facility] [address] [place] [address] Referral ID Status Reason Start Date Expiration Date Visits Requested Visits Authorized [id number] Pending Review Financial Clearance Required - Self Pay 08/17/2022 11/15/2022 1 1 Reason Comments Chest Congestion Pt presented with yoselyn hernandezt, reported SOB, Duenas x3 wks. Reason Onset [...] Reason Comments Contraception Reason Comments Patient Update Reason Onset Date Comments Refill Request 07/25/2023 Reason Comments Medication Follow-up Doing well with med ications no questions or concerns Reason Comments Urinary Frequency Frequency x 1 day Reason Comments Diarrhea Diarrhea and stomach hurts x 3-4 dys Reason Onset Date Comments Refill Request 12/25/2023 Reason Comments adult well exam Reason Onset Date Comments Refill Request 02/26/2024 Reason Onset Date Comments Refill Request 04/01/2024 Reason Onset Date Comments Refill Request 04/21/2024 Reason Onset Date Comments Refill Request 05/15/2024 Reason Onset Date Comments Refill Request 09/29/2023 Reason Comments Medication check Asthma and Anxiety Reason Comments Refill Request Care Teams (unrecognized sec tion and content) [employer] Relationship Specialty Start Date End Date Uvaldo Jorgensen MD [address] [place] [address] PCP - General 05 [employer] Relationship Specialty Start Date End Date Uvaldo Jorgensen MD [address] [place] [address], [place] [address] PCP - General 05 [employer] Relationship Specialty Start Date End Date Uvaldo Jorgensen MD [address] [place] [address], [place] [address] PCP - General 05 [employer] Relationship Specialty Start Date End Date Uvaldo Jorgensen MD [address] [place] [address], [place] [address] PCP - General 05 [employer] Relationship Specialty Start Date End Date Uvaldo Jorgensen MD [address] [place] [address], [place] [address] PCP - General 05 [employer] Relationship Specialty Start Date End Date Uvaldo Jorgensen MD [address] [place] [address], [place] [address] PCP - General 05 [employer] Relationship Specialty Start Date End Date Uvaldo Jorgensen MD [address] [place] [address], [place] [address] PCP - General 05 [employer] Relationship Specialty Start Date End Date Uvaldo Jorgensen MD [address] [place] [address], [place] [address] PCP - General 05 [employer] Relationship Specialty Start Date End Date Uvaldo Jorgensen MD [address] [place] [address], [place] [address] PCP - General 05 [employer] Relationship Specialty Start Date End Date Uvaldo Jorgensen MD [address] [place] [address], [place] [address] PCP - General 05 [employer] Relationship Specialty Start Date End Date Uvaldo Jorgensen MD [address] [facility] [place] [address] PCP - General 05 [employer] Relationship Specialty Start Date End Date Uvaldo Jorgensen MD [address] [facility] [place] [address] PCP - General 05 [employer] Relationship Specialty Start Date End Date Uvaldo Jorgensen MD [address] [facility] [place] [address] PCP - General 05 [employer] Relationship Specialty Start Date End Date Uvaldo Jorgensen MD [address] [facility] [place] [address] PCP - General 05 [employer] Relationship Specialty Start Date End Date Uvaldo Jorgensen MD [address] [facility] [place] [address] PCP - General 05 [employer] Relationship Specialty Start Date End Date Uvaldo Jorgensen MD [address] [facility] [place] [address] PCP - General 05 [employer] Relationship Specialty Start Date End Date Uvaldo Jorgensen MD [address] [facility] [place] [address] PCP - General 05 [employer] Relationship Specialty Start Date End Date Uvaldo Jorgensen MD [address] [facility] [place] [address] PCP - General 05 [employer] Relationship Specialty Start Date End Date Uvaldo Jorgensen MD [address] [facility] [place] [address] PCP - General 05 [employer] Relationship Specialty Start Date End Date Uvaldo Jorgensen MD [address] [facility] [place] [address] PCP - General 05 Team Status: Active Member Role Status Dates Dr. Uvaldo Jorgensen MD Family Provider Active Dr. Uvaldo Jorgensen MD Primary Care Provider Active Team Status: Inactive Member Role Status Dates Dr. Uvaldo Jorgensen MD Primary Care Provider Active Dr. Christal Gutierrez MD Emergency Provider Active [employer] Relationship Specialty Start Date End Date Uvaldo Jorgensen MD [address] [facility] [place] [address] PCP - General 05 [employer] Relationship Specialty Start Date End Date Uvaldo Jorgensen MD [address] [place] [address] PCP - General 05 [employer] Relationship Specialty Start Date End Date Uvaldo Jorgensen MD [address] [place] [address] PCP - General 05 [employer] Relationship Specialty Start Date End Date Uvaldo Jorgensen MD [address] [place] [address] PCP - General 05 [employer] Relationship Specialty Start Date End Date Uvaldo Jorgensen MD [address] [place] [address] PCP - General 05 [employer] Relationship Specialty Start Date End Date Uvaldo Jorgensen MD [address] [place] [address] PCP - General 05 [employer] Relationship Specialty Start Date End Date Uvaldo Jorgensen MD [address] [place] [address] PCP - General 05 [employer] Relationship Specialty Start Date End Date Uvaldo Jorgensen MD [address] [place] [address] PCP - General 05 [employer] Relationship Specialty Start Date End Date Uvaldo Jorgensen MD [address] [place] [address] PCP - General 05 Team Status: Inactive Member Role Status Dates Dr. Uvaldo Jorgensen MD Primary Care Provider, Referring Provider Active Francisco Javier Calle PA, PA Attending Provider Active Team Status: Inactive Member Role Status Dates Dr. Uvaldo Jorgensen MD Primary Care Provider, Referring Provider Active Ranjan Spann PA, PA Attending Provider Active Team Status: Inactive Member Role Status Dates Dr. Uvaldo Jorgensen MD Primary Care Provider Active Dr. James Gomez DO Emergency Provider Active [employer] Relationship Specialty Start Date End Date Uvaldo Jorgensen MD [address] [place] [address] PCP - General 05 [employer] Relationship Specialty Start Date End Date Uvaldo Jorgensen MD [address] [place] [address] PCP - General 05 [employer] Relationship Specialty Start Date End Date Uvaldo Jorgensen MD [address] [place] [address] PCP - General 05 [employer] Relationship Specialty Start Date End Date Uvaldo Jorgensen MD [address] [place], [place] [address] [phone] PCP - General 05 [employer] Relationship Specialty Start Date End Date Uvaldo Jorgensen MD [address] [place] [address] PCP - General 05 [employer] Relationship Specialty Start Date End Date Uvaldo Jorgensen MD [address] [place] [address] PCP - General 05 [employer] Relationship Specialty Start Date End Date Uvaldo Jorgensen MD [address] [place] [address] PCP - General 05 [employer] Relationship Specialty Start Date End Date Uvaldo Jorgensen MD [address] [place] [address] PCP - General 05 [employer] Relationship Specialty Start Date End Date Uvaldo Jorgensen MD [address] [place] [address] PCP - General 05 [employer] Relationship Specialty Start Date End Date Uvaldo Jorgensen MD [address] [place] [address] PCP - General 05 [employer] Relationship Specialty Start Date End Date Uvaldo Jorgensen MD [address] [place] [address] PCP - General 05 [employer] Relationship Specialty Start Date End Date Uvaldo Jorgensen MD [address] [place] [address] PCP - General 05 [employer] Relationship Specialty Start Date End Date Uvaldo Jorgensen MD [address] [place], [place] [address] PCP - General 05 [employer] Relationship Specialty Start Date End Date Uvaldo Jorgensen MD [address] [place], [place] [address] PCP - General 05 [employer] Relationship Specialty Start Date End Date Uvaldo Jorgensen MD [address] [place], [place] [id number] PCP - General 05 Goals (unrecognized section and content) Goals may be documented in a n alternate sectionGoals may be documented in an alternate sectionGoals may be documented in an alternate section No data available for this section No data available for this section FOR RECORDS PERTAINING TO PATIENTS WHO ARE [...] BE BASED ON THE PRIMARY CLINICAL RECORDS. [facility] [employer] [facility]. provides no warranty or guarantee of the accuracy or completeness of information in this document.
--- NOTE | 2025-01-28 10:15 | RAD_ITS ---
PROCEDURE: CHEST PA AND LATERAL 01/28/2025 REASON FOR EXAM: SHORTNESS OF BREATH TECHNIQUE: Procedure Code: RADCXR Modality: DX Procedure: CHEST PA AND LATERAL FINDINGS: LUNGS AND PLEURA: The lungs are clear. No pleural effusion or pneumothorax. HEART AND MEDIASTINUM: The heart size and mediastinal contours are normal. BONES: No acute osseous abnormality. RAD/Chest PA and Lateral IMPRESSION: NO ACUTE FINDINGS. Reading Location: [id number]
[2025-01-28 11:01] VITALS: BP 125/61; PULSE 70; RESP 16; TEMP 36.6; O2SAT 96
== END 2025-01-28 11:12 | disposition home or self-care (01) ==
PROVIDERS: Emergency Provider Emergency Medicine; PCP Pediatrics; Visit Provider Emergency Medicine
DX: J45.901 Unspecified asthma with (acute) exacerbation (principal); F41.9 Anxiety disorder, unspecified; F32.A Depression, unspecified; Z79.899 Other long term (current) drug therapy; Z79.51 Long term (current) use of inhaled steroids
CPT/HCPCS: 71046; 94640; 99282

== ENCOUNTER 2025-03-26 23:53 | Emergency (ER) | payer OTHER, SELFPAY ==
[2025-03-26 23:54] VITALS: BP 123/68; PULSE 120; RESP 24; TEMP 36.8; O2SAT 98; BMI 26.2
--- NOTE | 2025-03-27 00:12 | EX.ED.VIS.UR ---
HPI HPI - URI History of Present Illness Chief Complaint: Cough Informant: patient and parent Narrative Narrative: Patient is a 20-year-old female with a history of asthma presenting with dyspnea, cough, and chest pain. - Symptoms began 2 days ago. - Reports dyspnea, cough, and chest pain described as similar to heartburn, exacerbated by inhalation. - Associated symptoms include wheezing and nasal congestion. - Denies earache, emesis, or diarrhea. - Has been using albuterol inhaler frequently, most recently about an hour ago, with temporary relief of wheezing; also took NyQuil at 1930. - Has a nebulizer at home but lacks medication for it. - Denies known exposure to sick contacts. - No other medical issues reported. Told staff she went to urgent care initially and was told she had a virus, offered no specific treatment. ROS ROS ED Constitutional Constitutional ED: Denies chills or fever(s) ENT ENT ED: Reports nasal congestion and rhinorrhea; Denies ear pain, headache(s), sinus pain, sore throat or vertigo Cardiovascular Cardiovascular: Reports chest pain; Denies palpitations Respiratory/Chest Respiratory/Chest: Reports cough, dyspnea and wheezing; Denies sputum Gastrointestinal Gastrointestinal: Denies abdominal pain, diarrhea, nausea or vomiting Genitourinary Genitourinary ED: Denies dysuria or hematuria Musculoskeletal Musculoskeletal: Denies myalgias or neck pain Integumentary Denies abscess or rash Neurologic Neurologic: Denies headache(s), paresthesias or weakness Psychiatric Psychiatric: Denies depression or suicidal thoughts Endocrine Endocrinology: Denies polydipsia or polyuria [facility] Medical History Cephalgia Lumbar radiculopathy Lumbar strain Dog bite of left buttock Nexplanon in place Acute otitis externa of right ear RSV (respiratory syncytial virus infection) Bronchiolitis obliterans Asthma Anxiety Depression Home Medications ?Medication ?Instructions ?Recorded ?Last Taken ?Type cetirizine 10 mg capsule (Zyrtec) 10 mg PO DAILY PRN Allergies 02/16/18 Unknown History fluticasone propionate 50 1 spray intranasal DAILY 02/23/23 Unknown History mcg/actuation nasal spray,suspension (Flonase Allergy Relief) melatonin 5 mg tablet 5 mg PO HS PRN sleep 02/23/23 Unknown History etonogestrel 68 mg subdermal 1 implant subdermal ONCE 01/12/24 Unknown History implant (Nexplanon) albuterol sulfate 90 mcg/actuation 1 - 2 puff inhalation Q4H PRN PRN 06/16/23 Unknown Rx aerosol inhaler (ProAir HFA) Sob &/Or Wheezing #6.7 grams budesonide-formoterol HFA 80 1 inh inhalation Q12H sob 07/20/24 Unknown History mcg-4.5 mcg/actuation aerosol inhaler (Symbicort) fluoxetine 10 mg capsule 10 mg PO QDAY #30 caps 11/03/24 Unknown Rx Held on 03/26/25. Instructions: pt not taking albuterol sulfate 90 mcg/actuation 2 puff inhalation Q4-6H PRN 01/26/25 Unknown Rx aerosol inhaler (Ventolin HFA) shortness of breath or wheezing #6.7 grams albuterol sulfate 2.5 mg/3 mL 2.5 mg (3 mL) inhalation Q4-6H PRN 03/23/25 Unknown Rx (0.083 %) solution for nebulization shortness of breath or wheezing #90 mL albuterol sulfate 90 mcg/actuation 2 puff inhalation Q4-6H PRN 03/23/25 Unknown Rx aerosol inhaler (Ventolin HFA) shortness of breath or wheezing #6.7 grams prednisone 20 mg tablet 40 mg (2 x 20 mg) PO DAILY 6 days 03/27/25 Unknown Rx #12 tabs Allergy/AdvReac Type Severity Reaction Status Date / Time Environmental Allergies: Allergy Other Verified 03/26/25 23:54 Uncoded peanut Allergy Anaphylaxis Verified 03/26/25 23:54 Family History Other Anxiety Asthma CVA (cerebral vascular accident) Cancer Depression Diabetes Heart disease Hypercholesteremia Hypertension Kidney disease Surgical History History of oral surgery Social History Smoking Status: Never smoker alcohol intake: never substance use type: does not use frequency: daily EXAM Physical Exam Const Vital Signs: 03/26/25 23:54 03/26/25 23:54 03/27/25 00:17 Temperature 98.2 F Temperature Source Oral Pulse Rate 120 H 111 H Respiratory Rate 24 H 18 Respiratory Effort Normal Respiratory Pattern Normal Blood Pressure 123/68 H Blood Pressure Mean 86 Pulse Ox 98 Positive well nourished and well developed General Appearance ED: well developed and NAD HEENT Reports moist mucous membranes HEENT Narrative: TMs normal bilaterally normocephalic and atraumatic Face and Sinus: Negative for sinus tenderness Throat: Negative for posterior oropharynx abnormal Eyes PERRL and EOMs intact bilaterally Neck no lymphadenopathy, supple and no meningeal signs Resp normal respiratory effort Resp Narrative: Few light inspiratory and expiratory wheezes bilaterally. No respite distress. Converses in full sentences. Cardio no murmurs Rate: regular rate and tachycardic Rhythm: regular rhythm Neuro oriented x3, CN's II-XII intact bilaterally and no sensory deficits noted Sensorium / Orientation: alert Motor Exam: strength 5/5 throughout Psych Mood & Affect: anxious Skin Lesions: no lesions Rashes: no rashes MDM MDM MDM Narrative Medical decision making narrative: Clinically, I suspect the patient has a viral URI causing an asthma exacerbation. Her oxygen saturation is 98%. She is a little tachycardic, likely due to recent albuterol use. She declined a chest x-ray because of cost, stating she is comfortable declining as long as I do not suspect pneumonia; I do not think she has pneumonia. We administered a duonebulizer treatment, which helped somewhat, and she did not become more tachycardic. We started her on prednisone 40 mg daily for 7 days, with today as day 1. I also recommended continuing [id number] cold and flu medications as she has been doing, and she is comfortable with this plan. We discussed the reasons to return. No antibiotics are indicated at this time, as I do not think this is bacterial in etiology. Discharge Plan Triage Chief Complaint: Cough ED Provider: Jeffrey Arevalo Dx/Rx/DC Orders Clinical Impression: Acute asthma exacerbation, Viral URI with cough Instructions: ED Asthma, Acute (Adult), ED URI, Viral W/ Wheezing (Adult) Prescriptions: New prednisone 20 mg tablet 40 mg PO DAILY 6 Days Qty: 12 0RF No Action melatonin 5 mg tablet 5 mg PO HS PRN (Reason: sleep) fluticasone propionate [Flonase Allergy Relief] 50 mcg/actuation spray,suspension 1 spray intranasal DAILY Rx Instructions: administer into each nostril Nexplanon 68 mg implant 1 implant subdermal ONCE Rx Instructions: as a single dose budesonide-formoterol [Symbicort] 80-4.5 mcg/actuation HFA aerosol inhaler 1 inh inhalation Q12H Patient Comments: [NO ORIGINAL SIG] fluoxetine 10 mg capsule 10 mg PO QDAY Qty: 30 1RF albuterol sulfate [Ventolin HFA] 90 mcg/actuation HFA aerosol inhaler 2 puff inhalation Q4-6H PRN (Reason: shortness of breath or wheezing) Qty: 6.7 0RF albuterol sulfate 2.5 mg /3 mL (0.083 %) solution for nebulization 2.5 mg inhalation Q4-6H PRN (Reason: shortness of breath or wheezing) Qty: 90 0RF albuterol sulfate [Ventolin HFA] 90 mcg/actuation HFA aerosol inhaler 2 puff inhalation Q4-6H PRN (Reason: shortness of breath or wheezing) Qty: 6.7 0RF Zyrtec 10 MG capsule 10 mg PO DAILY PRN (Reason: Allergies) albuterol sulfate [ProAir HFA] 1 PUFF inhaler 1 - 2 puff inhalation Q4H PRN PRN (Reason: Sob &/Or Wheezing) Qty: 6.7 0RF Primary Care Provider: Uvaldo Lentz Referrals: Uvaldo Lentz MD [Primary Care Provider, Pediatrics] - 1 Week if not improving Print Language: Barbadian Disposition Disposition: Home, Self Care
[2025-03-27 00:17] VITALS: PULSE 111; RESP 18
--- OUTSIDE RECORDS SUMMARY | 2025-03-27 00:47 | XMS RPT_ITS | CCD ---
Author Organization [facility] Care Team Providers Care Sheet Rocker Name Role Phone UVALDO JORGENSEN Unavailable Unavailable STEVE HARTLEY Unavailable Unavailable OMLOR, SUZANNA Unavailable Unavailable OMLOR, SUZANNA Unavailable Unavailable LAMAR LANDA Unavailable Unavailable OTHER, EMERGENCY Unavailable Unavailable UVALDO JORGENSEN Unavailable Unavailable Uvaldo Jorgensen MD Primary Care Provider Uvaldo Jorgenesn MD Primary Care Provider Uvaldo Jorgensen MD Primary Care Provider Dr. Uvaldo Jorgensen Primary Care Provider Dr. Uvaldo Jorgensen Referring Provider Alva TOPETE, YOSELYN Richards Attending Provider YOSELYN Pinzon Attending Provider [phone] Uvaldo Jorgensen MD Primary Care Provider DR UVALDO JORGENSEN MD Primary Care Physician DR UVALDO JORGENSEN MD Primary Care Unavailabl e JANELL RICE DO Attending Unavailable ASHWINI RENTERIA DO Attending Unavailable DR UVALDO JORGENSEN MD Primary Care Unavailabl e Uvaldo Jorgensen Attending Unavailable Jameel, Uvaldo Primary Care Unavailable Jameel, Uvaldo Referring Unavailable Jameel, Uvaldo Primary Care Unavailable Christal Paulino Attending Unavailable Jameel, Uvaldo Primary Care Unavailable Shira Pastor Attending Unavailable Jameel, Uvaldo Primary Care Unavailable Jameel, Uvaldo Referring Unavailable Ranjan Pinzon Attending Unavailable Jameel, Uvaldo Primary Care Unavailable Shira Pastor Attending Unavailable Jameel, Uvaldo Primary Care Unavailable Shira Pastor Attending Unavailable Jameel, Uvaldo Primary Care Unavailable Darby Shira Attending Unavailable Jameel, Uvaldo Primary Care Unavailable Christal Paulino Attending Unavailable Jameel, Uvaldo Primary Care Unavailable Christal Paulino Attending Unavailable Jameel, Uvaldo Primary Care Unavailable Shira Pastor Attending Unavailable Jameel, Uvaldo Primary Care Unavailable Skruck, Christal Attending Unavailable Jameel, Uvaldo Primary Care Unavailable Skruck, Christal Attending Unavailable Jameel, Uvaldo Primary Care Unavailable Skruck, Christal Attending Unavailable Anoop Houser Attending Unavailable Jameel, Uvaldo Primary Care Unavailable Jameel, Uvaldo Primary Care Unavailable Francisco Javier Wilcox Referring Unavailable Francisco Javier Wilcox Attending Unavailable Jameel, Uvaldo Attending Unavailable Jameel, Uvaldo Primary Care Unavailable Jameel, Uvaldo Referring Unavailable Jameel, Uvaldo Primary Care Unavailable Jameel, Uvaldo Referring Unavailable Jameel, Uvaldo Attending Unavailable Jameel, Uvaldo Primary Care Unavailable Jameel, Uvaldo Referring Unavailable Francisco Javier Wilcox Attending Unavailable Jameel, Uvaldo Primary Care Unavailable Skruck, Christal Attending Unavailable Jameel, Uvaldo Primary Care Unavailable Skruck, Christal Attending Unavailable Jameel, Uvaldo Primary Care Unavailable Jameel, Uvaldo Referring Unavailable Ranjan Pinzon Attending Unavailable Jameel, Uvaldo Primary Care Unavailable Skruck, Christal Attending Unavailable Jameel, Uvaldo Primary Care Unavailable Shira Pastor Attending Unavailable JAMEEL, UVALDO P Attending Unavailable JAMEEL, UVALDO P Primary Care Unavailable JAMEEL, UVALDO P Attending Unavailable JAMEEL, UVALDO P Primary Care Unavailable Allergies Allergy Classification Reported Allergen(s) Allergy Type Date of Onset Reaction(s) Facility cashew nut allergenic extract (2 sources) cashew nut allergenic extract Drug Allergy 3 [facility] Peanuts and Peanut Containing Products (2 sources) peanut Food Allergy 8 [facility] (1 source) peanut; Translations: [PEANUT ALLERGY] Propensity to adverse reactions to drug (disorder) 8 [facility] Repository (1 source) Seasonal allergy; Translations: [SEASONAL ALLERGIES] Propensity to adverse reactions (disorder) 8 [facility] Repository (20 sources) peanut; Translations: [PEANUTS] Propensity to adverse reactions 8 [facility] Work Phone: (20 sources) Environmental allergies [Other] Propensity to adverse reactions 8 [facility] (3 sources) peanut allergenic extract Drug Allergy 2 [facility] (20 sources) cashew nut allergenic extract; Translations: [CASHEW NUT] Drug Allergy 3 Other: See Comments, Swelling [facility] Work Phone: (2 sources) Environmental Allergies: Uncoded; Translations: [Environmental Allergies: Uncoded] Allergy to substance 3 Other [facility] (1 source) peanut allergenic extract Drug Allergy 5 [facility] Repository Medications Current Medications Medication Drug Class(es) Dates Sig (Normalized) Sig (Original) [id number] 200 actuat albuterol 0.09 mg/actuat metered dose [...] on above: Take 1 tablet by dexter twice daily for 5 days. 60 actuat [...] on above: Take 1 capsule by [facility] two times a day for 7 [...] Comment on above: Inhale 1 puff by dexter as instructed twice daily. Inhale 1 Puff as ins tructed twice daily. Always use with spacer. [id number] 0.3 ml EPINEPHrine 1 mg/ml auto-injector (20 [...] RELIEF) 50 mcg/actuation nasal spray Use 1 [place] in each nostril once daily. 1 Each 08/10/2023 Active Start: 02-23-2023 take 1 spray(s) [...] as ins tructed twice daily. Use 1 [place] in each nostril once daily. hydrOXYzine (20 [...] with food. Take 3 tablets by [facility] once daily for 5 days. Take 2 tablets by [facility] once daily for 5 days. Completed/Discontinued Medications [...] (11 sources) Non-narcotic Antitussive Start: 3 End: 3 take 200 mg by mouth three times [...] on above: Take 1 capsule by [facility] three times daily as needed for cough. 60 actuat budesonide 0.09 mg/actuat dry powder inhaler (2 sources) Corticosteroid Start: 023 End: take 2 puff(s) by inhalation twice [...] oral capsule (20 sources) Vitamin D Start: 022 End: 024 take 1 capsule by mouth every week [...] Comment on above: Take 1 capsule by [facility] one time a week. cyclobenzaprine hydrochloride 10 mg oral tablet (11 sources) Muscle Relaxant Start: End: take 1 tablet by mouth three times daily as needed for muscle spasms cyclobenzaprine (FLEXERIL) 10 mg tablet Indications: Lumbar pain Take 1 tablet by mouth three times daily as needed for muscle spasm. 21 tablet 01/24/2022 05/02/2022 Discontinued Comment on above: Take 1 tablet by [facility] three times daily as needed for muscle spasm. 12 hr guaiFENesin 600 mg extended release oral tablet (3 sources) Start: End: take 1 tablet by mouth twice daily Guaifenesin (Mucinex) 600 MG tablet Discontinued 600 MG PO TWICE A DAY February 15, 2018 11:00pm February 23, 2023 8:30am hydrocortisone 10 mg/ml / neomycin 3.5 mg/ml / polymyxin b [id number] unt/ml otic solution (1 source) Aminoglycoside Antibacterial, Polymyxin-class Antibacterial, Corticosteroid Start: End: Gdqaylfv-Uzlasiidm-Uf Discontinued 4 DRP OTIC THREE TIMES A [...] Da te Episodic/Chronic Allergic reactions (20 sources) Atopic dermatitis; Translations: [...] of breath; Translations: [Shortness of breath] Onset: 01-30-2025 Episodic Other nervous system disorders (20 sources) Non-organic disorder of the sleep-wake schedule; Translations: [Circadian rhythm sleep disorder, unspecified type] Onset: 05-02-2022 Chronic Other non-traumatic joint disorders (1 source) Acute ankle pain; Translations: [Pain in right ankle and joints of right foot] 12-05-2020 Episodic Other upper respiratory disease (20 sources) Allergic rhinitis; Translations: [Allergic rhinitis, unspecified] Onset: 05-30-2008 05-30-2008 Chronic Other upper respiratory disease (2 sources) Other diseases of vocal cords; Translations: [Other diseases of vocal cords] Onset: 02-10-2025 Episodic Otitis media and related conditions (1 source) [...] Onset: 11-03-2024 Episodic Allergic reactions (20 sources) Allergy to peanut; [...] Test Name Value Interpretation Reference Range Facility [facility] LEXIS GUERRA ([id number]) 5 F Date Time Provider Department 03/06/25 UVALDO JORGENSEN PEDSWS During your visit today, we recorded the following information about you: Niurka Jonas RN 03/06/2025 2:08 PM Signed Patient called stating that she saw speech therapist and they recommend that patient see ENT prior to next speech therapy appointment. They would like to confirm or rule VCD. Ok for referral? MONTEZ Ortiz Kristen, PA-C 03/06/2025 3:42 PM Signed Okay for referral. FRANCOIS Hoffman Cherryle, RN 03/06/2025 3:46 PM Signed please sign referral Petra Cabrera PA-C 03/06/2025 3:48 PM Signed Signed. FRANCOIS Hoffman Amanda S, RN 03/06/2025 4:38 PM Addendum Patient notified and call transferred to [facility] to assist with scheduling. MONTEZ Ortiz Cherryle, RN 03/06/2025 4:44 PM Signed per epic, appt scheduled 03/27/25 Allergies As of Date: 03/06/2025 Noted Allergy Reaction CASHEW NUT 01/07/2023 7 - Swelling Comments: lab test PEANUTS 05/12/2007 7 - Swelling Date Reviewed: 02/10/2025 Reviewed by: Neto Uriostegui RN - Fully Assessed Primary Visit Diagnosis:Familial vocal cord dysfunction [Q31.8] Other Visit Diagnosis:Vocal cord dysfunction [J38.3] Order(s):CONSULT TO PEDS ENT/OTOLARYNGOL [[id number]] Order #: [id number]: 1 FUTURE Prescriptions as of 03/06/2025 - fluticasone (FLONASE ALLERGY RELIEF) 50 mcg/actuation nasal spray Use 1 spray in each nostril once daily. - Cetirizine 10 mg cap Take 1 capsule by mouth once daily. - budesonide-formoterol (SYMBICORT) 80-4.5 mcg/actuation inhaler Inhale 2 puffs as instructed two times a day. By Mouth - albuterol (PROVENTIL) 2.5 mg /3 mL (0.083 %) nebulizer solution Use 3 mL via nebulizer every 4 hours as needed. single dose vials. 1 vial contains 3 ml - albuterol HFA (PROVENTIL HFA, VENTOLIN HFA) 90 mcg/actuation inhaler Inhale 2 puffs as instructed every 4 hours as needed for wheezing/shortness of breath. - hydrOXYzine HCl (ATARAX) 25 mg tablet take 1 tablet by mouth three times a day as needed for anxiety - EPINEPHrine (EPIPEN) 0.3 mg/0.3 mL auto-injector Inject 0.3 mL intramuscularly as needed. - etonogestrel (NEXPLANON) subdermal implant 68 mg 1 Each by SUBDERMAL route as directed. - inhalat.spacing dev,large mask (AEROCHAMBER PLUS FLOW-VU,L MSK) spcr Use with inhaler as directed. - MELATONIN ORAL Take by mouth. 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 [place] [address] / REHABILITATION SERVICES INITIAL EVALUATION MR#: [id number] Acct: [id number] Name: LEXIS GUERRA Rep #: [id number] : 2005 From: Mariusz Mei Referring Dr.: Dr. Uvaldo Jorgensen MD Status: REG R Insurance: [employer] SELF PAY INSURANCE Visit History Visit Info Date of Eval: 03/06/25 Today is Visit #: 1 Division Order Technician: CLIF History Attending Doctor: Referring Doctor: Reason for Referral: VOCAL CORD DYSFUNCTION. RX HERE Date of Onset of Diagnosis: January 2025 Previous speech therapy: No Other Relevant Medical History/Diagnoses/Surgery : Lexis is a 20F who was referred to [facility] for vocal cord dysfunction by her livestock showman, Uvaldo Jorgensen. Lexis stated that she has a hx of asthma, anxiety and allergies. She works at the [employer] and stated that animals tend to make her allergies worse. 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 Lexis describes her symptoms as difficulty breathing during exertion, wheezing with phonation, and coughing. She also stated that she experiences hoarse vocal quality. Medications related to this diagnosis: Prozac, melatonin, zyrtec, flonase, alburterol, symbicort Smoking Status: Never smoker Diagnosis Diagnosis: Vocal cord dysfunction Pain Is pain an issue with your current prescribed condition?: No Personal Preferred language: Divehi Patient Allergies Allergies Allergies: Allergies Environmental Allergies: Uncoded Allergy (Verified 01/28/25 09:40) Other peanut Allergy (Verified 01/28/25 09:40) Anaphylaxis Subjective Voice Medications Mediations: Prozac, melatonin, zyrtec, flonase, alburterol, symbicort Intubation Was the Client intubated: No Intake Water (ounces): 8 Coffee (ounces): 8 Soda (ounces): 0 Energy drinks (ounces): 0 Milk (ounces): 0 Juice (ounces): 0 Sports drinks (ounces): 0 Other Product Usage Do you use products containing menthol (if yes, list): No Do you take Vitamin C Supplements (if yes, list amt (mg)/day: No Do you use recreational drugs (if yes, list type/amt/frequency): No Objective Voice Date of Diagnosis Date of diagnosis: 01/2025 Previous Speech Therapy (If yes, describe): No Observational Assessment Maximum Phonation Time in seconds: 11.58 S/Z Ratio: 1.18 Sustained /s/: 15.20 Sustained /z/: 12.86 Ratio: 1.18 Greater than 1:4 (indicates dysfunction): No Voice Handicap Index (VHI) VHI VHI Administered: Yes VHI: Patient completed the Voice Handicap Index, which is a 30 item, self administered questionnaire that asks an individual to describe their voice and the effects of their voice on their life. Three subscales cover the areas of functional, emotional, and physical aspects of the voice disorders. Points from the questions can be combined to assign a total score, or they can be combined by subscale. Results for the VHI are as follows: Date: 03/06/25 VHI Test Functional: 6 Physical: 20 Emotional: 13 Total Severity Rating: Moderate (31-60) Reference: Neuro-QoL instrument Radiation Oncology Patient Plan Plan Plan: At this time, it is recommended that Lexis sees an ENT to obtain a scope of her vocal cords, as well as particpate in a home exercise program targeting vocal cord dysfunction. Recommendations Treatment Warranted: Yes Treatment Warranted: Voice Progress Prognosis: Good Frequency Frequency: 1x Duration: 6 Months Visits in this POC: 1 Patient/Family Goal Patient/Family Goal: Lexis stated that she hopes to experience less wheezing and difficulty with inhalation. Goals that are Established Determination:: Goals will be added/modified as deemed necessary and appropriate. Therapy will be discontinued when results of re-evaluation indicate therapy is no longer needed or lack of progress has been documented. Goal #1-5 Goal #1: Lexis will attend an appointment with an ENT to further evaluate difficulties with vocal cord functioning and breathing, and then attend a follow up appointment with ST as needed. Goal #2: Lexis will participate in a home exercise program targeting vocal cord dysfunction symptoms, daily, until her follow up appointment with ST. Education Patient has Indicated that the Following Identified Educational Needs: None The Patient has indicated that they have no educational or learning abilities that may effect their care.: Yes Patient Instruction Patient Education: Diagnosis, Treatment Plan, Goals and Home Exercise Program Person Taught: Patient Teaching Method: Discussion Response to teaching: Verbalize Understanding 03/06/25 1629 C (more content not included)... Normal [facility] MR/BMS.BPon 02-19-2025 MR/BMS.BP [address], [address] [place] [address] OFFICE VISIT Date of Service: 02/17/25 MR#: [id number] Acct: [id number] Name: LEXIS GUERRA Rep #: [id number] : 2005 [facility] Age/Sex: 20/F Location: [facility].BP Status: Signed Intake Vital Signs 07/26/24 08:08 01/28/25 09:40 02/19/25 08:11 Height 5 ft 4 in 5 ft 4 in 5 ft 4 in BP Intake Visit Reasons: Follow up Allergies Environmental Allergies: Uncoded Allergy (Verified 01/28/25 09:40) Other peanut Allergy (Verified 01/28/25 09:40) Anaphylaxis PENDING SALE TO [facility] Medical History Cephalgia Lumbar radiculopathy Lumbar strain Dog bite of left buttock Nexplanon in place Acute otitis externa of right ear RSV (respiratory syncytial virus infection) Bronchiolitis obliterans Asthma Anxiety Depression Surgical History History of oral surgery Family History Other Anxiety Asthma CVA (cerebral vascular accident) Cancer Depression Diabetes Heart disease Hypercholesteremia Hypertension Kidney disease Social History Smoking Status: Never smoker alcohol intake: never substance use type: does not use frequency: daily HPI History of Present Illness HPI: Lexis Guerra is a 20 year-old female returning for therapy. She reported new job working at the [employer] and having adopted a dog. Lexis identified period of time where she limited her contact with her ex. She reported recently resuming some contact. According to Lexis, her ex has kept her contact with him mostly blocked and has not paid her back money he owes her. She stated that she hopes to resume the relationship and will have contact with him when he initiates contact. Lexis appears to perceives his on and off contact with her as proof he cares about her. She identified keeping her contact with him mostly hidden as others have concerns about how ex treats her. Encouraged verbalization of emotions while providing support. Used motivational interviewing to explore ex's treatment of her, what type of relationship she desires, her needs, and any potential concerns she has about the relationship. Explored with Lexis how interactions have impacted her. Reinforced her increased ability to reduce contact when she has wanted to do so. Encouraged balanced life with more than ex being her focus such as time with family and friends and time on interests. No SI. Future-oriented. Discussed no show policy and need to cancel appointment vs. no show. Lexis verbalized understandinging and verbalized that she would cancel vs. no show future appointments. Exam Mental Status Exam - Psych Appearance casually dressed and adequately groomed Attitude engaged and guarded Activity/Motor Behavior MSE activity/motor behavior finding no adventitious movements and appropriate eye contact Speech regular rate, regular volume and regular prosody Mood OK Affect full range Thought Process linear and coherent Thought Content no delusions, no hallucinations and ruminations Suicidal Ideation none Homicidal Ideation none Attention [...] and fluctuations and to teach coping skills. Medical services to monitor mood symptoms and any need for medication. Call 911, call suicide prevention hotline, or go to ER if experiencing suicidal plan and intent and/or feels own safety cannot be ensured (2) JAMAR (generalized anxiety disorder): Plan: BH therapy using CBT, DBT, and ACT interventions to address thought patterns contributing to anxious symptoms and to teach coping skills. Medical services to monitor anxious symptoms and any need for medication. Plan TREATMENT PLANTREATMENT PLAN Goal 1 - [...] role this plays in interactions with others. Objecti (more content not included)... Normal [facility] 02-10-2025 OV Office Visit (PEDSWS ) ----- LEXIS GUERRA ([id number]) 5 F Date Time Provider Department 02/10/25 9:00 AM UVALDO JORGENSEN PEDTANOS During your visit today, we recorded the following information about you: Temperature Pulse Respiration Blood pressure 97.8 degrees 88/minute 16/minute 100/64 Weight Last Period 67.4 kg 05/23/24 Uvaldo Jorgensen MD 02/10/2025 7:35 PM Signed Patient presents for ER follow up from 2 Saturdays ago. Was seen for Shortness of Breath and using her entire inhaler in 2 days. States that they did a breathing treatment, Chest Xray, and prescribed prednisone. States that she does not currently have an inhaler. Has an albuterol nebulizer that she has used 3-5 times a day this past week. States that the Shortness of Breath starts without a pattern, can occur in the shower, when walking, or when just sitting. Starts with tightness to the chest like someone is sitting on my chest, pain can develop to the chest and back during episodes. Will start wheezing if she does not use her albuterol soon. Shortness of Breath has been consistently bad for the last 2 weeks. States that it is difficult to take a deep breath in when this occurs. After taking a deep breath it can cause her to cough. Sometimes feels like it is tight in the throat. If she notices the symptoms early enough, she can go outside and focus on her breathing and settle it without needing her inhaler. Frequently bending over can increase her Shortness of Breath. States that she has a history of pneumothorax in 2018 and was in the ICU for that. Denies history of smoking/vaping. Takes cetirizine daily which has not helped. Has a PFT scheduled at [facility] Thursday. Patient has not seen Psychiatry for 2 months due to missing 3 appointments. States that she has been feeling well since. Anxiety and depression feel controlled. Takes Prozac as needed. Does still see counselor and states that is going well. Would like a referral to see psychiatry. - Currently taking a break from school to focus on finances (noted as a stressor). - Recently adopted a puppy, which she finds helpful for her mood. Environmental Allergies - Experiences increased respiratory symptoms with seasonal changes. - Takes an oral daily antihistamine (?Zyrtec? or similar). - Denies routine use of nasal steroid spray due to cost concerns. - Still experiencing sneezing and itchy eyes despite daily allergy medication. - Inquires whether she can use an intranasal steroid concurrently with oral medication. PAST MEDICAL HISTORY Diagnosis Date Contact dermatitis and other eczema, due to unspecified cause PMH - PAST MEDICAL HISTORY OF RSV Pneumomediastinum ([facility]) 02/16/2018 Right arm fracture age 3-4 Physical Exam: General: alert and active in no apparent distress Eyes: normal and no strabismus noted Ears: External ears normal. Canals clear. TM's normal. Nose/Sinuses: Nares normal. Septum midline. Mucosa normal. No drainage or sinus tenderness. Oropharynx: normal Cardiovascular: Regular Rate and Rhythm without murmurs or clicks Lungs: clear to auscultation Abdomen: Abdomen is soft, nontender, without organomegaly or masses. Musculoskeletal: Extremities with FROM and no problems identified., spine without evidence of scoliosis A/P # Vocal cord dysfunction (J38.3) # Mild persistent asthma without complication ([facility]) (J45.30) - Recent episodes of abrupt-onset dyspnea and throat tightness with variable response to albuterol suggest inducible laryngeal spasm (vocal cord dysfunction) rather than asthma exacerbation. - Pulmonary function test scheduled Thursday to further evaluate. - Provided education on vocal cord dysfunction, including explanation of pathophysiology and distinction from asthma. - Reviewed and practiced rescue breathing techniques (pursed lip exhalation, short nasal inhalations) to manage acute episodes. - Refer to speech therapy for further management and training in breathing exercises. - Refill Symbicort. # Generalized anxiety disorder (F41.1) # Depressed mood (R45.89) - Anxiety and depression reportedly well-controlled; continues counseling and takes Prozac as needed. - Missed 3 psychiatry appointments and was dropped by previous provider; interested in new referral. - Refer to psychiatry for ongoing management. Allergies As of Date: 02/10/2025 Noted Allergy Reaction CASHEW NUT 01/07/2023 7 - Swelling Comments: lab test PEANUTS 05/12/2007 7 - Swelling Date Reviewed: 02/10/2025 Reviewed by: Neto Uriostegui RN - Fully Assessed Primary Visit Diagnosis:Vocal cord dysfunction [J38.3] Other Visit Diagnoses:Generalized anxiety disorder [F41.1] Depressed mood [R45.89] Mild persistent asthma without complication (HCC) [J45.30] Order(s):fluticasone (FLONASE ALLERGY RELIEF) 50 mcg/actuation nasal sprayUse (more content not included)... Normal [facility] Chest PA and Lateralon 01-28 Chest PA and Lateral [facility] Imaging Services [address] [place] [id number] Chest PA and Lateral MR#: [id number] Acct: [id number] Name: LEXIS GUERRA Rep #: [id number] : 2005 F 20 From: Lisa Daniel MD PCP: Dr. Uvaldo Jorgensen MD Status: REG ER Study: Chest PA and Lateral Date of Exam: 01/28/25 Exam# [id number] Ordering Dr: Anoop Houser MD PROCEDURE: CHEST PA AND LATERAL 01/28/2025 REASON FOR EXAM: SHORTNESS OF BREATH TECHNIQUE: Procedure Code: RADCXR Modality: DX Procedure: CHEST PA AND LATERAL FINDINGS: LUNGS AND PLEURA: The lungs are clear. No pleural effusion or pneumothorax. HEART AND MEDIASTINUM: The heart size and mediastinal contours are normal. BONES: No acute osseous abnormality. RAD/Chest PA and Lateral IMPRESSION: NO ACUTE FINDINGS. Reading Location: [id number] CC: Dr. Uvaldo Jorgensen MD; Dr. 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 Uvaldo Jorgensen MD Status:REG ER Location: ED HPI History of Present Illness Chief Complaint: Asthma Narrative Narrative: 20-year-old female past medical history of asthma presents with shortness of breath that she has had for a week. She denies any fevers or chills, no cough, no nausea or vomiting. She states that she had RSV as a child and popcorn lung. She was seen at urgent care on approximately 3 days ago where she states that she received an injection of a steroid which is not helping her. She usually uses Symbicort as well as albuterol and had to use her nebulizer treatment within the last day. She presents with what she feels is having more of an asthma exacerbation for the last week. [facility] Medical History Cephalgia Lumbar radiculopathy Lumbar strain Dog bite of left buttock Nexplanon in place Acute otitis externa of right ear RSV (respiratory syncytial virus infection) Bronchiolitis obliterans Asthma Anxiety Depression Home Medications ???Medication ???Instructions ???Recorded ???Last Taken ???Type cetirizine 10 mg capsule (Zyrtec) 10 mg PO DAILY PRN Allergies 01/26 Unknown History fluticasone propionate 50 1 spray intranasal DAILY 02/23/23 Unknown History mcg/actuation nasal spray,suspension (Flonase Allergy Relief) melatonin 5 mg tablet 5 mg PO HS PRN sleep 02/23/23 Unkn own History etonogestrel 68 mg subdermal 1 implant subdermal ONCE 05/22/23 Unknown History implant (Nexplanon) albuterol sulfate 90 mcg/actuation 1 - 2 puff inhalation Q4H PRN OK N 06/16/23 Unknown Rx aerosol inhaler (ProAir HFA) Sob /Or Wheezing #6.7 grams budesonide-formoterol HFA 80 inhalation sob 07/20/24 Unknown Hi story mcg-4.5 mcg/actuation aerosol inhaler (Symbicort) ondansetron HCl 8 mg tablet 8 mg PO Q8H PRN nausea and 5 Unknown Rx vomiting #14 tabs fluoxetine 10 mg capsule 10 mg PO QDAY #30 caps 11/03/24 Un known Rx albuterol sulfate 90 mcg/actuation 2 puff inhalation Q4-6H PRN 01/09 01/02 Unknown Rx aerosol inhaler (Ventolin HFA) shortness of breath or wheezing #6.7 grams prednisone 20 mg tablet 40 mg (2 x 20 mg) PO DAILY 4 days 01/28/25 Unknown Rx #8 tabs Allergy/AdvReac Type Severity Reaction Status Date / Time Environmental Allergies: Allergy Other Verified 01/28/25 09:40 Uncoded peanut Allergy Anaphylaxis Verified 01/28/25 09:40 Family History Other Anxiety Asthma CVA (cerebral vascular accident) Cancer Depression Diabetes Heart disease Hypercholesteremia Hypertension Kidney disease Surgical History History of oral surgery Social History Smoking Status: Never smoker alcohol intake: never substance use type: does not use frequency: daily ROS ROS ED ROS Narrative Review of systems positive for shortness of breath and difficulty breathing x 1 week. No fevers or chills. No cough. No exacerbating or alleviating factors. EXAM Physical Exam Narrative Exam Narrative: Afebrile. Vital signs noted. Nontoxic-appearing. Cardiovascular examination reveals regular rate and rhythm. Lungs are clear to auscultation bilaterally without wheezing or stridor, moving a good amount of air, but she has slightly prolonged expiratory phase. Abdomen is soft and nontender with positive bowel sounds. Neurological examination nonfocal, nonlateralizing. Const Vital Signs: 01/28/25 09:40 01/28/25 09:52 01/28/25 10:06 Temperature 97.5 F L Temperature Source Temporal Pulse Rate 99 74 Respiratory Rate 18 18 Respiratory Effort Non-Labored Short of Breath Respiratory Depth Normal Respiratory Pattern Normal Normal Blood Pressure 116/61 Blood Pressure Mean 79 Pulse Ox 98 Oxygen Delivery Method Room Air Room Air 01/28/25 11:01 Temperature 97.8 F Temperature Source Pulse Rate 70 Respiratory Rate 16 Respiratory Effort Respiratory Depth Respiratory Pattern Blood Pressure 125/61 H Blood Pressure Mean 82 Pulse Ox 96 Oxygen Delivery Method MDM MDM MDM Narrative Medical decision making narrative: Differential diagnosis includes but not limited to asthma exacerbation versus pneumonia versus pneumothorax. History and physical does not support the latter 2 diagnoses. Pulse ox is 98% on room air without evidence of hypoxia. Patient (more content not included)... Normal [facility] Urgent Care Visit Reporton 0 01-26-2025 Urgent Care Visit Report [facility] [address], [address] [place] [address] OFFICE VISIT Date of Service: 01/26/25 MR#: [id number] Acct: [id number] Name: LEXIS GUERRA Rep #: [id number] : 2005 Provider: YOSELYN Hardin Age/Sex: 20/F Location: [facility] Status: Signed Intake Vital Signs 01/02/25 12:46 01/26/25 09:56 Height 5 ft 4 in BP 110/70 Blood Pressure Location Lt brachial Position Sitting Respiration 17 Pulse 96 Pulse Source NIBP Temp 98.6 F Temp Source Oral Pulse Oximetry (%) 97 Oxygen Delivery Method room air Intake Visit Reasons: Shortness of breath Chief 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 Normal [facility] MR/BMS.BPon 01-02-2025 MR/BMS.BP [facility] [address], [address] [place] [address] OFFICE VISIT Date of Service: 01/02/25 MR#: [id number] Acct: [id number] Name: BOLIVAR GUERRANA ELENI Rep #: [id number] : 2005 [facility] Age/Sex: 19/F Location: [facility] Status: Signed Intake Vital Signs 07/26/24 08:08 11/03/24 06:56 01/02/25 12:46 Height 5 ft 4 in 5 ft 4 in 5 ft 4 in BP Intake Visit Reasons: Follow up Allergies Environmental Allergies: Uncoded Allergy (Verified 11/03/24 07:00) Other peanut Allergy (Verified 11/03/24 07:00) Anaphylaxis PENDING SALE TO [facility] Medical History (Updated 08/04/24 @ 13:20 by Ranjan TOPETE PA) Cephalgia Lumbar radiculopathy Lumbar strain Dog [...] about at (more content not included)... Normal [facility] MR/BMS.BPon 11-03-2024 MR/BMS.BP [facility] [address], [address] [place] [address] OFFICE VISIT Date of Service: 11/03/24 MR#: [id number] Acct: [id number] Name: LEXIS GUERRA Rep #: [id number] : 2005 Provider: DORETHA yung Age/Sex: 19/F Location: [facility] Status: Signed Intake Vital Signs 10/07/24 06:48 06/26/25 06:56 Height 5 ft 4 in 5 [...] tablet 5 mg PO HS PRN sleep 02/23/2310/10 History etonogestrel 68 mg subdermal 1 implant subdermal ONCE 05/22/23 11/03/24 History implant (Nexplanon) albuterol sulfate 90 mcg/actuation 1 - 2 puff inhalation Q4H PRN OK N 06/16/23 11/03/24 Rx aerosol inhaler (ProAir [...] ex boyfriend and he is currently in fci. Reports she has also been having car issues which has been stressful for her. Is currently taking no medication as she decided to discontinue everything. Reports she has not been feeling depressed. Is feeling more irritable and more short tempered than she has before. Denies SI/HI. Does feel anxious daily. Is still working at [employer] and does not generally like it because [...] pounds since July. Has continued to see Christal Paulino [facility]. Previous similar episode: Yes Age of first [...] - Psych (more content not included)... Normal [facility] MR/BMS.BPon 11-01-2024 MR/BMS.BP [facility] ry [address], [address] [place] [address] OFFICE VISIT Date of Service: 10/31/24 MR#: [id number] Acct: [id number] Name: LEXIS GUERRA Rep #: [id number] : 2005 Provider: [facility] Christal sheriff Age/Sex: 19/F Location: [facility] Status: Signed Intake Vital Signs 07/26/24 08:08 10/07/24 06:48 11/01/24 12:52 Height 5 ft 4 in 5 ft 4 in 5 ft 4 in BP Intake Visit Reasons: Follow up Allergies Environmental Allergies: Uncoded Allergy (Verified 10/26/24 17:00) Other peanut Allergy (Verified 10/26/24 17:00) Anaphylaxis PENDING SALE TO [facility] Medical History (Updated 08/04/24 @ 13:20 by [...] violation and sentenced to 60 days in fci. Lexis claimed that ex-boyfriend asked her to [...] with ex-boyfriend. Lexis did express concern that ex-nicolasfriend has been dishonest with her. No SI. [...] to re (more content not included)... Normal [facility] Urine Cultureon 10-30-2024 URC Below infection leve l. Mixed Gram Positive Organisms [place] Count 1000-10,000 MIXC Mixed contaminants. Submit a new specimen if indicated. [facility] Comment on above: Performed By: #### L 400.7600, M8200.2203 #### [facility] [address] [place], [address] M8200.2203on 10-27-2024 M8200.2203 Chlamydia Trachomati s PCR NEGATIVE for Chlamydia trachomatis N. gonorrhoeae PCR Negative for N. gonorrhoeae Normal [facility] Comment on above: Performed By: #### L 400.7600, M8200.2203 #### [facility] [address] [place], [place], [id number] ,Urineon 10-27-2024 Beta HCG ( test) Ql (U) Negative [facility] Comment on above: Order Comment: Result Comment: Very dilute urine specimens, as indicated by a low specific gravity, may not contain sales representative advertising levels of hCG. If is still suspected, a first morning urine specimen should be collected 48 hours later and tested. Performed By: #### L 400.7600, M8200.2203 #### [facility] [address] [place], [place], [id number] Urgent Care Visit Reporton 0 10-26-2024 Urgent Care Visit Report [facility] [address], [address] [place], [place] [address] OFFICE VISIT Date of Service: 10/26/24 MR#: [id number] Acct: [id number] Name: LEXIS GUERRA Rep #: [id number] : 2005 Provider: YOSELYN Garcia Age/Sex: 19/F Location: [facility] Status: Signed Intake Vital Signs 10/07/24 06:48 10/26/24 16:55 Height 5 ft 4 in BP 112/64 Blood Pressure Location Lt brachial Position Sitting Respiration 14 Pulse 86 Pulse Source NIBP Temp 98.3 F Temp Source Oral Pulse Oximetry (%) 98 Oxygen Delivery Method room air Intake Visit Reasons: CONCERN FOR UTI Chief Complaint: flank pain, pubic discomfort, vaginal discharge Salvager 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 Normal [facility] MR/Kayden 10-07-2024 MR/ [address], [address] [place] [id number] OFFICE VISIT Date of Service: 10/06/24 MR#: [id number] Acct: [id number] Name: LEXIS GUERRA Rep #: [id number] : 2005 Provider: EAN sheriff Age/Sex: 19/F Location: [facility] Status: Signed Intake Vital Signs 07/26/24 08:08 09/15/24 15:58 10/07/24 06:48 Height 5 ft 4 in 5 ft 4 in 5 ft 4 in BP Intake Visit Reasons: Follow up Allergies Environmental Allergies: Uncoded Allergy (Verified 08/04/24 13:02) Other peanut Allergy (Verified 08/04/24 13:02) Anaphylaxis PENDING SALE TO [facility] Medical History (Updated 08/04/24 @ 13:20 by [...] with ot (more content not included)... Normal [facility] MR/on 09-15-2024 MR/ [facility] [address] [place] [address], [address] [place] [address] OFFICE VISIT Date of Service: 09/15/24 MR#: [id number] Acct: [id number] Name: LEXIS GUERRA Rep #: [id number] : 2005 Provider: EAN Murrellryder Hernandez sharita Age/Sex: 19/F Location: [facility] Status: Signed Intake Vital Signs 07/26/24 08:08 09/15/24 15:58 Height 5 ft 4 in 5 ft 4 in BP Intake Visit Reasons: Follow up Allergies Environmental Allergies: Uncoded Allergy (Verified 08/04/24 13:02) Other peanut Allergy (Verified 08/04/24 13:02) Anaphylaxis PENDING SALE TO [facility] Medical History (Updated 08/04/24 @ 13:20 by [...] (minutes): 60 (more content not included)... Normal [facility] Urgent Care Visit Reporton 0 08-04-2024 Urgent Care Visit Report [facility] [address], [address] [place] [address] OFFICE VISIT Date of Service: 08/04/24 MR#: [id number] Acct: [id number] Name: LEXIS GUERRA Rep #: [id number] : 2005 Provider: YOSELYN Hardin Age/Sex: 19/F Location: [facility] Status: Signed Intake Vital Signs 07/26/24 08:08 [...] (Zyrtec) 10 mg PO DAILY PRN Allergies 10/0 01/2608/04/24 History escitalopram oxalate 20 mg tablet [...] 1 - 2 puff inhalation Q4H PRN OK N 06/16/23 08/04/24 Rx aerosol inhaler (ProAir [...] that have been going on since . PENDING SALE TO [facility] Medical History (Updated 08/04/24 @ 13:20 by [...] Exam Const General: cooperative and well developed HENGA Head: normal to inspection and atraumatic Ears: [...] of p (more content not included)... Normal [facility] MR/BMS.BPon 07-26-2024 MR/BMS.BP [address], [address] [place] [address] OFFICE VISIT Date of Service: 07/26/24 MR#: [id number] Acct: [id number] Name: LEXIS GUERRA Rep #: [id number] : 2005 Provider: [facility] Christal sheriff Age/Sex: 19/F Location: [facility] Status: Signed with Addenda ADDENDUM by [facility] Christal Paulino on 08/12/24 at 0757 HPI HPI Narrative: Lexis uGerra was not returning for BH therapy. She participated in a diagnostic assessment to begin BH therapy. 08/12/24 0757 Date Christal Paulino [facility] cc: * Signed Intake Vital Signs 01/19/24 [...] Other peanut Allergy (Verified 07/20/24 07:21) Anaphylaxis PENDING SALE TO [facility] Medical History (Updated 07/20/24 @ 09:01 by [...] for therapy. She receives psychiatric services at [facility] from Shira Pastor CNP and is [...] 1 year ago for 6-8 months at [facility] and reports that this was a positive [...] they were (more content not included)... Normal [facility] MR/BMS.BPon 07-20-2024 MR/BMS.BP [facility] [address], [address] [place] [address] OFFICE VISIT Date of Service: 07/20/24 MR#: [id number] Acct: [id number] Name: LEXIS GUERRA Rep #: [id number] : 2005 Provider: DORETHA yung Age/Sex: 19/F Location: [facility] Status: Signed Intake Vital Signs 01/19/24 16:16 [...] (Zyrtec) 10 mg PO DAILY PRN Allergies 01/2607/20/24 History escitalopram oxalate 20 mg tablet 20 [...] 1 - 2 puff inhalation Q4H PRN OK N 06/16/23 07/20/24 Rx aerosol inhaler (ProAir [...] to some difficulties with short term memory. manager terminal memory intact. Does report feeling forgetful but [...] and cry (more content not included)... Normal [facility] .Auto Diffon 07-06-2024 Basophil, Absolute 0.0 10 3/mcL Normal 0.0-0.2 [facility] Comment on above: Performed By: #### M DW, GFR, TROPHS, CBC, BMP, DIMER, ANEU, ADIFF #### [address] [address] Basophils/100 WBC (Bld) 0.3 % Normal 0.0-2.5 [facility] Comment on above: Performed By: #### M DW, GFR, TROPHS, CBC, BMP, DIMER, ANEU, ADIFF #### [address] [address] Eosinophil, Absolute 0.3 10 3/mcL Normal 0.0-0.7 [facility] Comment on above: Performed By: #### M DW, GFR, TROPHS, CBC, BMP, DIMER, ANEU, ADIFF #### [address] [address] Eosinophils/100 WBC (Bld) 4.1 % Normal 0.0-7.0 [facility] Comment on above: Performed By: #### M DW, GFR, TROPHS, CBC, BMP, DIMER, ANEU, ADIFF #### [address] [address] Lymphocyte, Absolute 3.1 10 3/mcL Normal 0.9-4.3 [facility] Comment on above: Performed By: #### M DW, GFR, TROPHS, CBC, BMP, DIMER, ANEU, ADIFF #### [address] [address] Lymphocytes/100 WBC (Bld) 40.4 % High 20.0-40.0 [facility] Comment on above: Performed By: #### M DW, GFR, TROPHS, CBC, BMP, DIMER, ANEU, ADIFF #### [address] [address] Monocyte, Absolute 0.3 10 3/mcL Normal 0.1-1.4 [facility] Comment on above: Performed By: #### M DW, GFR, TROPHS, CBC, BMP, DIMER, ANEU, ADIFF #### [address] [address] Monocytes/100 WBC (Bld) 4.6 % Normal 2.0-13.0 [facility] Comment on above: Performed By: #### M DW, GFR, TROPHS, CBC, BMP, DIMER, ANEU, ADIFF #### [address] [address] Neutrophils/100 WBC (Bld) 50.5 % Normal 50.0-75.0 [facility] Comment on above: Performed By: #### M DW, GFR, TROPHS, CBC, BMP, DIMER, ANEU, ADIFF #### [address] [address] .GFRon 07-06-2024 Estimated Glomerular Filtration Rate 59 ml/min/1.73sqm Normal [facility] Comment on above: Result Comment: Stages of [...] GFR, TROPHS, CBC, BMP, DIMER, ANEU, ADIFF ####[address] [address] .MDWon 07-06-2024 Monocyte Distribution Width Not performed Normal 0.00-20.00 [facility] Comment on above: Result Comment: MDW testing unable to be performed on [id number] instrumentation. Performed By: #### M DW, GFR, TROPHS, CBC, BMP, DIMER, ANEU, ADIFF #### [address] [address] .NEUABSon 07-06-2024 Neutrophil, Absolute 3.8 10 3/mcL Normal 2.3-8.1 [facility] Comment on above: Performed By: #### M DW, GFR, TROPHS, CBC, BMP, DIMER, ANEU, ADIFF #### [place] [address] .Urinalysis Microscopic (AO) on 07-06-2024 UA Bacteria Trace Abnormal [facility] Comment on above: Performed By: #### U A, UAMICAO, PREGU #### [place] [address] UA Mucous 2+ /hpf Normal [facility] Comment on above: Performed By: #### U A, UAMICAO, PREGU #### [place] [address] UA RBC 5-10 Abnormal None Seen [facility] Comment on above: Performed By: #### U A, UAMICAO, PREGU #### [place] [address] UA Renal Epithelial Rare Abnormal [facility] Comment on above: Performed By: #### U A, UAMICAO, PREGU #### [place] [address] UA Squam Epithelial 5-10 Abnormal None Seen [facility] Comment on above: Performed By: #### U A, UAMICAO, PREGU #### [place] [address] UA WBC LOADED Abnormal None Seen [facility] Comment on above: Performed By: #### U A, UAMICAO, PREGU #### [place] [address] BMPon 07-06-2024 BUN/Creatinine Ratio 17 ratio Normal 7-27 [facility] Comment on above: Performed By: #### M DW, GFR, TROPHS, CBC, BMP, DIMER, ANEU, ADIFF #### [place] [address] Calcium [Mass/Vol] 9.0 mg/dL Normal 8.4-10.2 [facility] Comment on above: Performed By: #### M DW, GFR, TROPHS, CBC, BMP, DIMER, ANEU, ADIFF #### [address] [address] Chloride [Moles/Vol] 106 mmol/L Normal 98-107 [facility] Comment on above: Performed By: #### M DW, GFR, TROPHS, CBC, BMP, DIMER, ANEU, ADIFF #### [address] [address] CO2 [Moles/Vol] 27 mmol/L Normal 22-29 [facility] Comment on above: Performed By: #### M DW, GFR, TROPHS, CBC, BMP, DIMER, ANEU, ADIFF #### [address] [address] Creatinine [Mass/Vol] 1.34 mg/dL High 0.55-1.02 [facility] Comment on above: Result Comment: Test ing performed on Siemens Dimension EXL analyzer using a modified kinetic Andre technique. Performed By: #### M DW, GFR, TROPHS, CBC, BMP, DIMER, ANEU, ADIFF #### [address] [address] Electrolyte Balance 7.0 mEq/L Normal 4.0-15.0 [facility] Comment on above: Performed By: #### M DW, GFR, TROPHS, CBC, BMP, DIMER, ANEU, ADIFF #### [address] [address] Glucose [Mass/Vol] 82 mg/dL Normal 70-105 [facility] Comment on above: Performed By: #### M DW, GFR, TROPHS, CBC, BMP, DIMER, ANEU, ADIFF #### [address] [address] Potassium [Moles/Vol] 3.8 mmol/L Normal 3.5-5.1 [facility] Comment on above: Performed By: #### M DW, GFR, TROPHS, CBC, BMP, DIMER, ANEU, ADIFF #### [address] [address] Sodium [Moles/Vol] 140 mmol/L Normal 136-145 [facility] Comment on above: Performed By: #### M DW, GFR, TROPHS, CBC, BMP, DIMER, ANEU, ADIFF #### [address] [address] Urea nitrogen [Mass/Vol] 23 mg/dL High 7-18 [facility] Comment on above: Performed By: #### M DW, GFR, TROPHS, CBC, BMP, DIMER, ANEU, ADIFF #### [address] [address] CBCon 07-06-2024 Erythrocyte distribution width (RBC) [Ratio] 13.0 % Normal 11.5-15.5 [facility] Comment on above: Performed By: #### M DW, GFR, TROPHS, CBC, BMP, DIMER, ANEU, ADIFF #### [address] [address] Hematocrit (Bld) [Volume fraction] 42.0 % Normal 34.0-46.0 [facility] Comment on above: Performed By: #### M DW, GFR, TROPHS, CBC, BMP, DIMER, ANEU, ADIFF #### [address] [address] Hgb 15.1 G/dL Normal 12.0-16.0 [facility] Comment on above: Performed By: #### M DW, GFR, TROPHS, CBC, BMP, DIMER, ANEU, ADIFF #### [address] [address] MCH (RBC) [Entitic mass] 31.5 pg Normal 27.0-33.0 [facility] Comment on above: Performed By: #### M DW, GFR, TROPHS, CBC, BMP, DIMER, ANEU, ADIFF #### [address] [address] MCHC 36.1 G/dL High 32.0-36.0 [facility] Comment on above: Performed By: #### M DW, GFR, TROPHS, CBC, BMP, DIMER, ANEU, ADIFF #### [address] [address] MCV (RBC) [Entitic vol] 87.4 fL Normal 80.0-99.0 [facility] Comment on above: Performed By: #### M DW, GFR, TROPHS, CBC, BMP, DIMER, ANEU, ADIFF #### [address] [address] Platelet 274 10 3/mcL Normal 150-450 [facility] Comment on above: Performed By: #### M DW, GFR, TROPHS, CBC, BMP, DIMER, ANEU, ADIFF #### [address] [address] Platelet mean volume (Bld) [Entitic vol] 7.3 fL Normal 6.6-10.5 [facility] Comment on above: Performed By: #### M DW, GFR, TROPHS, CBC, BMP, DIMER, ANEU, ADIFF #### [address] [address] RBC 4.81 10 6/mcL Normal 4.10-5.30 [facility] Comment on above: Performed By: #### M DW, GFR, TROPHS, CBC, BMP, DIMER, ANEU, ADIFF #### [address] [address] WBC 7.6 10 3/mcL Normal 4.5-10.8 [facility] Comment on above: Performed By: #### M DW, GFR, TROPHS, CBC, BMP, DIMER, ANEU, ADIFF #### [address] [address] [address] HEAD OR BRAIN W/O CONTRJAGRUTI Osman 07-06-2024 CT HEAD OR BRAIN W/O CONTRAST [...] Date: 07/06/2024 2:30:26 AM Ordering Provider: ASHWINI Saldaña [facility] DIMERon 07-06-2024 D-Dimer <200 Normal 0-230 [facility] Comment on above: Result Comment: DDN: Results [...] GFR, TROPHS, CBC, BMP, DIMER, ANEU, ADIFF ####[id number] [place], [place] [address] LABORATORYOrdered By: Brock King on 07-06-2024 Appearance [...] MDW testing unable to be performed on [id number] instrumentation. test (u) int Not detected Invalid [...] above: Interpretive Data: T esting performed on [employer] Dimension EXL analyzer using a modified kinetic [...] ng/L Male: 0-76 ng/L Testing performed on Dimension EXL using a homogeneous sandwich chemiluminescent immunoassay based on [employer] technology. Urea nitrogen [Mass/Vol] 23 mg/dL High 7 - 18 mg/dL AO ADM SS Urea nitrogen/Creatinine [Mass ratio] 17 ratio Normal 7 - 27 ratio AO ADM SS WBC (Bld) [#/Vol] 7.6 103/mcL Normal 4.5 - 10.8 10^3/mcL AO Workflow SS PREGUon 07-06-2024 HCG ( test) Ql (U) Negative Normal [facility] Comment on above: Performed By: #### U ACANDIDO, PREGU #### [address] [address] test (u) int Not detected Invalid Interpretation Code [facility] Comment on above: Performed By: #### U A, UASUSSY, PREGU #### [address] [address] TROPHSon 07-06-2024 High Sensitivity Troponin I 25 ng/L Normal 0-51 [facility] Comment on above: Result Comment: High Sensitive Troponin I Reference Ranges: Female: 0-51 ng/L Male: 0-76 ng/L Testing performed on [employer] EXL using a homogeneous sandwich chemiluminescent immunoassay based on [employer] technology. Performed By: #### M DW, GFR, TROPHS, CBC, BMP, DIMER, ANEU, ADIFF ####[place] [address] UAon 07-06-2024 Color (U) Yellow Normal [facility] Comment on above: Performed By: #### U A, UAMICAO, PREGU #### [place] [address] Glucose (U) [Mass/Vol] Negative Normal Negative [facility] Comment on above: Performed By: #### U A, UAMICAO, PREGU #### [place] [address] Ketones Ql (U) Negative Normal Negative [facility] Comment on above: Performed By: #### U A, UAMICAO, PREGU #### [place] [address] UA Appear Cloudy Abnormal Clear [facility] Comment on above: Performed By: #### U A, UAMICAO, PREGU #### [place] [address] UA Blood Large Abnormal Negative [facility] Comment on above: Performed By: #### U A, UAMICAO, PREGU #### [place] [address] UA Leuk Est Small Abnormal Negative [facility] Comment on above: Performed By: #### U A, UAMICAO, PREGU #### [place] [address] UA Nitrite Negative Normal Negative [facility] Comment on above: Performed By: #### U A, UAMICAO, PREGU #### [place] [address] UA pH 6.0 Normal 5.0 - 8.0 [facility] Comment on above: Performed By: #### U A, UAMICAO, PREGU #### [place] [address] UA Protein 100 mg/dL Abnormal Negative [facility] Comment on above: Performed By: #### U A, UAMICAO, PREGU #### [facility] [address] [place], [place] [address] UA Spec Grav >=1.030 Abnormal 1.015-1.02 5 [facility] Comment on above: Performed By: #### U CANDIDO Devries PREGU #### [facility] [address] [place], [place] [address] UA Specimen Type Clean Catch Normal [facility] Comment on above: Performed By: #### U CANDIDO Devries, PREGU #### [place] [id number] [place], [place] [address] UA Urobilinogen 0.2 E.U./dL Normal 0.2-1.0 [facility] Comment on above: Performed By: #### CANDIDO Henley, PREGU #### [address] [address] Urobilinogen (U) [Mass/Vol] Negative Normal Negative [facility] Comment on above: Performed By: #### CANDIDO Henley, PREGU #### [address] [address] XR CHEST 1 VIEWon 07-06-2024 XR CHEST [...] 07/06/2024 2:21:32 AM Ordering Provider: ASHWINI RENTERIA [facility] CNOVon 06-23-2024 CNOV Office Visit (PEDSWS ) ----- LEXIS GUERRA ([id number]) 5 F Date Time Provider Department 06/23/24 9:45 AM UVALDO JORGENSEN PEDSWDavid During your visit today, we recorded the [...] like to be referred to psychiatry at [facility] and will engage in counseling [...] RELIEF) 50 mcg/actuation nasal spray Use 1 [place] in each nostril once daily. inhalat.spacing dev,large [...] OF RSV (more content not included)... Normal [facility] UA DIP, URINE (POC)on 2023 BILIRUBIN UA (POCT) Negative Negative [facility] CLARITY UA (POCT) Clear [facility] COLOR UA (POCT) Yellow [facility] GLUCOSE UA (POCT) Negative Negative mg/dL [facility] Hemoglobin Ql (U) Large Abnormal Negative [facility] KETONE UA (POCT) Trace Negative mg/dL [facility] LEUKOCYTES UA (POCT) Trace Abnormal Negative [facility] NITRITE UA (POCT) Negative Negative [facility] PH UA (POCT) 6.5 4.5 - 8.0 [facility] Protein Ql (U) 100 mg/dL Abnormal Negative mg/dL [facility] SPECIFIC GRAVITY UA (POCT) >=1.030 1.005 - 1.030 [facility] UROBILINOGEN UA (POCT) 0.2 E.U./dL Karin l E.U./dL [facility] XR ABDOMEN 1V SUPINEon 06-11 [facility] XR Abdomen Supine and Uprigh ton 06-11-2023 IMPRESSION: Normal intestinal gas pattern. Power Ballast Machine Operator: DOMINIK Transcribe Date/Time: Jun 11 2023 8:33A Dictated by : Sirisha TANG MD This examination was interpreted and the report reviewed and electronically signed by: Sirisha TANG MD on Jun 11 2023 8:34AM [facility] DIVISION OF RADIOLOGY * * *Final [...] urinary calculus identified. DIVISION OF RADIOLOGY Provider, Lorenzo Arreola - 06/11/2023 * * *Final Report* * [...] identified. IMPRESSION IMPRESSION: Normal intestinal gas pattern. Power Ballast Machine Operator: DOMINIK Transcribe Date/Time: Jun 11 2023 8:33A Dictated by : Sirisha TANG MD This examination was interpreted and the report reviewed and electronically signed by: Sirisha TANG MD on Jun 11 2023 8:34AM EST [facility] Radiology Study observation (narrative) [facility] XR Abdomen Supine and Uprigh tOrdered By: Ccf Provider on 06-11-2023 [facility] Absolute lymphocyte countOrd ered By: James Gomez on 04-19-2023 Lymphocytes Auto (Unsp spec) [#/Vol] 2.47 10*3/uL 0.83-4.51 [facility] Basophil percentageOrdered B y: James Gomez on 04-19-2023 Basophils/100 WBC (Bld) 0.4 % 0-1 [facility] Bilirubin [Mass/Vol] 0.50 mg/dL 0.20-1.00 [facility] Comment on above: For patients on eltr ombopag therapy, use of Dimension [place] TBIL is not recommended. Chloride [Moles/Vol] 107 mmol/L 98-107 [facility] Eosinophils/100 WBC (Bld) 1.9 % 0-3 [facility] Glucose [Mass/Vol] 103 mg/dL 74-106 [facility] Comment on above: Fasting Glucose resu lt from 100 to 125 mg/dL suggests IMPAIRED HOMEOSTASIS per A.D.A. criteria. Neutrophils (Bld) [#/Vol] 7.5 10*3/uL 2.0-7.7 [facility] Neutrophils/100 WBC (Bld) 68.5 % 34-64 [facility] Potassium [Moles/Vol] 3.7 mmol/L 3.5-5.1 [facility] Protein [Mass/Vol] 7.0 g/dL 6.4-8.2 [facility] Sodium [Moles/Vol] 141 mmol/L 136-145 [facility] WBC (Bld) [#/Vol] 10.9 10*3/uL 4.5-13.0 [facility] Beta hCG serum qualOrdered B y: James Gomez on 04-19-2023 Beta HCG ( test) Ql Negative [facility] Blood erythrocytes count (nu mber/volume)Ordered By: James Gomez on 04-19-2023 RBC (Bld) [#/Vol] 5.06 10*6/uL 4.1-4.8 [facility] Blood hemoglobin measurement (mass/volume)Ordered By: James Gomez on 04-19-2023 Hemoglobin (Bld) [Mass/Vol] 14.6 g/dL 12.0-15.0 [facility] Blood lymphocytes/100 leukoc ytesOrdered By: James Gomez on 04-19-2023 Lymphocytes/100 WBC (Bld) 22.7 % 25-45 [facility] Blood monocytes/100 leukocyt esOrdered By: James Gomez on 04-19-2023 Monocytes/100 WBC (Bld) 6.2 % 3-6 [facility] Blood platelet mean volumeOr dered By: James Gomez on 04-19-2023 Platelet mean volume (Bld) [Entitic vol] 9.4 fL 6.2-12.0 [facility] Determination of erythrocyte mean corpuscular volume (MCV)Ordered By: James Gomez on 04-19-2023 MCV (RBC) [Entitic vol] 83.2 fL 78-96 [facility] Direct bilirubinOrdered By: Jaems Gomez on 04-19-2023 Bilirubin.direct [Mass/Vol] 0.16 mg/dL 0.00-0.30 [facility] Hematocrit Auto (Bld) [Volum e fraction]Ordered By: James Gomez on 04-19-2023 Hematocrit (Bld) [Volume fraction] 42.1 % 37-46 [facility] Laboratory - Chemistry and C hemistry - challengeOrdered By: James Gomez on 04-19-2023 ALP [Catalytic activity/Vol] 81 U/L 47-119 [facility] ALT [Catalytic activity/Vol] 38 U/L 13-56 [facility] CO2 [Moles/Vol] 32.0 mmol/L 21.0-32.0 [facility] Globulin (S) [Mass/Vol] 3.3 g/dL 2.2-4.2 [facility] Lipase [Catalytic activity/Vol] 32 U/L 13-75 [facility] Comment on above: Please note:LIPASE r evised reference range effective 22. New Lipase methodology. Expected to produce lower values than the previous assay method. NEW Reference Range: 13 - 75 U/L Magnesium [Mass/Vol] 2.6 mg/dL 1.6-2.6 [facility] Urea nitrogen/Creatinine [Mass ratio] 17.3 mg/mg 10-20 [facility] Laboratory - Hematology and Cell countsOrdered By: James Gomez on 04-19-2023 Erythrocyte distribution width (RBC) [Entitic vol] 35.8 fL 35.1-43.9 [facility] Erythrocyte distribution width (RBC) [Ratio] 11.9 % 11.6-14.6 [facility] Immature granulocytes/100 WBC (Bld) 0.300 % 0.0-0.9 [facility] Comment on above: IG% - Immature Granu locytes (promyelocytes, myelocytes and metamyelocytes) > 1% indicates that a LEFT SHIFT is Present. MCH (RBC) [Entitic mass] 28.9 pg 25.0-35.0 [facility] Nucleated RBC/100 WBC (Bld) [Ratio] 0 % 0-5 [facility] MCHC Auto (RBC) [Mass/Vol]Or dered By: James Gomez on 04-19-2023 MCHC (RBC) [Mass/Vol] 34.7 g/dL 32-36 [facility] No Panel InformationOrdered By: James Gomez on 04-19-2023 Estimated Creatinine Clearance Calc 85.63 ml/min [facility] Estimated GFR (MDRD) Amer 101 mL/min >60 [facility] Comment on above: GFR Calc Estimated GFR (MDRD) Non-Af Amer 84 mL/min >60 [facility] Comment on above: Non- GFR Calc Platelets bldOrdered By: Gigi Gomez on 04-19-2023 Platelets (Bld) [#/Vol] 281 10*3/uL 150-450 [facility] Serum or plasma albumin rigo urement (mass/volume)Ordered By: James Gomez on 04-19-2023 Albumin [Mass/Vol] 3.7 g/dL 3.2-5.0 [facility] Serum or plasma calcium rigo urement (mass/volume)Ordered By: James Gomez on 04-19-2023 Calcium [Mass/Vol] 9.3 mg/dL 8.5-10.1 [facility] Serum or plasma creatinine m easurement (mass/volume)Ordered By: James Gomez on 04-19-2023 Creatinine [Mass/Vol] 0.92 mg/dL 0.55-1.02 [facility] Comment on above: The validity of the calculated GFR & GFRAA in patients over 70 years has not been determined. Clinical correlation is essential. Serum or plasma urea nitroge n measurement (mass/volume)Ordered By: James Gomez on 04-19-2023 Urea nitrogen [Mass/Vol] 16 mg/dL 7-18 [facility] Thin prep Papanicolaou smear with manual screeningOrdered By: James Gomez on 04-19-2023 Thin prep Papanicolaou smear with manual screening 19 U/L 15-37 [facility] Thin prep Papanicolaou smear with manual screening 2 5-15 [facility] Throat Streptococcus pyogene s antigen detection by immunofluorescenceOrdered By: James Gomez on 04-19-2023 S. pyogenes Ag IF Ql (Throat) [facility] Absolute lymphocyte countOrd ered By: Dr. Gutierrez on 09-19-2022 Lymphocytes Auto (Unsp spec) [#/Vol] 1.64 10*3/uL 0.83-4.51 [facility] Basophil percentageOrdered B y: Dr. Gutierrez on 09-19-2022 Basophil percentage 0 SEEN /hpf 0-5 [facility] Basophils/100 WBC (Bld) 0.5 % 0-1 [facility] Bilirubin [Mass/Vol] 0.30 mg/dL 0.20-1.00 [facility] Comment on above: For patients on eltr ombopag therapy, use of Dimension [place] TBIL is not recommended. Chloride [Moles/Vol] 107 mmol/L 98-107 [facility] Eosinophils/100 WBC (Bld) 1.4 % 0-3 [facility] Glucose [Mass/Vol] 89 mg/dL 74-106 [facility] Neutrophils (Bld) [#/Vol] 10.2 10*3/uL 2.0-7.7 [facility] Neutrophils/100 WBC (Bld) 79.7 % 34-64 [facility] Potassium [Moles/Vol] 3.6 mmol/L 3.5-5.1 [facility] Protein [Mass/Vol] 6.7 g/dL 6.4-8.2 [facility] Sodium [Moles/Vol] 140 mmol/L 136-145 [facility] WBC (Bld) [#/Vol] 12.8 10*3/uL 4.5-13.0 [facility] Beta hCG serum qualOrdered B y: Dr. Gutierrez on 09-19-2022 Beta HCG ( test) Ql Negative [facility] Bilirubin Test strip Ql (U)O rdered By: Dr. Gutierrez on 09-19-2022 Bilirubin Ql (U) Negative Negative [facility] Blood erythrocytes count (nu mber/volume)Ordered By: Dr. Gutierrez on 09-19-2022 RBC (Bld) [#/Vol] 4.95 10*6/uL 4.1-4.8 [facility] Blood hemoglobin measurement (mass/volume)Ordered By: Dr. Gutierrez on 09-19-2022 Hemoglobin (Bld) [Mass/Vol] 14.3 g/dL 12.0-15.0 [facility] Blood lymphocytes/100 leukoc ytesOrdered By: Dr. Gutierrez on 09-19-2022 Lymphocytes/100 WBC (Bld) 12.8 % 25-45 [facility] Blood monocytes/100 leukocyt esOrdered By: Dr. Gutierrez on 09-19-2022 Monocytes/100 WBC (Bld) 5.2 % 3-6 [facility] Blood platelet mean volumeOr dered By: Dr. Gutierrez on 09-19-2022 Platelet mean volume (Bld) [Entitic vol] 9.0 fL 6.2-12.0 [facility] Determination of erythrocyte mean corpuscular volume (MCV)Ordered By: Dr. Gutierrez on 09-19-2022 MCV (RBC) [Entitic vol] 85.3 fL 78-96 [facility] Direct bilirubinOrdered By: Dr. Gutierrez on 09-19-2022 Bilirubin.direct [Mass/Vol] 0.09 mg/dL 0.00-0.30 [facility] Hematocrit Auto (Bld) [Volum e fraction]Ordered By: Dr. Gutierrez on 09-19-2022 Hematocrit (Bld) [Volume fraction] 42.2 % 37-46 [facility] Ketones Test strip Ql (U)Ord ered By: Dr. Gutierrez on 09-19-2022 Ketones Ql (U) Negative Negative [facility] Laboratory - Chemistry and C hemistry - challengeOrdered By: Dr. Gutierrez on 09-19-2022 ALP [Catalytic activity/Vol] 84 U/L 47-119 [facility] ALT [Catalytic activity/Vol] 33 U/L 13-56 [facility] CO2 [Moles/Vol] 25.0 mmol/L 21.0-32.0 [facility] Globulin (S) [Mass/Vol] 3.1 g/dL 2.2-4.2 [facility] Lipase [Catalytic activity/Vol] 36 U/L 13-75 [facility] Comment on above: Please note:LIPASE r evised reference range effective 22. New Lipase methodology. Expected to produce lower values than the previous assay method. NEW Reference Range: 13 - 75 U/L Urea nitrogen/Creatinine [Mass ratio] 12.9 mg/mg 10-20 [facility] Laboratory - Hematology and Cell countsOrdered By: Dr. Gutierrez on 09-19-2022 Erythrocyte distribution width (RBC) [Entitic vol] 35.5 fL 35.1-43.9 [facility] Erythrocyte distribution width (RBC) [Ratio] 11.6 % 11.6-14.6 [facility] Immature granulocytes/100 WBC (Bld) 0.400 % 0.0-0.9 [facility] Comment on above: IG% - Immature Granu locytes (promyelocytes, myelocytes and metamyelocytes) > 1% indicates that a LEFT SHIFT is Present. MCH (RBC) [Entitic mass] 28.9 pg 25.0-35.0 [facility] Nucleated RBC/100 WBC (Bld) [Ratio] 0 % 0-5 [facility] MCHC Auto (RBC) [Mass/Vol]Or dered By: Dr. Gutierrez on 09-19-2022 MCHC (RBC) [Mass/Vol] 33.9 g/dL 32-36 [facility] Mucus LM Ql (Urine sed)Order ed By: Dr. Gutierrez on 09-19-2022 Mucus Ql (Urine sed) 1+ /hpf [facility] Nitrite Test strip Ql (U)Ord ered By: Dr. Gutierrez on 09-19-2022 Nitrite Ql (U) Negative Negative [facility] No Panel InformationOrdered By: Dr. Gutierrez on 09-19-2022 Estimated Creatinine Clearance Calc 85.41 ml/min [facility] Estimated GFR (MDRD) [facility] Comment on above: Test not performedAf rican [place] GFR Calc Estimated GFR (MDRD) Non-Af [facility] Comment on above: Test not performedNo n- GFR Calc Platelets bldOrdered By: Dr. Gutierrez on 09-19-2022 Platelets (Bld) [#/Vol] 283 10*3/uL 150-450 [facility] Protein Test strip Ql (U)Ord ered By: Dr. Gutierrez on 09-19-2022 Protein Ql (U) 15 mg/dl Negative [facility] Serum or plasma albumin rigo urement (mass/volume)Ordered By: Dr. Gutierrez on 09-19-2022 Albumin [Mass/Vol] 3.6 g/dL 3.2-5.0 [facility] Serum or plasma calcium rigo urement (mass/volume)Ordered By: Dr. Gutierrez on 09-19-2022 Calcium [Mass/Vol] 9.1 mg/dL 8.5-10.1 [facility] Serum or plasma creatinine m easurement (mass/volume)Ordered By: Dr. Gutierrez on 09-19-2022 Creatinine [Mass/Vol] 0.93 mg/dL 0.55-1.02 [facility] Comment on above: The validity of the calculated GFR & GFRAA in patients over 70 years has not been determined. Clinical correlation is essential. Serum or plasma urea nitroge n measurement (mass/volume)Ordered By: Dr. Gutierrez on 09-19-2022 Urea nitrogen [Mass/Vol] 12 mg/dL 7-18 [facility] Squamous epithelial cells de tection in urine sediment by light microscopyOrdered By: Dr. Gutierrez on 09-19-2022 Epithelial cells.squamous LM Ql (Urine sed) 0-5 SEEN /hpf 5-10 [facility] Thin prep Papanicolaou smear with manual screeningOrdered By: Dr. Gutierrez on 09-19-2022 Thin prep Papanicolaou smear with manual screening 19 U/L 15-37 [facility] Thin prep Papanicolaou smear with manual screening 8 5-15 [facility] Urine blood detectionOrdered By: Dr. Gutierrez on 09-19-2022 RBC Ql (U) Negative Negative [facility] RBC Ql (U) 0 SEEN /hpf 0-5 [facility] Urine clarityOrdered By: Dr. Gutierrez on 09-19-2022 Clarity (U) Clear Clear [facility] Urine color determinationOrd ered By: Dr. Gutierrez on 09-19-2022 Color (U) Yellow Yellow [facility] Urine glucose detectionOrder ed By: Dr. Gutierrez on 09-19-2022 Glucose Ql (U) Normal mg/dl Normal [facility] Urine leukocyte esterase det ection by dipstickOrdered By: Dr. Gutierrez on 09-19-2022 Leukocyte esterase Test strip Ql (U) Negative Negative [facility] Urine pHOrdered By: Dr. Leticia barreto on 09-19-2022 pH (U) 6.0 [pH] 5.0 - 8.0 [facility] Urine sediment bacteria coun t by microscopy (number/high power field)Ordered By: Dr. Gutierrez on 09-19-2022 Bacteria LM.HPF (Urine sed) [#/Area] 1 /[HPF] None Seen [facility] Urine specific gravity measu rementOrdered By: Dr. Gutierrez on 09-19-2022 Specific gravity (U) [Rel density] 1.020 1.002-1.03 0 [facility] Urobilinogen Auto test strip Ql (U)Ordered By: Dr. Gutierrez on 09-19-2022 Urobilinogen Ql (U) Normal mg/dl Normal [facility] 2019 CORONAVIRUSon 3 SARS-CoV-2 (COVID-19) RNA KEN+probe Ql (Resp) Not detected See comment [facility] STREP A MOLECULAR (POC)on Procedural Control Valid [facility] Strep A (POCT) Negative Negative [facility] INFLUENZA A&B MOLECULAR (POC )on 06-24-2022 Flu A (POCT) Negative Negative [facility] Flu B (POCT) Negative Negative [facility] Procedural Control Valid [facility] STREP A MOLECULAR (POC)on Procedural Control Valid [facility] Strep A (POCT) Negative Negative [facility] XR RIBS/CHEST 3V AP RIB/OBLS /CXR RIGHTon 04-08-2022 [facility] XR Ribs - right Views and est PAon 04-08-2022 IMPRESSION: No RIGHT rib fracture or pneumothorax. Power Ballast Machine Operator: DOMINIK Transcribe Date/Time: Apr 08 2022 5:32P Dictated by : MCKINLEY MCARTHUR MD This examination was interpreted and the report reviewed and electronically signed by: MCKINLEY MCARTHUR MD on Apr 08 2022 5:35PM [facility] DIVISION OF RADIOLOGY * * *Final [...] the midthoracic spine. DIVISION OF RADIOLOGY Provider, Lorenzo Arreola - 04/08/2022 * * *Final Report* * [...] IMPRESSION: No RIGHT rib fracture or pneumothorax. Power Ballast Machine Operator: PSCB Transcribe Date/Time: Apr 08 2022 5:32P Dictated by : MCKINLEY MCARTHUR MD This examination was interpreted and the report reviewed and electronically signed by: MCKINLEY MCARTHUR MD on Apr 08 2022 5:35PM EST [facility] Radiology Study observation (narrative) [facility] Ribs - right Views and Ch est PAOrdered By: Ccf Provider on 04-08-2022 [facility] Absolute lymphocyte counton 01-22-2022 Lymphocytes Auto (Unsp spec) [#/Vol] 2.06 10*3/uL 0.83-4.51 [facility] Work Phone: Basophil percentageon 2021 Basophil percentage 0 SEEN /hpf 0-5 [facility] Work Phone: Basophils/100 WBC (Bld) 0.3 % 0-1 [facility] Work Phone: Bilirubin [Mass/Vol] 0.30 mg/dL 0.20-1.00 [facility] Work Phone: Comment on above: For patients on eltr ombopag therapy, use of Dimension [place] TBIL is not recommended. Chloride [Moles/Vol] 105 mmol/L 98-107 [facility] Work Phone: Eosinophils/100 WBC (Bld) 4.3 % 0-3 [facility] Work Phone: Glucose [Mass/Vol] 79 mg/dL 74-106 [facility] Work Phone: Neutrophils (Bld) [#/Vol] 6.9 10*3/uL 2.0-7.7 [facility] Work Phone: Neutrophils/100 WBC (Bld) 68.7 % 34-64 [facility] Work Phone: Potassium [Moles/Vol] 3.3 mmol/L 3.5-5.1 [facility] Work Phone: [phone] Protein [Mass/Vol] 7.4 g/dL 6.4-8.2 [facility] Work Phone: Sodium [Moles/Vol] 140 mmol/L 136-145 [facility] Work Phone: [phone] WBC (Bld) [#/Vol] 10.0 10*3/uL 4.5-13.0 [facility] Work Phone: [phone] Beta hCG serum qualon 2021 Beta HCG ( test) Ql Negative [facility] Work Phone: Bilirubin Test strip Ql (U)o n 01-22-2022 Bilirubin Ql (U) Negative Negative [facility] Work Phone: [phone] Blood erythrocytes count (nu mber/volume)on 01-22-2022 RBC (Bld) [#/Vol] 4.93 10*6/uL 4.1-4.8 [facility] Work Phone: [phone] Blood hemoglobin measurement (mass/volume)on 01-22-2022 Hemoglobin (Bld) [Mass/Vol] 14.2 g/dL 12.0-15.0 [facility] Work Phone: Blood lymphocytes/100 leukoc yteson 01-22-2022 Lymphocytes/100 WBC (Bld) 20.6 % 25-45 [facility] Work Phone: Blood monocytes/100 leukocyt eson 01-22-2022 Monocytes/100 WBC (Bld) 5.7 % 3-6 [facility] Work Phone: Blood platelet mean volumeon 01-22-2022 Platelet mean volume (Bld) [Entitic vol] 9.3 fL 6.2-12.0 [facility] Work Phone: Determination of erythrocyte mean corpuscular volume (MCV)on 01-22-2022 MCV (RBC) [Entitic vol] 85.2 fL 78-96 [facility] Work Phone: Hematocrit Auto (Bld) [Volum e fraction]on 01-22-2022 Hematocrit (Bld) [Volume fraction] 42.0 % 37-46 [facility] Work Phone: Ketones Test strip Ql (U)on 01-22-2022 Ketones Ql (U) Negative Negative [facility] Work Phone: Laboratory - Chemistry and C hemistry - challengeon 01-22-2022 ALP [Catalytic activity/Vol] 99 U/L 47-119 [facility] Work Phone: ALT [Catalytic activity/Vol] 27 U/L 13-56 [facility] Work Phone: CO2 [Moles/Vol] 27.0 mmol/L 21.0-32.0 [facility] Work Phone: Globulin (S) [Mass/Vol] 3.7 g/dL 2.2-4.2 [facility] Work Phone: Lipase [Catalytic activity/Vol] 136 U/L 73-393 [facility] Work Phone: Urea nitrogen/Creatinine [Mass ratio] 10.6 mg/mg 10-20 [facility] Work Phone: Laboratory - Hematology and Cell countson 01-22-2022 Erythrocyte distribution width (RBC) [Entitic vol] 35.6 fL 35.1-43.9 [facility] Work Phone: Erythrocyte distribution width (RBC) [Ratio] 11.6 % 11.6-14.6 [facility] Work Phone: Immature granulocytes/100 WBC (Bld) 0.400 % 0.0-0.9 [facility] Work Phone: Comment on above: IG% - Immature Granu locytes (promyelocytes, myelocytes and metamyelocytes) > 1% indicates that a LEFT SHIFT is Present. MCH (RBC) [Entitic mass] 28.8 pg 25.0-35.0 [facility] Work Phone: Nucleated RBC/100 WBC (Bld) [Ratio] 0 % 0-5 [facility] Work Phone: MCHC Auto (RBC) [Mass/Vol]on 01-22-2022 MCHC (RBC) [Mass/Vol] 33.8 g/dL 32-36 [facility] Work Phone: Mucus LM Ql (Urine sed)on Mucus Ql (Urine sed) 0 SEEN /hpf [facility] Work Phone: Nitrite Test strip Ql (U)on 01-22-2022 Nitrite Ql (U) Negative Negative [facility] Work Phone: No Panel Informationon 01-22 Estimated Creatinine Clearance Calc 84.50 ml/min [facility] Work Phone: Estimated GFR (MDRD) Amer FLP [facility] Work Phone: Comment on above: Test not performedAf rican Kenyan GFR Calc Estimated GFR (MDRD) Non-Af Amer [facility] Work Phone: Comment on above: Test not performedNo n- GFR Calc Platelets bldon 01-22-2022 Platelets (Bld) [#/Vol] 293 10*3/uL 150-450 [facility] Work Phone: Protein Test strip Ql (U)on 01-22-2022 Protein Ql (U) 15 mg/dl Negative [facility] Work Phone: Serum or plasma albumin rigo urement (mass/volume)on 01-22-2022 Albumin [Mass/Vol] 3.7 g/dL 3.2-5.0 [facility] Work Phone: Serum or plasma albumin/glob ulin mass ratioon 01-22-2022 Albumin/Globulin [Mass ratio] 1.0 {ratio} 0.9-2.4 [facility] Work Phone: Serum or plasma calcium rigo urement (mass/volume)on 01-22-2022 Calcium [Mass/Vol] 9.3 mg/dL 8.5-10.1 [facility] Work Phone: Serum or plasma creatinine m easurement (mass/volume)on 01-22-2022 Creatinine [Mass/Vol] 0.94 mg/dL 0.55-1.02 [facility] Work Phone: Comment on above: The validity of the calculated GFR & GFRAA in patients over 70 years has not been determined. Clinical correlation is essential. Serum or plasma urea nitroge n measurement (mass/volume)on 01-22-2022 Urea nitrogen [Mass/Vol] 10 mg/dL 7-18 [facility] Work Phone: Squamous epithelial cells de tection in urine sediment by light microscopyon 01-22-2022 Epithelial cells.squamous LM Ql (Urine sed) 0-5 SEEN /hpf 5-10 [facility] Work Phone: Thin prep Papanicolaou smear with manual screeningon 01-22-2022 Thin prep Papanicolaou smear with manual screening 15 U/L 15-37 [facility] Work Phone: Thin prep Papanicolaou smear with manual screening 8 5-15 [facility] Work Phone: Urine blood detectionon 01-09 RBC Ql (U) Negative Negative [facility] Work Phone: RBC Ql (U) 0 SEEN /hpf 0-5 [facility] Work Phone: Urine clarityon 01-22-2022 Clarity (U) Clear Clear [facility] Work Phone: Urine color determinationon 01-22-2022 Color (U) Yellow Yellow [facility] Work Phone: Urine glucose detectionon Glucose Ql (U) Normal mg/dl Normal [facility] Work Phone: Urine leukocyte esterase det ection by dipstickon 01-22-2022 Leukocyte esterase Test strip Ql (U) Negative Negative [facility] Work Phone: Urine pHon 01-22-2022 pH (U) 6.0 [pH] 5.0 - 8.0 [facility] Work Phone: Urine sediment bacteria coun t by microscopy (number/high power field)on 01-22-2022 Bacteria LM.HPF (Urine sed) [#/Area] RARE /hpf None Seen [facility] Work Phone: Urine specific gravity measu rementon 01-22-2022 Specific gravity (U) [Rel density] 1.015 1.002-1.03 0 [facility] Work Phone: Urobilinogen Auto test strip Ql (U)on 01-22-2022 Urobilinogen Ql (U) Normal mg/dl Normal [facility] Work Phone: XR Hand - right PA and Later al and Obliqueon 02-07-2021 IMPRESSION: Soft tissue swelling, but no fracture. Power Ballast Machine Operator: PSCB Transcribe Date/Time: Feb 07 2021 7:32P Dictated by : SEBASTIEN CHAN MD This examination was interpreted and the report reviewed and electronically signed by: SEBASTIEN CHAN MD on Feb 07 2021 7:34PM [facility] DIVISION OF RADIOLOGY * * *Final [...] OTHER FINDINGS: None. DIVISION OF RADIOLOGY Provider, [facility] - 02/07/2021 * * *Final Report* * [...] IMPRESSION: Soft tissue swelling, but no fracture. Power Ballast Machine Operator: [facility] Transcribe Date/Time: Feb 07 2021 7:32P Dictated by : SEBASTIEN CHAN MD This examination was interpreted and the report reviewed and electronically signed by: SEBASTIEN CHAN MD on Feb 07 2021 7:34PM [facility] Radiology Study observation (narrative) [facility] - right PA and Later al and ObliqueOrdered By: Ccf Provider on 02-07-[address] [facility] [address] HEAD OR BRAIN W/O CONTRAS Ton [...] Date: 12/22/2020 8:44:04 PM Ordering Provider: DAVID JOHNSON [facility]) CT SPINE CERVICAL W/O CONTRA STon 12-22-2020 CT SPINE CERVICAL W/O CONTRAST ORIGINAL [...] 12/22/2020 8:45:48 PM Ordering Provider: DAVID JOHNSON [facility]) CT SPINE LUMBAR W/O CONTRAST on 12-22-2020 [...] 12/22/2020 8:47:07 PM Ordering Provider: DAVID JOHNSON Normal [facility] ([place] PREGUon 12-22-2020 HCG ( test) Ql (U) Negative Normal [facility] [place] Comment on above: Performed By: #### P REGU #### [id number] [place], [place] [address] test (u) int Not detected Invalid Interpretation Code [facility] ([place] Comment on above: Performed By: #### P REGU #### [facility] [address] [place], [place] [address] XR Ankle - right AP and Late ral and obliqueon 12-05-2020 IMPRESSION: Soft tissue swelling, but no fracture. Power Ballast Machine Operator: DOMINIK Transcribe Date/Time: Dec 05 2020 9:26A Dictated by : SEBASTIEN CHAN MD This examination was interpreted and the report reviewed and electronically signed by: SEBASTIEN CHAN MD on Dec 05 2020 9:33AM [facility] DIVISION OF RADIOLOGY * * *Final [...] OTHER FINDINGS: None. DIVISION OF RADIOLOGY Provider, [facility] - 12/05/2020 * * *Final Report* * [...] IMPRESSION: Soft tissue swelling, but no fracture. Power Ballast Machine Operator: PSCB Transcribe Date/Time: Dec 05 2020 9:26A Dictated by : SEBASTIEN CHAN MD This examination was interpreted and the report reviewed and electronically signed by: SEBASTIEN CHAN MD on Dec 05 2020 9:33AM EST [facility] Radiology Study observation (narrative) Tom perez [facility] XR Ankle - right AP and Late ral and obliqueOrdered By: Ccf Provider on 12-05-2020 [facility] CHEST PA(AP) AND LATERALon 1 CHEST PA(AP) [...] Dr. Jesus Norris at 02/18/2018 10:53 Normal [facility] Discharge Summaryon 02-19-20 18 Floor Covering Printer Authentication Interface Message Text Discharge/Transfer SummaryName: Lexis Guerra#: [id number] : 2005Room #: 6102/01 Age/Sex: 13 y.o. femaleAdmit Date: 02/16/2018 Admitting: KENYATTA Harperischarge Date: 02/18/2018[facility] Suzanna Lin MDFinal Diagnosis:Status asthmaticusSignificant Findings (Problem [...] With persistent respiratory distress, [facility] duoneb treatments with [...] placed on oxygen then transferred to [facility] for furthermanagement.At [facility] ED, she continued on oxygen with [...] is normal. CT Chest without Contrast from [place] [facility].- Mild bilateral pneumothorax, pneumopericardium, pneumomediastinum, epiduralgas within the thoracic vertebral column, diffuse subcutaneous emphysema withinthe base of neck, upper anterior chest wall, and axilla. CT Soft Tissue Neck without Contrast from [place] [facility].- Mild pneumothorax at pulmonary apices, pneumomediastinum, [...] Get Your MedicationsThese medications were sent to [facility]/pharmacy #[id number] - [place], [place] - [address] AT [address] [facility] [address] [facility] [address] albuterol 108 (90 Base) MCG/ACT inhaler azithromycin [...] work and children require a visitto their livestock showman or emergency room to get other medications [...] plan.Please schedule follow-up with your child s livestock showman to be seen in 2-3 days.Please call your primary care doctor if you have questions or concerns. If youare unable to reach your primary care doctor, please call the hospital main lineat [phone] and ask for the hospitalist translation director. Follow Up with As directed Comments: Your livestock showman, Uvaldo Jorgensen MD, in 2-3 days. Call sooner if questionsor concerns - [phone]/21 @ 7:50AM with Dr. Lin [place] State Law: Child Safety Seat Instructions As directed Comments: It is the [place] State Law that every child under 8 years old must ride in anappropriate child safety seat unless the child is 4'9 or taller. Every childfrom 8-15 years old who is not secured in a child safety seat must be secured inthe vehicle's seat belt. [facility] advises that all motorvehicle passengers be restrained.Discharge [...] As directedSigned:Eber Soni MD02/18/20184:25 PM . Normal [facility] Basic Metabolic Panelon 02-08 Calcium mass conc 8.9 mg/dL Normal 7.6-11.0 [facility] Comment on above: Order Comment: Recom mended every AM if NPO or on continuous albuterol Performed By: #### B MP ####[address] [phone] Chloride molar conc 109 mmol/L High 96-108 [facility] Comment on above: Order Comment: Recom mended every AM if NPO or on continuous albuterol Performed By: #### B MP ####[address] [phone] CO2 molar conc 21.0 mmol/L Low 22.0-29.0 [facility] Comment on above: Order Comment: Recom mended every AM if NPO or on continuous albuterol Performed By: #### B MP ####[address] [phone] Creatinine mass conc 0.74 mg/dL Normal 0.50-0.80 [facility] Comment on above: Order Comment: Recom mended every AM if NPO or on continuous albuterol Result Comment: Mario ature 0.3-1.0 mg/dL Performed By: #### B MP ####[address] [phone] Glucose mass conc 153 mg/dL High 70-99 [facility] Comment on above: Order Comment: Recom mended [...] of Diabetes Performed By: #### B MP ####[address] [phone] Potassium molar conc 4.5 mmol/L Normal 3.3-5.1 [facility] Comment on above: Order Comment: Recom mended every AM if NPO or on continuous albuterol Performed By: #### B MP ####[address] [phone] Sodium molar conc 136 mmol/L Normal 133-145 [facility] Comment on above: Order Comment: Recom mended every AM if NPO or on continuous albuterol Performed By: #### B MP ####[address] [phone] Urea nitrogen mass conc 16 mg/dL Normal 4-19 [facility] Comment on above: Order Comment: Recom mended every AM if NPO or on continuous albuterol Performed By: #### B MP ####[address] [phone] CHEST AP ONLYon 02-17-2018 CHEST AP ONLY Clinical history: Fo llow up status asthmaticus with pneumomediastinum.COMPARI SON: Previous CT of 02/16/2018.IMPRESSION: There is bilateral pneumomediastinum with extension of the air intothe soft tissues of the neck. No obvious pneumothorax is visible. Heart size isnormal.This report has been created using voice recognition softwareSigned by: Dr. Jacinto Craft at 02/17/2018 08:40 Normal [facility] H[facility]Isaias 02-17-2018 Floor Covering Printer Authentication Interface Message Text MEDICAL ADMISSION HISTORY [...] Due to persistent respiratorydistress, she went to [place] [facility].At [place] [facility], she was given duoneb x2 with improvement. CBC revealedleukocytosis of 15 with left shift (92% neutrophils). BMP was unremarkable.Rapid flu was negative. She was discharged home with instructions to continuethe steroids and azithromycin, however, she had continued respiratory distressand presented a second time to [place] [facility].Again at [place] [facility], she was tachycardic to the 140s [...] nasal cannula. [facility] ED, she was on 2L NC with initial PAS score of 12. On exam, she hadmoderate respiratory distress with diffuse inspiratory and expiratory wheeze.She was given albuterol x2, IV solumedrol, magnesium 50 mg/kg, and 1x NSB. PASimproved to 10. She was transferred to [facility] PICU for further management.Upon arrival to [...] exercise. Her asthma is managed by her livestock showman, and she has neverseen a senior inspector. She has had at most 1 course [...] and pneumothoraces.Plans in a system approach:Neuro:-Neuro checks L4L-Ovw do toradol 15mg if return of neck painRespiratory:-Follow asthma pathway, currently pt on Level 2 - Albuterol 6 puffs Q2H-IV Solumedrol 40mg D4F-Wqrhxkz 2 puffs BID-2L NC-Pulmonology consult-[facility]:-TelemetryFEN/G I:-Regular diet-1x MIVF: D5 NS with 20 meq KCl-BMP daily-Strict I&OsHeme/ID:-Contact/drop let precautions-Azithromycin 250mg x4 Cece have rounded and discussed my physical exam and plan of care with PICElsa Cochran MD02/17/20182:28 AMATTENDING ADMISSION HISTORY AND PHYSICALDATE [...] worsening symptomscausing her to seek care at [place] [facility]. There she received more duonebs withsome improvement and so was sent home. Within 20 minutes her work of breathingand dyspnea became so severe they immediately returned to the ED. At this time aCT neck and chest were obtained due to subcutaneous emphysema being notable onexam. CT showed small bilateral pneumothoraces and pneumomediastinum. For this,she was then referred to [facility] ED. Upon arrival her PAS 12, [...] start at level 2. IV steroids q6h [id number]. Repeat CXR in a.m for follow up [...] time spentperforming procedures on this patient. Normal [facility] eGFRon 02-17-2018 GFR/1.73 sq M.predicted MDRD vol rate/area 89.30 Normal [facility] Comment on above: Order Comment: Recom mended every AM if NPO or on continuous albuterol Result Comment: Refe rence range:> 3 months:>90 ml/min/1.73m^2Ref. Range change rjkeusiei15/26/2018 Performed By: #### E GFR ####[facility] of [address] [phone] ED Provider Progress Noteon 02-16-2018 Floor Covering Printer Authentication Interface Message Text Lexis Greenberg: 2005Chief ComplaintPatient presents with Asthma Respiratory DistressAllergiesAllergen Reactions Peanut Allergy RashDOS: 02/16/201813 year old girl with asthma presents as a transfer from [place] ED forpneumomediastinum. URI-like symptoms for 3 days. Acutely short of breath uponwaking at 8am today, but notes she was short of breath yesterday as well. Wentto urgent care, had CXR, concerned for pneumonia so she was discharged with anantibiotic and oral steroids, which she took. No improvement in her respiratorystatus so she went to [place] [facility]. Treated her with Duoneb and discharged [...] today, 3 at home and 3 at [place] ED. Patientarrived via ambulance on 2L NC. Reports no changes from [place] ED. Complainsof mild back and chest pain, mild shortness of breath. Denies fever, chills,nausea, abdominal pain, diarrhea, dysuria.Mom thinks patient may have mild intermittent asthma as she only uses Albuterolinhaler as needed. Taken off of Flovent 1 year ago because she was doing well.No other asthma medications or inhalers. Does not use spacer. Asthma managedby livestock showman, does not have senior inspector. 0-1 courses of steroids in thelast year. [...] HistoryPatient Guardian Status Mother: She Henderson Father: Kulwinder GuerraFaith Topics Concern Not on fileSocial History Narrative [...] with presumed mild intermittent asthma presents from [place] ED forpneumomediastinum, pneumopericardium, and pneumothoraces in the [...] Afebrile. Patient received multiple Duoneb treatments at [place] so she was given anAlbuterol treatment here [...] [address] 2 [address] [facility] 2345 2 2 2 1 3 10 [...] wean as yazmin 2 1 3 12 02/16/188 3 3 2 1 3 12 JLLDiagnosis to highest level of medical certainty/plan:Final diagnoses:[J98.2] Pneumomediastinum[J93.9] Bilateral pneumothorax[I31.9] Pneumopericardium[J45.22] Mild intermittent asthma with status asthmaticusCarole Beatrice PGY2ED Fellow Note: I personally saw and [...] Vitals stable at time of admission.Ludivina Carrasco, [facility] Emergency Medicine FellowI personally performed joiner portions of the history and physical examination ofthis patient and discussed the management plan with the resident. I reviewedthe resident's note and agree with the documented findings and plan of care.Michael Crum, DO10:53 AM02/17/2018 Normal [facility] Vital Signs Date Time Vital Sign Value Performing Clinician Facility 07-06-2024 03:17-0500 Diastolic Blood Pressure Non-Invasive 74 mm[Hg] [facility] DO [facility] [place] [facility] 07-06-2024 03:17-0500 Heart rate 60 /min [facility] DO [facility] [place] [facility] 07-06-2024 03:17-0500 Respiratory rate 16 /min [facility] DO [facility] [place] [facility] 07-06-2024 03:17-0500 Systolic Blood Pressure Non-Invasive 120 mm[Hg] [facility] DO [facility] [place] [facility] 07-06-2024 01:37-0500 Body height 162.6 cm [facility] DO [facility] [place] [facility] 07-06-2024 01:37-0500 Body temperature 97.52 [degF] ASHWINI REICHFIELD DO [facility] 07-06-2024 01:37-0500 Body weight 77.3 kg ASHWINI REICHFIELD DO [facility] 07-06-2024 01:37-0500 Diastolic Blood Pressure Non-Invasive 77 mm[Hg] ASHWINI REICHFIELD DO [facility] 07-06-2024 01:37-0500 Heart rate 65 /min ASHWINI RENANCY DO [facility] 07-06-2024 01:37-0500 Height ZScore -0.11 1 ASHWINI RENTERIA DO [facility] Comment on above: Result Comment: ^~:!ZScore Source -[facility] 07-06-2024 01:37-0500 Percent Height for Age 45.71 % ASHWINI RENANCY DO [facility] Comment on above: Result Comment: ^~:!Percentile Source -[facility] 07-06-2024 01:37-0500 Respiratory rate 18 /min ASHWINI REZUNILDAFIELD DO [facility] [place] [facility] 07-06-2024 01:37-0500 Systolic Blood Pressure Non-Invasive 114 mm[Hg] ASHWINI REICHFIELD DO [facility] 06-23-2024 09:48-0500 Body mass index (BMI) [Ratio] 23.65 kg/m2 Uvaldo Jorgensen MD Work Phone: [facility] 06-23-2024 09:48-0500 Body temperature 98.29 [degF] Uvaldo Jorgensen MD Work Phone: [facility] 06-23-2024 09:48-0500 Body weight 63.3 kg Uvaldo Jorgensen MD Work Phone: [facility] 06-23-2024 09:48-0500 Diastolic blood pressure 70 mm[Hg] Uvaldo Jorgensen MD Work Phone: [facility] 06-23-2024 09:48-0500 Heart rate 64 /min Uvaldo Jorgensen MD Work Phone: [facility] 06-23-2024 09:48-0500 Respiratory rate 16 /min Uvaldo Jorgensen MD Work Phone: [facility] 06-23-2024 09:48-0500 Systolic blood pressure 104 mm[Hg] Uvaldo Jorgensen MD Work Phone: [facility] 02-26-2024 01:32-0400 Diastolic Blood Pressure Non-Invasive 75 mm[Hg] NIDAL CHOUJAA DO [facility] 02-26-2024 01:32-0400 Heart rate 94 /min NIDAL CHOUJAA DO [facility] 02-26-2024 01:32-0400 Respiratory rate 20 /min NIDAL CHOUJAA DO [facility] 02-26-2024 01:32-0400 Systolic Blood Pressure Non-Invasive 111 mm[Hg] NIDAL CHOUJAA DO [facility] 02-26-2024 00:42-0400 Heart rate 106 /min NIDAL CHOUJAA DO [facility] 02-26-2024 00:42-0400 Respiratory rate 20 /min NIDAL CHOUJAA DO [facility] 02-26-2024 00:31-0400 Blood Pressure Cuff Size NIDAL CHOUJAA DO [facility] 02-26-2024 00:31-0400 Blood Pressure Location NIDAL CHOUJAA DO [facility] 02-26-2024 00:31-0400 Blood Pressure Method NIDAL CHOUJAA DO [facility] 02-26-2024 00:31-0400 Body height 162.6 cm NIDAL CHOUJAA DO [facility] 02-26-2024 00:31-0400 Body temperature 97.34 [degF] NIDAL CHOUJAA DO [facility] 02-26-2024 00:31-0400 Body weight 59.1 kg NIDAL CHOUJAA DO [facility] 02-26-2024 00:31-0400 Diastolic Blood Pressure Non-Invasive 78 mm[Hg] NIDAL CHOUJAA DO [facility] 02-26-2024 00:31-0400 Heart rate 109 /min NIDAL CHOUJAA DO [facility] 02-26-2024 00:31-0400 Height ZScore -0.10 1 NIDAL CHOUJAA DO [facility] Comment on above: Result Comment: ^~:!ZScore Source -[facility] 02-26-2024 00:31-0400 Percent Height for Age 45.90 % NIDAL CHOUJAA DO [facility] Comment on above: Result Comment: ^~:!Percentile Source -[facility] 02-26-2024 00:31-0400 Respiratory rate 20 /min NIDAL CHOUJAA DO [facility] 02-26-2024 00:31-0400 Systolic Blood Pressure Non-Invasive 118 mm[Hg] NIDAL CHOUJAA DO [facility] 02-18-2024 13:01-0400 Body height 163.6 cm Uvaldo Jorgensen MD Work Phone: [facility] 02-18-2024 13:01-0400 Body mass index (BMI) [Ratio] 21.82 kg/m2 Uvaldo Jorgensen MD Work Phone: [facility] 02-18-2024 13:01-0400 Body temperature 97.81 [degF] Uvaldo Jorgensen MD Work Phone: [facility] 02-18-2024 13:01-0400 Body weight 58.4 kg Uvaldo Jorgensen MD Work Phone: [facility] 02-18-2024 13:01-0400 Diastolic blood pressure 66 mm[Hg] Uvaldo Jorgensen MD Work Phone: [facility] 02-18-2024 13:01-0400 Heart rate 80 /min Uvaldo Jorgensen MD Work Phone: [facility] 02-18-2024 13:01-0400 Respiratory rate 16 /min Uvaldo Jorgensen MD Work Phone: [facility] 02-18-2024 13:01-0400 Systolic blood pressure 102 mm[Hg] Uvaldo Jorgensen MD Work Phone: [facility] 08-12-2023 18:47-0400 Body mass index (BMI) [Percentile] Per age and sex 84.42 % Steve Niko ORDER TRACER.ADZING AND BORING MACHINE HELPER Work Phone: [facility] 08-12-2023 18:47-0400 Body temperature 99.5 [degF] Steve Pope ORDER TRACER.ADZING AND BORING MACHINE HELPER Work Phone: [facility] 08-12-2023 18:47-0400 Body weight 69.7 kg Steve Pope ORDER TRACER.ADZING AND BORING MACHINE HELPER Work Phone: [facility] 08-12-2023 18:47-0400 Diastolic blood pressure 78 mm[Hg] Steve Pope ORDER TRACER.ADZING AND BORING MACHINE HELPER Work Phone: [facility] 08-12-2023 18:47-0400 Heart rate 78 /min Steve Pope ORDER TRACER.ADZING AND BORING MACHINE HELPER Work Phone: [facility] 08-12-2023 18:47-0400 Respiratory rate 18 /min Steve Niko ORDER TRACER.ADZING AND BORING MACHINE HELPER Work Phone: [facility] 08-12-2023 18:47-0400 SaO2% (BldA) [Mass fraction] 100 % Steve Niko ORDER TRACER.ADZING AND BORING MACHINE HELPER Work Phone: [facility] 08-12-2023 18:47-0400 Systolic blood pressure 122 mm[Hg] Steve Pope ORDER TRACER.ADZING AND BORING MACHINE HELPER Work Phone: [facility] 08-10-2023 14:01-0400 Body height 164.5 cm Uvaldo Jorgensen MD Work Phone: [facility] 08-10-2023 14:01-0400 Body mass index (BMI) [Percentile] Per age and sex 83.54 % Uvaldo Jorgensen MD Work Phone: [facility] 08-10-2023 14:01-0400 Body temperature 97.7 [degF] Uvaldo Jorgensen MD Work Phone: [facility] 08-10-2023 14:01-0400 Body weight 69.13 kg Uvaldo Jorgensen MD Work Phone: [facility] 08-10-2023 14:01-0400 Diastolic blood pressure 74 mm[Hg] Uvaldo Jorgensen MD Work Phone: [facility] 08-10-2023 14:01-0400 Heart rate 80 /min Uvalod Jorgensen MD Work Phone: [facility] 08-10-2023 14:01-0400 Respiratory rate 16 /min Uvaldo Jorgensen MD Work Phone: [facility] 08-10-2023 14:01-0400 Systolic blood pressure 116 mm[Hg] Uvaldo Jorgensen MD Work Phone: [facility] 06-11-2023 07:56-0500 Body temperature 98.2 [degF] Steve Pope ORDER TRACER.ADZING AND BORING MACHINE HELPER Work Phone: [facility] 06-11-2023 07:56-0500 Body weight 71.85 kg [facility] ORDER TRACER.ADZING AND BORING MACHINE HELPER Work Phone: [facility] 06-11-2023 07:56-0500 Diastolic blood pressure 72 mm[Hg] [facility] ORDER TRACER.ADZING AND BORING MACHINE HELPER Work Phone: [facility] 06-11-2023 07:56-0500 Heart rate 85 /min [facility] ORDER TRACER.ADZING AND BORING MACHINE HELPER Work Phone: [facility] 06-11-2023 07:56-0500 Respiratory rate 18 /min [facility] ORDER TRACER.ADZING AND BORING MACHINE HELPER Work Phone: [facility] 06-11-2023 07:56-0500 SaO2% (BldA) [Mass fraction] 97 % [facility] ORDER TRACER.ADZING AND BORING MACHINE HELPER Work Phone: [facility] 06-11-2023 07:56-0500 Systolic blood pressure 110 mm[Hg] [facility] ORDER TRACER.ADZING AND BORING MACHINE HELPER Work Phone: [facility] 04-19-2023 00:14-0500 Body height 162.[address] Uvaldo Jorgensen Work Phone: [facility] 04-19-2023 00:14-0500 Body mass index (BMI) [Percentile] Per age and sex 91.4 % Dr. Uvaldo Jorgensen Work Phone: [facility] 04-19-2023 00:14-0500 Body mass index (BMI) [Ratio] 28 kg/m2 Dr. Uvaldo Jorgensen Work Phone: [facility] 04-19-2023 00:14-0500 Body temperature 96.2 [degF] Dr. Uvaldo Jorgensen Work Phone: [facility] 04-19-2023 00:14-0500 Body weight 74.[address] Uvaldo Jorgensen Work Phone: [facility] 04-19-2023 00:14-0500 Diastolic blood pressure 78 mm[Hg] Dr. Uvaldo Jorgensen Work Phone: [facility] 04-19-2023 00:14-0500 Heart rate 78 /min Dr. Uvaldo Jorgensen Work Phone: 1(800)263-818540 [place] [address] 04-19-2023 00:14-0500 Respiratory rate 20 /min Dr. Uvaldo Jorgensen Work Phone: [facility] 04-19-2023 00:14-0500 SaO2% (BldA) [Mass fraction] 99 % Dr. Uvaldo Jorgensen Work Phone: 4(873)338-027140 [place] [address] 04-19-2023 00:14-0500 Systolic blood pressure 124 mm[Hg] Dr. Uvaldo Jorgensen Work Phone: 8(893)757-292375 [place] [address] 04-08-2023 08:52-0500 Body weight 74.03 kg Ara Damon ORDER TRACER.ADZING AND BORING MACHINE HELPER Work Phone: 2(163)088-241143 [place] [address] 04-08-2023 08:52-0500 Diastolic blood pressure 60 mm[Hg] Ara Damon ORDER TRACER.ADZING AND BORING MACHINE HELPER Work Phone: 5(156)331-896043 [place] [address] 04-08-2023 08:52-0500 Systolic blood pressure 120 mm[Hg] Ara Hanikhil ORDER TRACER.ADZING AND BORING MACHINE HELPER Work Phone: 2(502)113-605043 [place] [address] 04-07-2023 09:07-0500 Body mass index (BMI) [Percentile] Per age and sex 90.1 % Dr. Uvaldo Jorgensen Work Phone: 1(214)367-141440 [place] [address] 04-07-2023 09:07-0500 Body mass index (BMI) [Ratio] 27.4 kg/m2 Dr. Uvaldo Jorgensen Work Phone: [facility] 04-07-2023 09:07-0500 Body temperature 98.6 [degF] Dr. Uvaldo Jorgensen Work Phone: 7(078)889-892840 [place] [address] 04-07-2023 09:07-0500 Body weight 72.[address] Uvaldo Jorgensen Work Phone: 0(985)838-768440 [place] [address] 04-07-2023 09:07-0500 Diastolic blood pressure 79 mm[Hg] Dr. Uvaldo Jorgensen Work Phone: 2(511)700-568940 [place] [address] 04-07-2023 09:07-0500 Heart rate 103 /min Dr. Uvaldo Jorgensen Work Phone: 8(719)064-225575 [place] [address] 04-07-2023 09:07-0500 Respiratory rate 16 /min Dr. Uvaldo Jorgensen Work Phone: 9(878)344-137575 [place] [address] 04-07-2023 09:07-0500 SaO2% (BldA) [Mass fraction] 98 % Dr. Uvaldo Jorgensen Work Phone: 3(844)664-980875 [place] [address] 04-07-2023 09:07-0500 Systolic blood pressure 115 mm[Hg] Dr. Uvaldo Jorgensen Work Phone: 0(219)471-279075 [place] [address] 02-23-2023 09:34-0400 Body mass index (BMI) [Percentile] Per age and sex 90.7 % Dr. Uvaldo Jorgensen Work Phone: 6(239)618-735175 [place] [address] 02-23-2023 09:34-0400 Body mass index (BMI) [Ratio] 27.6 kg/m2 Dr. Uvaldo Jorgensen Work Phone: 1(125)403-758375 [place] [address] 02-23-2023 09:34-0400 Body temperature 99.7 [degF] Dr. Uvaldo Jorgensen Work Phone: 2(324)626-708575 [place] [address] 02-23-2023 09:34-0400 Body weight 77.[address] Uvaldo Jorgensen Work Phone: 8(576)365-679775 [place] [address] 02-23-2023 09:34-0400 Diastolic blood pressure 76 mm[Hg] Dr. Uvaldo Jorgensen Work Phone: 9(031)731-754675 [place] [address] 02-23-2023 09:34-0400 Heart rate 88 /min Dr. Uvaldo Jorgensen Work Phone: 8(302)482-861175 [place] [address] 02-23-2023 09:34-0400 Respiratory rate 15 /min Dr. Uvaldo Jorgensen Work Phone: 5(950)979-272675 [place] [address] 02-23-2023 09:34-0400 SaO2% (BldA) [Mass fraction] 96 % Dr. Uvaldo Jorgensen Work Phone: 0(462)434-217775 [place] [address] 02-23-2023 09:34-0400 Systolic blood pressure 112 mm[Hg] Dr. Uvaldo Jorgensen Work Phone: [facility] 02-10-2023 09:14-0400 Body temperature 98.8 [degF] Beatriz Praisler-Wood ORDER TRACER.ADZING AND BORING MACHINE HELPER Work Phone: [facility] 02-10-2023 09:14-0400 Body weight 78.02 kg Beatriz Praisler-Wood ORDER TRACER.ADZING AND BORING MACHINE HELPER Work Phone: [facility] 02-10-2023 09:14-0400 Diastolic blood pressure 68 mm[Hg] Beatriz Praisler-Wood ORDER TRACER.ADZING AND BORING MACHINE HELPER Work Phone: [facility] 02-10-2023 09:14-0400 Heart rate 72 /min Beatriz Praisler-Wood ORDER TRACER.ADZING AND BORING MACHINE HELPER Work Phone: [facility] 02-10-2023 09:14-0400 Respiratory rate 18 /min Beatriz Praisler-Wood ORDER TRACER.ADZING AND BORING MACHINE HELPER Work Phone: [facility] 02-10-2023 09:14-0400 SaO2% (BldA) [Mass fraction] 100 % Beatriz Praisler-Wood ORDER TRACER.ADZING AND BORING MACHINE HELPER Work Phone: [facility] 02-10-2023 09:14-0400 Systolic blood pressure 97 mm[Hg] Beatriz Praisler-Wood ORDER TRACER.ADZING AND BORING MACHINE HELPER Work Phone: [facility] 01-02-2023 15:21-0400 Body height 162.6 cm Uvaldo Jorgensen MD Work Phone: [facility] 01-02-2023 15:21-0400 Body mass index (BMI) [Percentile] Per age and sex 94.04 % Uvaldo Jorgensen MD Work Phone: [facility] 01-02-2023 15:21-0400 Body temperature 97.9 [degF] Uvaldo Jorgensen MD Work Phone: [facility] 01-02-2023 15:21-0400 Body weight 77.79 kg Uvaldo Jorgensen MD Work Phone: [facility] 01-02-2023 15:21-0400 Diastolic blood pressure 78 mm[Hg] Uvaldo Jorgensen MD Work Phone: [facility] 01-02-2023 15:21-0400 Heart rate 76 /min Uvaldo Jorgensen MD Work Phone: [facility] 01-02-2023 15:21-0400 Respiratory rate 16 /min Uvaldo Jorgensen MD Work Phone: [facility] 01-02-2023 15:21-0400 Systolic blood pressure 116 mm[Hg] Uvaldo Jorgensen MD Work Phone: [facility] 09-19-2022 06:40-0400 Diastolic blood pressure 74 mm[Hg] [facility] 09-19-2022 06:40-0400 Heart rate 74 /min [facility] 09-19-2022 06:40-0400 Respiratory rate 17 /min [facility] 09-19-2022 06:40-0400 SaO2% (BldA) [Mass fraction] 100 % [facility] 09-19-2022 06:40-0400 Systolic blood pressure 116 mm[Hg] [facility] 09-19-2022 04:19-0400 Body height 162.56 cm [facility] 09-19-2022 04:19-0400 Body mass index (BMI) [Percentile] Per age and sex 95.3 % [facility] 09-19-2022 04:19-0400 Body mass index (BMI) [Ratio] 30.4 kg/m2 [facility] 09-19-2022 04:19-0400 Body temperature 98 [degF] [facility] 09-19-2022 04:19-0400 Body weight 80.5 kg [facility] 08-21-2022 08:17-0400 Body temperature 98.71 [degF] Beatriz Ozuna APRN.ADZING AND BORING MACHINE HELPER Work Phone: [facility] 08-21-2022 08:17-0400 Body weight 79.11 kg Beatriz Ozuna APRN.ADZING AND BORING MACHINE HELPER Work Phone: [facility] 08-21-2022 08:17-0400 Diastolic blood pressure 66 mm[Hg] Beatriz Praisler-Wood ORDER TRACER.ADZING AND BORING MACHINE HELPER Work Phone: [facility] 08-21-2022 08:17-0400 Heart rate 87 /min Beatriz Praisler-Wood ORDER TRACER.ADZING AND BORING MACHINE HELPER Work Phone: [facility] 08-21-2022 08:17-0400 Respiratory rate 18 /min Beatriz Praisler-Wood ORDER TRACER.ADZING AND BORING MACHINE HELPER Work Phone: [facility] 08-21-2022 08:17-0400 SaO2% (BldA) [Mass fraction] 99 % Beatriz Praisler-Wood ORDER TRACER.ADZING AND BORING MACHINE HELPER Work Phone: [facility] 08-21-2022 08:17-0400 Systolic blood pressure 108 mm[Hg] Beatriz Praisler-Wood ORDER TRACER.ADZING AND BORING MACHINE HELPER Work Phone: [facility] 08-17-2022 10:16-0400 Body temperature 98.8 [degF] Marita Korduba PA-C Work Phone: [facility] 08-17-2022 10:16-0400 Body weight 79.38 kg Marita Korduba PA-C Work Phone: [facility] 08-17-2022 10:16-0400 Diastolic blood pressure 62 mm[Hg] Marita Korduba PA-C Work Phone: [facility] 08-17-2022 10:16-0400 Heart rate 80 /min Marita Korduba PA-C Work Phone: [facility] 08-17-2022 10:16-0400 Respiratory rate 16 /min Marita Korduba PA-C Work Phone: [facility] 08-17-2022 10:16-0400 SaO2% (BldA) [Mass fraction] 98 % Marita Korduba PA-C Work Phone: [facility] 08-17-2022 10:16-0400 Systolic blood pressure 98 mm[Hg] Marita Korduba PA-C Work Phone: [facility] 08-07-2022 09:44-0400 Body temperature 97.7 [degF] Nicky Cruz MD Work Phone: [facility] 08-07-2022 09:44-0400 Body weight 79.04 kg Nicky Cruz MD Work Phone: [facility] 08-07-2022 09:44-0400 Heart rate 102 /min Nicky Cruz MD Work Phone: [facility] 08-07-2022 09:44-0400 Respiratory rate 18 /min Nicky Cruz MD Work Phone: [facility] 07-29-2022 11:26-0400 Body temperature 98.1 [degF] Blanca Conteh APRN.ADZING AND BORING MACHINE HELPER Work Phone: [facility] 07-29-2022 11:26-0400 Body weight 79.29 kg Blanca Conteh APRN.ADZING AND BORING MACHINE HELPER Work Phone: [facility] 07-29-2022 11:26-0400 Heart rate 82 /min Blanca Conteh APRN.ADZING AND BORING MACHINE HELPER Work Phone: [facility] 07-29-2022 11:26-0400 Respiratory rate 20 /min Blanca Conteh APRN.ADZING AND BORING MACHINE HELPER Work Phone: [facility] 07-29-2022 11:26-0400 SaO2% (BldA) [Mass fraction] 99 % Blanca Conteh APRN.ADZING AND BORING MACHINE HELPER Work Phone: [facility] 07-28-2022 13:52-0400 Body temperature 98.8 [degF] Gracy Sultana APRN.ADZING AND BORING MACHINE HELPER Work Phone: [facility] 07-28-2022 13:52-0400 Body weight 79.38 kg Gracy Sultana APRN.ADZING AND BORING MACHINE HELPER Work Phone: [facility] 07-28-2022 13:52-0400 Diastolic blood pressure 64 mm[Hg] Gracy Sultana APRN.ADZING AND BORING MACHINE HELPER Work Phone: [facility] 07-28-2022 13:52-0400 Heart rate 79 /min Gracy Sultana ORDER TRACER.ADZING AND BORING MACHINE HELPER Work Phone: [facility] 07-28-2022 13:52-0400 Respiratory rate 18 /min Gracykaterin Sultana ORDER TRACER.ADZING AND BORING MACHINE HELPER Work Phone: [facility] 07-28-2022 13:52-0400 SaO2% (BldA) [Mass fraction] 99 % Gracy Sultana ORDER TRACER.ADZING AND BORING MACHINE HELPER Work Phone: [facility] 07-28-2022 13:52-0400 Systolic blood pressure 100 mm[Hg] Gracy Sultana ORDER TRACER.ADZING AND BORING MACHINE HELPER Work Phone: [facility] 06-26-2022 11:21-0500 Body temperature 98.71 [degF] Beatriz Praisler-Wood ORDER TRACER.ADZING AND BORING MACHINE HELPER Work Phone: [facility] 06-26-2022 11:21-0500 Body weight 76.89 kg Beatriz Praisler-Wood ORDER TRACER.ADZING AND BORING MACHINE HELPER Work Phone: [facility] 06-26-2022 11:21-0500 Diastolic blood pressure 66 mm[Hg] Beatriz Praisler-Wood ORDER TRACER.ADZING AND BORING MACHINE HELPER Work Phone: [facility] 06-26-2022 11:21-0500 Heart rate 102 /min Beatriz Praisler-Wood ORDER TRACER.ADZING AND BORING MACHINE HELPER Work Phone: [facility] 06-26-2022 11:21-0500 Respiratory rate 18 /min Beatriz Praisler-Wood ORDER TRACER.ADZING AND BORING MACHINE HELPER Work Phone: [facility] 06-26-2022 11:21-0500 SaO2% (BldA) [Mass fraction] 100 % Beatriz Praisler-Wood ORDER TRACER.ADZING AND BORING MACHINE HELPER Work Phone: [facility] 06-26-2022 11:21-0500 Systolic blood pressure 110 mm[Hg] Beatriz Praisler-Wood ORDER TRACER.ADZING AND BORING MACHINE HELPER Work Phone: [facility] 06-24-2022 16:28-0500 Body temperature 98.71 [degF] Bipin Oates PA Work Phone: [facility] 06-24-2022 16:28-0500 Body weight 77.47 kg Krislyn Aberegg PA Work Phone: [facility] 06-24-2022 16:28-0500 Diastolic blood pressure 62 mm[Hg] Krislyn Aberegg PA Work Phone: [facility] 06-24-2022 16:28-0500 Heart rate 121 /min Krislyn Aberegg PA Work Phone: [facility] 06-24-2022 16:28-0500 Respiratory rate 18 /min Krislyn Aberegg PA Work Phone: [facility] 06-24-2022 16:28-0500 SaO2% (BldA) [Mass fraction] 99 % Krislyn Aberegg PA Work Phone: [facility] 06-24-2022 16:28-0500 Systolic blood pressure 98 mm[Hg] Krislyn Aberegg PA Work Phone: [facility] 06-20-2022 16:06-0500 Body temperature 98.2 [degF] Gladis Athy PA-C Work Phone: [facility] 06-20-2022 16:06-0500 Body weight 78.56 kg Gladis Athy PA-C Work Phone: [facility] 06-20-2022 16:06-0500 Diastolic blood pressure 72 mm[Hg] Gladis Athy PA-C Work Phone: [facility] 06-20-2022 16:06-0500 Heart rate 74 /min Gladis Athy PA-C Work Phone: [facility] 06-20-2022 16:06-0500 Respiratory rate 16 /min Gladis Athy PA-C Work Phone: [facility] 06-20-2022 16:06-0500 SaO2% (BldA) [Mass fraction] 98 % Gladis Athy PA-C Work Phone: [facility] 06-20-2022 16:06-0500 Systolic blood pressure 108 mm[Hg] Gladis Athy PA-C Work Phone: [facility] 05-21-2022 18:16-0500 Body temperature 98.8 [degF] Petra Cabrera PA-C Work Phone: [facility] 05-21-2022 18:16-0500 Body weight 76.97 kg Petra Cabrera PA-C Work Phone: [facility] 05-21-2022 18:16-0500 Diastolic blood pressure 64 mm[Hg] Petra Cabrera PA-C Work Phone: [facility] 05-21-2022 18:16-0500 Heart rate 80 /min Petra Cabrera PA-C Work Phone: [facility] 05-21-2022 18:16-0500 Respiratory rate 20 /min Petra Cabrera PA-C Work Phone: [facility] 05-21-2022 18:16-0500 Systolic blood pressure 110 mm[Hg] Petra Cabrera PA-C Work Phone: [facility] 05-02-2022 16:31-0500 Body height 163 cm Uvaldo Jorgensen MD Work Phone: [facility] 05-02-2022 16:31-0500 Body mass index (BMI) [Percentile] Per age and sex 93.71 % Uvaldo Jorgensen MD Work Phone: [facility] 05-02-2022 16:31-0500 Body temperature 98.01 [degF] Uvaldo Jorgensen MD Work Phone: [facility] 05-02-2022 16:31-0500 Body weight 76.43 kg Uvaldo Jorgensen MD Work Phone: [facility] 05-02-2022 16:31-0500 Diastolic blood pressure 60 mm[Hg] Uvaldo Jorgensen MD Work Phone: [facility] 05-02-2022 16:31-0500 Heart rate 88 /min Uvaldo Jorgensen MD Work Phone: [facility] 05-02-2022 16:31-0500 Respiratory rate 20 /min Uvaldo Jorgensen MD Work Phone: [facility] 05-02-2022 16:31-0500 Systolic blood pressure 102 mm[Hg] Uvlado Jorgensen MD Work Phone: [facility] 04-08-2022 16:18-0500 Body temperature 98.4 [degF] Sahil Humza ORDER TRACER.ADZING AND BORING MACHINE HELPER Work Phone: [facility] 04-08-2022 16:18-0500 Body weight 76.66 kg Sahil Humza ORDER TRACER.ADZING AND BORING MACHINE HELPER Work Phone: [facility] 04-08-2022 16:18-0500 Diastolic blood pressure 70 mm[Hg] Sahil Humza ORDER TRACER.ADZING AND BORING MACHINE HELPER Work Phone: [facility] 04-08-2022 16:18-0500 Heart rate 100 /min Sahil Humza ORDER TRACER.ADZING AND BORING MACHINE HELPER Work Phone: [facility] 04-08-2022 16:18-0500 Respiratory rate 18 /min Sahil Humza ORDER TRACER.ADZING AND BORING MACHINE HELPER Work Phone: [facility] 04-08-2022 16:18-0500 SaO2% (BldA) [Mass fraction] 98 % Sahil Humza ORDER TRACER.ADZING AND BORING MACHINE HELPER Work Phone: [facility] 04-08-2022 16:18-0500 Systolic blood pressure 122 mm[Hg] Sahil Humza ORDER TRACER.ADZING AND BORING MACHINE HELPER Work Phone: [facility] 04-05-2022 12:15-0500 Body temperature 98.29 [degF] She Velázquez ORDER TRACER.ADZING AND BORING MACHINE HELPER Work Phone: [facility] 04-05-2022 12:15-0500 Body weight 76.75 kg She Velázquez ORDER TRACER.ADZING AND BORING MACHINE HELPER Work Phone: [facility] 04-05-2022 12:15-0500 Diastolic blood pressure 74 mm[Hg] Seh Velázquez ORDER TRACER.ADZING AND BORING MACHINE HELPER Work Phone: [facility] 04-05-2022 12:15-0500 Heart rate 120 /min She Velázquez ORDER TRACER.ADZING AND BORING MACHINE HELPER Work Phone: [facility] 04-05-2022 12:15-0500 Respiratory rate 20 /min She Velázquez ORDER TRACER.ADZING AND BORING MACHINE HELPER Work Phone: [facility] 04-05-2022 12:15-0500 SaO2% (BldA) [Mass fraction] 98 % She Velázquez ORDER TRACER.ADZING AND BORING MACHINE HELPER Work Phone: [facility] 04-05-2022 12:15-0500 Systolic blood pressure 110 mm[Hg] She Velázquez ORDER TRACER.ADZING AND BORING MACHINE HELPER Work Phone: [facility] 01-29-2022 13:20-0400 Body temperature 97.39 [degF] Petra Cabrera PA-C Work Phone: [facility] 01-29-2022 13:20-0400 Body weight 77.56 kg Petra Cabrera PA-C Work Phone: [facility] 01-29-2022 13:20-0400 Diastolic blood pressure 70 mm[Hg] Petra Cabrera PA-C Work Phone: [facility] 01-29-2022 13:20-0400 Heart rate 88 /min Petra Cabrera PA-C Work Phone: [facility] 01-29-2022 13:20-0400 Respiratory rate 20 /min Petra Cabrera PA-C Work Phone: [facility] 01-29-2022 13:20-0400 Systolic blood pressure 114 mm[Hg] Petra Cabrera PA-C Work Phone: [facility] 01-24-2022 17:28-0400 Body temperature 98.8 [degF] She Velázquez ORDER TRACER.ADZING AND BORING MACHINE HELPER Work Phone: [facility] 01-24-2022 17:28-0400 Body weight 77.2 kg She Velázquez ORDER TRACER.ADZING AND BORING MACHINE HELPER Work Phone: [facility] 01-24-2022 17:28-0400 Diastolic blood pressure 68 mm[Hg] She Velázquez ORDER TRACER.ADZING AND BORING MACHINE HELPER Work Phone: [facility] 01-24-2022 17:28-0400 Heart rate 100 /min She Velázquez ORDER TRACER.ADZING AND BORING MACHINE HELPER Work Phone: [facility] 01-24-2022 17:28-0400 Respiratory rate 18 /min She Velázquez ORDER TRACER.ADZING AND BORING MACHINE HELPER Work Phone: [facility] 01-24-2022 17:28-0400 SaO2% (BldA) [Mass fraction] 98 % She Velázquez ORDER TRACER.ADZING AND BORING MACHINE HELPER Work Phone: [facility] 01-24-2022 17:28-0400 Systolic blood pressure 120 mm[Hg] She Velázquez ORDER TRACER.ADZING AND BORING MACHINE HELPER Work Phone: [facility] 01-22-2022 21:17-0400 Respiratory rate 16 /min [facility] Work Phone: 01-22-2022 19:06-0400 Body height 162.56 cm [facility] Work Phone: 01-22-2022 19:06-0400 Body mass index (BMI) [Percentile] Per age and sex 94.6 % [facility] Work Phone: 01-22-2022 19:06-0400 Body mass index (BMI) [Ratio] 29.3 kg/m2 [facility] Work Phone: 01-22-2022 19:06-0400 Body temperature 97.9 [degF] [facility] Work Phone: 01-22-2022 19:06-0400 Body weight 77.56 kg [facility] Work Phone: 01-22-2022 19:06-0400 Diastolic blood pressure 76 mm[Hg] [facility] Work Phone: 01-22-2022 19:06-0400 Heart rate 118 /min [facility] Work Phone: 01-22-2022 19:06-0400 SaO2% (BldA) [Mass fraction] 100 % [facility] Work Phone: 01-22-2022 19:06-0400 Systolic blood pressure 128 mm[Hg] [facility] Work Phone: 09-02-2021 18:39-0400 Body temperature 98.01 [degF] Nicky Cruz MD Work Phone: [facility] 09-02-2021 18:39-0400 Body weight 78.25 kg Nicky Cruz MD Work Phone: [facility] 09-02-2021 18:39-0400 Diastolic blood pressure 62 mm[Hg] Nicky Cruz MD Work Phone: [facility] 09-02-2021 18:39-0400 Heart rate 78 /min Nicky Cruz MD Work Phone: [facility] 09-02-2021 18:39-0400 Respiratory rate 16 /min Nicky Cruz MD Work Phone: [facility] 09-02-2021 18:39-0400 Systolic blood pressure 114 mm[Hg] Nicky Cruz MD Work Phone: [facility] 08-09-2021 17:58-0400 Body temperature 98.1 [degF] Gladis Athy PA-C Work Phone: [facility] 08-09-2021 17:58-0400 Body weight 75.84 kg Gladis Athy PA-C Work Phone: [facility] 08-09-2021 17:58-0400 Diastolic blood pressure 64 mm[Hg] Gladis Athy PA-C Work Phone: [facility] 08-09-2021 17:58-0400 Heart rate 114 /min Gladis Athy PA-C Work Phone: [facility] 08-09-2021 17:58-0400 Respiratory rate 16 /min Gladis Rogers PA-C Work Phone: [facility] 08-09-2021 17:58-0400 SaO2% (BldA) [Mass fraction] 100 % Gladis TOPETE-Adilene Work Phone: [facility] 08-09-2021 17:58-0400 Systolic blood pressure 110 mm[Hg] Gladis TOPETE-Adilene Work Phone: [facility] Encounters Encounter Date Encounter Type Care Provider Facility Start: 03-06-2025 ambulatory Uvaldo Jamele Facility:[facility] Start: 02-17-2025 End: 02-17-2025 ambulatory Uvaldo Jameel Facility:[facility] Start: 02-13-2025 ambulatory Uvaldo Jameel Facility:[facility] Start: 02-10-2025 End: 02-10-2025 ambulatory UVALDO P JAMEEL Facility:[facility] Start: 01-28-2025 End: 01-28-2025 Emergency department patient visit Anoop Houser Facility:[facility] Start: 01-26-2025 End: 01-26-2025 ambulatory Uvaldo Jameel Facility:[facility] Start: 01-10-2025 End: 01-13-2025 Refill Uvaldo Jorgensen MD Work Phone: [facility] Comment on above: Refill Request Start: 01-02-2025 End: 01-02-2025 ambulatory Uvaldo Jameel [facility] Start: 12-26-2024 ambulatory [facility] Start: 12-23-2024 ambulatory U[facility]do Jameel [facility] Start: 12-09-2024 ambulatory U[facility]do Jameel [facility] Start: 11-03-2024 End: 11-07-2024 Refill Uvaldo Jorgensen MD Work Phone: [facility] Comment on above: Refill Request Start: 11-03-2024 End: 11-03-2024 ambulatory Uvaldo Jameel [facility] Start: 10-31-2024 End: 10-31-2024 ambulatory Uvaldo Jameel [facility] Start: 10-26-2024 End: 10-27-2024 ambulatory Uvaldo Jameel Facility:[facility] Start: 10-11-2024 ambulatory Uvaldo Jorgensen [facility] Start: 10-06-2024 End: 10-06-2024 ambulatory Uvaldo Jorgensen [facility] Start: 09-20-2024 ambulatory Uvaldo Jorgensen [facility] Start: 09-16-2024 ambulatory Uvaldo Jorgensen [facility] Start: 09-15-2024 End: 09-15-2024 ambulatory Uvaldo Jorgensen [facility] Start: 09-09-2024 End: 09-24-2024 Refill Uvaldo Jorgensen MD Work Phone: [facility] Comment on above: Refill Request Start: 08-12-2024 ambulatory Uvaldo Jorgensen [facility] Start: 08-04-2024 End: 08-04-2024 ambulatory Uvaldo Jorgensen [facility] Start: 07-26-2024 End: 07-26-2024 ambulatory Uvaldo Jorgensen [facility] Start: 07-20-2024 End: 07-20-2024 ambulatory Uvaldo Jorgensen [facility] Start: 07-06-2024 End: 07-06-2024 Emergency department patient visit ASHWINI RENTERIA [facility] Start: 07-01-2024 ambulatory Uvaldo Jorgensen Facility:[facility] Start: 06-23-2024 End: 06-23-2024 Office outpatient visit 40 minutes Uvaldo Jorgensen MD Work Phone: [facility] Comment on above: Asthma, moderate per sistent, poorly-controlled (Primary Dx); Generalized anxiety disorder Start: 06-23-2024 End: 06-23-2024 ambulatory Uvaldo Jorgensen MD Work Phone: [facility] Comment on above: Spirometry Psychiatrist Start: 05-15-2024 End: 05-16-2024 Refill Uvaldo Jorgensen MD Work Phone: [facility] Comment on above: Refill Request Start: 04-21-2024 End: 04-22-2024 Refill Uvaldo Jorgensen MD Work Phone: [facility] Comment on above: Refill Request Start: 04-01-2024 End: 04-02-2024 Refill Uvaldo Jorgensen MD Work Phone: [facility] Comment on above: Refill Request Start: 02-26-2024 End: 02-26-2024 Refill Uvaldo Jorgensen MD Work Phone: [facility] Comment on above: Refill Request Start: 02-26-2024 End: 02-26-2024 Emergency department patient visit JANELL RICE DO [facility] Start: 02-18-2024 End: 02-18-2024 Patient encounter procedure Uvaldo Jorgensen MD Work Phone: [facility] [place] Comment on above: Encounter for WCC (w ell child check) with abnormal findings (Primary Dx); Encounter for immunization; Generalized anxiety disorder; Mild persistent asthma without complication; Sore throat Start: 02-18-2024 End: 02-18-2024 Patient encounter status Uvaldo Jorgensen MD Work Phone: [facility] Work Phone: Start: 02-15-2024 End: 02-18-2024 Refill Uvaldo Jorgensen MD Work Phone: [facility] Comment on above: Refill Request Start: 12-25-2023 Refill Uvaldo Jorgensen MD Work Phone: [facility] Comment on above: Refill Request Start: 10-26-2023 Refill Nicky Martínez ed, MD Work Phone: [facility] Comment on above: Refill Request Start: 09-29-2023 End: 06-01-2024 Refill Uvaldo Jorgensen MD Work Phone: [facility] Comment on above: Refill Request Start: 09-07-2023 Refill Uvaldo Jorgensen MD Work Phone: [facility] [place] Comment on above: Refill Request Start: 08-30-2023 Refill Miriam young MD Work Phone: [facility] Comment on above: Refill Request Start: 08-12-2023 End: 08-12-2023 Office outpatient visit 25 minutes Steve Pope APRN.ADZING AND BORING MACHINE HELPER Work Phone: [facility] Comment on above: Urinary frequency (P rimary Dx) Start: 08-10-2023 End: 08-10-2023 Office outpatient visit 25 minutes Uvaldo Jorgensen MD Work Phone: [facility] Comment on above: Mild persistent asth ma without complication (Primary Dx); Generalized anxiety disorder; Depressed mood; Encounter for immunization Start: 07-25-2023 Refill Uvaldo Jorgensen MD Work Phone: [facility] Comment on above: Refill Request Start: 06-11-2023 Refill Uvaldo Jorgensen MD Work Phone: [facility] Comment on above: Refill Request Start: 06-11-2023 End: 06-11-2023 Subsequent hospital visit by physician [facility] Work Phone: Radiology Comment on above: Generalized abdomina l pain [R10.84] Start: 06-11-2023 End: 06-11-2023 Office outpatient visit 15 minutes Steve Pope APRN.ADZING AND BORING MACHINE HELPER Work Phone: [facility] Comment on above: Generalized abdomina l pain (Primary Dx) Start: 04-19-2023 End: 04-19-2023 Emergency department patient visit Dr. Uvaldo Jorgensen Work Phone: [facility] Work Phone: Start: 04-10-2023 Telephone encounter Ara mathis APRN.ADZING AND BORING MACHINE HELPER Work Phone: OB/Gynecology Comment on above: Patient Update Start: 04-08-2023 End: 04-08-2023 Patient encounter procedure Ara Damon APRN.ADZING AND BORING MACHINE HELPER Work Phone: OB/Gynecology Comment on above: Encounter for contra ceptive management, unspecified type (Primary Dx); Screening examination for STD (sexually transmitted disease); Unprotected sexual intercourse Start: 04-07-2023 End: 04-07-[address] Uvaldo Jorgensen Work Phone: [facility] Work Phone: Start: 03-30-2023 Refill Uvaldo Jorgensen MD Work Phone: [facility] [place] Comment on above: Refill Request Start: 03-23-2023 Refill Uvaldo Jorgensen MD Work Phone: [facility] Comment on above: Refill Request Start: 03-18-2023 Refill Uvaldo Jorgensen MD Work Phone: [facility] Comment on above: Refill Request Start: 02-26-2023 End: 02-26-[address] Uvaldo Jorgensen Work Phone: [facility] Work Phone: Start: 02-23-2023 End: 02-23-[address] Uvaldo Jorgensen Work Phone: [facility] Work Phone: Start: 02-10-2023 End: 02-10-2023 Patient encounter procedure Beatriz Ozuna APRN.ADZING AND BORING MACHINE HELPER Work Phone: [facility] Comment on above: Otalgia, bilateral ( Primary Dx) Start: 01-20-2023 Telephone encounter Uvaldo cochran MD Work Phone: [facility] Comment on above: Medication Question Start: 01-05-2023 ambulatory Elena Maya INVENTORY AND PRICING ASSOCIATE NURSE O N CALL Comment on above: Medication Problem Start: 01-03-2023 Telephone encounter Uvaldo cochran MD Work Phone: [facility] Comment on above: Medication Problem Start: 01-02-2023 End: 01-02-2023 Patient encounter procedure Uvaldo Jorgensen MD Work Phone: [facility] Comment on above: Encounter for WCC (w [facility] child check) with abnormal findings (Primary Dx); Vitamin D deficiency; Allergy to nuts; Encounter for immunization; Mild persistent asthma without complication; Generalized anxiety disorder; Depressed mood Start: 01-02-2023 End: 01-02-2023 Patient encounter status Uvaldo Jorgensen MD Work Phone: [facility] Work Phone: Start: 12-17-2022 Refill Uvaldo Jorgensen MD Work Phone: [facility] Comment on above: Refill Request Start: 12-10-2022 Refill Uvaldo Jorgensen MD Work Phone: [facility] Comment on above: Refill Request Start: 10-09-2022 Refill Uvaldo Jorgensen MD Work Phone: [facility] Comment on above: Refill Request Start: 09-19-2022 End: 09-19-2022 Emergency department patient visit [facility] Start: 09-10-2022 ambulatory [facility] Comment on above: well visit Start: 09-10-2022 E-mail encounter samantha m caregiver [facility] Start: 09-10-2022 Refill Uvaldo Jorgensen MD Work Phone: [facility] Comment on above: Refill Request Start: 08-21-2022 Telephone encounter Uvaldo cochran MD Work Phone: [facility] Comment on above: Refill Request Start: 08-21-2022 End: 08-21-2022 Patient encounter procedure Beatriz Ozuna APRN.ADZING AND BORING MACHINE HELPER Work Phone: [facility] Comment on above: Acute sinusitis, rec urrence not specified, unspecified location (Primary Dx) Start: 08-17-2022 End: 08-17-2022 Patient encounter procedure Marita Jesus PA-C Work Phone: [facility] Comment on above: Upper respiratory tr act infection, unspecified type (Primary Dx) Start: 08-13-2022 Patient Msg [facility] Provider Rachel Sanches Comment on above: Refill Start: 08-13-2022 Refill Blanca daniel ORDER TRACER.ADZING AND BORING MACHINE HELPER Work Phone: [facility] Comment on above: Refill Request Start: 08-07-2022 End: 08-07-2022 Patient encounter procedure Nicky Cruz MD Work Phone: [facility] Comment on above: 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 (Primary Dx) Start: 08-01-2022 ambulatory Blanca Abbott son ORDER TRACER.ADZING AND BORING MACHINE HELPER Work Phone: [facility] Comment on above: Pires school note Start: 07-29-2022 End: 07-29-2022 Patient encounter procedure Blanca Conteh ORDER TRACER.ADZING AND BORING MACHINE HELPER Work Phone: [facility] Comment on above: Viral illness (Prima ry Dx); Mild persistent asthma without complication; Chills without fever; Malaise and fatigue; Body aches; Acute pharyngitis, unspecified etiology Start: 07-28-2022 End: 07-28-2022 Patient encounter procedure Gracy Sultana ORDER TRACER.ADZING AND BORING MACHINE HELPER Work Phone: [facility] Comment on above: URI, acute (Primary Dx) Start: 07-18-2022 Refill Uvaldo Jorgensen MD Work Phone: [facility] Comment on above: Refill Request Start: 06-26-2022 End: 06-26-2022 Patient encounter procedure Beatriz Ozuna ORDER TRACER.ADZING AND BORING MACHINE HELPER Work Phone: [facility] Comment on above: Viral illness (Prima ry Dx) Start: 06-24-2022 End: 06-24-2022 Patient encounter procedure Bipin TOPETE Work Phone: [facility] Comment on above: Sore throat (Primary Dx); URI, acute Start: 06-20-2022 End: 06-20-2022 Patient encounter procedure Gladis Rogers PA-C Work Phone: [facility] Comment on above: Eustachian tube dysf unction, right (Primary Dx) Start: 05-21-2022 End: 05-21-2022 Patient encounter procedure Petra Cabrera PA-C Work Phone: [facility] Comment on above: Periumbilical abdomi nal pain (Primary Dx) Start: 05-10-2022 Refill Uvaldo Jorgensen MD Work Phone: [facility] Comment on above: Med Change Request Start: 05-02-2022 End: 05-02-2022 Patient encounter procedure Uvaldo Jorgensen MD Work Phone: [facility] Comment on above: 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 (Primary Dx); Generalized anxiety disorder; Depressed mood; Encounter for WCC (well child check) with abnormal findings; Disrupted sleep-wake cycle Start: 05-02-2022 End: 05-02-2022 Patient encounter status Uvaldo Jorgensen MD Work Phone: [facility] Start: 04-18-2022 Refill Uvaldo Jorgensen MD Work Phone: [facility] Comment on above: Refill Request Start: 04-15-2022 Refill Uvaldo Jorgensen MD Work Phone: [facility] Comment on above: Refill Request Start: 04-08-2022 End: 04-08-2022 Subsequent hospital visit by physician X[facility] Work Phone: Radiology Comment on above: Rib pain on right si de [R07.81] Start: 04-08-2022 End: 04-08-2022 Patient encounter procedure Sahil Ching APRN.ADZING AND BORING MACHINE HELPER Work Phone: [facility] Comment on above: Rib pain on right si de (Primary Dx) Start: 04-05-2022 End: 04-05-2022 Patient encounter procedure She Velázquez APRN.ADZING AND BORING MACHINE HELPER Work Phone: [facility] Comment on above: Nausea vomiting and diarrhea (Primary Dx); Viral illness Start: 03-16-2022 Refill Uvaldo Jorgensen MD Work Phone: [facility] Comment on above: Refill Request Start: 03-09-2022 Refill Glenys Levin APR N.ADZING AND BORING MACHINE HELPER Work Phone: [facility] Comment on above: Refill Request Start: 01-29-2022 End: 01-29-2022 Patient encounter procedure Petra Cabrera PA-C Work Phone: [facility] Comment on above: Constipation, unspec ified constipation type (Primary Dx) Start: 01-24-2022 End: 01-24-2022 Patient encounter procedure She Velázquez ORDER TRACER.ADZING AND BORING MACHINE HELPER Work Phone: [facility] Comment on above: Lumbar pain (Primary Dx); Viral illness; Acute cough Start: 01-22-2022 End: 01-22-2022 [facility] Start: 12-30-2021 Refill Uvaldo Jorgensen MD Work Phone: [facility] Comment on above: Refill Request Start: 12-17-2021 Refill Uvaldo Jorgensen MD Work Phone: [facility] Comment on above: Refill Request Start: 12-05-2021 Telephone encounter Uvaldo cochrna MD Work Phone: [facility] Comment on above: sports form Start: 10-24-2021 ambulatory Marla Lopez RN [facility] [place] Comment on above: Asthma (Chart Review for Breathe Well) Start: 10-16-2021 ambulatory Nicky Martínez ed, MD Work Phone: [facility] Comment on above: Pires's headaches Start: 10-08-2021 Refill Uvaldo Jorgensen MD Work Phone: [facility] Comment on above: Refill Request Start: 09-25-2021 ambulatory Nicky Martínez ed, MD Work Phone: [facility] Comment on above: Pires's [place] Start: 09-23-2021 ambulatory Nicky Martínez ed, MD Work Phone: [facility] Comment on above: [place]-school note Start: 09-23-2021 Telephone encounter Uvaldo cochran MD Work Phone: [facility] Comment on above: Results Start: 09-20-2021 Telephone encounter Nicky tamez MD Work Phone: [facility] Comment on above: Results Start: 09-09-2021 Refill Uvaldo Jorgensen MD Work Phone: [facility] Comment on above: Refill Request Start: 09-02-2021 End: 09-02-2021 Patient encounter procedure Nicky Cruz MD Work Phone: [facility] Comment on above: Recurrent headache ( Primary Dx) Start: 08-20-2021 Refill Uvaldo Jorgensen MD Work Phone: [facility] Comment on above: Refill Request Start: 08-10-2021 Refill Uvaldo Jorgensen MD Work Phone: [facility] Comment on above: Refill Request Start: 08-09-2021 End: 08-09-2021 Patient encounter procedure Gladis Rogers PA-C Work Phone: [facility] Comment on above: Viral URI (Primary D x) Start: 02-07-2021 End: 02-07-2021 Subsequent hospital visit by physician Xr [facility] [place] Work Phone: Radiology Comment on above: Injury of right hand , initial encounter [S69.91XA] Start: 12-05-2020 End: 12-05-2020 Subsequent hospital visit by physician X[facility] Work Phone: [facility] Comment on above: Acute right ankle pa in [M25.571] Start: 02-16-2018 End: 02-18-2018 Evaluation and management of inpatient UVALDO JORGENSEN [facility] Start: 02-16-2018 End: 02-18-2018 Patient encounter procedure LAMAR LANDA [facility] Procedures Date Procedure Procedure Detail Performing Clinician Start: 02-18-2024 Adult depression scr eening assessment Uvaldo Jorgensen MD Work Phone: Start: 08-12-2023 Urnls dip stick/tabl et rgnt auto w/o microscopy She Velázquez ORDER TRACER.ADZING AND BORING MACHINE HELPER Work Phone: Start: 08-10-2023 MENINGOCOCCAL B VACC INE (BEXSERO) Uvaldo Jorgensen MD Work Phone: Start: 06-11-2023 Radiologic exam abdo men 1 view Steve Pope ORDER TRACER.ADZING AND BORING MACHINE HELPER Work Phone: Start: 04-19-2023 Streptococcus pyogen es antigen assay Dr. Uvaldo Jorgensen Work Phone: Start: 01-02-2023 MENINGOCOCCAL B VACC INE (BEXSERO) Uvaldo Jorgensen MD Work Phone: Start: 01-02-2023 Adult depression scr eening assessment Uvaldo Jorgensen MD Work Phone: Start: 07-29-2022 2019 CORONAVIRUS Sourav Conteh ORDER TRACER.ADZING AND BORING MACHINE HELPER Work Phone: Start: 07-29-2022 STREP A MOLECULAR (POC) Blanca Conteh ORDER TRACER.ADZING AND BORING MACHINE HELPER Work Phone: Start: 06-24-2022 INFLUENZA A&B MOLECU LAR (POC) Bipin TOPETE Work Phone: Start: 06-24-2022 STREP A MOLECULAR (POC) Sahil Ching ORDER TRACER.ADZING AND BORING MACHINE HELPER Work Phone: Start: 05-02-2022 Adult depression scr eening assessment Uvaldo Jorgensen MD Work Phone: Start: 04-08-2022 Radex ribs uni w/pos teroant ch minimum 3 views Sahil Ching ORDER TRACER.ADZING AND BORING MACHINE HELPER Work Phone: Start: 01-22-2022 CT of abdomen and pe lvis without contrast Start: 01-09-2022 Adult depression scr eening assessment She Velázquez ORDER TRACER.ADZING AND BORING MACHINE HELPER Work Phone: Start: 07-19-2021 Adult depression scr eening assessment Gladis Rogers PA-C Work Phone: Start: 02-07-2021 Radex hand minimum 3 views Steve Pope ORDER TRACER.ADZING AND BORING MACHINE HELPER Work Phone: Start: 12-05-2020 Radex ankle complete minimum 3 views Steve Pope ORDER TRACER.ADZING AND BORING MACHINE HELPER Work Phone: Plan of Treatment Date Care Activity Detail Author Start: 08-03-2033 Urine microalbumin profile DTaP,Tdap,Td Vaccine (8 - Td or Tdap) [facility] Start: 05-02-2027 Urine microalbumin profile [facility] Start: 06-23-2026 Asthma Action Plan Asthma Action [place] [facility] Start: 06-23-2025 Annual PCP Team Disk And Tape Machine Tender jared Disease Visit Annual PCP Team Chronic Disease Visit [facility] Start: 02-17-2025 Annual PCP Team Disk And Tape Machine Tender jared Disease Visit Annual PCP Team Chronic Disease Visit [facility] Start: 02-17-2025 Asthma Control Test Asthma Control T est [facility] Start: 02-17-2025 Depression Screening Depression Scre ening [facility] Start: 01-09-2025 Influenza vaccination Influenza Vacc ine (#1) [facility] Start: 01-03-2025 ASTHMA ACTION PLAN ASTHMA ACTION [place] [facility] Start: 11-10-2024 End: 11-10-2024 ambulatory 11/10/2024 10:00 AM EDT Procedure [facility] [address] [place] [address] [facility], Pulm Lab [facility] [address] [place] [address] Asthma, moderate persistent, poorly-controlled (HCC) [J45.40] [facility] Comment on above: Asthma, moderate per sistent, poorly-controlled (HCC) [J45.40] Start: 08-09-2024 Annual PCP Team Disk And Tape Machine Tender jared Disease Visit Annual PCP Team Chronic Disease Visit [facility] Start: 05-19-2024 End: 05-19-2024 Patient encounter procedure 05/19/2024 9:00 AM EST Office Visit [facility] [address] [place], [place] [id number] Uvaldo Jorgensen MD [address] [place], [place] [id number] follow up asthma [facility] Comment on above: follow up asthma Start: 04-08-2024 Chlamydia Screening (18-24) Chlamydia Screening (18-24) [facility] Start: 04-08-2024 GC (Gonorrhea) Scree nirav (18-24) GC (Gonorrhea) Screening (18-24) [facility] Start: 04-08-2024 Screening for Chlamy felicita trachomatis Chlamydia Screening (18-) [facility] Start: 04-08-2024 End: 04-08-2024 Patient encounter procedure 04/08/2024 1:00 PM EST Office Visit [facility] [address] [facility], [place] [id number] Uvaldo Jorgensen MD [address] [facility] [place] [id number] med check [facility] Comment on above: med check Start: 01-10-2024 Covid-19 Vaccine () Covid-19 Vaccine () [facility] Start: 01-10-2024 Covid-19 Vaccine () Covid-19 Vaccine () [facility] Start: 01-10-2024 Influenza vaccination C [facility] Start: 01-07-2024 End: 01-07-2024 Patient encounter procedure 01/07/2024 3:30 PM EDT Office Visit [facility] [address] [place], [place] [id number] Uvaldo Jorgensen MD [address] [place], [place] [address] [facility] [place] Comment on above: [facility] Start: 01-03-2024 Adult depression screening assessment DEPRESSION SCREENING [facility] Start: 01-03-2024 Annual PCP Team Disk And Tape Machine Tender jared Disease Visit Annual PCP Team Chronic Disease Visit [facility] Start: 01-03-2024 ASTHMA CONTROL TEST ASTHMA CONTROL T [facility] Start: 05-11-2023 Depression Assessment Depression Ass essment [facility] Start: 05-02-2023 Adult depression screening assessment DEPRESSION SCREENING [facility] Start: 05-02-2023 ASTHMA CONTROL TEST ASTHMA CONTROL T EST [facility] Start: 04-19-2023 [facility] Start: 04-08-2023 End: 07-08-2023 Choriogonadotropin.beta subunit [Units/volume] in Serum or Plasma [facility] Work Phone: Comment on above: Expected: 04/08/2023 , Expires: 07/08/2023 Start: 04-08-2023 End: 07-08-2023 Hepatitis B virus core IgM Ab [Presence] in Serum [facility] Work Phone: Comment on above: Expected: 04/08/2023 , Expires: 07/08/2023 Start: 04-08-2023 End: 07-08-2023 Hepatitis C virus Ab [Presence] in Serum [facility] Work Phone: Comment on above: Expected: 04/08/2023 , Expires: 07/08/2023 Start: 04-08-2023 End: 07-08-2023 HIV 1+2 Ab [Presence] in Serum or Plasma by Immunoassay [facility] Work Phone: Comment on above: Expected: 04/08/2023 , Expires: 07/08/2023 Start: 04-08-2023 End: 07-08-2023 SYPHILIS TOTAL W/REFLEX [facility] Work Phone: Comment on above: Expected: 04/08/2023 , Expires: 07/08/2023 Start: 01-30-2023 Meningococcal B Vacc ine: Consider Based On Risk (2 of 2 - Risk Bexsero 2-dose series) Meningococcal B Vaccine: Consider Based On Risk (2 of 2 - Risk Bexsero 2-dose series) [facility] Start: 01-30-2023 MENINGOCOCCAL B: Consider based on risk (2 of 2 - Risk Bexsero 2-dose series) MENINGOCOCCAL B: Consider based on risk (2 of 2 - Risk Bexsero 2-dose series) [facility] Start: 2023 Chlamydia Screening (-24) Chlamydia Screening (18-) [facility] Start: 2023 Depression Screening Depression Scre ening [facility] Start: 2023 GC (Gonorrhea) Scree nirav (18-24) GC (Gonorrhea) Screening (18-24) [facility] Start: 2023 Hepatitis C Screening Hepatitis C Sc reening [facility] Start: 2023 HIV Screening HIV Screening [facility] Start: 2023 Spirometry Spirometry [facility] Start: 01-09-2023 Adult depression screening assessment DEPRESSION SCREENING [facility] Start: 01-09-2023 Covid-19 Vaccine ( season) Covid-19 Vaccine ( season) [facility] Start: 01-09-2023 Influenza vaccination [facility] Start: 01-02-2023 End: 03-04-2023 25-hydroxyvitamin D3 [Mass/volume] in Serum or Plasma [facility] Work Phone: Comment on above: Expected: 01/02/2023 , Expires: 03/04/2023 Start: 01-02-2023 End: 03-04-2023 ALLERGEN NUT PANEL GROUP [facility] Work Phone: Comment on above: Expected: 01/02/2023 , Expires: 03/04/2023 Start: 12-04-2022 ASTHMA ACTION PLAN ASTHMA ACTION [place] [facility] Start: 10-09-2022 End: 12-09-2022 25-hydroxyvitamin D3 [Mass/volume] in Serum or Plasma VITAMIN D 25 HYDROXY Lab Routine Vitamin D deficiency Expected: 10/09/2022, Expires: 12/09/2022 [facility] Work Phone: Comment on above: Expected: 10/09/2022 , Expires: 12/09/2022 Start: 07-28-2022 End: 08-11-2022 COVID, FLU A/B + RSV, ROUTINE [facility] Work Phone: Comment on above: Expected: 07/28/2022 , Expires: 08/11/2022 Start: 07-19-2022 Adult depression screening assessment DEPRESSION SCREENING [facility] Start: 05-11-2022 Depression Assessment Depression Ass essment [facility] Start: 04-05-2022 End: 04-19-2022 COVID, FLU A/B + RSV, ROUTINE COVID, FLU A/B + RSV, ROUTINE Microbiology Routine Nausea vomiting and diarrhea Viral illness Expected: 04/05/2022, Expires: 04/19/2022 [facility] Work Phone: Comment on above: Expected: 04/05/2022 , Expires: 04/19/2022 Start: 01-24-2022 End: 02-07-2022 COVID, FLU A/B + RSV, ROUTINE COVID, FLU A/B + RSV, ROUTINE Microbiology Routine Viral illness Acute cough Expected: 01/24/2022, Expires: 02/07/2022 [facility] Work Phone: Comment on above: Expected: 01/24/2022 , Expires: 02/07/2022 Start: 01-12-2022 ASTHMA CONTROL TEST ASTHMA CONTROL T EST [facility] Start: 01-09-2022 Influenza vaccination INFLUENZA (#1) [facility] Start: 12-24-2021 End: 02-23-2022 VITAMIN D 25 HYDROXY VITAMIN D 25 HYDROXY Lab Routine Vitamin D deficiency Expected: 12/24/2021, Expires: 02/23/2022 [facility] Work Phone: Comment on above: Expected: 12/24/2021 , Expires: 02/23/2022 Start: 08-09-2021 End: 08-23-2021 COVID, FLU A/B + RSV, ROUTINE COVID, FLU A/B + RSV, ROUTINE Microbiology Routine Viral URI Expected: 08/09/2021, Expires: 08/23/2021 [facility] Work Phone: Comment on above: Expected: 08/09/2021 , Expires: 08/23/2021 Start: 2021 MENINGOCOCCAL B: Consider based on risk (1 of 2 - Patient Seeks Protection) MENINGOCOCCAL B: Consider based on risk (1 of 2 - Patient Seeks Protection) [facility] Start: 01-17-2020 CHLAMYDIA SCREENING (<18) CHLAMYDIA SCREENING (<18) [facility] Start: 01-17-2020 GC (GONORRHEA) SCREE NIRAV (<18) GC (GONORRHEA) SCREENING (<18) [facility] Start: 2019 PEDS TO ADULT TRANSI TION ANNUAL ASSESSMENT PEDS TO ADULT TRANSITION ANNUAL ASSESSMENT [facility] Start: 2015 MENINGOCOCCAL B: Consider based on risk (1 of 2 - Risk Bexsero 2-dose series) MENINGOCOCCAL B: Consider based on risk (1 of 2 - Risk Bexsero 2-dose series) [facility] Start: 2011 Pneumococcal vaccination Pneum ococcal Vaccine (1 of 2 - PCV) [facility] Start: 09-08-2010 COVID-19 VACCINE (#1) COVID-19 VACCI NE (#1) [facility] Start: 2010 COVID-19 VACCINE (1) COVID-19 VACCIN E (1) [facility] Start: 2005 COVID-19 VACCINE (#1) COVID-19 VACCI NE (#1) [facility] Bacteria identified in Urine by Culture URINE CULTURE Microbiology Routine Urinary frequency 08/12/2023 7:[address] [facility] Work Phone: Chlamydia trachomatis+Neisseria gonorrhoeae DNA [Presence] in Unspecified specimen by KEN with probe detection GONORRHEA/CHLAMYDIA NAAT Lab Routine Screening examination for STD (sexually transmitted disease) 04/08/2023 9:[address] [facility] Work Phone: COVID, FLU A/B + RSV , ROUTINE COVID, FLU A/B + RSV, ROUTINE Microbiology Routine Viral illness Ordered: 06/26/2022 [facility] Work Phone: Comment on above: Ordered: 06/26/2022 COVID, FLU A/B + RSV , ROUTINE COVID, FLU A/B + RSV, ROUTINE Microbiology Routine Upper respiratory tract infection, unspecified type Ordered: 08/17/2022 [facility] Work Phone: Comment on above: Ordered: 08/17/2022 NEXPLANON INSERTION NEXPLANON IN SERTION Procedures Routine Encounter for contraceptive management, unspecified type Ordered: 04/08/2023 [facility] Work Phone: Comment on above: Ordered: 04/08/2023 Patient Education [facility] Work Phone: Patient referral [facility] Work Phone: End: 07-10-2024 Radiologic exam abdomen 3+ views XR ABDOMEN 3V KUB W/OBLIQUES Radiology STAT Generalized abdominal pain 1 Occurrences starting 06/11/2023 until 07/10/2024 [facility] Work Phone: Comment on above: 1 Occurrences starti ng 06/11/2023 until 07/10/2024 ROUTINE FLU A/B + RSV ROUTINE FL U A/B + RSV Lab Routine Viral URI Ordered: 08/09/2021 [facility] Work Phone: Comment on above: Ordered: 08/09/2021 ROUTINE FLU A/B + RSV ROUTINE FL U A/B + RSV Lab Routine Viral illness Acute cough Ordered: 01/24/2022 [facility] Work Phone: Comment on above: Ordered: 01/24/2022 ROUTINE FLU A/B + RSV ROUTINE FL U A/B + RSV Lab Routine Nausea vomiting and diarrhea Viral illness Ordered: 04/05/2022 [facility] Work Phone: Comment on above: Ordered: 04/05/2022 ROUTINE FLU A/B + RSV ROUTINE FL U A/B + RSV Lab Routine Viral illness Ordered: 06/26/2022 [facility] Work Phone: Comment on above: Ordered: 06/26/2022 ROUTINE FLU A/B + RSV ROUTINE FL U A/B + RSV Lab Routine URI, acute 07/28/2022 2:[address] [facility] Work Phone: ROUTINE FLU A/B + RSV ROUTINE FL U A/B + RSV Lab Routine Upper respiratory tract infection, unspecified type Ordered: 08/17/2022 [facility] Work Phone: Comment on above: Ordered: 08/17/2022 SARS-CoV-2 (COVID-19 ) RNA [Presence] in Respiratory specimen by KEN with probe detection 2019 CORONAVIRUS Microbiology Routine Viral URI Ordered: 08/09/2021 [facility] Work Phone: Comment on above: Ordered: 08/09/2021 SARS-CoV-2 (COVID-19 ) RNA [Presence] in Respiratory specimen by KEN with probe detection 2019 CORONAVIRUS Microbiology Routine Viral illness Acute cough Ordered: 01/24/2022 [facility] Work Phone: Comment on above: Ordered: 01/24/2022 SARS-CoV-2 (COVID-19 ) RNA [Presence] in Respiratory specimen by KEN with probe detection 2019 CORONAVIRUS Microbiology Routine Nausea vomiting and diarrhea Viral illness Ordered: 04/05/2022 [facility] Work Phone: Comment on above: Ordered: 04/05/2022 SARS-CoV-2 (COVID-19 ) RNA [Presence] in Respiratory specimen by KEN with probe detection 2019 CORONAVIRUS Microbiology Routine Viral illness Ordered: 06/26/2022 [facility] Work Phone: Comment on above: Ordered: 06/26/2022 SARS-CoV-2 (COVID-19 ) RNA [Presence] in Respiratory specimen by KEN with probe detection 2019 CORONAVIRUS Microbiology Routine URI, acute 07/28/2022 2:[address] [facility] Work Phone: SARS-CoV-2 (COVID-19 ) RNA [Presence] in Respiratory specimen by EKN with probe detection 2019 CORONAVIRUS Microbiology Routine Upper respiratory tract infection, unspecified type Ordered: 08/17/2022 [facility] Work Phone: Comment on above: Ordered: 08/17/2022 End: 07-23-2025 SPIROMETRY - BASELINE AND POST DILATOR SPIROMETRY - BASELINE AND POST DILATOR PFT Routine Asthma, moderate persistent, poorly-controlled 1 Occurrences starting 06/23/2024 until 07/23/2025 [facility] Work Phone: Comment on above: 1 Occurrences starti ng 06/23/2024 until 07/23/2025 End: 02-09-2026 SPIROMETRY - BASELINE AND POST DILATOR SPIROMETRY - BASELINE AND POST DILATOR PFT Routine Mild persistent asthma without complication (HCC) 1 Occurrences starting 01/10/2025 until 02/09/2026 [facility] Work Phone: Comment on above: 1 Occurrences starti ng 01/10/2025 until 02/09/2026 TRICHOMONAS VAGINALI S NAAT TRICHOMONAS VAGINALIS NAAT Lab Routine Screening examination for STD (sexually transmitted disease) 04/08/2023 9:[address] [facility] Work Phone: [facility] Immunizations Immunization Date Immunization Notes Care Provider Larisa abdalla 02-18-2024 influenza, seasonal, injectable Uvaldo Jorgensen MD Work Phone: [facility] 02-18-2024 influenza virus vacc ine, unspecified formulation Uvaldo Jorgensen MD Work Phone: [facility] 08-10-2023 meningococcal B vacc ine, recombinant, OMV, adjuvanted Uvaldo Jorgensen MD Work Phone: [facility] 08-04-2023 tetanus toxoid, redu jie diphtheria toxoid, and acellular pertussis vaccine, adsorbed Uvaldo Jorgensen MD Work Phone: [facility] 01-02-2023 meningococcal B vacc ine, recombinant, OMV, adjuvanted Uvaldo Jorgensen MD Work Phone: [facility] 01-09-2022 influenza, injectabl e, quadrivalent, contains preservative She Velázquez APRNShantellADZING AND BORING MACHINE HELPER Work Phone: [facility] 01-09-2022 influenza virus vacc ine, unspecified formulation Uvaldo Jorgensen MD Work Phone: [facility] 2021 meningococcal polysaccharide (groups A, C, Y and W-135) diphtheria toxoid conjugate vaccine (MCV4P) Gladis Rogers PA-C Work Phone: [facility] 01-12-2021 influenza, injectabl e, quadrivalent, contains preservative Gladis Rogers PA-C Work Phone: [facility] 04-14-2020 influenza, injectabl e, quadrivalent, contains preservative Gladis Rogers PA-C Work Phone: [facility] 04-02-2019 influenza, injectabl e, quadrivalent, preservative free Gladis Rogers PA-C Work Phone: [facility] 03-09-2018 Human Papillomavirus 9-valent vaccine Gladis Rogers PA-C Work Phone: [facility] 02-18-2018 influenza, injectabl e, quadrivalent, preservative free Gladis Rogers PA-C Work Phone: [facility] Work Phone: 05-02-2017 Human Papillomavirus 9-valent vaccine Gladis TOPETE-C Work Phone: [facility] Work Phone: 05-02-2017 influenza, injectabl e, quadrivalent, contains preservative Gladis Rogers PA-C Work Phone: [facility] Work Phone: 05-02-2017 meningococcal polysaccharide (groups A, C, Y and W-135) diphtheria toxoid conjugate vaccine (MCV4P) Gladis TOPETE-C Work Phone: [facility] Work Phone: 05-02-2017 tetanus toxoid, redu jie diphtheria toxoid, and acellular pertussis vaccine, adsorbed Gladis TOPETE-C Work Phone: [facility] Work Phone: 02-27-2016 influenza, injectabl e, quadrivalent, contains preservative Gladis Rogers PA-C Work Phone: [facility] 03-24-2015 influenza, injectabl e, quadrivalent, contains preservative Gladis Rogers PA-C Work Phone: [facility] Work Phone: 03-09-2014 influenza, seasonal, injectable Gladis Rogers PA-C Work Phone: [facility] 04-14-2013 influenza virus vacc ine, unspecified formulation Gladis TOPETE-C Work Phone: [facility] 01-23-2010 diphtheria, tetanus toxoids and acellular pertussis vaccine Gladis Rogers PA-C Work Phone: [facility] 01-23-2010 measles, mumps and rubella virus vaccine Gladis Rogers PA-C Work Phone: [facility] 01-23-2010 poliovirus vaccine, inactivated Gladis TOPETE-C Work Phone: [facility] 01-23-2010 varicella virus vaccine Gladis Rogers PA-C Work Phone: [facility] 2007 hepatitis A vaccine, unspecified formulation Gladis Rogers PA-C Work Phone: [facility] Work Phone: 05-30-2006 influenza virus vacc ine, unspecified formulation Gladis Rogers PA-C Work Phone: [facility] Work Phone: 04-18-2006 diphtheria, tetanus toxoids and acellular pertussis vaccine Gladis Billsy PA-C Work Phone: [facility] Work Phone: 04-18-2006 haemophilus influenz ae type b vaccine, HbOC conjugate Gladis Rogers PA-C Work Phone: [facility] Work Phone: 04-18-2006 hepatitis A vaccine, unspecified formulation Gladis Rogers PA-C Work Phone: [facility] Work Phone: 04-18-2006 influenza virus vacc ine, unspecified formulation Gladis Rogers PA-C Work Phone: [facility] Work Phone: 2006 measles, mumps and rubella virus vaccine Gladis Rogers PA-C Work Phone: [facility] Work Phone: 2006 pneumococcal conjuga te vaccine, 7 valent Gladis Rogers PA-C Work Phone: [facility] Work Phone: 2006 varicella virus vaccine Gladis Billsy PA-C Work Phone: [facility] Work Phone: 2005 DTaP-hepatitis B and poliovirus vaccine Gladis Billsy PA-C Work Phone: [facility] Work Phone: 2005 haemophilus influenz ae type b vaccine, HbOC conjugate Gladis Rogers PA-C Work Phone: [facility] Work Phone: 2005 pneumococcal conjuga te vaccine, 7 valent Gladis Athy PA-C Work Phone: [facility] Work Phone: 2005 DTaP-hepatitis B and poliovirus vaccine Gladis Athy PA-C Work Phone: [facility] Work Phone: 2005 haemophilus influenz ae type b vaccine, HbOC conjugate Gladis Athy PA-C Work Phone: [facility] Work Phone: 2005 pneumococcal conjuga te vaccine, 7 valent Gladis Athy PA-C Work Phone: [facility] Work Phone: 2005 DTaP-hepatitis B and poliovirus vaccine Gladis Athy PA-C Work Phone: [facility] Work Phone: 2005 haemophilus influenz ae type b vaccine, HbOC conjugate Gladis Athy PA-C Work Phone: [facility] Work Phone: 2005 pneumococcal conjuga te vaccine, 7 valent Gladis Athy PA-C Work Phone: [facility] Work Phone: Payers Date Payer Category Payer Self-pay [id number] 2022 [facility] [id number] 2021 Private Health Insurance P AET [facility] STAFF/NON STAFF / EHP [facility] [id number] 2021-2031 [address] [place] [address] [facility] [id number] 2021 Private Health Insurance [id number] 2015 Unknown [id number] 2007 Unknown [id number] 1981 Unknown [id number] 2..840.1.783295.3.579.2 .479 1981 Unknown [id number] 2..840.1.156126.3.579.2 .479 1981 Unknown [id number] 2.840.1.441252.3.579.2 .627 1981 Unknown [id number] 2.840.1.536044.3.579.2 .627 Medicaid MEDICAID [id number] Private Health Insurance [id number] Unknown [id number] 2.840.1.188919.3.579.2 .462 Unknown [id number] 2.16840.1.169657.3.579.2 .462 Unknown [id number] 2.840.1.861020.3.579.2 .462 Unknown [id number] 2.16840.1.530437.3.579.2 .462 Unknown [id number] 2.16840.1.253817.3.579.2 .462 Unknown [id number] 2.16.840.1.996642.3.579.2 .462 Unknown [id number] 2.16840.1.768785.3.579.2 .462 Unknown [id number] 2.16840.1.906967.3.579.2 .462 Unknown [id number] 2.16840.1.275722.3.579.2 .462 Unknown [id number] 2.16.840.1.820685.3.579.2 .462 Unknown [id number] 2.16.840.1.701045.3.579.2 .462 Unknown [id number] 2.16.840.1.412027.3.579.2 .462 Unknown [id number] 2.16.840.1.859363.3.579.2 .462 Unknown [id number] 2.16.840.1.165345.3.579.2 .462 Unknown [id number] 2.16.840.1.454110.3.579.2 .462 Unknown [id number] 2.16.840.1.761555.3.579.2 .462 Unknown [id number] 2.16840.1.001349.3.579.2 .462 Unknown [id number] 2.16840.1.721525.3.579.2 .462 Unknown [id number] 2.16.840.1.030907.3.579.2 .462 Unknown [id number] 2.16.840.1.943279.3.579.2 .462 Unknown [id number] 2.16840.1.144110.3.579.2 .462 Unknown [id number] 2.16840.1.185000.3.579.2 .462 Unknown [id number] 2.840.1.524736.3.579.2 .462 Social History Date Type Detail Facility Start: 02-19-2018 End: 01-09-2022 Tobacco smoking status NHIS Never smoked tobacco [facility] Start: 12-05-2020 End: 08-09-2021 Alcohol intake Not Asked [facility] Start: 02-19-2018 End: 01-09-2022 Tobacco Comment outside- dad's parents/mom smokes outside [facility] Start: 2005 Sex Assigned At Not on file [facility] Start: 11-05-2020 End: 04-08-2022 Exposure to SARS-CoV-2 (event) Not sure [facility] History of tobacco use Passive smoker [facility] Work Phone: Start: 02-19-2018 End: 01-09-2022 Tobacco use and exposure Smokeless tobacco non-user [facility] Work Phone: Start: 01-22-2022 End: 04-19-2023 Tobacco smoking status NHIS Unknown if ever smoked [facility] Start: 2005 Sex Assigned At Female [facility] Start: 08-21-2022 End: 05-28-2024 History of Social function [facility] Start: 08-21-2022 End: 05-28-2024 Tobacco use panel [facility] Start: 04-11-2012 Getting School Help Needed Yes [facility] How hard is it for you to pay for the very basics like food, housing, medical care, and heating Somewhat hard [facility] (I/We) worried whether (my/our) food would run out before (I/we) got money to buy more. Never true [facility] In the past 12 months, was there a time when you were not able to pay the mortgage or rent on time? Yes [facility] Start: 04-08-2023 End: 06-23-2024 Alcohol intake Lifetime non-drinker (finding) [facility] Sex Assigned At [facility] Start: 08-02-2017 Sex Female (finding) [facility] NEGATED: Highlighted row [facility] Functional Status Date Assessment Result Facility 07-06-2024 Functional Status Standard Safet y ID band on, Call device within reach, Bed in low position, Wheels locked, Upper/Half-Length side-rails up, Bedside Cart Locked, Safety level maintained [facility] 02-26-2024 Functional Status Up ad finn [facility] 07-02-2014 Are you deaf, or do you have serious difficulty hearing No 07/02/2014 9:35 AM Shanthi Salinas LPN No [facility] 07-02-2014 Are you blind, or do you have serious difficulty seeing, even when wearing glasses No 07/02/2014 9:35 AM Shanthi Salinas LPN No [facility] 07-02-2014 Do you have serious difficulty walking or climbing stairs No 07/02/2014 9:35 AM VÍCTOR Mert Shanthi SINGLETON No [facility] 07-02-2014 Do you have difficul ty dressing or bathing No 07/02/2014 9:35 AM VÍCTOR Painting Shanthi SINGLETON No [facility] Mental Status Date Assessment Result Facility 07-06-2024 Mental Status Orientation Oriented x 4 [facility] 02-26-2024 Mental Status Oriented x 4 [facility] 07-02-2014 Because of a physica l, mental, or emotional condition, do you have serious difficulty concentrating, remembering, or making decisions No 07/02/2014 9:35 AM Shanthi Salinas LPN No [facility] Clinical Notes 12-05-2020 to 02-10-2025 Telephone Encounter - Niurka Jonas RN - 01/10/2025 10:48 AM EDTTelephone Encounter - Niurka Jonas RN - 01/10/2025 10:48 AM EDTTelephone Encounter - Uvaldo Jorgensen MD - 01/10/2025 10:39 AM EDT Note Date & Type Note Facility 02-10-2025 Note HNO ID: [id number] Author: UVALDO JORGENSEN MD Service: ? Author Type: Physician Type: Progress Notes Filed: 02/10/2025 19:35 Note Text: Patient presents for ER follow up from 2 Saturdays ago. Was seen for Shortness of Breath and using her entire inhaler in 2 days. States that they did a breathing treatment, Chest Xray, and prescribed prednisone. States that she does not currently have an inhaler. Has an albuterol nebulizer that she has used 3-5 times a day this past week. States that the Shortness of Breath starts without a pattern, can occur in the shower, when walking, or when just sitting. Starts with tightness to the chest like someone is sitting on my chest, pain can develop to the chest and back during episodes. Will start wheezing if she does not use her albuterol soon. Shortness of Breath has been consistently bad for the last 2 weeks. States that it is difficult to take a deep breath in when this occurs. After taking a deep breath it can cause her to cough. Sometimes feels like it is tight in the throat. If she notices the symptoms early enough, she can go outside and focus on her breathing and settle it without needing her inhaler. Frequently bending over can increase her Shortness of Breath. States that she has a history of pneumothorax in 2018 and was in the ICU for that. Denies history of smoking/vaping. Takes cetirizine daily which has not helped. Has a PFT scheduled at [facility] Thursday. Patient has not seen Psychiatry for 2 months due to missing 3 appointments. States that she has been feeling well since. Anxiety and depression feel controlled. Takes Prozac as needed. Does still see counselor and states that is going well. Would like a referral to see psychiatry. - Currently taking a break from school to focus on finances (noted as a stressor). - Recently adopted a puppy, which she finds helpful for her mood. Environmental Allergies - Experiences increased respiratory symptoms with seasonal changes. - Takes an oral daily antihistamine (?Zyrtec? or similar). - Denies routine use of nasal steroid spray due to cost concerns. - Still experiencing sneezing and itchy eyes despite daily allergy medication. - Inquires whether she can use an intranasal steroid concurrently with oral medication. PAST MEDICAL HISTORY Diagnosis Date Contact dermatitis and other eczema, due to unspecified cause PMH - PAST MEDICAL HISTORY OF RSV Pneumomediastinum (HCC) 02/16/2018 Right arm fracture age 3-4 Physical Exam: General: alert and active in no apparent distress Eyes: normal and no strabismus noted Ears: External ears normal. Canals clear. TM's normal. Nose/Sinuses: Nares normal. Septum midline. Mucosa normal. No drainage or sinus tenderness. Oropharynx: normal Cardiovascular: Regular Rate and Rhythm without murmurs or clicks Lungs: clear to auscultation Abdomen: Abdomen is soft, nontender, without organomegaly or masses. Musculoskeletal: Extremities with FROM and no problems identified., spine without evidence of scoliosis A/P # Vocal cord dysfunction (J38.3) # Mild persistent asthma without complication (HCC) (J45.30) - Recent episodes of abrupt-onset dyspnea and throat tightness with variable response to albuterol suggest inducible laryngeal spasm (vocal cord dysfunction) rather than asthma exacerbation. - Pulmonary function test scheduled Thursday to further evaluate. - Provided education on vocal cord dysfunction, including explanation of pathophysiology and distinction from asthma. - Reviewed and practiced rescue breathing techniques (pursed lip exhalation, short nasal inhalations) to manage acute episodes. - Refer to speech therapy for further management and training in breathing exercises. - Refill Symbicort. # Generalized anxiety disorder (F41.1) # Depressed mood (R45.89) - Anxiety and depression reportedly well-controlled; continues counseling and takes Prozac as needed. - Missed 3 psychiatry appointments and was dropped by previous provider; interested in new referral. - Refer to psychiatry for ongoing management. [facility] 01-10-2025 Telephone encounter Note Called and spoke with patient. Scheduling offered. She states that she will have to call back later when she has her schedule/calendar available. Niurka Jonas RN [facility] 01-10-2025 Miscellaneous Notes Called and spoke with [...] Cheli Lucero LPN documented in this encounter [facility] 01-10-2025 Telephone encounter Note Please attempt to schedule again for pulmonary function testing. She canceled the last 2 appointments. The following approved medication requests have been transmitted electronically. Requested Prescriptions Signed Prescriptions Disp Refills SYMBICORT 80-4.5 mcg/actuation inhaler 10.2 g 0 Sig: INHALE 2 PUFFS BY MOUTH INSTRUCTED TWICE DAILY Authorizing Provider: UVALDO JORGENSEN MD [facility] 01-10-2025 Telephone encounter Note Pt called in [...] Test due on 02/17/2025 Cheli Lucero LPN [facility] 11-07-2024 Miscellaneous Notes Patient calling to report [...] Chen Echevarria RN documented in this encounter [facility] 11-07-2024 Telephone encounter Note Patient calling to report that she will continue with the symbicort as suggested by provider in previous messages. She does not need an additional order of symbicort at this time. [facility] 11-04-2024 Telephone encounter Note Left message to call office. 11/04/2024 8:26 AM Niurka Jonas RN [facility] 11-03-2024 Telephone encounter Note I would recommend that she use her Symbicort as a rescue (as well as maintenance) medication rather than Albuterol. I can refill that instead if she wishes. [facility] 11-03-2024 Telephone encounter Note Spoke with patient, [...] to get it scheduled. Chen Echevarria RN [facility] 09-24-2024 Telephone encounter Note Left message to call office. 09/24/2024 9:03 AM Niurka Jonas RN [facility] 09-24-2024 Miscellaneous Notes Left message to call office. 09/24/2024 9:03 AM Niurka Jonas RN Left message to call office. 09/19/2024 1:34 PM Niurka Jonas RN Left message to verify if refill needed. Was refilled on 08/15/24 Chen Echevarria RN documented in this encounter [facility] [facility]24 Telephone encounter Note Left message to call office. 09/19/2024 1:34 PM Niurka Jonas RN [facility] 09-10-2024 Telephone encounter Note Left message to verify if refill needed. Was refilled on 08/15/24 Chen Echevarria RN [facility] 07-07-2024 Note . MICRO - Microbiology PROCEDURE: Urine Culture [O1 *1] SOURCE: Urine BODY SITE: COLLECTED DATE/TIME: 07/06/2024 02:59 EST RECEIVED DATE/TIME: 07/06/2024 15:37 EST START DATE/TIME: 07/06/2024 15:37 EST FREE TEXT SOURCE: FINAL REPORTS Final Report [] Verified Date/Time/Personnel: 07/07/2024 15:01 EST 10,000 - 50,000 cfu/ml Keara albicans Contact Microbiology within 72 hours if further identification is indicated ([id number]). [place] counts from a single urine are equivocal in determining infection vs. colonization of yeast. Multiple cultures at least 24 hours apart may be helpful in differentiating colonization from infection. SUSCEPTIBILITY RESULTS Keara albicans Antibiotic UGO Dilut UGO Inter ID Panel Not Not Applicable Applicable Order Comments O1: Urine Culture Added by Discern Performing Locations *1: This test was performed at: [facility], [address] [place] [address], [facility] , [facility] 07-06-2024 Evaluation + Plan note Diagnostic Tests PendingUrine Culture 07/06/24 [facility] 07-06-2024 Hospital Discharg e instructions Patient Education [...] the smoke from others. You may use nlrs-zml-niippfs acetaminophen or ibuprofen for fever, muscle aching, [...] body and be dangerous to your health. Ubqu-ota-ikhaakh remedies won't shorten the length of the [...] or as directed by your healthcare provider [phone] [employer]. [address] [place] [address], [place] [address]. All rights reserved. This information is not [...] seeing Extreme drowsiness, confusion, dizziness, or fainting [phone] [employer]. [address] [place] [address]. All rights reserved. This information is not intended as a substitute for professional medical care. Always follow your healthcare professional's instructions. Follow Up Care 07/06/2024 01:33:41 With:UVALDO JORGENSEN MD Address: [address] [place] [address] When:2-4 days With:Go to emergency room if symptoms worsen Address:Unknown When:2-4 days [facility] 07-06-2024 Emergency department Discharge summary Discharge Instructions Thank you for allowing [facility] to assist you with your healthcare needs. [...] UVALDO JORGENSEN MD When:Within 2-4 days Where:[address] [place] [id number] Follow Up with Go to emergency room [...] the smoke from others. You may use saky-qfz-bmrdjch acetaminophen or ibuprofen for fever, muscle aching, [...] body and be dangerous to your health. Rwkf-iqq-jdpzzga remedies won't shorten the length of the [...] or as directed by your healthcare provider [phone] [employer]. [address] [place] [address], [place] [address]. All rights reserved. This information is not [...] seeing Extreme drowsiness, confusion, dizziness, or fainting [phone] [employer]. [address] [place] [address]. All rights reserved. This information is not intended as a substitute for professional medical care. Always follow your healthcare professional's instructions. Additional Information VACCINATE! IT SAVES LIVES! Members of the community who have not yet received the COVID-19 vaccine and would like to receive it can visit one of [facility] vaccine clinics. There are many vaccine clinic locations within the [facility]. For locations and available times, please visit [email or web address] [email or web address] It is important to note that some COVID mobile vaccine clinics are held outdoors and may be canceled in rainy or stormy conditions. To learn more about pediatric vaccinations (ages 5-11), we invite you to visit the [facility] webpage. https://www.[facility].org/p ages/[email or web address]-Fagnz-Ogvdwojykdv-Freq oxlcxu-Egctc-Cujbetrtp.html To learn more about the COVID-19 vaccine, we invite you to visit the CDC website for a list of frequently asked questions. https://www.cdc.gov/coronavirus/ 2019-ncov/vaccines/faq.html [facility] Patient Portal Access Instructions: Stay connected with your healthcare team and access your personal medical information anytime with the [facility] Patient Portal. If you would like a full copy of your medical records please contact the [facility] Medical Records Department Thursday through Thursday between 8a.m. and 4:30p.m. Please follow the directions below to access the portal: 1.Access the email account you provided upon registration to the [facility].2.Look for an invitation email from [facility].3.Open the email and access the invitation link: Accept Invitation to [facility]4.Fill in the required mendez to create your account. Sign into [email or web address] with your username and password that you [...] you will allow to register on the [facility] Patient Portal for access to your information. You can also access the [facility] Patient Portal on the [employer] angelita. Simply click on Health Records under Health Data and then click on the [employer] logo. HOW TO SAFELY DISPOSE OF PRESCRIPTION [...] Call your local pharmacy or go to [email or web address] to find one close to you.3.Make use of household items: Use cat litter or old coffee grounds to dispose medications if other options are not available. Mix your drugs with these household products, seal them in an airtight container and throw it into the garbage. Call [facility]: [phone] to be sure your drugs can be [...] aware that I should contact my doctor. Patient/Certified Corporate Travel Executive Signature: Date/Time: Relationship to Patient: Witness Name/Signature: Date/Time: [facility] 07-06-2024 Note Exam Date Time Procedure Performing Provider Status 07/06/24 2:11 AM XR Chest 1 View BETTY ACKERMAN MD; Aut h (Verified) [id number] ORIGINAL EXAMINATION: ONE XRAY VIEW OF THE [...] Date: 07/06/2024 2:21:32 AM Ordering Provider: ASHWINI [facility]02-26-2025 Note* Exam Date Time Procedure Performing Provider Status 07/06/24 2:[address] Head or Brain w/o Contrast BETTY ACKERMAN MD; Auth (Verified) [id number] ORIGINAL EXAMINATION: CT OF THE HEAD WITHOUT [...] Date: 07/06/2024 2:30:26 AM Ordering Provider: ASHWINI [facility]02-26-2025 Note* Exam Date Time Procedure Performing Provider Status 07/06/24 1:50 AM EKG [ED AOH] - CV ASHWINI RENTERIA DO ; Auth (Verified) ECG Final Report Sinus arrhythmia Short OK interval Electronic Signature: ASHWINI RENTERIA DO 07/06/2024 01:55:05 [facility]02-13-2025 Telephone encounter Note* Telephone Encounter - Chen Echevarria RN - 06/23/2024 2:22 PM EST Fax number is actually [phone] Chen Echevarria RN [facility]02-13-2025 Miscellaneous Notes* Telephone Encounter - Chen Echevarria RN - 06/23/2024 2:22 PM EST Fax number is actually [phone] Chen Echevarria RN * Telephone Encounter - Chen Echevarria RN - 06/23/2024 1:54 PM EST Awaiting for most recent office note to be closed and will then fax over requested information Chen Echevarria RN documented [facility]Wilson [facility] Telephone encounter Note * Telephone Encounter - Chen Echevarria RN - 06/23/2024 1:54 PM EST Awaiting for most recent office note to be closed and will then fax over requested information Chen Echevarria RN [facility]02-13-2025 NoteHNO ID: [id number] Author: UVALDO JORGENSEN MD Service: ? Author [...] like to be referred to psychiatry at [facility] and will engage in counseling [...] RELIEF) 50 mcg/actuation nasal spray Use 1 [place] in each nostril once daily. inhalat.spacing dev,large [...] Hypertension Maternal Grandfather Leukemia (more content not included)...[facility]02-13-2025 History of Present illness Narrative* Uvaldo [...] like to be referred to psychiatry at [facility] and will engage in counseling [...] RELIEF) 50 mcg/actuation nasal spray Use 1 [place] in each nostril once daily. inhalat.spacing dev,large [...] Wt 63.3 kg (139 lb 8.8 oz) 05/23/2024 (Approximate) BMI 23.65 kg/m General: alert Eyes: [...] which included preparing to see the patient, qcit-fr-zvrt patient care, completing clinical documentation, obtaining and/or reviewing separately obtained history, performing a medically appropriate examination, counseling and educating the pat ient/family/caregiver, and ordering medications, tests, or procedures. Uvaldo Jorgensen MD documented in this encounterWilson [facility] Hospital02-13-2025 Instructions* Patient Instructions* Uvaldo Jorgensen MD - [...] drinks Go! Be healthy, inside and out! [email or web address] documented in this encounterWilson [facility] Hospital01-[facility]-2025 Telephone encounter Note * Telephone Encounter - Uvaldo Jorgensen MD - 05/16/2024 10:19 AM EST The following approved medication requests have been transmitted electronically. Requested Prescriptions Pending Prescriptions Disp Refills albuterol HFA (PROVENTIL HFA, VENTOLIN HFA) 90 mcg/actuation inhaler 8.5 g 0 Sig: Inhale 2 Puffs as instructed every 4 hours as needed for wheezing/shortness of breath. Uvaldo Jorgensen MD [facility]01-06-2025 Miscellaneous Notes* Telephone Encounter - Uvaldo Jorgensen MD - 05/16/2024 10:19 AM EST The following approved medication requests have been transmitted electronically. Requested Prescriptions Pending Prescriptions Disp Refills albuterol HFA (PROVENTIL HFA, VENTOLIN HFA) 90 mcg/actuation inhaler 8.5 g 0 Sig: Inhale 2 Puffs as instructed every 4 hours as needed for wheezing/shortness of breath. Uvaldo Jorgensen MD * Telephone Encounter - Neto Uriostegui RN - 05/16/2024 10:11 AM EST spoke with patient, is taking qvar, twice daily, has been using 2 puffs. appt scheduled for am this week. * Telephone Encounter - Uvaldo Jorgensen MD - 05/16/2024 10:08 AM EST Has she been taking her Qvar? I see a refill for albuterol monthly lately. Please schedule a visit to review asthma * Telephone Encounter - Neto Uriostegui RN - 05/16/2024 8:33 AM EST Last [facility]: 02-18-24 Verify RX Benefits Completed Last medication refill date: 04-21-24 Requesting 30 day supply Retail pharmacy updated: Completed Patient aware RX will be sent to pharmacy. No need to notify patient. Health Maintenance due: Spirometry Never done Covid-19 Vaccine(2023- season) Never done GC (Gonorrhea) Screening (18-24) due on 04/08/2024 Chlamydia Screening (18-24) due on 04/08/2024 Neto Uriostegui RN documented in this encounterWilson [facility] Hospital01-06-2025 Telephone encounter Note * Telephone Encounter - Neto Uriostegui RN - 05/16/2024 10:11 AM EST spoke with patient, is taking qvar, twice daily, has been using 2 puffs. appt scheduled for am this week. [facility]01-06-2025 Telephone encounter Note* Telephone Encounter - Uvaldo Jorgensen MD - 05/16/2024 10:08 AM EST Has she been taking her Qvar? I see a refill for albuterol monthly lately. Please schedule a visit to review asthma [facility]01-06-2025 Telephone encounter Note* Telephone Encounter - Neto Uriostegui RN - 05/16/2024 8:33 AM EST Last [facility]: 02-18-24 Verify RX Benefits Completed Last medication refill date: 04-21-24 Requesting 30 day supply Retail pharmacy updated: Completed Patient aware RX will be sent to pharmacy. No need to notify patient. Health Maintenance due: Spirometry Never done Covid-19 Vaccine(2023- season) Never done GC (Gonorrhea) Screening () due on 04/08/2024 Chlamydia Screening (-) due on 04/08/2024 Neto Uriostegiu RN [facility]12-12-2024 Telephone encounter Note* Telephone Encounter - Uvaldo Jorgensen MD - 04/21/2024 7:00 PM EST The following approved medication requests have been transmitted electronically. Requested Prescriptions Pending Prescriptions Disp Refills albuterol HFA (PROVENTIL HFA, VENTOLIN HFA) 90 mcg/actuation inhaler 8.5 g 0 Sig: Inhale 2 Puffs as instructed every 4 hours as needed for wheezing/shortness of breath. Uvaldo Jorgensen MD [facility]12-12-2024 Miscellaneous Notes* Telephone Encounter - Uvaldo Jorgensen [...] advise. Jluis Pena RN documented in this encounterWilson Memorial Hospital12-12-2024 Telephone encounter Note * Telephone Encounter - [...] Please review and advise. Jluis Pena RN [facility]11-23-2024 Telephone encounter Note* Telephone Encounter - Niurka Jonas RN - 04/02/2024 8:04 AM EST Patient notified and voiced understanding of below as directed by Dr. Jorgensen. Niurka Jonas RN [facility]11-23-2024 Miscellaneous Notes* Telephone Encounter - Niurka Jonas [...] RN - 04/01/2024 3:39 PM EST Last [facility]: 02/18/24 Verify RX Benefits Completed Last medication refill date: 02/18/24 Requesting 30 day supply Retail pharmacy updated: Completed Patient aware RX will be sent to pharmacy. No need to notify patient. Health Maintenance due: Spirometry Never done Covid-19 Vaccine( season) Never done Chen Echevarria RN documented in this encounterWilson Memorial Hospital11-22-2024 Telephone encounter Note * Telephone Encounter - Uvaldo Jorgensen MD - 04/01/2024 5:19 PM EST I will refill the medicine but she should be reevaluated if she is needing albuterol at that frequency next week. [facility]11-22-2024 Telephone encounter Note* Telephone Encounter - Chen [...] when she wakes up Chen Echevarria RN [facility]11-22-2024 Telephone encounter Note* Telephone Encounter - Uvaldo Jorgensen MD - 04/01/2024 3:57 PM EST Is she taking her Qvar as a maintenance inhaler? I recently refilled her inhaler and if she is needing it that frequently it would suggest that she is under poor control. [facility]11-22-2024 Telephone encounter Note* Telephone Encounter - Chen Echevarria RN - 04/01/2024 3:39 PM EST Last [facility]: 02/18/24 Verify RX Benefits Completed Last medication refill date: 02/18/24 Requesting 30 day supply Retail pharmacy updated: Completed Patient aware RX will be sent to pharmacy. No need to notify patient. Health Maintenance due: Spirometry Never done Covid-19 Vaccine( season) Never done Chen Echevarria RN [facility]10-18-2024 Telephone encounter Note* Telephone Encounter - Uvaldo [...] vial contains 3 ml Uvaldo Jorgensen MD [facility]10-18-2024 Miscellaneous Notes* Telephone Encounter - Uvaldo Jorgensen [...] Uvaldo Jorgensen MD * Telephone Encounter - Neto Uriostegui RN - 02/26/2024 12:14 PM EDT patient calling, states I was at [facility] last evening for an asthma attack and the doctor there said to call my doctor and get an new prescription for my solution. [facility] ER records requested. Please advise Neto Uriostegui RN documented in this encounterWilson Memorial Hospital10-18-2024 Telephone encounter Note * Telephone Encounter - Neto Uriostegui RN - 02/26/2024 12:14 PM EDT patient calling, states I was at [facility] last evening for an asthma attack and the doctor there said to call my doctor and get an new prescription for my solution. [facility] ER records requested. Please advise Neto Uriostegui RN [facility]10-18-2024 Hospital Discharge instructions Patient Education 02/26/2024 00:34:39 [...] Lips or fingernails turning gallagher or blue [phone] [employer]. [address] [place] [address]. All rights reserved. This information is not intended as a substitute for professional medical care. Always follow yourhealthcare professional's instructions. Follow Up Care 02/26/2024 00:23:36 With:UVALDO JORGENSEN MD Address: [address] [place] [id number] When:2-4 days [facility] 10-18-2024 Note Discharge Instructions Thank you for allowing [facility] to assist you with your healthcare needs. [...] UVALDO JORGENSEN MD When:Within 2-4 days Where:[address] [facility] [address] Allergies Peanuts Medications Please ask your [...] Lips or fingernails turning gallagher or blue [phone] [employer]. [address] [place] [address]. All rights reserved. This information is not intended as a substitute for professional medical care. Always follow yourhealthcare professional's instructions. Additional Information VACCINATE! IT SAVES LIVES! Members of the community who have not yet received the COVID-19 vaccine and would like to receive it can visit one of [facility] vaccine clinics. There are many vaccine clinic locations within the [facility]. For locations and available times, please visit www.[email or web address].[email or web address]/. It is important to note that some COVID mobile vaccine clinics are held outdoors and may be canceled in rainy or stormy conditions. To learn more about pediatric vaccinations (ages 5-11), we invite you to visit the [facility] webpage. https://www.[facility].org/pages/4505-Gfwce-Oygfgvbuapg-Lkgtescpyx-Rkqzx-Rjt stions.htmlTo learn more about the COVID-19 vaccine, we invite you to visit the CDC website for a list of frequently asked questions. https://www.cdc.gov/coronavirus/2019-ncov/vaccines/faq.html [facility] Patient Portal Access Instructions: Stay connected with your healthcare team and access your personal medical information anytime with the [facility] Patient Portal. If you would like a full copy of your medical records please contact the [facility] Medical Records Department Thursday through Thursday between 8a.m. and 4:30p.m. Please follow the directions below to access the portal: 1.Access the email account you provided upon registration to the [facility].2.Look for an invitation email from [facility].3.Open the email and access the invitation link: Accept Invitation to [facility]4.Fill in the required mendez to create your account. Sign into [email or web address] with your username and password that you [...] you will allow to register on the [facility] Patient Portal for access to your information. You can also access the [facility] Patient Portal on the [employer]. Simply click on Health Records under [employer] and then click on the [employer] logo. HOW TO SAFELY DISPOSE OF PRESCRIPTION [...] Call your local pharmacy or go to http://bit.[email or web address] to find one close to you.3.Make use of household items: Use cat litter or old coffee grounds to dispose medications if other options arenot available. Mix your drugs with these household products, seal them in an airtight container andthrow it into the garbage. Call [facility]: [phone] to be sure your drugs can be [...] been reviewed and explained to me and IMARI MCKENNA Munderstand my current condition and have read and understand these discharge instructions. I have received a written copy of the plan/instructions. If I have questions, I am aware that I should contact my doctor. Patient/Certified Corporate Travel Executive Signature: Date/Time: Relationship to Patient: Witness Name/Signature: Date/Time: [facility]10-10-2024 History of Present illness Narrative * Uvaldo [...] RELIEF) 50 mcg/actuation nasal spray Use 1 [place] in each nostril once daily. etonogestrel (NEXPLANON) [...] RELIEF) 50 mcg/actuation nasal spray Use 1 [place] in each nostril once daily. etonogestrel (NEXPLANON) [...] Yes Screening tools reviewed and discussed with patient/ygnswa-WGH-8 and PHQ-9. Please see Patient Entered Data. [...] and safety. - Dental care discussed. - Audio Network handout given (See Patient Instructions). - Patient [...] plans to reestablish mental health care at [facility] Follow-up in 1 month for recheck ASTHMA PLAN: - Albuterol 2 puffs with spacer q4hr PRN cough, wheeze - Controller medication: Continue current controller medication(s)-she has not been taking it regularly but plans to now - Flu shot now. Patient was counseled wpjo-vy-eify by myself (the billing provider) for the [...] strep Uvaldo Jorgensen MD documented in this encounterWilson Memorial Hospital10-10-2024 Miscellaneous Notes* Telephone Encounter - [...] UVALDO JORGENSEN MD * Telephone Encounter - Neto Uriostegui RN - 02/18/2024 12:24 PM EDT mom calling in, states she hasn't been able to get her preventative, her sister just got her preventative at [facility], if you could please send preventative to [facility] [place] and then the Albuterol to [facility] pharmacy Mom will have [place] call office to schedule Neto Uriostegui RN * Telephone Encounter - Chen Echevarria RN - 02/17/2024 9:56 AM EDT Request came from pharmacy. Left message to verify if refill is needed. Questions how often she is using albuterol inhaler. Needs [facility] scheduled as well Chen Echevarria RN documented in this encounterWilson Memorial Hospital10-10-2024 Telephone encounter Note * Telephone Encounter - [...] a day. Authorizing Provider: UVALDO JORGENSEN MD [facility]10-10-2024 Telephone encounter Note* Telephone Encounter - Neto Uriostegui RN - 02/18/2024 12:24 PM EDT mom calling in, states she hasn't been able to get her preventative, her sister just got her preventative at [facility], if you could please send preventative to [facility] and then the Albuterol to [facility] pharmacy Mom will have [place] call office to schedule Neto Uriostegui RN [facility]10-09-2024 Telephone encounter Note* Telephone Encounter - Chen Echevarria RN - 02/17/2024 9:56 AM EDT Request came from pharmacy. Left message to verify if refill is needed. Questions how often she is using albuterol inhaler. Needs [facility] scheduled as well Chen Echevarria RN [facility]08-16-2024 Telephone encounter Note* Telephone Encounter - Neto Uriostegui RN - 12/25/2023 2:27 PM EDT patient aware Neto Uriostegui RN [facility]08-16-2024 Miscellaneous Notes* Telephone Encounter - Neto Uriostegui RN - 12/25/2023 2:27 PM EDT patient aware Neto Uriostegui RN * Telephone Encounter - Uvaldo Jorgensen MD - 12/25/2023 2:21 PM EDT The following approved medication requests have been transmitted electronically. Requested Prescriptions Pending Prescriptions Disp Refills albuterol HFA (PROVENTIL HFA, VENTOLIN HFA) 90 mcg/actuation inhaler 8.5 g 0 Uvaldo Jorgensen MD * Telephone Encounter - Neto Uriostegui RN - 12/25/2023 1:40 PM EDT [...] it to me). Spoke with Pardeep at [facility] pharmacy, this strength had been backordered. Does have 1 in stock today, will get ready for patient, $30 copay, patient is aware). Is currently out of albuterol. Please call patient with provider response on albuterol refill [phone] Neto Uriostegui RN * Telephone Encounter - Uvaldo Jorgensen MD - 12/25/2023 12:16 PM EDT Please assess the frequency of use. We refilled prescription 2 months ago as she used her inhaler? If she using her Qvar? * Telephone Encounter - Neto Uriostegui RN - 12/25/2023 8:59 AM EDT Last [facility]: 01-02-23 Verify RX Benefits Completed Last medication refill date: 10-26-23 Requesting 30 day supply Retail pharmacy updated: Completed Patient aware RX will be sent to pharmacy. No need to notify patient. Health Maintenance due: Covid-19 Vaccine( season) Never done Spirometry Never done Depression Screening Never done Asthma Control Test due on 01/03/2024 Neto Uriostegui RN documented in this encounterWilson Memorial Hospital08-16-2024 Telephone encounter Note * Telephone Encounter - Uvaldo Jorgensen MD - 12/25/2023 2:21 PM EDT The following approved medication requests have been transmitted electronically. Requested Prescriptions Pending Prescriptions Disp Refills albuterol HFA (PROVENTIL HFA, VENTOLIN HFA) 90 mcg/actuation inhaler 8.5 g 0 Uvaldo Jorgensen MD [facility]08-16-2024 Telephone encounter Note* Telephone Encounter - Neto Uriostegui RN - 12/25/2023 1:40 PM EDT [...] it to me). Spoke with Pardeep at [facility] pharmacy, this strength had been backordered. Does have 1 in stock today, will get ready for patient, $30 copay, patient is aware). Is currently out of albuterol. Please call patient with provider response on albuterol refill [phone] Neto Uriostegui RN [facility]08-16-2024 Telephone encounter Note* Telephone Encounter - Uvaldo Jorgensen MD - 12/25/2023 12:16 PM EDT Please assess the frequency of use. We refilled prescription 2 months ago as she used her inhaler? If she using her Qvar? [facility]08-16-2024 Telephone encounter Note* Telephone Encounter - Neto Uriostegui RN - 12/25/2023 8:59 AM EDT Last [facility]: 01-02-23 Verify RX Benefits Completed Last medication refill date: 10-26-23 Requesting 30 day supply Retail pharmacy updated: Completed Patient aware RX will be sent to pharmacy. No need to notify patient. Health Maintenance due: Covid-19 Vaccine( season) Never done Spirometry Never done Depression Screening Never done Asthma Control Test due on 01/03/2024 Neto Uriostegui RN [facility]06-17-2024 Telephone encounter Note* Telephone Encounter - Uvaldo [...] for wheezing/shortness of breath. Uvaldo Jorgensen MD [facility]06-17-2024 Miscellaneous Notes* Telephone Encounter - Uvaldo Jorgensen [...] RN - 10/26/2023 4:27 PM EDT Last [facility]: 01/02/23 Verify RX Benefits Completed Last medication refill date: 07/25/23 Requesting 30 day supply Retail pharmacy updated: Completed Patient aware RX will be sent to pharmacy. No need to notify patient. Health Maintenance due: Covid-19 Vaccine( season) Never done Spirometry Never done Asthma Control Test due on 01/03/2024 Niurka Jonas RN documented in this encounterWilson Memorial Hospital06-17-2024 Telephone encounter Note * Telephone Encounter - Niurka Jonas RN - 10/26/2023 4:27 PM EDT Last [facility]: 01/02/23 Verify RX Benefits Completed Last medication refill date: 07/25/23 Requesting 30 day supply Retail pharmacy updated: Completed Patient aware RX will be sent to pharmacy. No need to notify patient. Health Maintenance due: Covid-19 Vaccine() Never done Spirometry Never done Asthma Control Test due on 01/03/2024 Niurka Jonas RN [facility]04-30-2024 Telephone encounter Note* Telephone Encounter - Uvaldo Jorgensen MD - 09/08/2023 7:59 AM EDT The following approved medication requests have been transmitted electronically. Requested Prescriptions Pending Prescriptions Disp Refills hydrOXYzine HCl (ATARAX) 25 mg tablet [Pharmacy Med Name: HYDROXYZINE HCL 25 MG TABLET] 270 tablet 0 Sig: take 1 tablet by mouth three times a day as needed for anxiety Uvaldo Jorgensen MD [facility]04-30-2024 Miscellaneous Notes* Telephone Encounter - Uvaldo Jorgensen [...] Vaccine( season) Never done Spirometry Never done Jluis Pena RN documented in this encounterWilson Memorial Hospital04-29-2024 Telephone encounter Note * Telephone Encounter - [...] done Spirometry Never done Jluis Pena RN [facility]04-22-2024 Telephone encounter Note* Telephone Encounter - Uvaldo Jorgensen MD - 08/31/2023 11:02 AM EDT The following approved medication requests have been transmitted electronically. Requested Prescriptions Pending Prescriptions Disp Refills escitalopram oxalate (LEXAPRO) 20 mg tablet [Pharmacy Med Name: ESCITALOPRAM 20 MG TABLET] 90 tablet 0 Sig: take 1 tablet by mouth every day Uvaldo Jorgensen MD [facility]04-22-2024 Miscellaneous Notes* Telephone Encounter - Uvaldo Jorgensen MD - 08/31/2023 11:02 AM EDT The following approved medication requests have been transmitted electronically. Requested Prescriptions Pending Prescriptions Disp Refills escitalopram oxalate (LEXAPRO) 20 mg tablet [Pharmacy Med Name: ESCITALOPRAM 20 MG TABLET] 90 tablet 0 Sig: take 1 tablet by mouth every day Uvaldo Jorgensen MD * Telephone Encounter - Jluis Pena RN - 08/31/2023 8:24 AM EDT Last [facility]: greater than one year ago Last ADHD / Med Check visit: 08/10/2023 Verify RX Benefits Completed Last medication refill date: 03/18/2023 90 day Requesting 90 day supply Retail pharmacy updated: Completed Patient aware RX will be sent to pharmacy. No need to notify patient. Health Maintenance due: Covid-19 Vaccine() Never done Spirometry Never done Jluis Pena RN documented in this encounterWilson Memorial Hospital04-22-2024 Telephone encounter Note * Telephone Encounter - [...] Vaccine( season) Never done Spirometry Never done Jluis Pena RN [facility]04-03-2024 History of Present illness Narrative* Steve Pope APRN.ADZING AND BORING MACHINE HELPER - 08/12/2023 6:52 PM EDT Subjective HPI A nontoxic appearing female presents to urgent care with chief complaint of possible UTI. Duration of symptoms 1 day. Associated symptoms dysuria, frequency, and urgency. Patient has history of UTIs in past with similar signs and symptoms. Patient denies the use of any vpbe-ifv-zoirocz medications or home remedies for symptom management. [...] RELIEF) 50 mcg/actuation nasal spray Use 1 [place] in each nostril once daily. albuterol HFA [...] of care. This note was generated using Beautylish software. It may contain errors in wording, punctuation, or spelling. Steve Pope APRN.ADZING AND BORING MACHINE HELPER documented in this encounterWilson Memorial Hospital04-01-2024 History of Present illness Narrative* Uvaldo Jorgensen [...] well. [facility] She is not currently taking allergy medication. She also reports she is doing better at discriminating between anxiety and asthma but still has difficulty at times. 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 ROS for medication side [...] Flovent discus I do recommend Flonase and wqhe-jcs-jnpavik antihistamine Uvaldo Jorgensen MD documented in this encounterWilson Memorial Hospital03-16-2024 Miscellaneous Notes* Telephone Encounter - Nicky Cruz [...] Nicky Cruz MD * Telephone Encounter - Neto Uriostegui RN - 07/25/2023 10:47 AM EDT Last [facility]: 01-02-23 Verify RX Benefits Completed Last medication [...] due on 01/30/2023 Depression Assessment Never done Neto Uriostegui RN documented in this encounterWilson Memorial Hospital02-01-2024 Miscellaneous Notes* Telephone Encounter - Uvaldo Jorgensen [...] done Jluis Pena RN documented in this encounterWilson Memorial Hospital02-01-2024 History of Present illness Narrative* Natty Conteh [...] PATIENT PRESENTS WITH AN IMPLANTABLE OR ATTACHED RAILWAY SHUNTER: No RADIOLOGY DEPARTMENT: General X-ray: Exam(s) Completed: Abdomen X-Ray: Abdomen PERIPHERAL IV DATA: Not applicable SIGNED BY: RT Clark(R) June 11, 2023 8:24 AM documented in this encounterWilson Memorial Hospital02-01-2024 History of Present illness Narrative* Steve Pope APRN.ADZING AND BORING MACHINE HELPER - 06/11/2023 7:59 AM EST Subjective HPI [...] of care. This note was generated using Beautylish software. It may contain errors in wording, punctuation, or spelling. Steve Pope APRN.CNP documented in this encounterWilson Memorial Hospital12-01-2023 Miscellaneous Notes* Telephone Encounter - Ara Damon [...] use/abstinence. Ara Damon APRN.CNP documented in this encounterWilson Memorial Hospital11-29-2023 History of Present illness Narrative* Ara Damon [...] external genitalia normal, normal Bartholin's glands, urethra, [place]'s glands, no vulvar lesions, no cervical lesions, [...] Level: 4 - Moderate documented in this encounterWilson Memorial Hospital11-20-2023 Miscellaneous Notes* Telephone Encounter - Uvaldo Jorgensen MD - 03/30/2023 12:44 PM EST The following approved medication requests have been transmitted electronically. Requested Prescriptions Pending Prescriptions Disp Refills albuterol HFA (PROVENTIL HFA, VENTOLIN HFA) 90 mcg/actuation inhaler 6.7 Each 2 Sig: Inhale 2 Puffs as instructed every 4 hours as needed for wheezing/shortness of breath. Uvaldo Jorgensen MD * Telephone Encounter - Neto Uriostegui RN - 03/30/2023 8:17 AM EST Last [facility]: 01-02-23 Verify RX Benefits Completed Last medication [...] Risk Bexsero 2-dose series) due on 01/30/2023 Neto Uriostegui RN documented in this encounterWilson Memorial Hospital11-08-2023 Miscellaneous Notes* Telephone Encounter - Miriam Mason [...] Bexsero 2-dose series) due on 01/30/2023 Chen cEhevarria RN documented in this encounterWilson Memorial Hospital10-03-2023 Instructions* Patient Instructions* Beatriz Ozuna APRN.CNP - 02/10/2023 9:25 AM EDT ASSESSMENT/PLAN: 1. Otalgia, bilateral - ICD9: 388.70, ICD10: H92.03 - suspect eustachian tube dysfunction. - recommend OTC flonase nasal spray. - Follow-up with your PCP in 3-5 days if symptoms have not improved or sooner if symptoms worsen Beatriz Ozuna APRN.ADZING AND BORING MACHINE HELPER documented in this encounterWilson Memorial Hospital10-03-2023 History of Present illness Narrative* Beatriz Ozuna APRN.ADZING AND BORING MACHINE HELPER - 02/10/2023 9:17 AM EDT Subjective Ear [...] not improved or sooner if symptoms worsen Baetriz Ozuna APRN.ADZING AND BORING MACHINE HELPER documented in this encounterWilson Memorial Hospital09-13-2023 Miscellaneous Notes* Telephone Encounter - Jluis Pena [...] UVALDO JORGENSEN MD * Telephone Encounter - Jlusi Pena RN - 01/20/2023 2:24 PM EDT Last [facility]: 01/02/2023 Verify RX Benefits Completed [...] 01/30/2023 Jluis Pena RN documented in this encounterWilson Memorial Hospital08-30-2023 Miscellaneous Notes* Telephone Encounter - Uvaldo Jorgensen [...] 1:39 PM EDT Prior auth submitted via [employer] phone [phone]. Reference # [id number]. Jluis Pena RN * Telephone Encounter - Uvaldo oJrgensen MD - 01/05/2023 12:50 PM EDT all other inhaled corticosteroids require prior authorization. Please attempt prior Auth with covermy meds for the Qvar prescription * Telephone Encounter - Jluis Pena RN - 01/05/2023 12:21 PM EDT The following medications may be covered If clinically appropriate, you may change the prescription. A therapeutic alternative may be available. Questions on alternatives? Contact [facility] at . You can also review [facility]'s formulary online or call them directly. [...] Pena RN - 01/03/2023 11:15 AM EDT [facility], unsure when will be able to get in. Insurance will not cover Qvar. Called around [facility] does have one and repots the same thing vendor has it on backorder and unsure when will come in. Sister needs one as well. Try something different? Jluis Pena RN documented in this encounterWilson Memorial Hospital08-28-2023 Miscellaneous Notes* Telephone Encounter - Elena Maya LPN - 01/05/2023 8:30 PM EDT Patient's mother calling because prescription from express care visit was not at pharmacy. Express care now closed, attempted to reach pharmacy to verify received status of e-script but caller disconnected the call and pharmacy did not answer. Elena Maya LPN documented in this encounterWilson Memorial Hospital08-26-2023 Instructions* Patient Instructions* Uvaldo Jorgensen MD - [...] drinks Go! Be healthy, inside and out! www.[facility].org/5toGo Adolescent to Adult Transition Program [facility] cares about helping you and each of our adolescents and young adults make a smoothtransition to adult care. If your current doctor is a livestock showman, we will work with you to decide [...] your current doctor is in family medicine, [facility] will prepare you and your family forthe [...] details. If joining our practice from outside [facility], we will help you request your medical [...] the use of evidence-driven strategies for health group care worker, youth, young adults, and their families. www.gottransition.org [email or web address]://[email or web address]/resource/?cfl-iypuqu-owlxrpq documented in this encounterWilson Memorial Hospital08-25-2023 History of Present illness Narrative* Uvaldo Jorgensen [...] School: Presently in 12th grade. thinking of trading assistant/ editing. No academic or school related [...] No Screening tools reviewed and discussed with patient/peyntd-ETS-0 and Social Determinants of Health.Please see Patient [...] and safety. - Dental care discussed. - AG&P Futures handout given (See Patient Instructions). - Patient was counseled zqsw-zz-cfxw by myself (the billing provider) for the [...] now out of it. documented in this encounterWilson Memorial Hospital08-09-2023 Miscellaneous Notes* Telephone Encounter - Uvaldo Jorgensen [...] 12/04/2022 Niurka Jonas RN documented in this encounterWilson Memorial Hospital06-01-2023 Miscellaneous Notes* Telephone Encounter - Jluis Pena RN - 10/09/2022 11:13 AM EDT Mother aware and will have vit D level done. Jluis Pena RN * Telephone Encounter - Uvaldo Jorgensen MD - 10/09/2022 11:09 AM EDT I need to check a vit D level first before a refill. * Telephone Encounter - Chen Echevarria RN - 10/09/2022 8:47 AM EDT Last [facility]: 05/02/22 Verify RX Benefits Completed [...] done CHLAMYDIA SCREENING (<18) Never done Chen water treatment plant engineer documented in this encounterWilson Memorial Hospital05-03-2023 Miscellaneous Notes* Telephone Encounter - Uvaldo Jorgensen [...] RN - 09/10/2022 2:57 PM EDT Last [facility]: greater than one year ago. [...] done Niurka Jonas RN documented in this encounterWilson Memorial Hospital04-13-2023 Miscellaneous Notes* Telephone Encounter - Neto Uriostegui RN - 08/21/2022 9:44 AM EDT mom aware * Telephone Encounter - Uvaldo Jorgensen MD - 08/21/2022 9:26 AM EDT The following approved medication requests have been transmitted electronically. Requested Prescriptions Signed Prescriptions Disp Refills beclomethasone (QVAR REDIHALER) 40 mcg/actuation inhaler 1 Each 5 Sig: Inhale 2 Puffs as instructed twice daily. Authorizing Provider: UVALDO JORGENSEN MD * Telephone Encounter - Neto Uriostegui RN - 08/21/2022 8:46 AM EDT Mom calling, patient's alvesco has not been available for several weeks at multiple pharmacies per mom. Patient has been without it. Asking for a different preventative inhaler. ([facility] [place]). Pleaseadvise documented in this encounterWilson Memorial Hospital04-13-2023 History of Present illness Narrative* Beatriz Ozuna APRN.ADZING AND BORING MACHINE HELPER - 08/21/2022 8:59 AM EDT Subjective HPI [...] illness Beatriz Ozuna APRN.CNP documented in this encounterWilson Memorial Hospital04-13-2023 Instructions* Patient Instructions* Beatriz Ozuna APRN.CNP - [...] Sinusitis Patient Education What is Sinusitis? Sinusitis [ntib-ymb-ebob-tis] is inflammation of the sinuses or swelling [...] help. You may be instructed to take wbjw-urn-rbrsfao medications for symptoms. including fever reducers acetaminophen or ibuprofen, nasal saline spray, cough and cold preparations and decongestants as prescribed by the physician, nurse practitioner or physician events and promotions assistant. Self-Care and Prevention: Rest Fluids for hydration Good hand washing Humidifier Avoid smoking and exposure to second hand smoke Avoid sick contacts documented in this encounterWilson Memorial Hospital04-09-2023 Instructions* Patient Instructions* Marita Jessu PA-C - 08/17/2022 10:41 AM EDT Fever- [...] or concerning to you. documented in this encounterWilson Memorial Hospital04-09-2023 History of Present illness Narrative* Marita Jesus [...] requiring follow up discussed documented in this encounterWilson Memorial Hospital04-06-2023 Miscellaneous Notes* Telephone Encounter - Jluis Pena RN - 08/14/2022 8:11 AM EDT Mother messaged back and does currently need. Has been seen 2 times recently for an asthma flare leah LUO 08/07/2022 and 07/29/2022. Patient phones requesting refills [...] 07/29/2022. Jluis Pena RN documented in this encounterWilson Memorial Hospital03-30-2023 History of Present illness Narrative* Nicky Cruz [...] 2022 TIME: 9:50 AM documented in this encounterWilson Memorial Hospital03-30-2023 Instructions* Patient Instructions* Nciky Cruz MD - 08/07/2022 9:50 AM EDT [...] drinks Go! Be healthy, inside and out! www.[email or web address].org/5toGo documented in this encounterWilson Memorial Hospital03-24-2023 Miscellaneous Notes* Telephone Encounter - Chen Echevarria RN - 08/01/2022 8:30 AM EDT Letter faxed as requested Chen Echevarria RN * Telephone Encounter - Blanca Conteh APRN.CNP - 08/01/2022 8:16 AM EDT It's fine to generate a note and send to her school. Thank you. Blanca Conteh APRN.SIERRA * Telephone Encounter - Neto Uriostegui RN - 08/01/2022 8:08 AM EDT Ok for letter? documented in this encounterWilson Memorial Hospital03-21-2023 History of Present illness Narrative* Blanca Conteh [...] 2022 TIME: 11:35 AM documented in this encounterWilson Memorial Hospital03-20-2023 History of Present illness Narrative* Gracy Sultana APRN.SIERRA - 07/28/2022 2:19 PM EDT CC: Patient [...] mother agreeable to treatment plan. Gracy Sultana APRN.ADZING AND BORING MACHINE HELPER documented in this encounterWilson Memorial Hospital03-10-2023 Miscellaneous Notes* Telephone Encounter - Uvaldo Jorgensen [...] RN - 07/18/2022 9:13 AM EST Last [facility]: 05/02/22 Verify RX Benefits Completed [...] done Niurka Jonas RN documented in this encounterWilson Memorial Hospital02-16-2023 History of Present illness Narrative* Beatriz Ozuna APRN.ADZING AND BORING MACHINE HELPER - 06/26/2022 11:50 AM EST Subjective Headache [...] illness Beatriz Ozuna APRN.CNP documented in this encounterWilson Memorial Hospital02-16-2023 Instructions* Patient Instructions* Beatriz Ozuna APRN.CNP - [...] Discussed expected course of illness Beatriz Ozuna APRN.ADZING AND BORING MACHINE HELPER documented in this encounterWilson Memorial Hospital02-14-2023 History of Present illness Narrative* YOSELYN Caldera - 06/24/2022 4:35 PM EST This note was created using [employer] (Former[employer]riter. Subjective Lexis Guerra is a 17 year [...] ER evaluation. YOSELYN Caldera documented in this encounterWilson Memorial Hospital02-10-2023 History of Present illness Narrative* YOSELYN Arevalo-Adilene - 06/20/2022 5:01 PM EST This note was created using [employer] (Former[employer]riter. Subjective Lexis Guerra is a 17 year [...] Wt 78.6 kg (173 lb 3.2 oz) LMP107/01/2021 (Exact Date) SpO2 98% Physical Exam Vitals [...] ENT Gladis Rogers PA-C documented in this encounterWilson Memorial Hospital01-11-2023 History of Present illness Narrative* Petra Cabrera [...] yet. Constipation: -Frequency of stools: daily -Consistency: [place] stool scale type 2 -Pain with stooling: [...] 2022 TIME: 6:20 PM documented in this encounterWilson Memorial Hospital01-03-2023 Miscellaneous Notes* Telephone Encounter - Uvaldo Jorgensen [...] advise. Chen Echevarria RN documented in this encounterWilson Memorial Hospital12-23-2022 History of Present illness Narrative* Uvaldo Jorgensen [...] control self most at home stressed that Avery not feeling joyful Talking with counselor at [facility]. PHQ-A: 8 Severity of Symptoms: moderate Context: home and school PAST MEDICAL HISTORY Diagnosis Date Contact dermatitis and other eczema, due to unspecified cause PMH - PAST MEDICAL HISTORY OF RSV Pneumomediastinum ([facility]) 02/16/2018 Right arm fracture age 3-4 [...] - PAST MEDICAL HISTORY OF RSV Pneumomediastinum ([facility]) 02/16/2018 Right arm fracture age 3-4 [...] eye: 20/20 -Both eyes: 20/15 Performed by Neto Uriostegui RN Hearing: No hearing concerns Growth: No growth concerns Gynecological history: LMP: -- Cycles are regular and last 4 days. Dysmenorrhea: moderate Heavy periods: yes Substance use: none High risk behaviors: none Sexual History: Attraction: female Sexually Active: No Body image: satisfactory Screening tools reviewed and discussed with patient/xxbbdf-FLA-I and Social Determinants of Health.Please see Patient [...] 2022 TIME: 4:31 PM documented in this encounterWilson Memorial Hospital12-09-2022 Miscellaneous Notes* Telephone Encounter - Uvaldo Jorgensen [...] 01/12/2022 Cheli Lucero LPN documented in this encounterWilson Memorial Hospital12-06-2022 Miscellaneous Notes* Telephone Encounter - Neto Uriostegui RN - 04/15/2022 3:35 PM EST on 20mg, does not need 10mg * Telephone Encounter - Niurka Jonas RN - 04/15/2022 3:30 PM EST Request was received via interface from pharmacy. Does patient need refill? Message left for parent to return call. Niurka S Mast RN documented in this encounterWilson Memorial Hospital11-29-2022 History of Present illness Narrative* Sahil Ching APRN.ADZING AND BORING MACHINE HELPER - 04/08/2022 5:15 PM EST Images from [...] MCARTHUR MD Agrees to plan Sahil Ching APRN.SIERRA documented in this encounterWilson Memorial Hospital11-29-2022 History of Present illness Narrative* Natty Conteh [...] 08, 2022 5:00 PM documented in this encounterWilson Memorial Hospital11-26-2022 History of Present illness Narrative* She Velázquez [...] history is provided by the patient. No property adjuster was used. Flu Like Symptoms This is [...] sooner if worsening of symptoms - [facility] She Velázquez APRN.ADZING AND BORING MACHINE HELPER documented in this encounterWilson Memorial Hospital11-07-2022 Miscellaneous Notes* Telephone Encounter - Uvaldo Jorgensen [...] 01/12/2022 Cheli Lucero LPN documented in this encounterWilson Memorial Hospital10-31-2022 Miscellaneous Notes* Telephone Encounter - Uvaldo Jorgensen [...] her lunch today. Would like [facility] use [facility]. Jluis Pena RN Patient phones requesting refills [...] and advise. Rola Bean documented in this encounterWilson Memorial Hospital10-30-2022 Miscellaneous Notes* Telephone Encounter - Rola Bean [...] and advise. Rola Bean documented in this encounterWilson Memorial Hospital09-21-2022 History of Present illness Narrative* Petra Cabrera [...] evaluation ([facility] closed). Lab work obtained at [facility] ED (CBC w/diff, CMP, pancreatic [...] which included preparing to see the patient, piqp-tb-tcyt patient care, completing clinical documentation, obtaining and/or reviewing separately obtained history, performing a medically appropriate examination, counseling and educating the pa tient/family/caregiver, ordering medications, tests, or procedures, independently interpreting results (not separately reported), and communicating results to the patient/family/caregiver. SIGNATURE: Petra Cabrera PA-C PATIENT NAME: Lexis Guerra DATE: January 29, 2022 TIME: 1:27 PM documented in this encounterWilson Memorial Hospital09-16-2022 Instructions* Patient Instructions* She Velázquez APRN.CNP - [...] No follow-ups on file. documented in this encounterWilson Memorial Hospital09-16-2022 History of Present illness Narrative* She Velázquez APRN.CNP - 01/24/2022 5:32 PM EDT This note was created using [employer] (Former[employer]riter. Subjective Lexis Guerra is a 17 year [...] At that time she was sent to [place] ED Labs were normal Urine normal CT [...] able to review CT abdomen pelvis from [place] 2 days ago and no acute process [...] FLU A/B + RSV, ROUTINE She Velázquez APRN.ADZING AND BORING MACHINE HELPER documented in this encounterWilson Memorial Hospital08-24-2022 Miscellaneous Notes* Telephone Encounter - Uvaldo Jorgensen [...] Uvaldo Jorgensen MD * Telephone Encounter - Neto Uriostegui RN - 01/01/2022 1:49 PM EDT Spoke with mother, does note recall receiving a printed rx for the 5mg, will need 5mg sent to [facility]. Is aware of need for med check, will schedule documented in this encounterWilson Memorial Hospital08-09-2022 Miscellaneous Notes* Telephone Encounter - Uvaldo Jorgensen [...] RN - 12/17/2021 10:29 AM EDT Last [facility]: 01/16/2021- message sent that due in January. [...] done Jluis Pena RN documented in this encounterWilson [facility] Hospital08-09-2022 Miscellaneous Notes* Telephone Encounter - Uvaldo oJrgensen MD - 12/17/2021 2:23 PM EDT The [...] RN - 12/17/2021 10:25 AM EDT Last [facility]: 2021 - message sent that due in [...] done Jluis Pena RN documented in this encounterWilson Memorial Hospital07-28-2022 Miscellaneous Notes* Telephone Encounter - Cheli Lucero LPN - 12/05/2021 4:38 PM EDT Mom was notified and picked up form on the 3rd floor. * Telephone Encounter - Uvaldo Jorgensen MD - 12/05/2021 3:39 PM EDT Form completed and signed * Telephone Encounter - Neto Uriostegui RN - 12/05/2021 9:26 AM EDT sports form at your desk for review/signature. last [facility] 01-12-21 Neto Uriostegui RN documented in this encounterWilson Memorial Hospital06-16-2022 History of Present illness Narrative* Marla Lopez RN - 10/24/2021 4:30 PM EDT Asthma Home Monitoring Program Breathe Well Outreach Chart Reviewed for Breathe Well-up to date on WCC/ACT/AAP Reason for outreach: chart review Contact made: No contact at this time. SIGNATURE: Marla Lopez RN PATIENT NAME: Lexis Guerra DATE: October 24, 2021 TIME: 4:31 PM documented in this encounterWilson Memorial Hospital06-08-2022 Miscellaneous Notes* Telephone Encounter - Nicky Cruz MD - 10/16/2021 4:52 PM EDT Yes, 30 minute appointment for follow up. Nicky Cruz MD * Telephone Encounter - Neto Uriostegui RN - 10/16/2021 1:28 PM EDT appt? documented in this encounterWilson Memorial Hospital05-31-2022 Miscellaneous Notes* Telephone Encounter - Placido Darling MD - 10/08/2021 4:57 PM EDT This was handled in a separate refill encounter. This note was partially generated using Beautylish voice recognition system, and there may be some incorrect words, spellings, and punctuation that were not noted in checking the note before saving. Placido Darling MD * Telephone Encounter - Cheli Lucero LPN - 10/08/2021 4:44 PM EDT Last [facility]: 01/12/2021 Verify RX Benefits Completed [...] done Cheli Lucero LPN documented in this encounterWilson Memorial Hospital05-19-2022 Miscellaneous Notes* Telephone Encounter - Meghan Spann [...] appointment to be seen. Noted faxed to [facility] with confirmation received. Meghan Spann LPN * Telephone Encounter - Nicky Cruz MD - 09/26/2021 4:56 PM EDT I can send a note to the school but if she is still too tired tomorrow it might be better to see her in the office. Letter also sent to mother in [employer]. We can print it and fax it if preferred. Nicky Cruz MD * Telephone Encounter - Jluis Pena RN - 09/26/2021 9:31 AM EDT Mother checking on note if any answer. Would like faxed to [facility]. Jluis Pena RN * Telephone Encounter - Neto Uriostegui RN - 09/25/2021 10:44 AM EDT please advise documented in this encounterWilson Memorial Hospital05-17-2022 Miscellaneous Notes* Telephone Encounter - Neto Uriostegui RN - 09/24/2021 9:49 AM EDT mom aware * Telephone Encounter - Nicky Cruz MD - 09/23/2021 8:10 PM EDT Note sent via [employer]. Vitamin D supplement can be sent to [...] school? Niurka Jonas RN documented in this encounterWilson Memorial Hospital05-16-2022 Miscellaneous Notes* Telephone Encounter - Jluis Pena RN - 09/23/2021 11:23 AM EDT Ok to provide? documented in this encounterWilson Memorial Hospital05-13-2022 Miscellaneous Notes* Telephone Encounter - Nicky Cruz MD - 09/20/2021 3:30 PM EDT Nicky Cruz MD * Telephone Encounter - Kalpesh Trivedi Cma - 09/20/2021 2:52 PM EDT Spoke with mother and notified of results and/or advice. Kalpesh Trivedi Cma * Telephone Encounter - Chen Echevarria RN [...] level. Nicky Cruz MD documented in this encounterWilson Memorial Hospital05-02-2022 Miscellaneous Notes* Telephone Encounter - Uvaldo Jorgensen [...] done Jluis Pena RN documented in this encounterWilson Memorial Hospital04-25-2022 History of Present illness Narrative* Nicky Cruz [...] was obtained from: patient Modifying factors attempted: Jeffery Bang HISTORY: ACTIVE PROBLEM LIST Other Atopic Dermatitis [...] 2021 TIME: 6:52 PM documented in this encounterWilson Memorial Hospital04-25-2022 Instructions* Patient Instructions* Nicky Cruz MD - [...] drinks Go! Be healthy, inside and out! www.[facility].org/5toGo 5 to Go!TM Healthy Kids Inside & Out 5 Eat FIVE fruits and veggies a day 4 Give and get FOUR compliments a day 3 Consume THREE calcium products a day 2 Limit media time to TWO hours a day 1 Get at least ONE hour of exercise a day 0 Consume ZERO sugar-sweetened drinks Go! Be healthy, inside and out! www.[facility].org/5toGo documented in this encounterWilson Memorial Hospital04-12-2022 Miscellaneous Notes* Telephone Encounter - Placido Darling [...] allergies. This note was partially created using Dragon voice recognition, and there may be some incorrect words, spellings, and punctuation that were not found during review. Placido Darling M.D. * Telephone Encounter - Cheli Lucero LPN - 08/20/2021 4:15 PM EDT Mom would like Rx sent to [facility] as she can use [facility] and the cost is only 7 dollars and at [facility] it is around 90 dollars. Rx pended for review. Pharmacy info updated. documented in this encounterWilson Memorial Hospital04-06-2022 Miscellaneous Notes* Telephone Encounter - Uvaldo Jorgensen [...] RN - 08/14/2021 4:21 PM EDT Last [facility]: 01/12/21 Verify RX Benefits Completed [...] done Niurka Jonas RN documented in this encounterWilson Memorial Hospital04-01-2022 History of Present illness Narrative* Gladis Rogers [...] vomiting or diarrhea. She has used Zyrtec [id number]. She is here with mom. Review of [...] with fluids and rest -Discussed use of iium-jys-vbxjrvq cough and cold medications as well as Flonase. If not improving over the next week recommended being seen again. Covid influenza and RSV swab done to rule out so she can return to school Thursday if negative. - COVID, FLU A/B + RSV, ROUTINE - 2019 CORONAVIRUS - ROUTINE FLU A/B + RSV Gladis Rogers PA-C documented in this encounterWilson Memorial Hospital04-01-2022 Instructions* Patient Instructions* Gladis Rogers PA-C - 08/09/2021 6:13 PM EDT flonase otc Continue dayquil as needed If not alanna rin one week be seen again documented in this encounterWilson Memorial Hospital09-30-2021 History of Present illness Narrative* Natty Conteh [...] 07, 2021 7:25 PM documented in this encounterWilson Memorial Hospital07-28-2021 History of Present illness Narrative* Renée Betancourt [...] 05, 2020 9:23 AM documented in this encounterIndianapolis ClinicDischar summary Author James Gomez [facility] April 19, 2023 2:06am Note Date/Time April 19, 2023 12:38am [facility] Medical Records Department [address] [place] [address] Emergency Department Summary 04/19/23 MR#: [id number] Acct: [id number] Name: LEXIS GUERRA Rep #:[id number] : [...] onset. [facility]. She denies any loose stool or diarrhea associated with this. However she has not been able to hold food or fluid down since its onset and therefore comes in for evaluation [facility] Medical History Acute otitis externa of right [...] 68.5 H Lymph % (Auto) 22.7 L [place] % (Auto) 6.2 H Eos % (Auto) [...] your Primary Care Provider. Call [facility] ([phone]) or report to the closest Emergency Room. Call 911 if necessary. 04/19/23 0206 <Electronically signed by James Gomez DO> Cosigner Signature (if applicable): CC: Dr. Uvaldo Jorgensen MD ~ Signed [facility] Work Phone: Evaluation + Plan note No data available for this section [facility] Evaluation note* Diagnosis Viral URI- Primary Acute upper respiratory infections of unspecified site documented in this encounter [facility]* Diagnosis Recurrent headache- Primary Headache [facility]* Diagnosis Vitamin D deficiency- Primary Unspecified vitamin D deficiency documented [facility] this [facility] noteNo assessment information availableWCleveland Clinic [facility]ucl[facility] Work Phone: Evaluation note* Diagnosis Lumbar pain- Primary Lumbago Viral illness Unspecified viral infection, in conditions classified elsewhere and of unspecified site Acute cough documented in this encounter [facility]* Diagnosis Constipation, unspecified constipation type- Primary documented in this encounter [facility]* Diagnosis Nausea vomiting and diarrhea- Primary Diarrhea Viral illness Unspecified viral infection, in conditions classified elsewhere and of unspecified site documented in this encounter [facility]* Diagnosis Rib pain on right side- Primary Chest pain, unspecified documented in this encounter [facility]* Diagnosis Mild persistent asthma with acute exacerbation- Primary Unspecified asthma, with exacerbation Generalized anxiety disorder Depressed mood Encounter for [facility] (well child check) with abnormal findings 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 documented in this encounter [facility]* Diagnosis Periumbilical abdominal pain- Primary Abdominal pain, periumbilic documented in this encounter [facility]* Diagnosis Eustachian tube dysfunction, right- Primary documented in this encounter [facility] HospitalEvaluation [facility]* Diagnosis Sore throat- Primary Acute pharyngitis URI, acute Acute upper respiratory infections of unspecified site documented in this encounter [facility]* Diagnosis Viral illness- Primary Unspecified viral infection, in conditions classified elsewhere and of unspecified site [facility] Diagnosis URI, acute- Primary Acute upper respiratory infections of unspecified site [facility]* Diagnosis Viral illness- Primary Unspecified viral infection, in conditions classified elsewhere and of unspecified site Mild persistent asthma without complication Unspecified asthma Chills without fever Chills (without fever) Malaise and fatigue Other malaise and fatigue Body aches Generalized pain Acute pharyngitis, unspecified etiology documented in this encounter [facility] note* Diagnosis Mild persistent asthma with acute exacerbation- Primary Unspecified asthma, with exacerbation documented in this encounter [facility]* Diagnosis Viral illness Unspecified viral infection, in conditions classified elsewhere and of unspecified site [facility]* Diagnosis Upper respiratory tract infection, unspecified type- Primary [facility]* Diagnosis Acute sinusitis, recurrence not specified, unspecified location- Primary documented [facility] encounter [facility]* Diagnosis Vitamin D deficiency- Primary Unspecified vitamin D deficiency [facility]* Diagnosis Encounter for [facility] (well child check) with abnormal findings- Primary Vitamin D deficiency Unspecified vitamin D deficiency Allergy to nuts Allergy to other foods Encounter for immunization Need for other specified prophylactic vaccination against single bacterial disease Mild persistent asthma without complication Unspecified asthma Generalized anxiety disorder Depressed mood [facility]* Diagnosis Otalgia, bilateral- Primary [facility]* Diagnosis Encounter for contraceptive management, unspecified type- Primary Unprotected sexual intercourse Problems related to high-risk sexual behavior documented [facility] encounter [facility]* Diagnosis Unprotected sexual intercourse- Primary Problems related to high-risk sexual behavior [facility]* Diagnosis Onset Date Resolution Status Acute otitis externa of right ear acute Nausea acute [facility] Work Phone: Evaluation note* Diagnosis Mild persistent asthma without complication- Primary Unspecified asthma Generalized anxiety disorder Depressed mood Encounter for immunization Need for other specified prophylactic vaccination against single bacterial disease documented in this encounter [facility] note* Diagnosis Urinary frequency- Primary documented in this encounter [facility]* Diagnosis Generalized abdominal pain- Primary Abdominal pain, generalized [facility]* Diagnosis Generalized abdominal pain Abdominal pain, generalized documented in this encounter [facility]* Diagnosis Injury of right hand, initial encounter documented [facility] this encounter [facility]* Diagnosis Acute right ankle pain documented in this encounter [facility] note* Diagnosis Encounter for [facility] (well child check) with abnormal findings- Primary Encounter for immunization Need for other specified prophylactic vaccination against single bacterial disease Generalized anxiety disorder Mild persistent asthma without complication Unspecified asthma Sore throat Acute pharyngitis documented in this encounter [facility] note* Diagnosis Asthma, moderate persistent, poorly-controlled- Primary Unspecified asthma Generalized anxiety disorder [facility]* Diagnosis Mild persistent asthma without complication (HCC)- Primary Unspecified asthma documented in this encounter [facility] Discharge instructions Additional Instructions Your history [...] please return to the ER for repeat evaluationWCleveland Clinic [facility] Work Phone: Reason for referral (narrative)* Diagnostic Procedure Only (Urgent) - Closed Specialty Diagnoses / Procedures Referred By Vero arreguin Referred To Contact XR IMAGING Diagnoses Rib pain on right side Procedures XR RIBS/CHEST 3V AP RIB/OBLS/CXR RIGHT RADEX RIBS UNI W/POSTEROANT CH MINIMUM 3 VIEWS Sahil Ching APRN.CNP [address] [place] [address] Xr Imaging Referral ID Status Reason Start Date Expiration Date V isits Requested Visits Authorized [id number] Closed Auto-Generate d Referral 04/08/2022 05/08/2023 1 1 VÍCTOR [facility] (narrative)* Outpatient Procedure (Routine) - Pending Review Specialty Diagnoses / Procedures Referred By Vero arreguin Referred To Contact [facility] Diagnoses Encounter for contraceptive management, unspecified type Procedures NEXPLANON INSERTION ETONOGESTREL IMPLANT SYSTEM INSERT DRUG IMPLANT DEVICE Ara Damon APRN.ADZING AND BORING MACHINE HELPER [address] [place] [address] [facility] [address] [place] [address] Referral ID Status Reason Start Date Expiration Date Visits Requested Visits Authorized [id number] Pending Review Auto-Generat ed Referral 04/07/2024 1 1 [facility] for referral (narrative)* Diagnostic Procedure Only (Urgent) - Closed Specialty Diagnoses / Procedures Referred By Contac t Referred To Contact XR IMAGING Diagnoses Generalized abdominal pain Procedures XR ABDOMEN 1V SUPINE RADIOLOGIC EXAM ABDOMEN 1 VIEW Steve Pope APRN.ADZING AND BORING MACHINE HELPER [address] [place] [address] [place] [address] Referral ID Status Reason Start Date Expiration Date V isits Requested Visits Authorized [id number] Closed Auto-Generate d Referral 06/11/2023 07/10/2024 1 1 * Diagnostic Procedure Only (Urgent) - Closed Specialty Diagnoses / Procedures Referred By Contac t Referred To Contact XR IMAGING Diagnoses Generalized abdominal pain Procedures XR ABDOMEN 3V KUB W/OBLIQUES RADIOLOGIC EXAM ABDOMEN 3+ VIEWS Steve Pope APRN.ADZING AND BORING MACHINE HELPER [address] [place] [address] [place] [address] Referral ID Status Reason Start Date Expiration Date V isits Requested Visits Authorized [id number] Closed Auto-Generate d Referral 06/11/2023 07/10/2024 1 1 [facility] for referral (narrative)* Diagnostic Procedure Only (Urgent) - Closed Specialty Diagnoses / Procedures Referred By Contac t Referred To Contact XR IMAGING Diagnoses Generalized abdominal pain Procedures XR ABDOMEN 1V SUPINE RADIOLOGIC EXAM ABDOMEN 1 VIEW Steve Pope APRN.ADZING AND BORING MACHINE HELPER [address] [place] [address] [place] [address] Referral ID Status Reason Start Date Expiration Date V isits Requested Visits Authorized [id number] Closed Auto-Generate d Referral 06/11/2023 07/10/2024 1 1 [facility] for referral (narrative)* Diagnostic Procedure Only (Urgent) - Closed Specialty Diagnoses / Procedures Referred By Contac t Referred To Contact XR IMAGING Diagnoses Injury of right hand, initial encounter Procedures XR HAND GENERAL 3V PA/LAT/OBL RT X-RAY HAND MINIMUM 3 VIEWS Steve Pope APRN.ADZING AND BORING MACHINE HELPER [address] [place] [address] [place] [address] Referral ID Status Reason Start Date Expiration Date V isits Requested Visits Authorized [id number] Closed Auto-Generate d Referral 02/07/2021 03/09/2022 1 1 [facility] for visit Narrative* Diagnostic Procedure Only (Urgent) - Closed Specialty Diagnoses / Procedures Referred By Contac t Referred To Contact XR IMAGING Diagnoses Generalized abdominal pain Procedures XR ABDOMEN 3V KUB W/OBLIQUES RADIOLOGIC EXAM ABDOMEN 3+ VIEWS Steve Pope APRN.ADZING AND BORING MACHINE HELPER [address] [place] [address] [place] [address] Referral ID Status Reason Start Date Expiration Date V isits Requested Visits Authorized [id number] Closed Auto-Generate d Referral 06/11/2023 07/10/2024 1 1 [facility] for visit Narrative* Diagnostic Procedure Only (Urgent) - Closed Specialty Diagnoses / Procedures Referred By Contac t Referred To Contact XR IMAGING Diagnoses Rib pain on right side Procedures XR RIBS/CHEST 3V AP RIB/OBLS/CXR RIGHT RADEX RIBS UNI W/POSTEROANT CH MINIMUM 3 VIEWS Sahil Ching ORDER TRACER.ADZING AND BORING MACHINE HELPER [address] [place] [address] [place] [address] Referral ID Status Reason Start Date Expiration Date V isits Requested Visits Authorized [id number] Closed Auto-Generate d Referral 04/08/2022 05/08/2023 1 1 [facility] for visit Narrative* Diagnostic Procedure Only (Urgent) - Closed Specialty Diagnoses / Procedures Referred By Contac t Referred To Contact XR IMAGING Diagnoses Injury of right hand, initial encounter Procedures XR HAND GENERAL 3V PA/LAT/OBL RT X-RAY HAND MINIMUM 3 VIEWS Steve Pope, DANIEL.ADZING AND BORING MACHINE HELPER [address] [place] [address] [place] [address] Referral ID Status Reason Start Date Expiration Date V isits Requested Visits Authorized [id number] Closed Auto-Generate d Referral 02/07/2021 03/09/2022 1 1 [facility] note* MARY LOU Paz: PERFORM Event Display: Patient Summary Documents Authored Date: [id number] [facility] Summary Purpose Family History No Family History Records FoundNo Family History Records Found No data available for this section No data available for this section No Family History Records FoundNo Family History Records FoundNo Family History Records Found Advance Directives No Advanced Directives Records FoundDocuments on File Type Date Recorded 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 Advance Directive(s) Advance Directive Response Recorded Date/ Time Living Will No April 19 12:18am Power of Pit Furnace Melter No April 19, 2023 12:18am Health Concerns [...] dysfunction, right Procedures CONSULT TO ENT OFFICE/OUTPATIENT [facility] MDM 60-74 MINUTES Gladis Rogers PA-C [address] [place] [address] Referral ID Status Reason Start Date Expiration Date Visits Requested Visits Authorized [id number] Authorized PCP Requested Referral 06/20/2022 06/20/2023 1 1 Specialty Diagnoses / Procedures Referred By Vero arreguin Referred To Contact Ent - Otolaryngology Diagnoses Otalgia, bilateral Procedures CONSULT TO ENT OFFICE/OUTPATIENT NEW HIGH MDM 60-74 MINUTES Beatriz Ozuna APRN.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 [place] [address] Referral ID Status Reason Start Date Expiration Date Visits Requested Visits Authorized [id number] Authorized PCP Requested Referral 02/10/2023 02/10/2024 1 1 Additional Source Comments INFORMATION SOURCE (unrecogn ized section and content) DATE CREATED AUTHOR 04/18/2018 [facility] DATE CREATED AUTHOR AUTHOR'S ORGANIZ ATION 12/23/2020 [facility] ([place]) DATE CREATED AUTHOR AUTHOR'S ORGANIZ ATION 07/11/2024 [facility] DATE CREATED AUTHOR AUTHOR'S ORGANIZ ATION 03/07/2025 [facility] DATE CREATED AUTHOR AUTHOR'S ORGANIZ ATION 03/08/2025 [facility] Source Comments (unrecognize d section and content) In the event this informatio n is protected by the Federal Confidentiality of Alcohol and Drug Abuse Patient Records regulations: The Federal rules restrict any use of the information to criminally investigate or prosecute any alcohol or drug abuse patient.[facility] HospitalIn the event this information is protected by the Federal Confidentiality of Alcohol and Drug Abuse Patient Records regulations: The Federal rules restrict any use of the information to criminally investigate or prosecute any alcohol or drug abuse patient.[facility] HospitalIn the event this information is protected by the Federal Confidentiality of Alcohol and Drug Abuse Patient Records regulations: The Federal rules restrict any use of the information to criminally investigate or prosecute any alcohol or drug abuse patient.[facility] HospitalIn the event this information is protected by the Federal Confidentiality of Alcohol and Drug Abuse Patient Records regulations: The Federal rules restrict any use of the information to criminally investigate or prosecute any alcohol or drug abuse patient.[facility] HospitalIn the event this information is protected by the Federal Confidentiality of Alcohol and Drug Abuse Patient Records regulations: The Federal rules restrict any use of the information to criminally investigate or prosecute any alcohol or drug abuse patient.[facility] HospitalIn the event this information is protected by the Federal Confidentiality of Alcohol and Drug Abuse Patient Records regulations: The Federal rules restrict any use of the information to criminally investigate or prosecute any alcohol or drug abuse patient.[facility] HospitalIn the event this information is protected by the Federal Confidentiality of Alcohol and Drug Abuse Patient Records regulations: The Federal rules restrict any use of the information to criminally investigate or prosecute any alcohol or drug abuse patient.[facility] HospitalIn the event this information is protected by the Federal Confidentiality of Alcohol and Drug Abuse Patient Records regulations: The Federal rules restrict any use of the information to criminally investigate or prosecute any alcohol or drug abuse patient.[facility] HospitalIn the event this information is protected by the Federal Confidentiality of Alcohol and Drug Abuse Patient Records regulations: The Federal rules restrict any use of the information to criminally investigate or prosecute any alcohol or drug abuse patient.[facility] HospitalIn the event this information is protected by the Federal Confidentiality of Alcohol and Drug Abuse Patient Records regulations: The Federal rules restrict any use of the information to criminally investigate or prosecute any alcohol or drug abuse patient.[facility] HospitalIn the event this information is protected by the Federal Confidentiality of Alcohol and Drug Abuse Patient Records regulations: The Federal rules restrict any use of the information to criminally investigate or prosecute any alcohol or drug abuse patient.[facility] HospitalIn the event this information is protected by the Federal Confidentiality of Alcohol and Drug Abuse Patient Records regulations: The Federal rules restrict any use of the information to criminally investigate or prosecute any alcohol or drug abuse patient.[facility] HospitalIn the event this information is protected by the Federal Confidentiality of Alcohol and Drug Abuse Patient Records regulations: The Federal rules restrict any use of the information to criminally investigate or prosecute any alcohol or drug abuse patient.[facility] HospitalIn the event this information is protected by the Federal Confidentiality of Alcohol and Drug Abuse Patient Records regulations: The Federal rules restrict any use of the information to criminally investigate or prosecute any alcohol or drug abuse patient.[facility] HospitalIn the event this information is protected by the Federal Confidentiality of Alcohol and Drug Abuse Patient Records regulations: The Federal rules restrict any use of the information to criminally investigate or prosecute any alcohol or drug abuse patient.[facility] HospitalIn the event this information is protected by the Federal Confidentiality of Alcohol and Drug Abuse Patient Records regulations: The Federal rules restrict any use of the information to criminally investigate or prosecute any alcohol or drug abuse patient.[facility] HospitalIn the event this information is protected by the Federal Confidentiality of Alcohol and Drug Abuse Patient Records regulations: The Federal rules restrict any use of the information to criminally investigate or prosecute any alcohol or drug abuse patient.[facility] HospitalIn the event this information is protected by the Federal Confidentiality of Alcohol and Drug Abuse Patient Records regulations: The Federal rules restrict any use of the information to criminally investigate or prosecute any alcohol or drug abuse patient.[facility] HospitalIn the event this information is protected by the Federal Confidentiality of Alcohol and Drug Abuse Patient Records regulations: The Federal rules restrict any use of the information to criminally investigate or prosecute any alcohol or drug abuse patient.[facility] HospitalIn the event this information is protected by the Federal Confidentiality of Alcohol and Drug Abuse Patient Records regulations: The Federal rules restrict any use of the information to criminally investigate or prosecute any alcohol or drug abuse patient.[facility] HospitalIn the event this information is protected by the Federal Confidentiality of Alcohol and Drug Abuse Patient Records regulations: The Federal rules restrict any use of the information to criminally investigate or prosecute any alcohol or drug abuse patient.[facility] HospitalIn the event this information is protected by the Federal Confidentiality of Alcohol and Drug Abuse Patient Records regulations: The Federal rules restrict any use of the information to criminally investigate or prosecute any alcohol or drug abuse patient.[facility] HospitalIn the event this information is protected by the Federal Confidentiality of Alcohol and Drug Abuse Patient Records regulations: The Federal rules restrict any use of the information to criminally investigate or prosecute any alcohol or drug abuse patient.[facility] HospitalIn the event this information is protected by the Federal Confidentiality of Alcohol and Drug Abuse Patient Records regulations: The Federal rules restrict any use of the information to criminally investigate or prosecute any alcohol or drug abuse patient.[facility] HospitalIn the event this information is protected by the Federal Confidentiality of Alcohol and Drug Abuse Patient Records regulations: The Federal rules restrict any use of the information to criminally investigate or prosecute any alcohol or drug abuse patient.[facility] HospitalIn the event this information is protected by the Federal Confidentiality of Alcohol and Drug Abuse Patient Records regulations: The Federal rules restrict any use of the information to criminally investigate or prosecute any alcohol or drug abuse patient.[facility] HospitalIn the event this information is protected by the Federal Confidentiality of Alcohol and Drug Abuse Patient Records regulations: The Federal rules restrict any use of the information to criminally investigate or prosecute any alcohol or drug abuse patient.[facility] HospitalIn the event this information is protected by the Federal Confidentiality of Alcohol and Drug Abuse Patient Records regulations: The Federal rules restrict any use of the information to criminally investigate or prosecute any alcohol or drug abuse patient.[facility] HospitalIn the event this information is protected by the Federal Confidentiality of Alcohol and Drug Abuse Patient Records regulations: The Federal rules restrict any use of the information to criminally investigate or prosecute any alcohol or drug abuse patient.[facility] HospitalIn the event this information is protected by the Federal Confidentiality of Alcohol and Drug Abuse Patient Records regulations: The Federal rules restrict any use of the information to criminally investigate or prosecute any alcohol or drug abuse patient.[facility] HospitalIn the event this information is protected by the Federal Confidentiality of Alcohol and Drug Abuse Patient Records regulations: The Federal rules restrict any use of the information to criminally investigate or prosecute any alcohol or drug abuse patient.[facility] HospitalIn the event this information is protected by the Federal Confidentiality of Alcohol and Drug Abuse Patient Records regulations: The Federal rules restrict any use of the information to criminally investigate or prosecute any alcohol or drug abuse patient.[facility] HospitalIn the event this information is protected by the Federal Confidentiality of Alcohol and Drug Abuse Patient Records regulations: The Federal rules restrict any use of the information to criminally investigate or prosecute any alcohol or drug abuse patient.[facility] HospitalIn the event this information is protected by the Federal Confidentiality of Alcohol and Drug Abuse Patient Records regulations: The Federal rules restrict any use of the information to criminally investigate or prosecute any alcohol or drug abuse patient.[facility] HospitalIn the event this information is protected by the Federal Confidentiality of Alcohol and Drug Abuse Patient Records regulations: The Federal rules restrict any use of the information to criminally investigate or prosecute any alcohol or drug abuse patient.[facility] HospitalIn the event this information is protected by the Federal Confidentiality of Alcohol and Drug Abuse Patient Records regulations: The Federal rules restrict any use of the information to criminally investigate or prosecute any alcohol or drug abuse patient.[facility] HospitalIn the event this information is protected by the Federal Confidentiality of Alcohol and Drug Abuse Patient Records regulations: The Federal rules restrict any use of the information to criminally investigate or prosecute any alcohol or drug abuse patient.[facility] HospitalIn the event this information is protected by the Federal Confidentiality of Alcohol and Drug Abuse Patient Records regulations: The Federal rules restrict any use of the information to criminally investigate or prosecute any alcohol or drug abuse patient.[facility] HospitalIn the event this information is protected by the Federal Confidentiality of Alcohol and Drug Abuse Patient Records regulations: The Federal rules restrict any use of the information to criminally investigate or prosecute any alcohol or drug abuse patient.[facility] HospitalIn the event this information is protected by the Federal Confidentiality of Alcohol and Drug Abuse Patient Records regulations: The Federal rules restrict any use of the information to criminally investigate or prosecute any alcohol or drug abuse patient.[facility] HospitalIn the event this information is protected by the Federal Confidentiality of Alcohol and Drug Abuse Patient Records regulations: The Federal rules restrict any use of the information to criminally investigate or prosecute any alcohol or drug abuse patient.[facility] HospitalIn the event this information is protected by the Federal Confidentiality of Alcohol and Drug Abuse Patient Records regulations: The Federal rules restrict any use of the information to criminally investigate or prosecute any alcohol or drug abuse patient.[facility] HospitalIn the event this information is protected by the Federal Confidentiality of Alcohol and Drug Abuse Patient Records regulations: The Federal rules restrict any use of the information to criminally investigate or prosecute any alcohol or drug abuse patient.[facility] HospitalIn the event this information is protected by the Federal Confidentiality of Alcohol and Drug Abuse Patient Records regulations: The Federal rules restrict any use of the information to criminally investigate or prosecute any alcohol or drug abuse patient.[facility] HospitalIn the event this information is protected by the Federal Confidentiality of Alcohol and Drug Abuse Patient Records regulations: The Federal rules restrict any use of the information to criminally investigate or prosecute any alcohol or drug abuse patient.[facility] HospitalIn the event this information is protected by the Federal Confidentiality of Alcohol and Drug Abuse Patient Records regulations: The Federal rules restrict any use of the information to criminally investigate or prosecute any alcohol or drug abuse patient.[facility] HospitalIn the event this information is protected by the Federal Confidentiality of Alcohol and Drug Abuse Patient Records regulations: The Federal rules restrict any use of the information to criminally investigate or prosecute any alcohol or drug abuse patient.[facility] HospitalIn the event this information is protected by the Federal Confidentiality of Alcohol and Drug Abuse Patient Records regulations: The Federal rules restrict any use of the information to criminally investigate or prosecute any alcohol or drug abuse patient.[facility] HospitalIn the event this information is protected by the Federal Confidentiality of Alcohol and Drug Abuse Patient Records regulations: The Federal rules restrict any use of the information to criminally investigate or prosecute any alcohol or drug abuse patient.[facility] HospitalIn the event this information is protected by the Federal Confidentiality of Alcohol and Drug Abuse Patient Records regulations: The Federal rules restrict any use of the information to criminally investigate or prosecute any alcohol or drug abuse patient.[facility] HospitalIn the event this information is protected by the Federal Confidentiality of Alcohol and Drug Abuse Patient Records regulations: The Federal rules restrict any use of the information to criminally investigate or prosecute any alcohol or drug abuse patient.[facility] HospitalIn the event this information is protected by the Federal Confidentiality of Alcohol and Drug Abuse Patient Records regulations: The Federal rules restrict any use of the information to criminally investigate or prosecute any alcohol or drug abuse patient.[facility] HospitalIn the event this information is protected by the Federal Confidentiality of Alcohol and Drug Abuse Patient Records regulations: The Federal rules restrict any use of the information to criminally investigate or prosecute any alcohol or drug abuse patient.[facility] HospitalIn the event this information is protected by the Federal Confidentiality of Alcohol and Drug Abuse Patient Records regulations: The Federal rules restrict any use of the information to criminally investigate or prosecute any alcohol or drug abuse patient.[facility] HospitalIn the event this information is protected by the Federal Confidentiality of Alcohol and Drug Abuse Patient Records regulations: The Federal rules restrict any use of the information to criminally investigate or prosecute any alcohol or drug abuse patient.[facility] HospitalIn the event this information is protected by the Federal Confidentiality of Alcohol and Drug Abuse Patient Records regulations: The Federal rules restrict any use of the information to criminally investigate or prosecute any alcohol or drug abuse patient.[facility] HospitalIn the event this information is protected by the Federal Confidentiality of Alcohol and Drug Abuse Patient Records regulations: The Federal rules restrict any use of the information to criminally investigate or prosecute any alcohol or drug abuse patient.[facility] HospitalIn the event this information is protected by the Federal Confidentiality of Alcohol and Drug Abuse Patient Records regulations: The Federal rules restrict any use of the information to criminally investigate or prosecute any alcohol or drug abuse patient.[facility] HospitalIn the event this information is protected by the Federal Confidentiality of Alcohol and Drug Abuse Patient Records regulations: The Federal rules restrict any use of the information to criminally investigate or prosecute any alcohol or drug abuse patient.[facility] HospitalIn the event this information is protected by the Federal Confidentiality of Alcohol and Drug Abuse Patient Records regulations: The Federal rules restrict any use of the information to criminally investigate or prosecute any alcohol or drug abuse patient.[facility] HospitalIn the event this information is protected by the Federal Confidentiality of Alcohol and Drug Abuse Patient Records regulations: The Federal rules restrict any use of the information to criminally investigate or prosecute any alcohol or drug abuse patient.[facility] HospitalIn the event this information is protected by the Federal Confidentiality of Alcohol and Drug Abuse Patient Records regulations: The Federal rules restrict any use of the information to criminally investigate or prosecute any alcohol or drug abuse patient.[facility] HospitalIn the event this information is protected by the Federal Confidentiality of Alcohol and Drug Abuse Patient Records regulations: The Federal rules restrict any use of the information to criminally investigate or prosecute any alcohol or drug abuse patient.[facility] HospitalIn the event this information is protected by the Federal Confidentiality of Alcohol and Drug Abuse Patient Records regulations: The Federal rules restrict any use of the information to criminally investigate or prosecute any alcohol or drug abuse patient.[facility] HospitalIn the event this information is protected by the Federal Confidentiality of Alcohol and Drug Abuse Patient Records regulations: The Federal rules restrict any use of the information to criminally investigate or prosecute any alcohol or drug abuse patient.[facility] HospitalIn the event this information is protected by the Federal Confidentiality of Alcohol and Drug Abuse Patient Records regulations: The Federal rules restrict any use of the information to criminally investigate or prosecute any alcohol or drug abuse patient.[facility] HospitalIn the event this information is protected by the Federal Confidentiality of Alcohol and Drug Abuse Patient Records regulations: The Federal rules restrict any use of the information to criminally investigate or prosecute any alcohol or drug abuse patient.[facility] HospitalIn the event this information is protected by the Federal Confidentiality of Alcohol and Drug Abuse Patient Records regulations: The Federal rules restrict any use of the information to criminally investigate or prosecute any alcohol or drug abuse patient.[facility] HospitalIn the event this information is protected by the Federal Confidentiality of Alcohol and Drug Abuse Patient Records regulations: The Federal rules restrict any use of the information to criminally investigate or prosecute any alcohol or drug abuse patient.[facility] HospitalIn the event this information is protected by the Federal Confidentiality of Alcohol and Drug Abuse Patient Records regulations: The Federal rules restrict any use of the information to criminally investigate or prosecute any alcohol or drug abuse patient.[facility] HospitalIn the event this information is protected by the Federal Confidentiality of Alcohol and Drug Abuse Patient Records regulations: The Federal rules restrict any use of the information to criminally investigate or prosecute any alcohol or drug abuse patient.[facility] HospitalIn the event this information is protected by the Federal Confidentiality of Alcohol and Drug Abuse Patient Records regulations: The Federal rules restrict any use of the information to criminally investigate or prosecute any alcohol or drug abuse patient.[facility] HospitalIn the event this information is protected by the Federal Confidentiality of Alcohol and Drug Abuse Patient Records regulations: The Federal rules restrict any use of the information to criminally investigate or prosecute any alcohol or drug abuse patient.[facility] HospitalIn the event this information is protected by the Federal Confidentiality of Alcohol and Drug Abuse Patient Records regulations: The Federal rules restrict any use of the information to criminally investigate or prosecute any alcohol or drug abuse patient.[facility] HospitalIn the event this information is protected by the Federal Confidentiality of Alcohol and Drug Abuse Patient Records regulations: The Federal rules restrict any use of the information to criminally investigate or prosecute any alcohol or drug abuse patient.[facility] HospitalIn the event this information is protected by the Federal Confidentiality of Alcohol and Drug Abuse Patient Records regulations: The Federal rules restrict any use of the information to criminally investigate or prosecute any alcohol or drug abuse patient.[facility] HospitalIn the event this information is protected by the Federal Confidentiality of Alcohol and Drug Abuse Patient Records regulations: The Federal rules restrict any use of the information to criminally investigate or prosecute any alcohol or drug abuse patient.[facility] HospitalIn the event this information is protected by the Federal Confidentiality of Alcohol and Drug Abuse Patient Records regulations: The Federal rules restrict any use of the information to criminally investigate or prosecute any alcohol or drug abuse patient.[facility] HospitalIn the event this information is protected by the Federal Confidentiality of Alcohol and Drug Abuse Patient Records regulations: The Federal rules restrict any use of the information to criminally investigate or prosecute any alcohol or drug abuse patient.[facility] HospitalIn the event this information is protected by the Federal Confidentiality of Alcohol and Drug Abuse Patient Records regulations: The Federal rules restrict any use of the information to criminally investigate or prosecute any alcohol or drug abuse patient.[facility] HospitalIn the event this information is protected by the Federal Confidentiality of Alcohol and Drug Abuse Patient Records regulations: The Federal rules restrict any use of the information to criminally investigate or prosecute any alcohol or drug abuse patient.[facility] HospitalIn the event this information is protected by the Federal Confidentiality of Alcohol and Drug Abuse Patient Records regulations: The Federal rules restrict any use of the information to criminally investigate or prosecute any alcohol or drug abuse patient.[facility] Reason for Visit (unrecogniz ed section and content) Reason Comments Well Child Specialty Diagnoses / Procedures Referred By Contac t Referred To Contact Pediatrics / [facility] Diagnoses well visit and med check Procedures 4C EST WELL Uvaldo Jorgensen MD [address] [place] [address] Uvaldo Jorgensen MD [address] [place] [address] Referral ID Status Reason Start Date Expiration Date V isits Requested Visits Authorized [id number] Pending Review 01/02/2023 04/02/2023 1 1 Reason [...] Reason Comments Cough Pt presented with pa rent, reported [facility] visit, x5 days nasal congestion, [...] Reason Comments Cough Pt presented with pa rent, reported nasal congestion x7 days. Specialty Diagnoses / Procedures Referred By Vero arreguin Referred To Contact [facility] Diagnoses congestion,cough since thursday. lots of drainage Procedures EST SAME DAY Self Express [facility] [address] [place] [address] Referral ID Status Reason Start Date Expiration Date Visits Requested Visits Authorized [id number] Pending Review Financial Clearance Required - Self Pay 08/17/2022 11/15/2022 1 1 Reason Comments Chest Congestion Pt presented with yoselyn brandt, reported SOB, Duenas x3 wks. Reason Onset Date Comments Refill Request 08/21/2022 Reason Onset Date Comments Refill Request 12/17/2022 Reason Onset Date Comments Medication Problem 01/05/2023 Reason Comments Medication Problem Reason Comments Medication Question Reason Comments Ear Pain Bilat ear pain x thu th states intermittent and worse each time [...] Care Teams (unrecognized sec tion and content) Sheet Rocker Relationship Specialty Start Date End Date Uvaldo Jorgensen MD [address] [place], [place] [id number] PCP - General 05 Sheet Rocker Relationship Specialty Start Date End Date Uvaldo Jorgensen MD [address] [place] [address] PCP - General 05 Sheet Rocker Relationship Specialty Start Date End Date Uvaldo Jorgensen MD [address] [place] [address] PCP - General 05 Sheet Rocker Relationship Specialty Start Date End Date Uvaldo Jorgensen MD [address] [place] [address], [place] [address] PCP - General 05 Sheet Rocker Relationship Specialty Start Date End Date Uvaldo Jorgensen MD [address] [place] [address], [place] [address] PCP - General 05 Sheet Rocker Relationship Specialty Start Date End Date Uvaldo Jorgensen MD [address] [place] [address], [place] [address] PCP - General 05 Sheet Rocker Relationship Specialty Start Date End Date Uvaldo Jorgensen MD [address] [place] [address], [place] [address] PCP - General 05 Sheet Rocker Relationship Specialty Start Date End Date Uvaldo Jorgensen MD [address] [place] [address], [place] [address] PCP - General 05 Sheet Rocker Relationship Specialty Start Date End Date Uvaldo Jorgensen MD [address] [place] [address], [place] [address] PCP - General 05 Sheet Rocker Relationship Specialty Start Date End Date Uvaldo Jorgensen MD [address] [place] [address], [place] [address] PCP - General 05 Sheet Rocker Relationship Specialty Start Date End Date Uvaldo Jorgensen MD [address] [place] [address], [place] [address] PCP - General 05 Sheet Rocker Relationship Specialty Start Date End Date Uvaldo Jorgensen MD [address] [place] [address], [place] [address] PCP - General 05 Sheet Rocker Relationship Specialty Start Date End Date Uvaldo Jorgensen MD [address] [facility] [place] [address] PCP - General 05 Sheet Rocker Relationship Specialty Start Date End Date Uvaldo Jorgensen MD [address] [facility] [facility] [facility] [place] [address] PCP - General 05 Sheet Rocker Relationship Specialty Start Date End Date Uvaldo Jorgensen MD [address] [facility] [place] [address] PCP - General 05 Sheet Rocker Relationship Specialty Start Date End Date Uvaldo Jorgensen MD [address] [facility] [place] [address] PCP - General 05 Sheet Rocker Relationship Specialty Start Date End Date Uvaldo Jorgensen MD [address] [facility] [place] [address] PCP - General 05 Sheet Rocker Relationship Specialty Start Date End Date Uvaldo Jorgensen MD [address] [facility] [place] [address] PCP - General 05 Sheet Rocker Relationship Specialty Start Date End Date Uvaldo Jorgensen MD [address] [facility] [place] [address] PCP - General 05 Sheet Rocker Relationship Specialty Start Date End Date Uvaldo Jorgensen MD [address] [facility] [place] [address] PCP - General 05 Team Status: Active Member Role Status Dates Dr. Uvaldo Jorgensen MD Family Provider Active Dr. Uvaldo Jorgensen MD Primary Care Provider Active Team Status: Inactive Member Role Status Dates Dr. Uvaldo Jorgensen MD Primary Care Provider Active Dr. Christal Gutierrez MD Emergency Provider Active Sheet Rocker Relationship Specialty Start Date End Date Uvaldo Jorgensen MD [address] [place] [address] PCP - General 05 Sheet Rocker Relationship Specialty Start Date End Date Uvaldo Jorgensen MD [address] [place] [address] PCP - General 05 Sheet Rocker Relationship Specialty Start Date End Date Uvaldo Jorgensen MD [address] [place] [address] PCP - General 05 Sheet Rocker Relationship Specialty Start Date End Date Uvaldo Jorgensen MD [address] [place] [address] PCP - General 05 Sheet Rocker Relationship Specialty Start Date End Date Uvaldo Jorgensen MD [address] [place] [address] PCP - General 05 Sheet Rocker Relationship Specialty Start Date End Date Uvaldo Jorgensen MD [address] [place] [address] PCP - General 05 Sheet Rocker Relationship Specialty Start Date End Date Uvaldo Jorgensen MD [address] [place] [address] PCP - General 05 Sheet Rocker Relationship Specialty Start Date End Date Uvaldo Jorgensen MD [address] [place] [address] PCP - General 05 Sheet Rocker Relationship Specialty Start Date End Date Uvaldo Jorgensen MD [address] [place], [place] [address] PCP - General 05 Team Status: Inactive Member Role Status Dates Dr. Uvaldo Jorgensen MD Primary Care Provider, Referring Provider Active Francisco Javier Calle PA, PA Attending Provider Active Team Status: Inactive Member Role Status Dates Dr. Uvaldo Jorgensen MD Primary Care Provider, Referring Provider Active Ranjan TOPETE, PA Attending Provider Active Team Status: Inactive Member Role Status Dates Dr. Uvaldo Jorgensen MD Primary Care Provider Active Dr. James Gomez DO Emergency Provider Active Sheet Rocker Relationship Specialty Start Date End Date Uvaldo Jorgensen MD [address] [place] [address] PCP - General 05 Sheet Rocker Relationship Specialty Start Date End Date Uvaldo Jorgensen MD [address] [place] [address] PCP - General 05 Sheet Rocker Relationship Specialty Start Date End Date Uvaldo Jorgensen MD [address] [place] [address] PCP - General 05 Sheet Rocker Relationship Specialty Start Date End Date Uvaldo Jorgensen MD [address] [place] [address] PCP - General 05 Sheet Rocker Relationship Specialty Start Date End Date Uvaldo Jorgensen MD [address] [place] [address] PCP - General 05 Sheet Rocker Relationship Specialty Start Date End Date Uvaldo Jorgensen MD [address] [place] [address] PCP - General 05 Sheet Rocker Relationship Specialty Start Date End Date Uvaldo Jorgensen MD [address] [place] [address] PCP - General 05 Sheet Rocker Relationship Specialty Start Date End Date Uvaldo Jorgensen MD [address] [place] [address] PCP - General 05 Sheet Rocker Relationship Specialty Start Date End Date Uvaldo Jorgensen MD [address] [place] [address] PCP - General 05 Sheet Rocker Relationship Specialty Start Date End Date Uvaldo Jorgensen MD [address] [place] [address] PCP - General 05 Sheet Rocker Relationship Specialty Start Date End Date Uvaldo Jorgensen MD [address] [place] [address] PCP - General 05 Sheet Rocker Relationship Specialty Start Date End Date Uvaldo Jorgensen MD [address] [place] [address] PCP - General 05 Sheet Rocker Relationship Specialty Start Date End Date Uvaldo Jorgensen MD [address] [place] [address] PCP - General 05 Sheet Rocker Relationship Specialty Start Date End Date Uvaldo Jorgensen MD [address] [place] [address] PCP - General 05 Sheet Rocker Relationship Specialty Start Date End Date Uvaldo Jorgensen MD [address] [facility] [place] [address] PCP - General 05 Goals (unrecognized section [...] BE BASED ON THE PRIMARY CLINICAL RECORDS. [employer] [facility]. provides no warranty or guarantee of the accuracy or completeness of information in this document.
[2025-03-27 01:14] VITALS: BP 108/67; PULSE 109; RESP 18; TEMP 36.7; O2SAT 100
== END 2025-03-27 01:15 | disposition home or self-care (01) ==
PROVIDERS: Emergency Provider Emergency Medicine; PCP Pediatrics; Visit Provider Emergency Medicine
DX: J45.901 Unspecified asthma with (acute) exacerbation (principal); J06.9 Acute upper respiratory infection, unspecified; Z79.51 Long term (current) use of inhaled steroids
CPT/HCPCS: 94640; 99282